=== PATIENT | male | born 1975 | race Caucasian/White ===

== ENCOUNTER 2017-01-01 05:42 | Inpatient (IN) ==
--- NOTE | 2017-01-01 05:53 | Emergency Department Note ---
Disposition Clinical Impression: Suicidal ideation Disposition: Still a Patient Condition: Undetermined Referrals: NO,PCP [Primary Care Provider] - Forms: ED Satisfaction Letter Time of Disposition: 06:26 Psych HPI - General Chief Complaint: ED Psychiatric Symptoms Stated Complaint: Suicidal Ideations Time Seen by Provider: 01/01/17 05:47 Source: patient, EMS Mode of arrival: EMS Limitations: no limitations Nursing Notes Reviewed: Yes Vital Signs Reviewed: Yes - History of Present Illness HPI Narrative: 41-year-old male with history of depression and previous suicide attempt, arrives to [facility] emergency department complaining of depression and suicide ideation. The patient states he has recently been kicked out of his house, recently out of all of his medications include including his insulin for his insulin-dependent diabetes. The patient states that he actually used cocaine today because he was so depressed. The patient will not admit directly if this was not a suicide attempt but when asked he did not deny it. The patient states he is just trying to seek help at this time. Pt complaint: suicidal ideation, feels depressed Duration: constant, getting worse History of similar episodes: Yes Improves with: none Worsens with: none Context: recent drug abuse Alleged intoxication: No Associated Psychiatric Symptoms: depression, suicidal ideation Associated symptoms: Reports: denies other symptoms Traumatic symptoms: denies traumatic injury Treatments prior to arrival: none Self harm or harm to others: admits thoughts of self harm, denies thoughts of harming self/others - Related Data Home Medications Medication Instructions Recorded Confirmed Insulin DETEMIR [Levemir] 80 unit SQ HS 05/09/15 08/21/15 Insulin LISPRO [HumaLOG] 5 units SQ TIDWM 05/09/15 08/21/15 Lisinopril [Zestril] 20 mg PO BID 05/09/15 08/21/15 Buspirone HCl [Buspar] 15 mg PO TID 08/21/15 08/21/15 Gabapentin [Neurontin] 300 mg PO TID 08/21/15 08/21/15 OxyCODONE/APAP 5/325 [Percocet 1 tab PO Q8H PRN 08/21/15 08/21/15 5/325] Pramipexole [Mirapex] 1 mg PO HS 08/21/15 08/21/15 Previous Rx's Medication Instructions Recorded Escitalopram [Lexapro] 10 mg PO DAILY #60 tablet 05/13/15 Quetiapine Fumarate [Seroquel] 25 mg PO BID #60 tablet 05/13/15 Oxycodone HCl/Acetaminophen 1 each PO Q6H PRN #15 tablet 01/05/16 [Percocet 5-325 mg Tablet] Enoxaparin [Lovenox] 40 mg SQ 0600 syringe 01/23/16 Morphine [Morphine Sulfate] 2 mg IV Q4HR PRN #0 syringe 01/23/16 Clindamycin [Cleocin] 150 mg PO BID 14 Days 01/31/16 Levofloxacin [Levaquin] 750 mg PO BID #20 tablet 01/31/16 Doxycycline 100 mg PO BID #20 capsule 03/21/16 Oxycodone HCl/Acetaminophen 1 each PO Q6HR #10 tablet 04/19/16 [Percocet 5-325 mg Tablet] Sulfamethoxazole/Trimeth DS 1 each PO BID 7 Days 04/19/16 [Bactrim DS] OxyCODONE/APAP 5/325 [Percocet 1 each PO Q6HR PRN #10 tablet 06/04/16 5/325] Allergies Allergy/AdvReac Type Severity Reaction Status Date / Time aspirin Allergy Anaphylaxis Verified 06/12/16 21:31 hydrocodone Allergy Anaphylaxis Verified 06/12/16 21:31 ibuprofen Allergy Anaphylaxis Verified 06/12/16 21:31 Penicillins Allergy Anaphylaxis Verified 06/12/16 21:31 rofecoxib [From Vioxx] Allergy Swelling Verified 06/12/16 21:31 of Lip/Tongue/Throat All systems ED: reviewed and negative except as stated. Constitutional: Denies: fever, chills, weakness, weight change Eyes: Denies: eye pain, eye discharge, vision change ENT ED: Denies: ear pain, throat pain, dental pain, hearing loss, epistaxis, congestion, dysphagia Cardiovascular: Denies: chest pain, palpitations, dyspnea on exertion, edema, syncope Respiratory: Denies: cough, dyspnea, wheezes, hemoptysis, stridor Gastrointestinal: Denies: abdominal pain, nausea, vomiting, diarrhea, constipation, hematemesis, melena, hematochezia Genitourinary: Denies: urgency, dysuria, frequency, hematuria Musculoskeletal: Denies: back pain, neck pain, arthralgia, myalgia Integumentary: Denies: rash, abrasion, lesions Neurological: Denies: headache, weakness, numbness, paresthesias, confusion, abnormal gait, vertigo Psychiatric: Reports: anxiety, depression, suicidal thoughts. Denies: homicidal thoughts, auditory hallucinations, visual hallucinations Past Medical History - Past Medical History Attestation: Yes The following information was validated with the patient. Source: patient Medical history: Reports: cancer, CHF, COPD, coronary artery disease, diabetes, hyperlipidemia, hypertension, myocardial infarction, peripheral artery disease, syncope, other Surgical history: Reports: other Psychiatric history: Reports: anxiety, bipolar, depression, previous psychiatric hospitalization - Social History Smoking Status: Current every day smoker Smokeless Tobacco Status: No Alcohol use: Reports: none Drug use: Reports: cocaine Physical Exam Physical Exam: General: Patient alert, no acute distress, not lethargic HEENT: Head normal inspection, atraumatic, PERRLA, oropharynx grossly intact and normal, trachea midline, no JVD Chest: Nontraumatic, nontender, normal chest rise CV: RRR with no murmurs, rubs, gallops Respiratory: Lungs clear to auscultation bilaterally, no rales, rhonchi, wheezes. Abdomen: Normal inspection, Normal bowel sounds 4 quadrants, nontender to palpation : Patient deferred Extremities: Patient has BKA of right lower extremity, mid metatarsal amputation and left foot, appropriate pulses, capillary refill under 2 seconds Neurological: Patient alert and oriented 3, cranial nerves II through XII grossly intact, GCS 15 Skin: Warm, intact, no rashes noted - General Limitations: no limitations General appearance: alert Course Vital Signs Temperature 98.7 F 01/01/17 05:44 Pulse Rate 91 01/01/17 05:44 Respiratory Rate 18 01/01/17 05:44 Blood Pressure 170/109 01/01/17 05:44 O2 Sat by Pulse Oximetry 94 01/01/17 05:44 Temperature 98.7 F 01/01/17 05:44 Pulse Rate 91 01/01/17 05:44 Respiratory Rate 18 01/01/17 05:44 Blood Pressure 170/109 01/01/17 05:44 O2 Sat by Pulse Oximetry 94 01/01/17 05:44 Oxygen Delivery Oxygen Delivery Room Air Psych - MDM Narrative Medical decision making narrative: Workup here in the emergency department being performed. The patient will be signed out to the day team. EKG demonstrates no acute findings. Chest x-ray demonstrates no acute findings. Lab work pending at this time. - EKG Data EKG attestation: Yes I reviewed and interpreted this EKG. EKG results narrative: Rate 88 bpm. IL interval 140 ms. QTC 396 ms. Normal axis. Normal sinus rhythm. No ST elevation or ST depression noted. No acute changes noted from EKG from 06/12/2016. Psychiatric Medical Clearance - Medical Clearance Checklist Medical History: No Social History Section defined Current Vitals: Last Vital Signs Temp 98.7 F 01/01/17 05:44 Pulse 91 01/01/17 05:44 Resp 18 01/01/17 05:44 BP 170/109 01/01/17 05:44 Pulse Ox 94 01/01/17 05:44 Statement of Medical Clearance: I have evaluated the patient, reviewed diagnostic information, and certify that the patient's medical condition is sufficiently stable that transfer to the psychiatric unit does not pose a significant risk of deterioration. Attestation Statement - Attestation Attestation: I examined this patient and my medical decision-making was reviewed with the SECURITIES VAULT SUPERVISOR/PA/Advanced Practice Nurse/Resident Physician. I agree with the documented findings, disposition and treatment plan as described except to the extent set forth below. Patient to ED with depression and suicidal thoughts secondary to situational issues. Exam nonfocal. He is status post foot amputation. Plan. Medical clearance and 1A evaluation.
[2017-01-01 06:48] LABS: Basophils # 0.1 K/mcL (0.0-0.2); Basophils % 0.9 %; Eosinophils # 0.2 K/mcL (0.0-0.6); Eosinophils % 2.1 %; Hematocrit 46.5 % (37.5-50.1); Hemoglobin 15.5 g/dL (12.9-16.9); Immature Granulocytes % 0.3 % (0-4); Lymphocytes # 3.5 K/mcL (0.6-4.6); Mean Corpuscular HGB Conc 33.3 g/dL (31.6-35.5); Mean Corpuscular Hemoglobin 28.2 pg (28.0-33.3); Mean Corpuscular Volume 84.7 fL (83.0-100.0); Mean Platelet Volume 10.5 fL (9.4-12.4); Monocytes # 0.5 K/mcL (0.0-1.3); Monocytes % 4.7 %; Neutrophils # 7.2 K/mcL (1.6-8.9); Platelet Count 331 K/mcL (140-400); Red Blood Count 5.49 M/mcL (4.19-5.50); Red Cell Distribution Width 13.8 % (11.5-14.5)
[2017-01-01 06:49] LABS: Beta-Hydroxybutyric Acid 0.07 mmol/L (0.02-0.27); VBG HCO3 26.5 mEq/L (21-27); VBG PH 7.43 pH Units (7.32-7.42)
[2017-01-01 07:01] LABS: Alanine Aminotransferase 22 Units/L (0-55); Albumin 3.9 g/dL (3.5-5.0); Alkaline Phosphatase 86 Units/L (38-126); Aspartate Amino Transferase 21 Units/L (5-34); BUN/Creatinine Ratio 22 (6-26); Bilirubin,Total 0.4 mg/dL (0.2-1.2); Blood Urea Nitrogen 20 mg/dL (8-26); Calcium 9.9 mg/dL (8.6-10.8); Carbon Dioxide 18 mEq/L (19-29); Chloride 106 mEq/L (98-109); Globulin 4.1 g/dL (2.4-3.5); Glucose 145 mg/dL (70-99); Osmolality,Calculated 291 (280-300); Potassium 4.3 mEq/L (3.5-4.5); Sodium 138 mEq/L (136-145); eGFR For African Americans > 60 (> 60); eGFR For Non-African Americans > 60 (> 60)
[2017-01-01 07:11] LABS: Acetaminophen < 1.0 mcg/mL (10-30); Ethanol < 10 mg/dL (0-10); Salicylate < 5.0 mg/dL (15-30)
[2017-01-01 07:55] LABS: Amphetamine Screen,Urine Negative ng/mL (Cutoff=1000); Barbiturate Screen,Urine Negative ng/mL (Cutoff=200); Benzodiazepines Screen,Urine Negative ng/mL (Cutoff=200); Cannabinoid Screen,Urine Negative ng/mL (Cutoff = 50); Cocaine Screen,Urine Positive ng/mL (Cutoff= 300); Opiate Screen,Urine Negative ng/mL (Cutoff=300); Phencyclidine Screen,Urine Negative ng/mL (Cutoff=25)
--- NOTE | 2017-01-01 10:31 | Emergency Department Note ---
Disposition Clinical Impression: Suicidal ideation Depression Qualifiers: Depression Type: unspecified Qualified Code(s): F32.9 - Major depressive disorder, single episode, unspecified Disposition: Admitted As Inpatient Condition: Undetermined Referrals: NO,PCP [Primary Care Provider] - Forms: ED Satisfaction Letter Time of Disposition: 10:31 Psych HPI - General Chief Complaint: ED Psychiatric Symptoms Stated Complaint: Suicidal Ideations Time Seen by Provider: 01/01/17 05:47 Source: patient, EMS Mode of arrival: EMS - History of Present Illness Duration: constant, getting worse Improves with: none Worsens with: none Associated symptoms: Reports: denies other symptoms Treatments prior to arrival: none - Related Data Home Medications Medication Instructions Recorded Confirmed Insulin DETEMIR [Levemir] 80 unit SQ HS 05/09/15 08/21/15 Insulin LISPRO [HumaLOG] 5 units SQ TIDWM 05/09/15 08/21/15 Lisinopril [Zestril] 20 mg PO BID 05/09/15 08/21/15 Buspirone HCl [Buspar] 15 mg PO TID 08/21/15 08/21/15 Gabapentin [Neurontin] 300 mg PO TID 08/21/15 08/21/15 OxyCODONE/APAP 5/325 [Percocet 1 tab PO Q8H PRN 08/21/15 08/21/15 5/325] Pramipexole [Mirapex] 1 mg PO HS 08/21/15 08/21/15 Previous Rx's Medication Instructions Recorded Escitalopram [Lexapro] 10 mg PO DAILY #60 tablet 05/13/15 Quetiapine Fumarate [Seroquel] 25 mg PO BID #60 tablet 05/13/15 Oxycodone HCl/Acetaminophen 1 each PO Q6H PRN #15 tablet 01/05/16 [Percocet 5-325 mg Tablet] Enoxaparin [Lovenox] 40 mg SQ 0600 syringe 01/23/16 Morphine [Morphine Sulfate] 2 mg IV Q4HR PRN #0 syringe 01/23/16 Clindamycin [Cleocin] 150 mg PO BID 14 Days 01/31/16 Levofloxacin [Levaquin] 750 mg PO BID #20 tablet 01/31/16 Doxycycline 100 mg PO BID #20 capsule 03/21/16 Oxycodone HCl/Acetaminophen 1 each PO Q6HR #10 tablet 04/19/16 [Percocet 5-325 mg Tablet] Sulfamethoxazole/Trimeth DS 1 each PO BID 7 Days 04/19/16 [Bactrim DS] OxyCODONE/APAP 5/325 [Percocet 1 each PO Q6HR PRN #10 tablet 06/04/16 5/325] Allergies Allergy/AdvReac Type Severity Reaction Status Date / Time aspirin Allergy Anaphylaxis Verified 06/12/16 21:31 hydrocodone Allergy Anaphylaxis Verified 06/12/16 21:31 ibuprofen Allergy Anaphylaxis Verified 06/12/16 21:31 Penicillins Allergy Anaphylaxis Verified 06/12/16 21:31 rofecoxib [From Vioxx] Allergy Swelling Verified 06/12/16 21:31 of Lip/Tongue/Throat Constitutional: Denies: fever, chills, weakness, weight change Eyes: Denies: eye pain, eye discharge, vision change ENT ED: Denies: ear pain, throat pain, dental pain, hearing loss, epistaxis, congestion, dysphagia Cardiovascular: Denies: chest pain, palpitations, dyspnea on exertion, edema, syncope Respiratory: Denies: cough, dyspnea, wheezes, hemoptysis, stridor Gastrointestinal: Denies: abdominal pain, nausea, vomiting, diarrhea, constipation, hematemesis, melena, hematochezia Genitourinary: Denies: urgency, dysuria, frequency, hematuria Musculoskeletal: Denies: back pain, neck pain, arthralgia, myalgia Integumentary: Denies: rash, abrasion, lesions Neurological: Denies: headache, weakness, numbness, paresthesias, confusion, abnormal gait, vertigo Psychiatric: Reports: anxiety, depression, suicidal thoughts. Denies: homicidal thoughts, auditory hallucinations, visual hallucinations Past Medical History - Past Medical History Medical history: Reports: cancer, CHF, COPD, coronary artery disease, diabetes, hyperlipidemia, hypertension, myocardial infarction, peripheral artery disease, syncope, other Surgical history: Reports: other Psychiatric history: Reports: anxiety, bipolar, depression, previous psychiatric hospitalization - Social History Smoking Status: Current every day smoker Smokeless Tobacco Status: No Alcohol use: Reports: none Drug use: Reports: cocaine Physical Exam - General Limitations: no limitations General appearance: alert Course - Consultations Consultation #1: Discussed with the1 A, admit. Time: 10:31 Vital Signs Temperature 98.7 F 01/01/17 05:44 Pulse Rate 91 01/01/17 05:44 Respiratory Rate 18 01/01/17 05:44 Blood Pressure 170/109 01/01/17 05:44 O2 Sat by Pulse Oximetry 94 01/01/17 05:44 Temperature 98.7 F 01/01/17 05:44 Pulse Rate 82 01/01/17 07:34 Respiratory Rate 18 01/01/17 07:34 Blood Pressure 127/65 01/01/17 07:34 O2 Sat by Pulse Oximetry 97 01/01/17 07:34 Oxygen Delivery Oxygen Delivery Room Air Psych - Lab Data Result diagrams: 01/01/17 06:34 01/01/17 06:34 Lab Results 01/01/17 01/01/17 01/01/17 Range/Units 06:30 06:34 06:34 WBC 11.5 H (4.3-11.1) K/mcL RBC 5.49 (4.19-5.50) M/mcL Hgb 15.5 (12.9-16.9) g/dL Hct 46.5 (37.5-50.1) % MCV 84.7 (83.0-100.0) fL MCH 28.2 (28.0-33.3) pg MCHC 33.3 (31.6-35.5) g/dL RDW 13.8 (11.5-14.5) % Plt Count 331 (140-400) K/mcL MPV 10.5 (9.4-12.4) fL Immature Gran % 0.3 (0-4) % Seg Neutrophils % 62.0 % Lymphocytes % 30.0 % Monocytes % 4.7 % Eosinophils % 2.1 % Basophils % 0.9 % Neutrophils # 7.2 (1.6-8.9) K/mcL Lymphocytes # 3.5 (0.6-4.6) K/mcL Monocytes # 0.5 (0.0-1.3) K/mcL Eosinophils # 0.2 (0.0-0.6) K/mcL Basophils # 0.1 (0.0-0.2) K/mcL VBG pH (7.32-7.42) pH Units VBG pCO2 (41-51) mmHg VBG pO2 (25-40) mmHg VBG HCO3 (21-27) mEq/L Sodium 138 (136-145) mEq/L Potassium 4.3 (3.5-4.5) mEq/L Chloride 106 (98-109) mEq/L Carbon Dioxide 18 L (19-29) mEq/L BUN 20 (8-26) mg/dL Creatinine 0.93 (0.72-1.25) mg/dL Est GFR ( Amer) > 60 (> 60) Est GFR (Non-Af Amer) > 60 (> 60) BUN/Creatinine Ratio 22 (6-26) Glucose 145 H (70-99) mg/dL POC Glucose 144 H (58-89) Calculated Osmolality 291 (280-300) Calcium 9.9 (8.6-10.8) mg/dL Total Bilirubin 0.4 (0.2-1.2) mg/dL AST 21 (5-34) Units/L ALT 22 (0-55) Units/L Alkaline Phosphatase 86 (38-126) Units/L Troponin I (0-0.03) ng/mL Serum Total Protein 8.0 (6.0-8.3) g/dL Albumin 3.9 (3.5-5.0) g/dL Globulin 4.1 H (2.4-3.5) g/dL Albumin/Globulin Ratio 1.0 L (1.1-2.2) Beta-Hydroxybutyric Acd 0.07 (0.02-0.27) mmol/L Salicylates < 5.0 L (15-30) mg/dL Urine Opiates Screen (Iiqnxl=544) ng/mL Acetaminophen < 1.0 L (10-30) mcg/mL Ur Barbiturates Screen (Bkaknh=125) ng/mL Ur Phencyclidine Scrn (Cutoff=25) ng/mL Ur Amphetamines Screen (Sqystz=0867) ng/mL U Benzodiazepines Scrn (Tzukzf=551) ng/mL Urine Cocaine Screen (Cutoff= 300) ng/mL U Marijuana (THC) Screen (Cutoff = 50) ng/mL Ethyl Alcohol < 10 (0-10) mg/dL 01/01/17 01/01/17 01/01/17 Range/Units 06:34 06:34 07:10 WBC (4.3-11.1) K/mcL RBC (4.19-5.50) M/mcL Hgb (12.9-16.9) g/dL Hct (37.5-50.1) % MCV (83.0-100.0) fL MCH (28.0-33.3) pg MCHC (31.6-35.5) g/dL RDW (11.5-14.5) % Plt Count (140-400) K/mcL MPV (9.4-12.4) fL Immature Gran % (0-4) % Seg Neutrophils % % Lymphocytes % % Monocytes % % Eosinophils % % Basophils % % Neutrophils # (1.6-8.9) K/mcL Lymphocytes # (0.6-4.6) K/mcL Monocytes # (0.0-1.3) K/mcL Eosinophils # (0.0-0.6) K/mcL Basophils # (0.0-0.2) K/mcL VBG pH 7.43 H (7.32-7.42) pH Units VBG pCO2 40 L (41-51) mmHg VBG pO2 46 H (25-40) mmHg VBG HCO3 26.5 (21-27) mEq/L Sodium (136-145) mEq/L Potassium (3.5-4.5) mEq/L Chloride (98-109) mEq/L Carbon Dioxide (19-29) mEq/L BUN (8-26) mg/dL Creatinine (0.72-1.25) mg/dL Est GFR ( Amer) (> 60) Est GFR (Non-Af Amer) (> 60) BUN/Creatinine Ratio (6-26) Glucose (70-99) mg/dL POC Glucose (58-89) Calculated Osmolality (280-300) Calcium (8.6-10.8) mg/dL Total Bilirubin (0.2-1.2) mg/dL AST (5-34) Units/L ALT (0-55) Units/L Alkaline Phosphatase (38-126) Units/L Troponin I 0.02 (0-0.03) ng/mL Serum Total Protein (6.0-8.3) g/dL Albumin (3.5-5.0) g/dL Globulin (2.4-3.5) g/dL Albumin/Globulin Ratio (1.1-2.2) Beta-Hydroxybutyric Acd (0.02-0.27) mmol/L Salicylates (15-30) mg/dL Urine Opiates Screen Negative (Rpdnhv=617) ng/mL Acetaminophen (10-30) mcg/mL Ur Barbiturates Screen Negative (Utriaf=582) ng/mL Ur Phencyclidine Scrn Negative (Cutoff=25) ng/mL Ur Amphetamines Screen Negative (Jbxuje=2058) ng/mL U Benzodiazepines Scrn Negative (Apxghd=081) ng/mL Urine Cocaine Screen Positive H (Cutoff= 300) ng/mL U Marijuana (THC) Screen Negative (Cutoff = 50) ng/mL Ethyl Alcohol (0-10) mg/dL Psychiatric Medical Clearance - Medical Clearance Checklist Medical History: No Social History Section defined Current Vitals: Last Vital Signs Temp 98.7 F 01/01/17 05:44 Pulse 82 01/01/17 07:34 Resp 18 01/01/17 07:34 BP 127/65 01/01/17 07:34 Pulse Ox 97 01/01/17 07:34 Psychiatric Lab Panel: Drug Levels and Toxicity 01/01/17 01/01/17 06:34 07:10 Urine Opiates Screen Negative Acetaminophen < 1.0 L Ur Barbiturates Screen Negative Ur Phencyclidine Scrn Negative Ur Amphetamines Screen Negative U Benzodiazepines Scrn Negative Urine Cocaine Screen Positive H U Marijuana (THC) Screen Negative Ethyl Alcohol < 10 Abnormal Labs: Abnormal lab results WBC 11.5 K/mcL (4.3-11.1) H 01/01/17 06:34 VBG pH 7.43 pH Units (7.32-7.42) H 01/01/17 06:34 VBG pCO2 40 mmHg (41-51) L 01/01/17 06:34 VBG pO2 46 mmHg (25-40) H 01/01/17 06:34 Carbon Dioxide 18 mEq/L (19-29) L 01/01/17 06:34 Glucose 145 mg/dL (70-99) H 01/01/17 06:34 POC Glucose 144 (58-89) H 01/01/17 06:30 Globulin 4.1 g/dL (2.4-3.5) H 01/01/17 06:34 Albumin/Globulin Ratio 1.0 (1.1-2.2) L 01/01/17 06:34 Salicylates < 5.0 mg/dL (15-30) L 01/01/17 06:34 Acetaminophen < 1.0 mcg/mL (10-30) L 01/01/17 06:34 Urine Cocaine Screen Positive ng/mL (Cutoff= 300) H 01/01/17 07:10 Statement of Medical Clearance: I have evaluated the patient, reviewed diagnostic information, and certify that the patient's medical condition is sufficiently stable that transfer to the psychiatric unit does not pose a significant risk of deterioration.
[2017-01-01] MEDS ORDERED: Acetaminophen 325 MG TABLET PO PRN (15:49)
[2017-01-01] MEDS ORDERED: *HR* LORazepam 2 MG/ML VIAL IM PRN (15:49)
[2017-01-01] MEDS ORDERED: traZODone 50 MG TABLET PO PRN (15:49)
[2017-01-01] MEDS ORDERED: *HR* LORazepam 1 MG TABLET PO PRN (15:49)
[2017-01-01] MEDS ORDERED: Haloperidol Lactate 5 MG/ML VIAL IM PRN (15:49)
[2017-01-01] MEDS ORDERED: Mag Hydrox/Al Hydrox/Simeth 30 ML UDC PO PRN (15:49)
[2017-01-01] MEDS ORDERED: MOM Conc 10 ML UD.LIQ PO PRN (15:49)
[2017-01-01] MEDS ORDERED: hydrOXYzine pamoate 25 MG CAPSULE PO PRN (15:49)
[2017-01-01] MEDS ORDERED: Nicotine 21 MG PATCH.TD24 TD SCH (16:00)
[2017-01-01] MEDS: Nicotine 2 MG GUM BC PRN (18:05)
[2017-01-01] MEDS: *HR* OxyCODONE Immed Rel 15 MG TABLET PO PRN (18:53)
[2017-01-01] MEDS: Insulin DETEMIR 100 UNIT/ML X5UNITS SQ SCH (20:34)
[2017-01-01] MEDS: Gabapentin 300 MG CAPSULE PO SCH (20:34)
[2017-01-01] MEDS ORDERED: Lisinopril 20 MG TABLET PO SCH (21:00)
[2017-01-02] MEDS: *HR* OxyCODONE Immed Rel 15 MG TABLET PO PRN ×3 (01:30→13:39)
[2017-01-02] MEDS: Gabapentin 300 MG CAPSULE PO SCH ×3 (08:23→20:06)
[2017-01-02] MEDS ORDERED: Dextrose Gel 15 GM PO PRN ×2 (11:59)
[2017-01-02] MEDS ORDERED: *HR* Dextrose 50 % in Water (Syg) 50 ML SYRINGE IVP PRN (11:59)
[2017-01-02] MEDS ORDERED: D5% in Water 1,000 ML IVC PRN (11:59)
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
[2017-01-02] MEDS: Insulin LISPRO 300 UNITS/3 ML VIAL SQ SCH ×3 (12:13→21:02)
[2017-01-02] MEDS: Insulin DETEMIR 100 UNIT/ML X5UNITS SQ SCH (20:42)
[2017-01-02] MEDS: Nicotine 2 MG GUM BC PRN (20:42)
[2017-01-03] MEDS: Gabapentin 300 MG CAPSULE PO SCH ×3 (08:18→21:01)
[2017-01-03] MEDS: Insulin LISPRO 300 UNITS/3 ML VIAL SQ SCH ×4 (08:22→21:05)
[2017-01-03] MEDS: *HR* OxyCODONE Immed Rel 15 MG TABLET PO PRN ×3 (08:26→22:52)
--- NOTE | 2017-01-03 13:26 | Psychiatry Progress Note ---
Date of Encounter: 01/03/17 Time of Encounter: 13:21 Subjective Interval history: Reports mood is a little better but still feels wiped out by the Seroquel. Only given 50mg last night (down from 150mg) but client reports it still makes him sleep all day. Dizzy when standing (client positive dizziness secondary to Seroquel). Seen at bedside due to dizziness. Discussed stopping the medication as it seems Seroquel is interfering with basic functioning. Client agreeable. Very apologetic for not wanting to get out of bed. Has been somewhat irritable with staff but staff believe this is secondary to multiple housekeeping interruptions in room. Overall he is not as lethargic appearing as yesterday. However, he is mostly staying in his room. Has told staff he is not a group person and he has refused all offered groups. According to manager social he will be a placement issue. May only qualify for halfway. Review of Systems Constitutional: Reports: weakness. Denies: fever, chills, weight change Eyes: Denies: eye pain, vision change Ears, Nose, Throat: Denies: ear pain, throat pain, dental pain, hearing loss, congestion Cardiovascular: Denies: chest pain, palpitations, dyspnea on exertion Respiratory: Denies: cough, dyspnea, wheezes Gastrointestinal: Denies: abdominal pain, nausea, vomiting, diarrhea, constipation Musculoskeletal: Reports: myalgia Neurological: Reports: weakness, other. Denies: headache, numbness, memory loss Objective: Exam Patient orientation: Yes Person, Yes Time, Yes Place Level of alertness: Alert Patient appearance: Appropriate Behavior: calm, cooperative Psychomotor activity: Normal Eye contact: Maintains Eye Contact Mood description: Depressed, Irritable Affect description: congruent with mood, full range Speech pattern: Normal rate, Normal rhythm, Normal tone Speech volume: Normal Thought process: Linear Thought content: No Suicidal ideation, No Homicidal ideation, No Overt delusions Perceptual disturbances: No Auditory hallucinations, No Visual hallucinations Judgment: Limited Insight: Minimal Results - Vital Signs Vital Signs: Temp Pulse Resp BP Pulse Ox 97.7 F 79 18 147/82 96 01/03/17 08:49 01/03/17 08:49 01/03/17 08:49 01/03/17 08:49 01/01/17 11:15 - Labs Labs: Laboratory Results - last 24 hr 01/02/17 01/02/17 01/03/17 16:21 20:04 06:45 POC Glucose 184 H 152 H 163 H 01/03/17 01/03/17 08:03 11:37 POC Glucose 150 H 127 H Assessment and Plan (1) Suicidal ideation Current visit: Yes Status: Acute Plan: Continue hospitalization, Close observation, Suicide Precautions per unit protocol, Encourage participation in unit milieu, Group Therapy, Monitor sleep, Monitor appetite Risks, benefits, side effects, alternatives discussed w/pt: Yes Patient agreeable to treatment: Yes Consult Discharge Plan - Plan Referrals: NO,PCP [Primary Care Provider] -
--- NOTE | 2017-01-03 16:35 | Electrocardiograph Report ---
[address] [address] Test Date: 2017-01-01 Pat Name: Norman Redd Department: 105 Room: 1A24 Gender: M [employer] St[employer] Operator: MORGAN : 1975 Requested By: Federico Friedman Order Number: [id number] Reading MD: Abundio Warren MD Measurements Intervals [place] Rate: 88 P: 44 DE: 140 QRS: 32 QRSD: 90 T: 74 QT: 351 QTc: 396 Interpretive Statements SINUS RHYTHM Electronically Signed On 01-03-2017 16:33:16 EDT by Abundio Warren MD
[2017-01-03] MEDS: Nicotine 2 MG GUM BC PRN (21:00)
[2017-01-03] MEDS: Insulin DETEMIR 100 UNIT/ML X5UNITS SQ SCH (21:10)
[2017-01-04] MEDS: *HR* OxyCODONE Immed Rel 15 MG TABLET PO PRN ×4 (05:53→20:54)
[2017-01-04] MEDS: Insulin LISPRO 300 UNITS/3 ML VIAL SQ SCH ×4 (08:08→20:59)
[2017-01-04] MEDS: Gabapentin 300 MG CAPSULE PO SCH ×3 (09:02→20:55)
--- NOTE | 2017-01-04 14:55 | Psychiatry Progress Note ---
Date of Encounter: 01/04/17 Time of Encounter: 14:50 Subjective Interval history: Staff are seeing more of the antisocial side of client. Yesterday he was demanding, irritable, lying, and staff splitting. Today he is more agreeable but he is still saying different things to different people. Told this bid writer he never said he was suicidal. Admitted to feelings of hopelessness due to multiple life stressors but denied ever being suicidal. Wants to leave. Being evaluated for group home care since he just lost his home. However, today he is saying he can live with his sister. Staff will verify this. Discussed med options. Believes the only thing that has ever helped him is 0.5mg of Klonopin. Will D/C Ativan and make Klonopin available as a prn. Already taking Lexapro and Buspar. Seroquel stopped due to oversedation. Review of Systems Constitutional: Denies: fever, chills, weakness, weight change Eyes: Denies: eye pain, vision change Ears, Nose, Throat: Denies: ear pain, throat pain, dental pain, hearing loss, congestion Cardiovascular: Denies: chest pain, palpitations, dyspnea on exertion Respiratory: Denies: cough, dyspnea, wheezes Gastrointestinal: Denies: abdominal pain, nausea, vomiting, diarrhea, constipation Musculoskeletal: Reports: myalgia Neurological: Reports: weakness, other Objective: Exam Patient orientation: Yes Person, Yes Time, Yes Place Level of alertness: Alert Patient appearance: Appropriate Behavior: calm, cooperative Psychomotor activity: Normal Eye contact: Maintains Eye Contact Mood description: Depressed, Irritable Affect description: congruent with mood Speech pattern: Normal rate, Normal rhythm, Normal tone Speech volume: Normal Thought process: Linear, Goal Oriented Thought content: No Suicidal ideation, No Homicidal ideation, No Overt delusions Perceptual disturbances: No Auditory hallucinations, No Visual hallucinations Judgment: Limited Insight: Minimal Results - Vital Signs Vital Signs: Temp Pulse Resp BP Pulse Ox 97.4 F L 67 16 152/93 96 01/04/17 08:49 01/04/17 08:49 01/04/17 08:49 01/04/17 08:49 01/01/17 11:15 - Labs Labs: Laboratory Results - last 24 hr 01/03/17 01/03/17 01/04/17 16:40 21:05 05:54 POC Glucose 135 H 239 H 141 H 06/20/17 11:29 POC Glucose 159 H Assessment and Plan (1) Suicidal ideation Current visit: Yes Status: Acute Risks, benefits, side effects, alternatives discussed w/pt: Yes Patient agreeable to treatment: Yes (2) Bipolar disorder Current visit: No Status: Chronic Plan: Continue hospitalization, Close observation, Suicide Precautions per unit protocol, Encourage participation in unit milieu, Group Therapy, Monitor sleep, Monitor appetite Risks, benefits, side effects, alternatives discussed w/pt: Yes Patient agreeable to treatment: Yes Qualifiers: Active/Remission status: in partial remission Most recent bipolar episode type: most recent episode unspecified type Qualified Code(s): F31.70 - Bipolar disorder, currently in remission, most recent episode unspecified Consult Discharge Plan - Plan Referrals: NO,PCP [Primary Care Provider] -
[2017-01-04] MEDS: clonazePAM 0.5 MG TABLET PO PRN ×2 (15:26→20:55)
[2017-01-04] MEDS: Insulin DETEMIR 100 UNIT/ML X5UNITS SQ SCH (20:55)
[2017-01-04] MEDS: Nicotine 2 MG GUM BC PRN (20:55)
[2017-01-05] MEDS: clonazePAM 0.5 MG TABLET PO PRN ×2 (03:02→08:42)
[2017-01-05] MEDS: *HR* OxyCODONE Immed Rel 15 MG TABLET PO PRN ×2 (03:03→08:42)
[2017-01-05] MEDS: Nicotine 2 MG GUM BC PRN (03:23)
[2017-01-05] MEDS: Insulin LISPRO 300 UNITS/3 ML VIAL SQ SCH (08:20)
[2017-01-05] MEDS: Gabapentin 300 MG CAPSULE PO SCH (08:42)
[2017-01-05 08:57] VITALS: BP 148/95
--- NOTE | 2017-01-05 10:59 | Discharge Summary ---
Date of Encounter: 01/05/17 Time of Encounter: 10:40 Diagnosis - Discharge Diagnosis (1) Suicidal ideation Status: Acute (2) Bipolar disorder Status: Chronic Qualifiers: Active/Remission status: in partial remission Most recent bipolar episode type: most recent episode unspecified type Qualified Code(s): F31.70 - Bipolar disorder, currently in remission, most recent episode unspecified Medications - Discharge Medications Prescriptions: Buspirone HCl [Buspar] 15 mg PO TID #90 tablet clonazePAM [Klonopin] 0.5 mg PO TID PRN #90 tablet PRN Reason: Anxiety Escitalopram [Lexapro] 10 mg PO DAILY #30 tablet Gabapentin [Neurontin] 300 mg PO TID #90 capsule Insulin DETEMIR [Levemir] 50 unit SQ HS 30 Days Insulin LISPRO [HumaLOG] 2 units SQ HS 30 Days Insulin LISPRO [HumaLOG] 2 units SQ TIDWM 30 Days Lisinopril [Zestril] 10 mg PO DAILY #30 tablet OxyCODONE Immed Rel [Roxicodone 15 MG] 15 mg PO QID PRN 30 Days PRN Reason: Pain 4-10 Pramipexole [Mirapex] 1 mg PO HS #30 tablet Simvastatin 40 PO DAILY 01/01/17 [History] Buspirone HCl [Buspar] 15 mg PO TID #90 tablet 01/05/17 [Rx] Escitalopram [Lexapro] 10 mg PO DAILY #30 tablet 01/05/17 [Rx] Gabapentin [Neurontin] 300 mg PO TID #90 capsule 01/05/17 [Rx] Insulin DETEMIR [Levemir] 50 unit SQ HS 30 Days 01/05/17 [Rx] Insulin LISPRO [HumaLOG] 0 units SQ HS #0 vial 01/05/17 [Rx] Insulin LISPRO [HumaLOG] 0 units SQ TIDAC #0 vial 01/05/17 [Rx] Insulin LISPRO [HumaLOG] 2 units SQ HS 30 Days 01/05/17 [Rx] Insulin LISPRO [HumaLOG] 2 units SQ TIDWM 30 Days 01/05/17 [Rx] Lisinopril [Zestril] 10 mg PO DAILY #30 tablet 01/05/17 [Rx] OxyCODONE Immed Rel [Roxicodone 15 MG] 15 mg PO QID PRN 30 Days 06/21/17 [Rx] Pramipexole [Mirapex] 1 mg PO HS #30 tablet 01/05/17 [Rx] clonazePAM [Klonopin] 0.5 mg PO TID PRN #90 tablet 01/05/17 [Rx] Allergies aspirin Allergy (Verified 06/12/16 21:31) Anaphylaxis hydrocodone Allergy (Verified 06/12/16 21:31) Anaphylaxis ibuprofen Allergy (Verified 06/12/16 21:31) Anaphylaxis Penicillins Allergy (Verified 06/12/16 21:31) Anaphylaxis rofecoxib [From Vioxx] Allergy (Verified 06/12/16 21:31) Swelling of Lip/Tongue/Throat Provider Date of admission: 01/01/17 11:11 Primary care physician: PCP NO Discharging clinician: Arely Owens Assessment and Plan - Patient/Caregiver Discharge Instructions Activity: resume usual activities as tolerated Diet: diabetic diet - Follow up Plan Follow up with: [facility] [Outside] - 01/13/17 10:30 am (The above appointment is with Mary Jane Oliveira, counselor at [facility]'s [facility]. Your first appointment will be very thorough and the total appointment time will take between two and three hours. You will be completing paperwork, meeting with a counselor and a nurse, and developing a treatment plan. You will receive follow- up appointments for on-going services , which could include counseling and community support. Please bring the following with you to your first visit to the clinic: 1) proof of household income (two consecutive pay stubs, social security award letter, bank statement , statement letter from [facility], child support statement, IRS 1040 or W2 form, or a statement from the person who financially supports you stating they help provide for your basic needs), 2) proof of residency (drivers license, a piece of mail showing your address, a statement from person you live with verifying you live at their address), 3) your social security card, 4) photo ID, and 5) your insurance card (if you have commercial insurance you must call to obtain a prior authorization number before you arrive to your first appointment). If you do not bring these items, you will not be seen.) Rick Ledbetter, PAC [Physician Superintendent [employer]] - 01/24/17 1:00 pm (The above appointment is with Mirtha Bryant CNP and associate of Rick Ledbetter at [facility]. This appointment is to establish you with a primary care provider. Your needs for medication and/or Vivitrol will be assessed and treated as indicated as well. Please arrive 15 minutes early to complete paperwork. Please bring your insurance card, photo ID and list of current medications to your first appointment. This is the first available appointment. You may contact the office regularly to check for cancellations that may allow you to be seen sooner. ) Functional capacity at discharge: wheelchair bound Overall status at discharge: Stable Disposition: Home, Self-Care Hospital Course Hospital course: Mr. Redd is a 41 year old male who was admitted for SI. Multiple life stressors. At time of admission he was prescribed Seroquel which was oversedating him. He spent the first few days in bed. Seroquel was discontinued and he became more alert and active. He denied SI at the time of discharge and denied ever saying he was suicidal. He did admit to feeling hopeless at the time of admission but reported being in the hospital helped him put things in perspective. Given the magnitude of his health problems he was assessed for a residential level of care. However, at the time of discharge he was feeling much better and ultimately decided to live with his mother. He was given a months supply of his medications and outpatient mental health appointments in order to continue with treatment. On the day of discharge he was bright and talkative. He was future oriented and making plans. - Time Spent with Patient Total time spent providing and/or coordinating discharge services: Quality - Multiple Antipsychotics Patient discharged on 2 or more antipsychotic medications: No Procedures - Procedures Procedures: Medication Management, Crisis Stabilization, Supportive Therapy, Group Therapy Mental Status Exam - Mental Status Exam Patient orientation: Yes Person, Yes Time, Yes Place Level of alertness: Alert Patient appearance: Appropriate Behavior: calm, cooperative Psychomotor activity: Normal Eye contact: Maintains Eye Contact Mood description: Euthymic/stable Affect description: congruent with mood Speech pattern: Normal rate, Normal rhythm, Normal tone Speech Volume: Normal Thought process: Linear, Goal Oriented Thought Content: No Suicidal ideation, No Homicidal ideation, No Overt delusions Perceptual Disturbances: No Auditory hallucinations, No Visual hallucinations Judgment: Fair Insight: Partial
== END 2017-01-05 11:35 | disposition home or self-care (01) | DRG 753 ==
LOC: EMEROO 05:42 → 1ANU 11:11
PROVIDERS: ADMIT Psychiatry & Neurology Psychiatry; ATTEND Psychiatry & Neurology Psychiatry

== ENCOUNTER 2017-01-25 00:33 | Inpatient (IN) ==
[2017-01-25 02:19] LABS: Basophils # 0.1 K/mcL (0.0-0.2); Basophils % 0.6 %; Eosinophils # 0.2 K/mcL (0.0-0.6); Eosinophils % 1.7 %; Hemoglobin 14.7 g/dL (12.9-16.9); Immature Granulocytes % 0.3 % (0-4); Lymphocytes # 3.5 K/mcL (0.6-4.6); Lymphocytes % 27.3 %; Mean Corpuscular HGB Conc 33.4 g/dL (31.6-35.5); Mean Corpuscular Volume 83.8 fL (83.0-100.0); Mean Platelet Volume 10.5 fL (9.4-12.4); Monocytes # 0.7 K/mcL (0.0-1.3); Monocytes % 5.8 %; Neutrophils # 8.2 K/mcL (1.6-8.9); Platelet Count 320 K/mcL (140-400); Red Blood Count 5.25 M/mcL (4.19-5.50); Red Cell Distribution Width 13.8 % (11.5-14.5); Segmented Neutrophils % 64.3 %
[2017-01-25 02:31] LABS: BUN/Creatinine Ratio 14 (6-26); Blood Urea Nitrogen 15 mg/dL (8-26); Calcium 9.7 mg/dL (8.6-10.8); Carbon Dioxide 24 mEq/L (19-29); Chloride 107 mEq/L (98-109); Glucose 152 mg/dL (70-99); Osmolality,Calculated 292 (280-300); Sodium 139 mEq/L (136-145); eGFR For African Americans > 60 (> 60); eGFR For Non-African Americans > 60 (> 60)
[2017-01-25 02:32] LABS: Acetaminophen < 1.0 mcg/mL (10-30); Ethanol < 10 mg/dL (0-10); Salicylate < 5.0 mg/dL (15-30)
--- NOTE | 2017-01-25 02:42 | Emergency Department Note ---
Disposition Clinical Impression: Suicidal ideations Closed traumatic nondisplaced fracture of thoracic vertebra Qualifiers: Encounter type: initial encounter Qualified Code(s): S22.009A - Unspecified fracture of unspecified thoracic vertebra, initial encounter for closed fracture Disposition: Admitted As Inpatient Condition: Good Time of Disposition: 07:48 Fall HPI - General Chief Complaint: ED Fall Stated Complaint: fall, neck pain, SI Time Seen by Provider: 01/25/17 01:39 Source: patient, EMS Mode of arrival: EMS Limitations: no limitations Nursing Notes Reviewed: Yes Vital Signs Reviewed: Yes - History of Present Illness HPI Narrative: 41-year-old male history of insulin-dependent diabetes mellitus presents with fall and suicidal ideation. States earlier today he wanted to hurt himself. He is tired of the pain. He decided to throw himself from the top of flight of stairs. He essentially said his wheelchair back to to the top of the stairs and fell backwards. Reports roughly 20 steps. He denies any loss of consciousness and asked if he hit his head he says most likely I did but denies any head pain. The most of his pain is located pinpoint to his mid-back. States he has had multiple surgeries to the area. Denies any neck pain here. He presents with a cervical collar however. He has said multiple times "I have told people I don't have any neck pain." Patient reports some auditory hallucinations. Denies any visual hallucinations. Denies any prior history of suicidal ideation. Not take any anticoagulants. Denies any alcohol use or drug use. Patients history appears inconsistent with his presentation. Will get a CT of his cervical, thoracic and lumbar spine. Due to his suicidal ideation will get medical clearance for psychiatric clearance. - Related Data Home Medications Medication Instructions Recorded Confirmed Simvastatin [Zocor] 40 mg PO HS #0 01/01/17 01/25/17 Previous Rx's Medication Instructions Recorded Buspirone HCl [Buspar] 15 mg PO TID #90 tablet 01/05/17 Escitalopram [Lexapro] 10 mg PO DAILY #30 tablet 01/05/17 Gabapentin [Neurontin] 300 mg PO TID #90 capsule 01/05/17 Insulin DETEMIR [Levemir] 50 unit SQ HS 30 Days 01/05/17 Insulin LISPRO [HumaLOG] 2 units SQ TIDWM 30 Days 01/05/17 Lisinopril [Zestril] 10 mg PO DAILY #30 tablet 01/05/17 OxyCODONE Immed Rel [Roxicodone 15 15 mg PO QID PRN 30 Days 01/05/17 MG] Pramipexole [Mirapex] 1 mg PO HS #30 tablet 01/05/17 clonazePAM [Klonopin] 0.5 mg PO TID PRN #90 tablet 01/05/17 Allergies Allergy/AdvReac Type Severity Reaction Status Date / Time aspirin Allergy Anaphylaxis Verified 06/12/16 21:31 hydrocodone Allergy Anaphylaxis Verified 06/12/16 21:31 ibuprofen Allergy Anaphylaxis Verified 06/12/16 21:31 Penicillins Allergy Anaphylaxis Verified 06/12/16 21:31 rofecoxib [From Vioxx] Allergy Swelling Verified 06/12/16 21:31 of Lip/Tongue/Throat All systems ED: reviewed and negative except as stated. Constitutional: Denies: fever, chills Cardiovascular: Denies: chest pain Respiratory: Denies: cough, dyspnea Gastrointestinal: Denies: abdominal pain Musculoskeletal: Reports: back pain. Denies: neck pain Integumentary: Denies: rash, abrasion Neurological: Denies: headache Fall PMH - Past Medical History Medical history: Reports: cancer, CHF, COPD, coronary artery disease, diabetes, hyperlipidemia, hypertension, myocardial infarction, peripheral artery disease, syncope, other Surgical history: Reports: cancer surgery, other Psychiatric history: Reports: depression, previous psychiatric hospitalization - Social History Smoking Status: Current every day smoker Alcohol use: Reports: none Drug use: Reports: cocaine Physical Exam - General Limitations: no limitations General appearance: alert, in no apparent distress, obese - Head Head exam: atraumatic, normocephalic, normal inspection - Expanded Head Exam Head exam physicial: Present: other (No facial instability). Absent: abrasion, contusion - Eye Eye exam: Present: normal appearance, PERRL, EOMI. Absent: scleral icterus - ENT ENT exam: normal exam, normal oropharynx, mucous membranes moist, TM's normal bilaterally - Neck Neck exam: Present: normal inspection, full ROM, trachea midline. Absent: tenderness - Expanded Neck Exam Neck exam focused ED: Absent: midline tenderness - Chest Chest inspection: Present: normal inspection, symmetric chest wall rise - Respiratory Respiratory exam: Present: normal lung sounds bilaterally. Absent: respiratory distress - Cardiovascular Cardiovascular exam: Present: regular rate, normal rhythm, normal heart sounds - Abdominal Exam Abdominal exam: Present: soft, Non-Tender, normal bowel sounds. 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 Absent: tenderness, pedal edema - Back Exam Back exam: Present: normal inspection, full ROM, vertebral tenderness (Pinpoint tenderness along mid thoracic roughly T9-T11), other (no ecchymosis, erythema or stepoff). Absent: tenderness, CVA tenderness (R), CVA tenderness (L), paraspinal tenderness, straight leg raise (R), straight leg raise (L) - Neurological Exam Neurological exam: Present: alert, oriented X3, CN II-XII intact - Expanded Neurological Exam Patient oriented to: Present: person, place, time Speech: Present: fluid speech Cranial nerves: EOM function (II, III, IV, ): Normal, facial sensation (V): Normal, facial palsy (VII): Normal, gag reflex (IX): Normal, spinal accessory function (XI): Normal, tongue deviation (XII): Normal Motor strength - LUE: 5/5 Motor strength - RUE: 5/5 Motor strength - LLE: 5/5 Motor strength - RLE: 5/5 - Psychiatric Psychiatric exam: Present: normal affect, depressed, suicidal ideation - Skin Skin exam: Present: warm, dry, intact, normal color Course Course Narrative: 41-year-old male presents with back pain after a fall. He has been feel more depressed and voices positive hurting himself. He admits to throwing himself from the top of flight of stairs. Denies any loss of consciousness. Denies any midline cervical tenderness. He has pinpoint tenderness along the mid thoracic. No weakness in his legs. His exam is otherwise unremarkable. Images of his spine shows a new nondisplaced T10 to T11 fracture. No retropulsion. Is also lymphadenopathy seen and his cervical spine CT. His labs or otherwise unremarkable. His white blood cell count is 12.6. Unlikely to be lymphoma. Patient has a positive cocaine in his urine drug screen. Patient is stable for psychiatric evaluation. Thoracic Spine CT 01/25/17 02:04 IMPRESSION: 1. Compared to the prior CT from 11/25/2015, there is a new nondisplaced fracture through the T10-T11 anterior osteophyte extending into the anterior aspects of the T10 and T11 vertebral bodies. No retropulsion of fragments into the spinal canal. This is age-indeterminate, but possibly acute subacute. 2. No acute fracture or subluxation of lumbar spine. 3. Partial visualization of multiple right lower lobe pulmonary nodule, including a 115 mm partially calcified right posterior lower lobe nodule and a noncalcific 9.5 mm nodule superior segment of the right lower lobe. Follow-up as before. RECOMMENDATIONS: Fleischner Society guidelines for follow-up and management of incidentally detected pulmonary nodules: Single Solid Nodule: Nodule size less than 6 mm In a low-risk patient, no routine follow-up. In a high-risk patient, optional CT at 12 months. Nodule size equals 6-8 mm In a low-risk patient, CT at 6-12 months, then consider CT at 18-24 months. In a high-risk patient, CT at 6-12 months, then CT at 18-24 months. Nodule size greater than 8 mm In a low-risk patient, consider CT, PET/CT, or tissue sampling at 3 months. In a high-risk patient, consider CT, PET/CT, or tissue sampling at 3 months. Multiple Solid Nodules: Nodule size less than 6 mm In a low-risk patient, no routine follow-up. In a high-risk patient, optional CT at 12 months. Nodule size equals 6-8 mm In a low-risk patient, CT at 3-6 months, then consider CT at 18-24 months. In a high-risk patient, CT at 3-6 months, then CT at 18-24 months. Nodule size greater than 8 mm In a low-risk patient, CT at 3-6 months, then consider CT at 18-24 months. In a high-risk patient, CT at 3-6 months, then CT at 18-24 months. - Low risk patients include individuals with minimal or absent history of smoking and other known risk factors. - High risk patients include individuals with a history or smoking or known risk factors. Radiology 2017 http://pubs.rsna.org/doi/full/10.1148/radiol.[email or web address] D/ / Chandan Monique MD / Chandan Monique MD Interpreting Provider: Chandan Monique MD Cervical Spine CT 01/25/17 02:07 IMPRESSION: 1. No definite fracture. 2. Persistent bilateral cervical adenopathy. This may be reactive though lymphoma should be considered given the persistence of this finding. D/ / Zain Meredith MD / Zain Meredith MD Interpreting Provider: Zain Meredith MD Lumbar Spine CT 01/25/17 02:07 IMPRESSION: 1. Compared to the prior CT from 11/25/2015, there is a new nondisplaced fracture through the T10-T11 anterior osteophyte extending into the anterior aspects of the T10 and T11 vertebral bodies. No retropulsion of fragments into the spinal canal. This is age-indeterminate, but possibly acute subacute. 2. No acute fracture or subluxation of lumbar spine. 3. Partial visualization of multiple right lower lobe pulmonary nodule, including a 115 mm partially calcified right posterior lower lobe nodule and a noncalcific 9.5 mm nodule superior segment of the right lower lobe. Follow-up as before. RECOMMENDATIONS: Fleischner Society guidelines for follow-up and management of incidentally detected pulmonary nodules: Single Solid Nodule: Nodule size less than 6 mm In a low-risk patient, no routine follow-up. In a high-risk patient, optional CT at 12 months. Nodule size equals 6-8 mm In a low-risk patient, CT at 6-12 months, then consider CT at 18-24 months. In a high-risk patient, CT at 6-12 months, then CT at 18-24 months. Nodule size greater than 8 mm In a low-risk patient, consider CT, PET/CT, or tissue sampling at 3 months. In a high-risk patient, consider CT, PET/CT, or tissue sampling at 3 months. Multiple Solid Nodules: Nodule size less than 6 mm In a low-risk patient, no routine follow-up. In a high-risk patient, optional CT at 12 months. Nodule size equals 6-8 mm In a low-risk patient, CT at 3-6 months, then consider CT at 18-24 months. In a high-risk patient, CT at 3-6 months, then CT at 18-24 months. Nodule size greater than 8 mm In a low-risk patient, CT at 3-6 months, then consider CT at 18-24 months. In a high-risk patient, CT at 3-6 months, then CT at 18-24 months. - Low risk patients include individuals with minimal or absent history of smoking and other known risk factors. - High risk patients include individuals with a history or smoking or known risk factors. Radiology 2017 http://pubs.rsna.org/doi/full/10.1148/radiol.9250076876 D/ / Chandan Monique MD / Chandan Monique MD Interpreting Provider: Chandan Monique MD - Reevaluation(s) Reevaluation #1: [facility] psychiatry consulted. Pending his disposition will speak to Dr. Hogue or information systems specialist regarding treatment of his nondisplaced fracture. We will see if we can set about with outpatient follow-up or if he needs any further intervention at this time. Again he remains neurologically intact. No focal neural deficits. Full range of motion to his lower extremities. Reevaluation #2: Patient signed up to daytime physician Dr. Morales for further management and possible placement. [facility] has been notified of the paperwork requirement of [facility]. They state after 8 o'clock they will have the appropriate staff to do this. Patients aware of this. - Consultations Consultation #1: [facility] for placement Time: 04:59 Consultation #2: [facility] recommends admission to [facility], require a doctor to doctor call . Spoke to the physician, he requires speaking to the emergency department and social service worker for possible transfer care. Consultation #3: Spoke to Dr. Hogue, if the patient is admitted here at [facility] recommend hospitalist to consult. Consideration for possible kyphoplasty versus brace versus analgesic control. If the patient is to be discharged and needs outpatient follow-up he may call the spine clinic sometime tomorrow 9 AM and he will be fitted for a brace. Vital Signs Temperature 98.7 F 01/25/17 00:34 Pulse Rate 97 07/11/17 00:34 Respiratory Rate 18 01/25/17 00:34 Blood Pressure 161/92 01/25/17 00:34 O2 Sat by Pulse Oximetry 97 01/25/17 00:34 Temperature 97.9 F 01/25/17 11:02 Pulse Rate 65 01/25/17 11:02 Respiratory Rate 16 01/25/17 17:04 Blood Pressure 111/69 01/25/17 17:04 O2 Sat by Pulse Oximetry 98 01/25/17 11:02 Oxygen Delivery Oxygen Delivery Room Air Fall - Medical Records Medical records reviewed: Yes I reviewed the patient's medical records. - Lab Data Lab results reviewed: Yes I reviewed the patient's lab results. Result diagrams: 01/25/17 02:06 01/25/17 02:06 Lab Results 01/25/17 01/25/17 01/25/17 Range/Units 02:06 02:06 03:29 WBC 12.7 H (4.3-11.1) K/mcL RBC 5.25 (4.19-5.50) M/mcL Hgb 14.7 (12.9-16.9) g/dL Hct 44.0 (37.5-50.1) % MCV 83.8 (83.0-100.0) fL MCH 28.0 (28.0-33.3) pg MCHC 33.4 (31.6-35.5) g/dL RDW 13.8 (11.5-14.5) % Plt Count 320 (140-400) K/mcL MPV 10.5 (9.4-12.4) fL Immature Gran % 0.3 (0-4) % Seg Neutrophils % 64.3 % Lymphocytes % 27.3 % Monocytes % 5.8 % Eosinophils % 1.7 % Basophils % 0.6 % Neutrophils # 8.2 (1.6-8.9) K/mcL Lymphocytes # 3.5 (0.6-4.6) K/mcL Monocytes # 0.7 (0.0-1.3) K/mcL Eosinophils # 0.2 (0.0-0.6) K/mcL Basophils # 0.1 (0.0-0.2) K/mcL Sodium 139 (136-145) mEq/L Potassium 4.0 (3.5-4.5) mEq/L Chloride 107 (98-109) mEq/L Carbon Dioxide 24 (19-29) mEq/L BUN 15 (8-26) mg/dL Creatinine 1.05 (0.72-1.25) mg/dL Est GFR ( Amer) > 60 (> 60) Est GFR (Non-Af Amer) > 60 (> 60) BUN/Creatinine Ratio 14 (6-26) Glucose 152 H (70-99) mg/dL Calculated Osmolality 292 (280-300) Calcium 9.7 (8.6-10.8) mg/dL Urine Color Yellow (Yellow) Urine Clarity Clear (Clear) Urine pH 5.5 (5.0-8.0) pH Units Ur Specific [place] 1.030 H (1.010-1.025) Urine Protein >=300 H (Neg-Trace) mg/dL Urine Glucose (UA) Normal (Normal) mg/dL Urine Ketones Negative (Negative) mg/dL Urine Blood Negative (Negative) Urine Nitrite Negative (Negative) Urine Bilirubin Small H (Negative) Urine Urobilinogen Normal (Normal) mg/dL Ur Leukocyte Esterase Negative (Negative) Urine Microscopic RBC 5-15 H (0-3) per hpf Urine Microscopic WBC 15-30 H (0-3) per hpf Ur Squamous Epith Cells Many H (None-Few) per lpf Urine Bacteria None Seen (None-Few) per hpf Hyaline Casts None Seen (None-Few) per lpf Salicylates < 5.0 L (15-30) mg/dL Urine Opiates Screen (Sskjdz=315) ng/mL Acetaminophen < 1.0 L (10-30) mcg/mL Ur Barbiturates Screen (Xstdqd=676) ng/mL Ur Phencyclidine Scrn (Cutoff=25) ng/mL Ur Amphetamines Screen (Kilemy=2380) ng/mL U Benzodiazepines Scrn (Noidoy=607) ng/mL Urine Cocaine Screen (Cutoff= 300) ng/mL U Marijuana (THC) Screen (Cutoff = 50) ng/mL Ethyl Alcohol < 10 (0-10) mg/dL 01/25/17 Range/Units 03:29 WBC (4.3-11.1) K/mcL RBC (4.19-5.50) M/mcL Hgb (12.9-16.9) g/dL Hct (37.5-50.1) % MCV (83.0-100.0) fL MCH (28.0-33.3) pg MCHC (31.6-35.5) g/dL RDW (11.5-14.5) % Plt Count (140-400) K/mcL MPV (9.4-12.4) fL Immature Gran % (0-4) % Seg Neutrophils % % Lymphocytes % % Monocytes % % Eosinophils % % Basophils % % Neutrophils # (1.6-8.9) K/mcL Lymphocytes # (0.6-4.6) K/mcL Monocytes # (0.0-1.3) K/mcL Eosinophils # (0.0-0.6) K/mcL Basophils # (0.0-0.2) K/mcL Sodium (136-145) mEq/L Potassium (3.5-4.5) mEq/L Chloride (98-109) mEq/L Carbon Dioxide (19-29) mEq/L BUN (8-26) mg/dL Creatinine (0.72-1.25) mg/dL Est GFR ( Amer) (> 60) Est GFR (Non-Af Amer) (> 60) BUN/Creatinine Ratio (6-26) Glucose (70-99) mg/dL Calculated Osmolality (280-300) Calcium (8.6-10.8) mg/dL Urine Color (Yellow) Urine Clarity (Clear) Urine pH (5.0-8.0) pH Units Ur Specific [place] (1.010-1.025) Urine Protein (Neg-Trace) mg/dL Urine Glucose (UA) (Normal) mg/dL Urine Ketones (Negative) mg/dL Urine Blood (Negative) Urine Nitrite (Negative) Urine Bilirubin (Negative) Urine Urobilinogen (Normal) mg/dL Ur Leukocyte Esterase (Negative) Urine Microscopic RBC (0-3) per hpf Urine Microscopic WBC (0-3) per hpf Ur Squamous Epith Cells (None-Few) per lpf Urine Bacteria (None-Few) per hpf Hyaline Casts (None-Few) per lpf Salicylates (15-30) mg/dL Urine Opiates Screen Negative (Xbnxux=612) ng/mL Acetaminophen (10-30) mcg/mL Ur Barbiturates Screen Negative (Zzphfb=144) ng/mL Ur Phencyclidine Scrn Negative (Cutoff=25) ng/mL Ur Amphetamines Screen Negative (Gmrdfe=5274) ng/mL U Benzodiazepines Scrn Negative (Dhovke=761) ng/mL Urine Cocaine Screen Positive H (Cutoff= 300) ng/mL U Marijuana (THC) Screen Negative (Cutoff = 50) ng/mL Ethyl Alcohol (0-10) mg/dL - Radiology Data Radiology results reviewed: Yes I reviewed the patient's radiology results. Thoracic Spine CT 01/25/17 02:04 IMPRESSION: 1. Compared to the prior CT from 11/25/2015, there is a new nondisplaced fracture through the T10-T11 anterior osteophyte extending into the anterior aspects of the T10 and T11 vertebral bodies. No retropulsion of fragments into the spinal canal. This is age-indeterminate, but possibly acute subacute. 2. No acute fracture or subluxation of lumbar spine. 3. Partial visualization of multiple right lower lobe pulmonary nodule, including a 115 mm partially calcified right posterior lower lobe nodule and a noncalcific 9.5 mm nodule superior segment of the right lower lobe. Follow-up as before. RECOMMENDATIONS: Fleischner Society guidelines for follow-up and management of incidentally detected pulmonary nodules: Single Solid Nodule: Nodule size less than 6 mm In a low-risk patient, no routine follow-up. In a high-risk patient, optional CT at 12 months. Nodule size equals 6-8 mm In a low-risk patient, CT at 6-12 months, then consider CT at 18-24 months. In a high-risk patient, CT at 6-12 months, then CT at 18-24 months. Nodule size greater than 8 mm In a low-risk patient, consider CT, PET/CT, or tissue sampling at 3 months. In a high-risk patient, consider CT, PET/CT, or tissue sampling at 3 months. Multiple Solid Nodules: Nodule size less than 6 mm In a low-risk patient, no routine follow-up. In a high-risk patient, optional CT at 12 months. Nodule size equals 6-8 mm In a low-risk patient, CT at 3-6 months, then consider CT at 18-24 months. In a high-risk patient, CT at 3-6 months, then CT at 18-24 months. Nodule size greater than 8 mm In a low-risk patient, CT at 3-6 months, then consider CT at 18-24 months. In a high-risk patient, CT at 3-6 months, then CT at 18-24 months. - Low risk patients include individuals with minimal or absent history of smoking and other known risk factors. - High risk patients include individuals with a history or smoking or known risk factors. Radiology 2017 http://pubs.rsna.org/doi/full/10.1148/radiol.[email or web address] D/ / Chandan Monique MD / Chandan Monique MD Interpreting Provider: Chandan Monique MD Cervical Spine CT 01/25/17 02:07 IMPRESSION: 1. No definite fracture. 2. Persistent bilateral cervical adenopathy. This may be reactive though lymphoma should be considered given the persistence of this finding. D/ / Zain Meredith MD / Zain Meredith MD Interpreting Provider: Zain Meredith MD Lumbar Spine CT 01/25/17 02:07 IMPRESSION: 1. Compared to the prior CT from 11/25/2015, there is a new nondisplaced fracture through the T10-T11 anterior osteophyte extending into the anterior aspects of the T10 and T11 vertebral bodies. No retropulsion of fragments into the spinal canal. This is age-indeterminate, but possibly acute subacute. 2. No acute fracture or subluxation of lumbar spine. 3. Partial visualization of multiple right lower lobe pulmonary nodule, including a 115 mm partially calcified right posterior lower lobe nodule and a noncalcific 9.5 mm nodule superior segment of the right lower lobe. Follow-up as before. RECOMMENDATIONS: Fleischner Society guidelines for follow-up and management of incidentally detected pulmonary nodules: Single Solid Nodule: Nodule size less than 6 mm In a low-risk patient, no routine follow-up. In a high-risk patient, optional CT at 12 months. Nodule size equals 6-8 mm In a low-risk patient, CT at 6-12 months, then consider CT at 18-24 months. In a high-risk patient, CT at 6-12 months, then CT at 18-24 months. Nodule size greater than 8 mm In a low-risk patient, consider CT, PET/CT, or tissue sampling at 3 months. In a high-risk patient, consider CT, PET/CT, or tissue sampling at 3 months. Multiple Solid Nodules: Nodule size less than 6 mm In a low-risk patient, no routine follow-up. In a high-risk patient, optional CT at 12 months. Nodule size equals 6-8 mm In a low-risk patient, CT at 3-6 months, then consider CT at 18-24 months. In a high-risk patient, CT at 3-6 months, then CT at 18-24 months. Nodule size greater than 8 mm In a low-risk patient, CT at 3-6 months, then consider CT at 18-24 months. In a high-risk patient, CT at 3-6 months, then CT at 18-24 months. - Low risk patients include individuals with minimal or absent history of smoking and other known risk factors. - High risk patients include individuals with a history or smoking or known risk factors. Radiology 2017 http://pubs.rsna.org/doi/full/10.1148/radiol.[email or web address] D/ / Chandan Monique MD / Chandan Monique MD Interpreting Provider: Chandan Monique MD Attestation Statement - Attestation Attestation: For this encounter, I have reviewed the MANAGER INSIDE or PA documentation, treatment plan, and medical decision making; and I have had face to face time with this patient. A 1-year-old with chronic pain who was describing some auditory hallucinations and suicidal ideation. Physical examination his lungs are clear abdomen soft. Patient will be admitted to [facility] for evaluation. I personally interviewed and examined this patient and my medical decision- making was reviewed with the ED Resident Physician, Dr. Alvarez. I agree with the documented findings, disposition and treatment plan as described except to the extent set forth below. Pt is a 41 yo m with hx dpression who presents to the ED with c/o neck and back pain s/p intentional fall down stairs from his WC secondary to command hallucinations and SI. Pt c/o neck pain in traige, placed in cervical collar. Pt with psych hx and prior hosp. Pt states he has been having auditory hallucinations and intentionally fell backwards down stairs from his WC and now c/o thoracic back pain. Pt with no loss of bowel/bladder, no LE weakness/ numbness. Agree with PE as documented. Pt had CT imaging to evaluate for injuries related to fall. CT shows T10 nondisplaced fx, with no retropulsion. No other injuires. Pt with normal BS. Pt medically cleared for further psych eval. Pt evaluated by [facility], and decision to place at [facility] for further psych eval and mgmt. Awaiting paperwork to be faxed and transport to be accepted follwing [phone] by 1A. Signed out to Dr. Morales at 0700 for final transfer acceptance and dispo.
[2017-01-25 03:36] LABS: Bilirubin,Urine Small (Negative); Blood,Urine Negative (Negative); Clarity,Urine Clear (Clear); Color,Urine Yellow (Yellow); Glucose,Urine (UA) Normal (Normal); Ketones,Urine Negative (Negative); Leukocyte Esterase,Urine Negative (Negative); Nitrite,Urine Negative (Negative); PH,Urine 5.5 pH Units (5.0-8.0); Protein,Urine >=300 mg/dL (Neg-Trace); Urobilinogen,Urine Normal (Normal)
[2017-01-25 03:37] LABS: Bacteria,Urine None Seen per hpf (None-Few); Hyaline Casts,Urine None Seen per lpf (None-Few); Squamous Epithelial Cell,Urine Many per lpf (None-Few); WBC,Urine 15-30 per hpf (0-3)
[2017-01-25 03:43] LABS: Amphetamine Screen,Urine Negative ng/mL (Cutoff=1000); Barbiturate Screen,Urine Negative ng/mL (Cutoff=200); Benzodiazepines Screen,Urine Negative ng/mL (Cutoff=200); Cannabinoid Screen,Urine Negative ng/mL (Cutoff = 50); Cocaine Screen,Urine Positive ng/mL (Cutoff= 300); Opiate Screen,Urine Negative ng/mL (Cutoff=300); Phencyclidine Screen,Urine Negative ng/mL (Cutoff=25)
[2017-01-25] MEDS ORDERED: *HR* OxyCODONE/APAP 5/325 TABLET PO ONE ×4 (06:00→14:57)
[2017-01-25] MEDS ORDERED: Mag Hydrox/Al Hydrox/Simeth 30 ML UDC PO PRN (16:50)
[2017-01-25] MEDS ORDERED: MOM Conc 10 ML UD.LIQ PO PRN (16:50)
[2017-01-25] MEDS ORDERED: *HR* LORazepam 2 MG/ML VIAL IM PRN (16:50)
[2017-01-25] MEDS ORDERED: Haloperidol Lactate 5 MG/ML VIAL IM PRN (16:50)
[2017-01-25] MEDS ORDERED: hydrOXYzine pamoate 25 MG CAPSULE PO PRN (16:50)
[2017-01-25] MEDS ORDERED: *HR* LORazepam 1 MG TABLET PO PRN (16:50)
[2017-01-25] MEDS ORDERED: Acetaminophen 325 MG TABLET PO PRN (16:50)
[2017-01-25] MEDS: *HR* OxyCODONE Immed Rel 15 MG TABLET PO PRN ×2 (17:57→20:56)
[2017-01-25] MEDS: Insulin LISPRO 300 UNITS/3 ML VIAL SQ SCH (17:59)
[2017-01-25] MEDS: clonazePAM 0.5 MG TABLET PO PRN ×2 (18:03→21:06)
[2017-01-25] MEDS: traZODone 50 MG TABLET PO PRN (20:56)
[2017-01-25] MEDS: Insulin DETEMIR 100 UNIT/ML X5UNITS SQ SCH (20:57)
[2017-01-25] MEDS: Gabapentin 300 MG CAPSULE PO SCH (20:57)
[2017-01-26] MEDS: *HR* OxyCODONE Immed Rel 15 MG TABLET PO PRN ×3 (05:19→20:13)
[2017-01-26] MEDS: Insulin LISPRO 300 UNITS/3 ML VIAL SQ SCH ×3 (09:18→16:45)
[2017-01-26] MEDS: Gabapentin 300 MG CAPSULE PO SCH ×3 (09:22→20:12)
--- NOTE | 2017-01-26 13:19 | Psychiatry History & Physical ---
Date of Encounter: 01/26/17 Time of Encounter: 13:11 History of Present Illness Patient Stated Chief Complaint: suicidal Medicare Admission Attestation: For traditional Medicare patients the provided hospital inpatient services are reasonable and necessary and in the case of services not specified as inpatient -only under 42 CFR 419.22 (n), that they are appropriately provided as inpatient services in accordance 42 CFR 412.3. For Critical Access Hospital the patient may reasonably be expected to be discharged or transferred to a hospital within 96 hours after admission to the Critical Access Hospital. Admitted From: Home Plans for Post Hospital Care: Home History of Present Illness: Mr. Redd is a 41 year old male who was admitted secondary to SI and a self report that he threw himself down stairs as a suicide attempt. He is familiar to this principal technical writer as he was just discharged from this facility less then a month ago. He has extensive medical problems and the plan last time was to discharge him to a residential (poorly managed diabetes, loss of one leg, loss of toes from other foot, declining vision, etc.). However, after being assessed for a residential level of care Norman decided to go to his mother's instead. Has legitimate pain issues. Discharged with a months supply of pain meds last time but his tox screen was negative for opiates this time so he may have overused them and run out. Tox screen also positive for cocaine. Today he is refusing to be seen. Claims he is too sedated from the Seroquel (he is not prescribed Seroquel. This was discontinued the last time). When this principal technical writer tried to see him he said he was "too fucked up" to talk. Very irritable. Only wants to sleep. Past Med Surg Social Fam HX - Past Medical History Medical history: cancer, CHF, COPD, coronary artery disease, diabetes, hyperlipidemia, hypertension, myocardial infarction, peripheral artery disease, syncope, other - Past Psychiatric History Psychiatric history: Reports: bipolar, prior suicide attempt, previous psychiatric hospitalization Family psychiatric history: Unknown Family History of Suicide: Unknown - Past Surgical History Surgical History: cancer surgery, other - Social History Smoking Status: Current every day smoker Smokeless Tobacco Status: No Alcohol use: none Drug use: cocaine - Family History Mother History Unknown: Yes Living Status: Still Living Father Grandmother Living Status: Hx Family Endocrine Disorder: Yes Medications & Allergies Simvastatin [Zocor] 40 mg PO HS #0 01/01/17 [History] Buspirone HCl [Buspar] 15 mg PO TID #90 tablet 01/05/17 [Rx] Escitalopram [Lexapro] 10 mg PO DAILY #30 tablet 01/05/17 [Rx] Gabapentin [Neurontin] 300 mg PO TID #90 capsule 01/05/17 [Rx] Insulin DETEMIR [Levemir] 50 unit SQ HS 30 Days 01/05/17 [Rx] Insulin LISPRO [HumaLOG] 2 units SQ TIDWM 30 Days 01/05/17 [Rx] Lisinopril [Zestril] 10 mg PO DAILY #30 tablet 01/05/17 [Rx] OxyCODONE Immed Rel [Roxicodone 15 MG] 15 mg PO QID PRN 30 Days 01/05/17 [Rx] Pramipexole [Mirapex] 1 mg PO HS #30 tablet 01/05/17 [Rx] clonazePAM [Klonopin] 0.5 mg PO TID PRN #90 tablet 01/05/17 [Rx] Allergies aspirin Allergy (Verified 06/12/16 21:31) Anaphylaxis hydrocodone Allergy (Verified 06/12/16 21:31) Anaphylaxis ibuprofen Allergy (Verified 06/12/16 21:31) Anaphylaxis Penicillins Allergy (Verified 06/12/16 21:31) Anaphylaxis rofecoxib [From Vioxx] Allergy (Verified 06/12/16 21:31) Swelling of Lip/Tongue/Throat Review of Systems Constitutional: Denies: fever, chills, weakness, weight change Eyes: Denies: eye pain, vision change Ears, Nose, Throat: Denies: ear pain, throat pain, dental pain, hearing loss, congestion Cardiovascular: Denies: chest pain, palpitations, dyspnea on exertion Respiratory: Denies: cough, dyspnea, wheezes Gastrointestinal: Denies: abdominal pain, nausea, vomiting, diarrhea, constipation Genitourinary male: Denies: urgency, dysuria, frequency, genital lesions Genitourinary female: Denies: urgency, dysuria, frequency, abnormal menses, dyspareunia Musculoskeletal: Reports: back pain, myalgia Integumentary: Denies: rash, lesions, pruritus Neurological: Reports: other Endocrine: Reports: fatigue Hematologic/Lymphatic: Denies: easy bruising, lymphadenopathy Allergic/Immunologic: Denies: urticaria, itchy eyes Mental Status Exam Patient orientation: Yes Person, Yes Time, Yes Place Level of alertness: Other Patient appearance: Unkempt Behavior: uncooperative Psychomotor activity: Normal Eye contact: Avoids Eye Contact Mood description: Depressed Affect description: congruent with mood Speech pattern: Normal rate, Normal rhythm, Normal tone Speech volume: Normal Thought process: Linear Thought content: Yes Suicidal ideation, No Homicidal ideation, No Overt delusions Perceptual disturbances: No Auditory hallucinations, No Visual hallucinations Attention span: Capable of Focused Attention Memory description: Grossly Intact Patient reliability: Questionable Historian Intelligence estimate: Average Judgment: Limited Insight: Minimal Exam - HEENT Head exam IM: Present: normal inspection Eye exam IM: Present: EOMI - Neurological Neurological exam IM: Present: alert, oriented X3 - Respiratory Respiratory exam IM: Present: CTAB - GI/Abdominal GI/Abdominal exam IM: Present: normal bowel sounds - Extremities Extremities exam IM: Present: mottling - Skin Skin exam IM: Present: intact Results - Vital Signs Vital signs: Temp Pulse Resp BP Pulse Ox 98.1 F 67 20 136/81 98 01/26/17 09:00 01/26/17 09:00 01/26/17 09:00 01/26/17 09:00 01/25/17 11:02 - Labs Labs: Laboratory Last Values WBC 12.7 K/mcL (4.3-11.1) H 01/25/17 02:06 RBC 5.25 M/mcL (4.19-5.50) 01/25/17 02:06 Hgb 14.7 g/dL (12.9-16.9) 01/25/17 02:06 Hct 44.0 % (37.5-50.1) 01/25/17 02:06 MCV 83.8 fL (83.0-100.0) 01/25/17 02:06 MCH 28.0 pg (28.0-33.3) 01/25/17 02:06 MCHC 33.4 g/dL (31.6-35.5) 01/25/17 02:06 RDW 13.8 % (11.5-14.5) 01/25/17 02:06 Plt Count 320 K/mcL (140-400) 01/25/17 02:06 MPV 10.5 fL (9.4-12.4) 01/25/17 02:06 Immature Gran % 0.3 % (0-4) 01/25/17 02:06 Seg Neutrophils % 64.3 % 01/25/17 02:06 Lymphocytes % 27.3 % 01/25/17 02:06 Monocytes % 5.8 % 01/25/17 02:06 Eosinophils % 1.7 % 01/25/17 02:06 Basophils % 0.6 % 01/25/17 02:06 Neutrophils # 8.2 K/mcL (1.6-8.9) 01/25/17 02:06 Lymphocytes # 3.5 K/mcL (0.6-4.6) 01/25/17 02:06 Monocytes # 0.7 K/mcL (0.0-1.3) 01/25/17 02:06 Eosinophils # 0.2 K/mcL (0.0-0.6) 01/25/17 02:06 Basophils # 0.1 K/mcL (0.0-0.2) 01/25/17 02:06 Sodium 139 mEq/L (136-145) 01/25/17 02:06 Potassium 4.0 mEq/L (3.5-4.5) 01/25/17 02:06 Chloride 107 mEq/L (98-109) 01/25/17 02:06 Carbon Dioxide 24 mEq/L (19-29) 01/25/17 02:06 BUN 15 mg/dL (8-26) 01/25/17 02:06 Creatinine 1.05 mg/dL (0.72-1.25) 01/25/17 02:06 Est GFR ( Amer) > 60 (> 60) 01/25/17 02:06 Est GFR (Non-Af Amer) > 60 (> 60) 01/25/17 02:06 BUN/Creatinine Ratio 14 (6-26) 01/25/17 02:06 Glucose 152 mg/dL (70-99) H 01/25/17 02:06 POC Glucose 125 (58-89) H 01/26/17 08:55 Calculated Osmolality 292 (280-300) 01/25/17 02:06 Calcium 9.7 mg/dL (8.6-10.8) 01/25/17 02:06 Urine Color Yellow (Yellow) 01/25/17 03:29 Urine Clarity Clear (Clear) 01/25/17 03:29 Urine pH 5.5 pH Units (5.0-8.0) 01/25/17 03:29 Ur Specific [place] 1.030 (1.010-1.025) H 01/25/17 03:29 Urine Protein >=300 mg/dL (Neg-Trace) H 01/25/17 03:29 Urine Glucose (UA) Normal mg/dL (Normal) 01/25/17 03:29 Urine Ketones Negative mg/dL (Negative) 01/25/17 03:29 Urine Blood Negative (Negative) 01/25/17 03:29 Urine Nitrite Negative (Negative) 01/25/17 03:29 Urine Bilirubin Small (Negative) H 01/25/17 03:29 Urine Urobilinogen Normal mg/dL (Normal) 01/25/17 03:29 Ur Leukocyte Esterase Negative (Negative) 01/25/17 03:29 Urine Microscopic RBC 5-15 per hpf (0-3) H 01/25/17 03:29 Urine Microscopic WBC 15-30 per hpf (0-3) H 01/25/17 03:29 Ur Squamous Epith Cells Many per lpf (None-Few) H 01/25/17 03:29 Urine Bacteria None Seen per hpf (None-Few) 01/25/17 03:29 Hyaline Casts None Seen per lpf (None-Few) 01/25/17 03:29 Salicylates < 5.0 mg/dL (15-30) L 01/25/17 02:06 Urine Opiates Screen Negative ng/mL (Uoothy=613) 01/25/17 03:29 Acetaminophen < 1.0 mcg/mL (10-30) L 01/25/17 02:06 Ur Barbiturates Screen Negative ng/mL (Cmwdnw=623) 01/25/17 03:29 Ur Phencyclidine Scrn Negative ng/mL (Cutoff=25) 01/25/17 03:29 Ur Amphetamines Screen Negative ng/mL (Jtjntk=3255) 01/25/17 03:29 U Benzodiazepines Scrn Negative ng/mL (Ymodzf=911) 01/25/17 03:29 Urine Cocaine Screen Positive ng/mL (Cutoff= 300) H 01/25/17 03:29 U Marijuana (THC) Screen Negative ng/mL (Cutoff = 50) 01/25/17 03:29 Ethyl Alcohol < 10 mg/dL (0-10) 01/25/17 02:06 Assessment and Plan (1) Bipolar disorder Current visit: Yes Status: Acute Plan: Admit inpatient for safety and stabilization, Close observation, Suicide Precautions per unit protocol, Encourage participation in unit milieu, Group Therapy, Monitor sleep, Monitor appetite Risks, benefits, side effects, alternatives discussed w/pt: Yes Patient agreeable to treatment: Yes Plans for Post Hospital Care: Home Estimated Length of Stay (Days): 4 Qualifiers: Active/Remission status: in partial remission Most recent bipolar episode type: depressed Qualified Code(s): F31.75 - Bipolar disorder, in partial remission, most recent episode depressed
[2017-01-26] MEDS: clonazePAM 0.5 MG TABLET PO PRN ×2 (17:26→20:12)
[2017-01-26] MEDS: Nicotine 2 MG GUM BC PRN (20:12)
[2017-01-26] MEDS: Insulin DETEMIR 100 UNIT/ML X5UNITS SQ SCH (21:23)
[2017-01-27] MEDS: clonazePAM 0.5 MG TABLET PO PRN ×2 (02:05→20:29)
[2017-01-27] MEDS: *HR* OxyCODONE Immed Rel 15 MG TABLET PO PRN ×4 (02:05→16:25)
[2017-01-27] MEDS: traZODone 50 MG TABLET PO PRN ×2 (02:05→20:29)
[2017-01-27] MEDS: Insulin LISPRO 300 UNITS/3 ML VIAL SQ SCH ×3 (08:30→16:25)
[2017-01-27] MEDS: Gabapentin 300 MG CAPSULE PO SCH ×3 (08:31→20:29)
--- NOTE | 2017-01-27 16:20 | Psychiatry Progress Note ---
Date of Encounter: 01/27/17 Time of Encounter: 16:11 Subjective Interval history: Continues to refuse to speak with this policy writer sales. Stays in bed. [place] for meds. Gets up on second shift when he wants to use the phone. Now saying he wants to go to a residential. Claims last time no one talked to him about nursing homes being an option. Not only did he have several conversations with staff about residential placements when he was last here, he was evaluated for that level of care. Ultimately, he aborted the placement process by deciding to go and live with his mother. Now he is demanding residential placement again but he is being turned down by all of them. He is being rejected based on his lack of cooperation with past providers on top of testing positive for cocaine this time. Hopefully, he can return to his mother's house again as placement will be difficult. He is still endorsing SI and AH with no outward signs of psychosis. Discussed options with staff. Current plan is to decrease pain meds so that he is able to get out of bed more. If he is too tired to even sit up and speak with providers he is likely overmedicated. He did not have opiates on his tox screen this time so he either overtook them and ran out early or he was not taking them and he is receiving too much now. Review of Systems Constitutional: Denies: fever, chills, weakness, weight change Eyes: Denies: eye pain, vision change Ears, Nose, Throat: Denies: ear pain, throat pain, dental pain, hearing loss, congestion Cardiovascular: Denies: chest pain, palpitations, dyspnea on exertion Respiratory: Denies: cough, dyspnea, wheezes Gastrointestinal: Denies: abdominal pain, nausea, vomiting, diarrhea, constipation Musculoskeletal: Reports: back pain, myalgia Neurological: Reports: other Objective: Exam Patient orientation: Yes Person, Yes Time, Yes Place Level of alertness: Other Patient appearance: Unkempt Behavior: uncooperative Psychomotor activity: Normal Eye contact: No Eye Contact Mood description: Depressed Affect description: congruent with mood Speech pattern: Non-verbal Speech volume: No speech Thought process: Evasive Thought content: Yes Suicidal ideation Perceptual disturbances: Yes Auditory hallucinations Judgment: Poor Insight: Minimal Results - Vital Signs Vital Signs: Temp Pulse Resp BP Pulse Ox 97.6 F 73 16 137/72 98 01/27/17 09:00 01/27/17 09:00 01/27/17 09:00 01/27/17 09:00 01/25/17 11:02 - Labs Labs: Laboratory Results - last 24 hr 01/26/17 01/27/17 01/27/17 20:07 07:56 11:43 POC Glucose 168 H 133 H 119 H Assessment and Plan (1) Bipolar disorder Current visit: Yes Status: Acute Plan: Continue hospitalization, Close observation, Suicide Precautions per unit protocol, Encourage participation in unit milieu, Group Therapy, Monitor sleep, Monitor appetite Risks, benefits, side effects, alternatives discussed w/pt: Yes Patient agreeable to treatment: Yes Qualifiers: Active/Remission status: in partial remission Most recent bipolar episode type: depressed Qualified Code(s): F31.75 - Bipolar disorder, in partial remission, most recent episode depressed Consult Discharge Plan - Plan Referrals: NO,PCP [Primary Care Provider] -
[2017-01-27] MEDS: Nicotine 2 MG GUM BC PRN (18:57)
[2017-01-27] MEDS: Insulin DETEMIR 100 UNIT/ML X5UNITS SQ SCH (20:30)
[2017-01-28] MEDS: *HR* OxyCODONE Immed Rel 15 MG TABLET PO PRN ×3 (03:35→17:55)
[2017-01-28] MEDS: clonazePAM 0.5 MG TABLET PO PRN ×2 (03:37→21:02)
[2017-01-28] MEDS: Gabapentin 300 MG CAPSULE PO SCH ×3 (09:05→21:02)
[2017-01-28] MEDS: Insulin LISPRO 300 UNITS/3 ML VIAL SQ SCH ×3 (09:08→17:38)
--- NOTE | 2017-01-28 12:51 | Psychiatry Progress Note ---
Date of Encounter: 01/28/17 Time of Encounter: 12:47 Subjective Interval history: Refused to get out of bed again to speak to this insurance underwriter sales but this insurance underwriter sales and social services technician went to see him at bedside. Client is citing pain as reason he cannot get up. However, he has no problems being up and about the unit after day shift has gone home. Angry about decrease in pain meds. Claims he is not sedated but he is in pain and that is why he can't get up and interact appropriately. Given that he does have a new fracture will consult Orthopedics and defer pain management to them. All nursing homes/rehab facilities in the area have declined him based on his past behaviors. Client reported today he would be open to trying facilities farther out. Will continue to make referrals. Now saying fall downstairs was accidental and not a suicide attempt. Changes story repeatedly. Denying SI at present but indicated he should just "blow my brains out" as recently as last night. Review of Systems Constitutional: Denies: fever, chills, weakness, weight change Eyes: Denies: eye pain, vision change Ears, Nose, Throat: Denies: ear pain, throat pain, dental pain, hearing loss, congestion Cardiovascular: Denies: chest pain, palpitations, dyspnea on exertion Respiratory: Denies: cough, dyspnea, wheezes Gastrointestinal: Denies: abdominal pain, nausea, vomiting, diarrhea, constipation Musculoskeletal: Reports: back pain, myalgia Neurological: Reports: other Objective: Exam Patient orientation: Yes Person, Yes Time, Yes Place Level of alertness: Alert Patient appearance: Disheveled Behavior: calm Psychomotor activity: Slowed Eye contact: Maintains Eye Contact Mood description: Angry, Depressed Affect description: congruent with mood Speech pattern: Normal rate, Normal rhythm, Normal tone Speech volume: Normal Thought process: Linear Thought content: Yes Suicidal ideation, No Homicidal ideation, No Overt delusions Perceptual disturbances: No Auditory hallucinations, No Visual hallucinations Judgment: Poor Insight: Minimal Results - Vital Signs Vital Signs: Temp Pulse Resp BP Pulse Ox 98.4 F 70 16 132/86 98 01/28/17 09:00 01/28/17 09:00 01/28/17 09:00 01/28/17 09:00 01/25/17 11:02 - Labs Labs: Laboratory Results - last 24 hr 01/27/17 01/27/17 01/28/17 16:16 20:26 07:58 POC Glucose 172 H 157 H 126 H 01/28/17 11:38 POC Glucose 143 H Assessment and Plan (1) Bipolar disorder Current visit: Yes Status: Acute Plan: Continue hospitalization, Close observation, Suicide Precautions per unit protocol, Encourage participation in unit milieu, Group Therapy, Monitor sleep, Monitor appetite Risks, benefits, side effects, alternatives discussed w/pt: Yes Patient agreeable to treatment: Yes Qualifiers: Active/Remission status: in partial remission Most recent bipolar episode type: depressed Qualified Code(s): F31.75 - Bipolar disorder, in partial remission, most recent episode depressed Consult Discharge Plan - Plan Referrals: NO,PCP [Primary Care Provider] -
[2017-01-28] MEDS: Insulin DETEMIR 100 UNIT/ML X5UNITS SQ SCH (21:01)
[2017-01-28] MEDS: Nicotine 2 MG GUM BC PRN (21:01)
[2017-01-29] MEDS: *HR* OxyCODONE Immed Rel 15 MG TABLET PO PRN ×4 (04:14→20:46)
[2017-01-29] MEDS: Gabapentin 300 MG CAPSULE PO SCH ×3 (08:38→20:46)
[2017-01-29] MEDS: Insulin LISPRO 300 UNITS/3 ML VIAL SQ SCH ×4 (08:38→20:57)
[2017-01-29] MEDS: Nicotine 2 MG GUM BC PRN ×3 (09:20→20:45)
--- NOTE | 2017-01-29 09:47 | Psychiatry Progress Note ---
Date of Encounter: 01/29/17 Time of Encounter: 09:43 Subjective Interval history: Client got out of bed to speak with this race and sports book writer today. Indicated he was in tremendous pain and wanted to return to bed as soon as possible. Ortho has been consulted about his spine fracture. Explained to patient it would be best to let Ortho manage his pain and they should be by to see him today. Despite client's many complaints he was out of bed a lot on second shift. Showered by himself. Joking and laughing with a female antisocial on the unit. Reports his mood is better today but complaining about not receiving Seroquel. Reminded him that he was upset about being prescribed this medication last time because he claimed it made him too tired to get up. His response was "that was 150mg. Put me back on 50mg." Being evaluated by an ECF in [place] on Tuesday. Review of Systems Constitutional: Denies: fever, chills, weakness, weight change Eyes: Denies: eye pain, vision change Ears, Nose, Throat: Denies: ear pain, throat pain, dental pain, hearing loss, congestion Cardiovascular: Denies: chest pain, palpitations, dyspnea on exertion Respiratory: Denies: cough, dyspnea, wheezes Gastrointestinal: Denies: abdominal pain, nausea, vomiting, diarrhea, constipation Musculoskeletal: Reports: back pain, myalgia Neurological: Reports: other Objective: Exam Patient orientation: Yes Person, Yes Time, Yes Place Level of alertness: Alert Patient appearance: Appropriate Behavior: calm, cooperative Psychomotor activity: Normal Eye contact: Maintains Eye Contact Mood description: Depressed Affect description: congruent with mood Speech pattern: Normal rate, Normal rhythm, Normal tone Speech volume: Normal Thought process: Linear Thought content: Yes Suicidal ideation, No Homicidal ideation, No Overt delusions Perceptual disturbances: No Auditory hallucinations, No Visual hallucinations Judgment: Limited Insight: Minimal Results - Vital Signs Vital Signs: Temp Pulse Resp BP Pulse Ox 96.8 F L 96 18 152/86 98 01/28/17 21:00 01/28/17 21:00 01/28/17 21:00 01/28/17 21:00 01/25/17 11:02 - Labs Labs: Laboratory Results - last 24 hr 01/28/17 01/28/17 01/28/17 11:38 17:10 20:39 POC Glucose 143 H 169 H 230 H 07/15/17 08:27 POC Glucose 124 H Assessment and Plan (1) Bipolar disorder Current visit: Yes Status: Acute Plan: Continue hospitalization, Close observation, Suicide Precautions per unit protocol, Encourage participation in unit milieu, Group Therapy, Monitor sleep, Monitor appetite Risks, benefits, side effects, alternatives discussed w/pt: Yes Patient agreeable to treatment: Yes Qualifiers: Active/Remission status: in partial remission Most recent bipolar episode type: depressed Qualified Code(s): F31.75 - Bipolar disorder, in partial remission, most recent episode depressed Consult Discharge Plan - Plan Referrals: NO,PCP [Primary Care Provider] -
[2017-01-29] MEDS: clonazePAM 0.5 MG TABLET PO PRN ×2 (10:38→18:56)
[2017-01-29] MEDS ORDERED: D5% in Water 1,000 ML IVC PRN (15:46)
[2017-01-29] MEDS ORDERED: *HR* Dextrose 50 % in Water (Syg) 50 ML SYRINGE IVP PRN (15:46)
[2017-01-29] MEDS ORDERED: Dextrose Gel 15 GM PO PRN ×2 (15:46)
--- NOTE | 2017-01-29 16:01 | Internal Medicine Consult Note ---
Date of Encounter: 01/29/17 Time of Encounter: 15:00 - Assessment and Plan (1) Closed traumatic nondisplaced fracture of thoracic vertebra Current Visit: Yes Status: Acute Assessment and plan: 1 1 patient status post fall down approximately 20 stairs area he sustained a nondisplaced fracture through T10-T11 no retropulsion of fragments into the spinal canal. He is presently a patient on the psychiatric floor due to suicidal attempt. We will consult orthopedics-Dr. Hogue 2 presently patient is on oxycodone 15 mg 3 times a day we will continue consult spine for pain management 3 we will add lidocaine patch 4 PT consult- once seen by Dr Bautista 5 did review case with DR Hogue - advised that presently fx is non operative , continue present pain medication add NSAIDS if no allergy and flexeril. He will evaluate patient concerning possible brace. Qualifiers: Encounter type: initial encounter Qualified Code(s): S22.009A - Unspecified fracture of unspecified thoracic vertebra, initial encounter for closed fracture (2) Suicidal ideation Current Visit: No Status: Acute Assessment and plan: 1 He is presently on psychiatric jones-placed on suicide observation (3) Diabetes mellitus Current Visit: No Status: Chronic Assessment and plan: 1 Accu-Cheks before meals at bedtime continue with basal insulin will add sliding scale insulin-. The patient is noncompliant with his diet continue with diabetic diet Qualifiers: Diabetes mellitus type: type 2 Diabetes mellitus complication status: with other specified complication Diabetes mellitus long-term insulin use: with long-term use Qualified Code(s): E11.69 - Type 2 diabetes mellitus with other specified complication; Z79.4 - snf (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 (4) Bipolar disorder Current Visit: No Status: Chronic Assessment and plan: 1 patient has chronic history of bipolar disorder recent suicide attempt- presently on psychiatric jones management per psychiatry Qualifiers: Active/Remission status: in partial remission Most recent bipolar episode type: depressed Qualified Code(s): F31.75 - Bipolar disorder, in partial remission, most recent episode depressed (5) HTN (hypertension) Current Visit: No Status: Chronic Assessment and plan: 1 presently controlled we will continue with present medication Qualifiers: Hypertension type: essential hypertension Qualified Code(s): I10 - Essential (primary) hypertension (6) COPD (chronic obstructive pulmonary disease) Current Visit: No Status: Chronic Assessment and plan: 1 presently controlled bronchodilators as needed oxygen as needed maintain SPO2 greater than 92% Qualifiers: COPD type: emphysema Emphysema type: unspecified Qualified Code(s): J43.9 - Emphysema, unspecified (7) HTN (hypertension) Current Visit: No Status: Chronic Qualifiers: Hypertension type: essential hypertension Qualified Code(s): I10 - Essential (primary) hypertension Internal Medicine - CN: HPI - Data of Consult Patient: new to practice Consult date: 01/29/17 Requesting Physician: Arely Owens MD - Consult Narrative Reason for consult: medical managment History of present illness: Mr. Redd is a 41 year old male past medical history of diabetes CHF COPD coronary disease hyperlipidemia hypertension IA peripheral artery disease bipolar disorder tobacco abuse right BKA as well as left foot amputation. Patient was admitted to on a psychiatric jones after suicide attempt on 01/25 2017. Apparently the patient is wheelchair bound and he parked his wheelchair the top of stairs and threw himself backwards causing him to fall down proximally [address] did reveal a nondisplaced fracture through the T10-T11 anterior osteophyte extending into the anterior aspects of the T10-T11 vertebral brothers with no retropulsion of fragments into the spinal canal. While in the ER, patient was possibly to be transferred to an outlying facility. ER physician speaks with spine surgeon and at the time of the conversation, still anticipating possible transfer. Spine surgeon advised if patient is admitted to this facility to consult them. Patient was admitted to , Hospital services have been consulted for medical management. Presently patient is lying in bed on right side he rouses to verbal stimuli and follows simple commands. He appears to be in pain during position change. He states he is unable to lift legs off the bed and/or raise arms over his head without excruciating pain . He denies any numbness or tingling inspection of his back there is pinpoint tenderness along the midthoracic roughly T9-T11. His lung sounds are clear heart sounds are regular S1 and S2 with no rubs clicks gallops murmurs noted. Abdomen soft with some tenderness to left quadrant. He denies any shortness of breath chest pain abdominal pain fevers chills or diarrhea. He does admit to some nausea. Presently he is hemodynamically stable. We will discuss this case with Dr. Hogue-and consult orthopedics concerning thoracic fractures Past Med Surg Social Fam HX - Past Medical History Medical history: cancer, CHF, COPD, coronary artery disease, diabetes, hyperlipidemia, hypertension, myocardial infarction, peripheral artery disease, syncope, other Psychiatric history: bipolar, prior suicide attempt, previous psychiatric hospitalization - Past Surgical History Surgical History: cancer surgery, other - Social History Smoking Status: Current every day smoker Smokeless Tobacco Status: No Alcohol use: none Drug use: cocaine - Family History Mother History Unknown: Yes Living Status: Still Living Father Grandmother Living Status: Hx Family Endocrine Disorder: Yes - Gastrointestinal Gastrointestinal: nausea - Musculoskeletal Musculoskeletal ROS IM: back pain Internal Medicine - CN: Meds Simvastatin [Zocor] 40 mg PO HS #0 01/01/17 [History] Buspirone HCl [Buspar] 15 mg PO TID #90 tablet 01/05/17 [Rx] Escitalopram [Lexapro] 10 mg PO DAILY #30 tablet 01/05/17 [Rx] Gabapentin [Neurontin] 300 mg PO TID #90 capsule 01/05/17 [Rx] Insulin DETEMIR [Levemir] 50 unit SQ HS 30 Days 01/05/17 [Rx] Insulin LISPRO [HumaLOG] 2 units SQ TIDWM 30 Days 01/05/17 [Rx] Lisinopril [Zestril] 10 mg PO DAILY #30 tablet 01/05/17 [Rx] OxyCODONE Immed Rel [Roxicodone 15 MG] 15 mg PO QID PRN 30 Days 01/05/17 [Rx] Pramipexole [Mirapex] 1 mg PO HS #30 tablet 01/05/17 [Rx] clonazePAM [Klonopin] 0.5 mg PO TID PRN #90 tablet 01/05/17 [Rx] Allergies aspirin Allergy (Verified 06/12/16 21:31) Anaphylaxis hydrocodone Allergy (Verified 06/12/16 21:31) Anaphylaxis ibuprofen Allergy (Verified 06/12/16 21:31) Anaphylaxis Penicillins Allergy (Verified 06/12/16 21:31) Anaphylaxis rofecoxib [From Vioxx] Allergy (Verified 06/12/16 21:31) Swelling of Lip/Tongue/Throat Internal Medicine - CN: Exam - Constitutional Vitals: Temp Pulse Resp BP Pulse Ox 97.4 F L 84 16 138/85 98 01/29/17 09:00 01/29/17 09:00 01/29/17 09:00 01/29/17 09:00 01/25/17 11:02 General appearance IM: Present: A&O X 3, answers questions appropriately - Head Head exam: Present: atraumatic, normocephalic - Respiratory Respiratory exam: Present: CTAB - Cardiovascular Cardiovascular exam IM: Present: RRR, +S1, +S2 - GI/Abdominal GI/Abdominal exam IM: Present: soft, tenderness - Extremities Exam Additional comments: Right BKA left foot amputation - Back Exam Back exam: Present: tenderness, vertebral tenderness - Expanded Back Exam Back exam: positive straight leg raise: Left, Right - Neurological Exam Neurological exam: Present: alert, CN II-XII intact, oriented X3 - Psychiatric Psychiatric exam: Present: anxious Internal Medicine - CN: Reslt - Labs CBC & Chem 7: 01/25/17 02:06 01/25/17 02:06 Consult Discharge Plan - Plan Referrals: NO,PCP [Primary Care Provider] -
[2017-01-29] MEDS ORDERED: Albuterol 2.5 MG/3 ML NEBULIZER IH PRN (16:17)
[2017-01-29] MEDS: traZODone 50 MG TABLET PO PRN (20:45)
[2017-01-29] MEDS: Insulin DETEMIR 100 UNIT/ML X5UNITS SQ SCH (20:45)
[2017-01-30] MEDS: *HR* OxyCODONE Immed Rel 15 MG TABLET PO PRN ×3 (07:12→20:43)
[2017-01-30 09:04] LABS: Basophils # 0.1 K/mcL (0.0-0.2); Basophils % 0.7 %; Eosinophils # 0.3 K/mcL (0.0-0.6); Eosinophils % 3.7 %; Hematocrit 43.5 % (37.5-50.1); Immature Granulocytes % 0.4 % (0-4); Lymphocytes # 2.2 K/mcL (0.6-4.6); Lymphocytes % 29.5 %; Mean Corpuscular HGB Conc 32.2 g/dL (31.6-35.5); Mean Corpuscular Hemoglobin 27.3 pg (28.0-33.3); Mean Platelet Volume 10.7 fL (9.4-12.4); Monocytes # 0.6 K/mcL (0.0-1.3); Monocytes % 7.2 %; Neutrophils # 4.5 K/mcL (1.6-8.9); Platelet Count 265 K/mcL (140-400); Red Blood Count 5.12 M/mcL (4.19-5.50); Red Cell Distribution Width 13.7 % (11.5-14.5); Segmented Neutrophils % 58.5 %
[2017-01-30] MEDS: Gabapentin 300 MG CAPSULE PO SCH ×3 (09:08→20:42)
[2017-01-30] MEDS: Insulin LISPRO 300 UNITS/3 ML VIAL SQ SCH ×4 (09:08→20:52)
[2017-01-30 09:19] LABS: BUN/Creatinine Ratio 23 (6-26); Blood Urea Nitrogen 21 mg/dL (8-26); Calcium 9.6 mg/dL (8.6-10.8); Carbon Dioxide 27 mEq/L (19-29); Chloride 103 mEq/L (98-109); Glucose 131 mg/dL (70-99); Osmolality,Calculated 287 (280-300); Potassium 4.5 mEq/L (3.5-4.5); Sodium 136 mEq/L (136-145); eGFR For African Americans > 60 (> 60); eGFR For Non-African Americans > 60 (> 60)
--- NOTE | 2017-01-30 09:56 | Psychiatry Progress Note ---
Date of Encounter: 01/30/17 Time of Encounter: 09:47 Subjective Interval history: Client seen at bedside. Denies he is sedated but slurring words. Now taking Flexeril in addition to pain meds. Using Lidocaine patch but denying relief. Reports he is not sleeping but staff report he doesn't do much but sleep. Able to get up and move about on second shift. Making phone calls. Told one staff person his mother is back in town and he can go and live with her. Scheduled to be evaluated by an ECF in [place] tomorrow. If he doesn't follow through this time he may officially burn all of his bridges. Appreciate consult and recommendations from Hospitalist. Will still need to follow up with the spine surgeon. Client is denying SI but still struggling with mood due to physical discomfort. Review of Systems Constitutional: Denies: fever, chills, weakness, weight change Eyes: Denies: eye pain, vision change Ears, Nose, Throat: Denies: ear pain, throat pain, dental pain, hearing loss, congestion Cardiovascular: Denies: chest pain, palpitations, dyspnea on exertion Respiratory: Denies: cough, dyspnea, wheezes Gastrointestinal: Denies: abdominal pain, nausea, vomiting, diarrhea, constipation Musculoskeletal: Reports: back pain, myalgia Neurological: Reports: other Objective: Exam Patient orientation: Yes Person, Yes Time, Yes Place Level of alertness: Alert Patient appearance: Unkempt Behavior: calm, cooperative Psychomotor activity: Slowed Eye contact: Minimal Contact Mood description: Depressed Affect description: congruent with mood Speech pattern: Slurred Speech volume: Soft/Quiet Thought process: Linear Thought content: No Suicidal ideation, No Homicidal ideation, No Overt delusions Perceptual disturbances: No Auditory hallucinations, No Visual hallucinations Judgment: Limited Insight: Minimal Results - Vital Signs Vital Signs: Temp Pulse Resp BP Pulse Ox 97 F L 84 18 143/73 98 01/29/17 20:54 01/29/17 20:54 01/29/17 20:54 01/29/17 20:54 01/25/17 11:02 - Labs Labs: Laboratory Results - last 24 hr 01/29/17 01/29/17 01/29/17 11:31 16:25 19:58 WBC RBC Hgb Hct MCV MCH MCHC RDW Plt Count MPV Immature Gran % Seg Neutrophils % Lymphocytes % Monocytes % Eosinophils % Basophils % Neutrophils # Lymphocytes # Monocytes # Eosinophils # Basophils # Sodium Potassium Chloride Carbon Dioxide BUN Creatinine Est GFR ( Amer) Est GFR (Non-Af Amer) BUN/Creatinine Ratio Glucose POC Glucose 174 H 187 H 228 H Calculated Osmolality Calcium 01/30/17 01/30/17 01/30/17 08:13 08:13 08:36 WBC 7.6 RBC 5.12 Hgb 14.0 Hct 43.5 MCV 85.0 MCH 27.3 L MCHC 32.2 RDW 13.7 Plt Count 265 MPV 10.7 Immature Gran % 0.4 Seg Neutrophils % 58.5 Lymphocytes % 29.5 Monocytes % 7.2 Eosinophils % 3.7 Basophils % 0.7 Neutrophils # 4.5 Lymphocytes # 2.2 Monocytes # 0.6 Eosinophils # 0.3 Basophils # 0.1 Sodium 136 Potassium 4.5 Chloride 103 Carbon Dioxide 27 BUN 21 Creatinine 0.93 Est GFR ( Amer) > 60 Est GFR (Non-Af Amer) > 60 BUN/Creatinine Ratio 23 Glucose 131 H POC Glucose 148 H Calculated Osmolality 287 Calcium 9.6 Assessment and Plan (1) Bipolar disorder Current visit: No Status: Chronic Plan: Continue hospitalization, Close observation, Suicide Precautions per unit protocol, Encourage participation in unit milieu, Group Therapy, Monitor sleep, Monitor appetite Risks, benefits, side effects, alternatives discussed w/pt: Yes Patient agreeable to treatment: Yes Qualifiers: Active/Remission status: in partial remission Most recent bipolar episode type: depressed Qualified Code(s): F31.75 - Bipolar disorder, in partial remission, most recent episode depressed Consult Discharge Plan - Plan Referrals: NO,PCP [Primary Care Provider] -
--- NOTE | 2017-01-30 10:38 | Internal Med Progress Note ---
<Gerardo Lang - Last Filed: 01/30/17 15:03> Date of Encounter: 01/30/17 Time of Encounter: 10:15 - Assessment and plan (1) Closed traumatic nondisplaced fracture of thoracic vertebra Current Visit: Yes Status: Acute Assessment and plan: Patient reportedly fell down a flight of stairs on his wheelchair in an attempt to end his life and continues to have significant low back pain since the incident. CT thoracic and lumbar spine done in the emergency room shows nondisplaced acute fracture at T10/T11, no retropulsion of fragments into the spinal canal. Patient reports significant low back pain, constant, aggravated with movement and is noted to be in mild distress due to pain, Back-midline point vertebral tenderness in lower thoracic area. Acute traumatic nondisplaced fracture of thoracic vertebra-case discussed by nurse practitioner with spine surgery Dr. Hogue, who recommends conservative medical management as the fracture is currently inoperable. Pain management oxycodone as needed, Flexeril, lidocaine patch. Thoracic brace, physical and occupational therapy evaluation after full orthopedics consult. Supportive care. Qualifiers: Encounter type: initial encounter Qualified Code(s): S22.009A - Unspecified fracture of unspecified thoracic vertebra, initial encounter for closed fracture (2) Suicidal ideation Current Visit: No Status: Acute Assessment and plan: He is presently on psychiatric jones-placed on suicide observation (3) Bipolar disorder Current Visit: No Status: Chronic Assessment and plan: Psychiatry managing. Close observation, Suicide Precautions per unit protocol, Encourage participation in unit milieu, Group Therapy, Monitor sleep, Monitor appetite Qualifiers: Active/Remission status: in partial remission Most recent bipolar episode type: depressed Qualified Code(s): F31.75 - Bipolar disorder, in partial remission, most recent episode depressed (4) HTN (hypertension) Current Visit: No Status: Chronic Assessment and plan: presently controlled we will continue with present medication. Continue current management Qualifiers: Hypertension type: essential hypertension Qualified Code(s): I10 - Essential (primary) hypertension (5) COPD (chronic obstructive pulmonary disease) Current Visit: No Status: Chronic Assessment and plan: controlled with bronchodilators as needed, oxygen as needed maintain SPO2 greater than 92% Qualifiers: COPD type: emphysema Emphysema type: unspecified Qualified Code(s): J43.9 - Emphysema, unspecified (6) Diabetes mellitus Current Visit: No Status: Chronic Assessment and plan: Diabetes mellitus type 2-patient is noted to have slightly elevated blood sugars in the low 200s intermittently. Reportedly noncompliant to diet. Continue sliding scale insulin regimen. Qualifiers: Diabetes mellitus type: type 2 Diabetes mellitus complication status: with other specified complication Diabetes mellitus watermaster insulin use: with mcc use Qualified Code(s): E11.69 - Type 2 diabetes mellitus with other specified complication; Z79.4 - retirement (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 (7) Morbid obesity Current Visit: No Status: Acute Assessment and plan: BMI 35.3, with comorbid HTN, hyperlipidemia, DM, and below knee amputation. discussed diet modification and exercise (8) Hyperlipidemia Current Visit: Yes Status: Chronic Assessment and plan: Continue Zocor Qualifiers: Hyperlipidemia type: other hyperlipidemia Qualified Code(s): E78.4 - Other hyperlipidemia (9) Peripheral vascular disease Current Visit: Yes Status: Acute Assessment and plan: prior below-knee amputation (10) Tobacco dependence Current Visit: Yes Status: Acute Assessment and plan: tobacco cessation discussed (11) DVT prophylaxis Current Visit: Yes Status: Acute Assessment and plan: Lovenox. Consider holding if surgery scheduled Patient seen and examined, plan discussed with and agreed upon with Dr. Lucio - Subjective Interval history: Patient resting comfortably in bed layong on right side. Pt reports taking Flexeril, pain meds, and using Lidocaine patch without relief. Nursing reports he sleeps all the time and was able to get up and move yesterday. Scheduled to be evaluated by an ECF in [place] tomorrow. Awaiting spine surgeon recommendations. - Constitutional Vitals: Temp Pulse Resp BP Pulse Ox 97 F L 84 18 143/73 98 01/29/17 20:54 01/29/17 20:54 01/29/17 20:54 01/29/17 20:54 01/25/17 11:02 General appearance: Present: disheveled, mild distress, A&O X 3, morbidly obese , answers questions appropriately. Absent: cooperative Exam: Awake, somewhat cooperative - Head Head exam: Present: atraumatic, normocephalic - Eye Eye exam: Present: EOMI, sclera anicteric - Neck Neck exam general surgery: Present: supple, trachea midline. Absent: lymphadenopathy - Respiratory Respiratory exam: Present: CTAB. Absent: accessory muscle use, rales, rhonchi, wheezes - Cardiovascular Cardiovascular exam: Present: RRR, +S1, +S2. Absent: diastolic murmur, gallop, rubs, systolic murmur - GI/Abdominal GI/Abdominal exam: Present: normal bowel sounds, soft, no peritoneal signs. Absent: distended, tenderness - Extremities Exam Extremities exam: Present: warm, radial pulses palpable and symetrical. Absent : calf tenderness, cyanotic, pedal edema - Back Exam Back exam: Present: normal inspection, paraspinal tenderness, tenderness. Absent: full ROM, rash noted Additional comments: Tenderness to palpation T spine and L-spine. Pain with range of motion. Lidocaine patch in place L-spine - Neurological Exam Neurological exam: Present: CN II-XII intact, oriented X3, no focal deficits. Absent: pronater drift, facial droop, speech deficit - Psychiatric Psychiatric exam: Present: depressed, flat affect Additional comments: somewhat cooperative with exam - Skin Skin exam: Present: dry, intact, normal color, warm. Absent: erythema Internal Medicine: Result - Labs CBC & Chem 7: 01/30/17 08:13 01/30/17 08:13 Labs: Short CBC 01/30/17 Range/Units 08:13 WBC 7.6 (4.3-11.1) K/mcL Hgb 14.0 (12.9-16.9) g/dL Hct 43.5 (37.5-50.1) % Plt Count 265 (140-400) K/mcL Neutrophils # 4.5 (1.6-8.9) K/mcL BMP 01/30/17 08:13 Sodium 136 Potassium 4.5 Chloride 103 Carbon Dioxide 27 BUN 21 Creatinine 0.93 Glucose 131 H Calcium 9.6 - VTE Reasons for not Prescribing Prophylaxis: Treatment not Indicated - Low risk for VTE Consult Discharge Plan - Plan Referrals: NO,PCP [Primary Care Provider] - <Gabino Lucio - Last Filed: 01/30/17 18:21> Date of Encounter: 01/30/17 - Assessment and plan (1) Closed traumatic nondisplaced fracture of thoracic vertebra Current Visit: Yes Status: Acute Qualifiers: Encounter type: subsequent encounter Qualified Code(s): S22.009D - Unspecified fracture of unspecified thoracic vertebra, subsequent encounter for fracture with routine healing (2) HTN (hypertension) Current Visit: No Status: Chronic Qualifiers: Hypertension type: essential hypertension Qualified Code(s): I10 - Essential (primary) hypertension (3) Diabetes mellitus Current Visit: No Status: Chronic Qualifiers: Diabetes mellitus type: type 2 Diabetes mellitus complication status: with other specified complication Diabetes mellitus watermaster insulin use: with watermaster use Qualified Code(s): E11.69 - Type 2 diabetes mellitus with other specified complication; Z79.4 - retirement (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 (4) Tobacco dependence Current Visit: Yes Status: Acute - Constitutional Vitals: Temp Pulse Resp BP Pulse Ox 98.8 F 80 16 142/82 98 01/30/17 12:00 01/30/17 12:00 01/30/17 12:00 01/30/17 12:00 01/25/17 11:02 Internal Medicine: Result - Labs CBC & Chem 7: 01/30/17 08:13 01/30/17 08:13 Labs: Short CBC 01/30/17 Range/Units 08:13 WBC 7.6 (4.3-11.1) K/mcL Hgb 14.0 (12.9-16.9) g/dL Hct 43.5 (37.5-50.1) % Plt Count 265 (140-400) K/mcL Neutrophils # 4.5 (1.6-8.9) K/mcL BMP 01/30/17 08:13 Sodium 136 Potassium 4.5 Chloride 103 Carbon Dioxide 27 BUN 21 Creatinine 0.93 Glucose 131 H Calcium 9.6 - Attending Attestation /I examined this patient and my medical decision-making was reviewed with the Resident Physician on 01/30/17 . I agree with the documented findings, disposition and /treatment plan as described except to the extent set forth below. Mr. Redd is currently admitted to inpatient psych for suicidal ideation. We are consulted for management of medical issues. He is high risk due to potential for neurologic issues from fracture. Mr Redd is complaining of pain in his back. He is up and about at this time. Blood sugars are OK at this time. Exam Alert. Heart reg Lungs clear Abd soft Tender mid thoracic area I/P 1. T10-11 fracture - pain control Brace ordered 2. Hyperglycemia Further diagnoses and plan as above.
[2017-01-30] MEDS ORDERED: Naloxone 0.4 MG/ML INJ IVP PRN (10:39)
[2017-01-30] MEDS: *HR* Enoxaparin 40 MG/0.4 ML SYRINGE SQ SCH (17:05)
[2017-01-30] MEDS: Nicotine 2 MG GUM BC PRN ×2 (17:30→20:50)
[2017-01-30] MEDS: clonazePAM 0.5 MG TABLET PO PRN (18:39)
[2017-01-30] MEDS: *HR* OxyCODONE Immed Rel 5 MG TABLET PO PRN (19:21)
[2017-01-30] MEDS: traZODone 50 MG TABLET PO PRN (20:43)
[2017-01-30] MEDS: Insulin DETEMIR 100 UNIT/ML X5UNITS SQ SCH (20:44)
[2017-01-31] MEDS: *HR* OxyCODONE Immed Rel 15 MG TABLET PO PRN ×3 (05:31→20:14)
[2017-01-31] MEDS: *HR* OxyCODONE Immed Rel 5 MG TABLET PO PRN ×3 (08:23→18:00)
[2017-01-31] MEDS: Gabapentin 300 MG CAPSULE PO SCH ×3 (08:24→20:14)
[2017-01-31] MEDS: Insulin LISPRO 300 UNITS/3 ML VIAL SQ SCH ×4 (08:28→20:18)
[2017-01-31 08:37] LABS: BUN/Creatinine Ratio 22 (6-26); Blood Urea Nitrogen 20 mg/dL (8-26); Calcium 9.3 mg/dL (8.6-10.8); Carbon Dioxide 31 mEq/L (19-29); Chloride 103 mEq/L (98-109); Glucose 157 mg/dL (70-99); Osmolality,Calculated 290 (280-300); Potassium 4.4 mEq/L (3.5-4.5); Sodium 137 mEq/L (136-145); eGFR For African Americans > 60 (> 60); eGFR For Non-African Americans > 60 (> 60)
[2017-01-31 08:42] LABS: Hemoglobin 13.3 g/dL (12.9-16.9); Mean Corpuscular HGB Conc 33.3 g/dL (31.6-35.5); Mean Corpuscular Hemoglobin 28.4 pg (28.0-33.3); Mean Corpuscular Volume 85.3 fL (83.0-100.0); Mean Platelet Volume 10.9 fL (9.4-12.4); Platelet Count 231 K/mcL (140-400); Red Blood Count 4.69 M/mcL (4.19-5.50); Red Cell Distribution Width 13.7 % (11.5-14.5)
--- NOTE | 2017-01-31 08:46 | Internal Med Progress Note ---
<Gerardo Lang - Last Filed: 01/31/17 14:48> Date of Encounter: 01/31/17 Time of Encounter: 08:44 - Assessment and plan (1) Closed traumatic nondisplaced fracture of thoracic vertebra Current Visit: Yes Status: Acute Assessment and plan: Patient reportedly fell down a flight of stairs on his wheelchair in an attempt to end his life and continues to have significant low back pain since the incident. CT thoracic and lumbar spine done in the emergency room shows nondisplaced acute fracture at T10/T11, no retropulsion of fragments into the spinal canal. Patient reports significant low back pain, constant, aggravated with movement and is noted to be in mild distress due to pain, Back-midline point vertebral tenderness in lower thoracic area. Acute traumatic nondisplaced fracture of thoracic vertebra-case discussed by nurse practitioner with spine surgery Dr. Hogue, who recommends conservative medical management as the fracture is currently inoperable. Pain management oxycodone as needed, Flexeril, lidocaine patch. TLSO brace, physical and occupational therapy evaluation. Awaiting orthopedics consult. Supportive care. Qualifiers: Encounter type: initial encounter Qualified Code(s): S22.009A - Unspecified fracture of unspecified thoracic vertebra, initial encounter for closed fracture (2) Suicidal ideation Current Visit: No Status: Acute Assessment and plan: He is presently on psychiatric jones-placed on suicide observation (3) Bipolar disorder Current Visit: No Status: Chronic Assessment and plan: Psychiatry managing. Close observation, Suicide Precautions per unit protocol, Encourage participation in unit milieu, Group Therapy, Monitor sleep, Monitor appetite Qualifiers: Active/Remission status: in partial remission Most recent bipolar episode type: depressed Qualified Code(s): F31.75 - Bipolar disorder, in partial remission, most recent episode depressed (4) HTN (hypertension) Current Visit: No Status: Chronic Assessment and plan: presently controlled we will continue with present medication. Continue current management Qualifiers: Hypertension type: essential hypertension Qualified Code(s): I10 - Essential (primary) hypertension (5) COPD (chronic obstructive pulmonary disease) Current Visit: No Status: Chronic Assessment and plan: controlled with bronchodilators as needed, oxygen as needed maintain SPO2 greater than 92% Qualifiers: COPD type: emphysema Emphysema type: unspecified Qualified Code(s): J43.9 - Emphysema, unspecified (6) Diabetes mellitus Current Visit: No Status: Chronic Assessment and plan: Hyperglycemia. Diabetes mellitus type 2. Reportedly noncompliant to diet. Continue sliding scale insulin regimen. Qualifiers: Diabetes mellitus type: type 2 Diabetes mellitus complication status: with other specified complication Diabetes mellitus exterminator helper insulin use: with exterminator helper use Qualified Code(s): E11.69 - Type 2 diabetes mellitus with other specified complication; Z79.4 - [facility] (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 (7) Morbid obesity Current Visit: No Status: Acute Assessment and plan: BMI 35.3, with comorbid HTN, hyperlipidemia, DM, and below knee amputation. 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 Consider holding if surgery scheduled Patient seen and examined, plan discussed with and agreed upon with Dr. Lucio - Subjective Interval history: Patient resting comfortably in be. Pt reports taking Flexeril, pain meds, and using Lidocaine patch without relief. Scheduled to be evaluated by an ECF in [place] today. TLSO brace ordered. Patient reports a wheelchair is falling apart, will place social insurance administrator consult. Awaiting spine surgeon recommendations. - Constitutional Vitals: Temp Pulse Resp BP Pulse Ox 97.2 F L 93 16 138/83 98 01/30/17 18:56 01/30/17 18:56 01/30/17 18:56 01/30/17 18:56 01/25/17 11:02 General appearance: Present: disheveled, mild distress, A&O X 3, morbidly obese , answers questions appropriately. Absent: cooperative - Head Head exam: Present: atraumatic, normocephalic - Eye Eye exam: Present: PERRL, conjuntiva pink, sclera anicteric Pupils: Present: PERRL - Neck Neck exam general surgery: Present: supple, trachea midline. Absent: lymphadenopathy - Respiratory Respiratory exam: Present: CTAB. Absent: accessory muscle use, rales, rhonchi, wheezes - Cardiovascular Cardiovascular exam: Present: RRR, +S1, +S2. Absent: diastolic murmur, gallop, rubs, systolic murmur - GI/Abdominal GI/Abdominal exam: Present: normal bowel sounds, soft, no peritoneal signs. Absent: distended, tenderness - Extremities Exam Extremities exam: Present: warm, radial pulses palpable and symetrical. Absent : calf tenderness, cyanotic, pedal edema Additional comments: Right BKA, left toe amputations - Neurological Exam Neurological exam: Present: CN II-XII intact, oriented X3, no focal deficits. Absent: pronater drift, facial droop, speech deficit Additional comments: No loss of sensation in bilateral lower extremities - Psychiatric Psychiatric exam: Present: agitated, flat affect - Skin Skin exam: Present: dry, intact, warm - Other Additional findings: Patient has moderate tenderness to palpation in low T-spine and L spine to light and deep palpation, positive pain with range of motion Internal Medicine: Result - Labs CBC & Chem 7: 01/31/17 08:10 01/31/17 08:10 Labs: Short CBC 01/30/17 Range/Units 08:13 WBC 7.6 (4.3-11.1) K/mcL Hgb 14.0 (12.9-16.9) g/dL Hct 43.5 (37.5-50.1) % Plt Count 265 (140-400) K/mcL Neutrophils # 4.5 (1.6-8.9) K/mcL BMP 01/30/17 01/31/17 08:13 08:10 Sodium 136 137 Potassium 4.5 4.4 Chloride 103 103 Carbon Dioxide 27 31 H BUN 21 20 Creatinine 0.93 0.92 Glucose 131 H 157 H Calcium 9.6 9.3 - VTE Reasons for not Prescribing Prophylaxis: Treatment not Indicated - Low risk for VTE Consult Discharge Plan - Plan Referrals: NO,PCP [Primary Care Provider] - <Gabino Lucio - Last Filed: 01/31/17 17:20> Date of Encounter: 01/31/17 - Assessment and plan (1) Closed traumatic nondisplaced fracture of thoracic vertebra Current Visit: Yes Status: Acute Qualifiers: Encounter type: initial encounter Qualified Code(s): S22.009A - Unspecified fracture of unspecified thoracic vertebra, initial encounter for closed fracture (2) HTN (hypertension) Current Visit: No Status: Chronic Qualifiers: Hypertension type: essential hypertension Qualified Code(s): I10 - Essential (primary) hypertension (3) Diabetes mellitus Current Visit: No Status: Chronic Qualifiers: Diabetes mellitus type: type 2 Diabetes mellitus complication status: with other specified complication Diabetes mellitus exterminator helper insulin use: with [facility] use Qualified Code(s): E11.69 - Type 2 diabetes mellitus with other specified complication; Z79.4 - [facility] (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 (4) Tobacco dependence Current Visit: Yes Status: Acute - Constitutional Vitals: Temp Pulse Resp BP Pulse Ox 97.5 F L 71 20 124/69 98 01/31/17 09:00 01/31/17 09:00 01/31/17 09:00 01/31/17 09:00 01/25/17 11:02 Internal Medicine: Result - Labs CBC & Chem 7: 01/31/17 08:10 01/31/17 08:10 Labs: Short CBC 01/31/17 Range/Units 08:10 WBC 7.5 (4.3-11.1) K/mcL Hgb 13.3 (12.9-16.9) g/dL Hct 40.0 (37.5-50.1) % Plt Count 231 (140-400) K/mcL BMP 01/31/17 08:10 Sodium 137 Potassium 4.4 Chloride 103 Carbon Dioxide 31 H BUN 20 Creatinine 0.92 Glucose 157 H Calcium 9.3 - Attending Attestation Mr Redd appears to be medically stable. His blood sugars are fairly controlled as is his blood pressure. Pain management has been consulted today and is advising regarding his thoracic fractures. Will sign off. Please call again if needed. Thank you.
--- NOTE | 2017-01-31 09:10 | Pain Management Consultation ---
Date of Encounter: 01/31/17 Time of Encounter: 09:09 Assessment and Plan (1) Thoracic spine fracture Current Visit: Yes Status: Acute The patient has an acute fracture of the T10 vertebral body. It is not a compression fracture. Recommend conservative care. Recommend TLSO brace. Recommend oral analgesia. Recommend physical therapy. The assessment and plan as outlined above was discussed with the patient and/or family members who expressed understanding and agreement. All questions were answered. Qualifiers: Encounter type: subsequent encounter Thoracic vertebra fracture level: T10 Fracture type: closed Fracture morphology: other fracture Fracture healing: with routine healing Qualified Code(s): S22.078D - Other fracture of T9-T10 vertebra, subsequent encounter for fracture with routine healing History of Present Illness Chief complaint: back pain after fall HPI: Mr. Redd is a 41 year old male psychiatric patient with bipolar disorder, schizophrenia, and suicidal ideation who allegedly threw himself down a set of stairs on his wheelchair in an attempt to end his life. Since that episode, he has had back pain. This episode occurred 4 days ago. The patient complains of 10/10 deep and sharp pain in his lower back. The pain does not radiate into his legs. Pain goes away when he is lying in bed. Pain is out of control when he stands and walks. He is able to eat and use the bedside urinal without problems. Past Med Surg Social Fam HX - Past Medical History Medical history: cancer, CHF, COPD, coronary artery disease, diabetes, hyperlipidemia, hypertension, myocardial infarction, peripheral artery disease, syncope, other Psychiatric history: bipolar, prior suicide attempt, previous psychiatric hospitalization - Past Surgical History Surgical History: cancer surgery, other - Social History Smoking Status: Current every day smoker Smokeless Tobacco Status: No Alcohol use: none Drug use: cocaine - Family History Mother History Unknown: Yes Living Status: Still Living Father Grandmother Living Status: Hx Family Endocrine Disorder: Yes Medications and Allergies Simvastatin [Zocor] 40 mg PO HS #0 01/01/17 [History] Buspirone HCl [Buspar] 15 mg PO TID #90 tablet 01/05/17 [Rx] Escitalopram [Lexapro] 10 mg PO DAILY #30 tablet 01/05/17 [Rx] Gabapentin [Neurontin] 300 mg PO TID #90 capsule 01/05/17 [Rx] Insulin DETEMIR [Levemir] 50 unit SQ HS 30 Days 01/05/17 [Rx] Insulin LISPRO [HumaLOG] 2 units SQ TIDWM 30 Days 01/05/17 [Rx] Lisinopril [Zestril] 10 mg PO DAILY #30 tablet 01/05/17 [Rx] OxyCODONE Immed Rel [Roxicodone 15 MG] 15 mg PO QID PRN 30 Days 01/05/17 [Rx] Pramipexole [Mirapex] 1 mg PO HS #30 tablet 01/05/17 [Rx] clonazePAM [Klonopin] 0.5 mg PO TID PRN #90 tablet 01/05/17 [Rx] Allergies aspirin Allergy (Verified 06/12/16 21:31) Anaphylaxis hydrocodone Allergy (Verified 06/12/16 21:31) Anaphylaxis ibuprofen Allergy (Verified 06/12/16 21:31) Anaphylaxis Penicillins Allergy (Verified 06/12/16 21:31) Anaphylaxis rofecoxib [From Vioxx] Allergy (Verified 06/12/16 21:31) Swelling of Lip/Tongue/Throat Review of Systems - Constitutional Constitutional ROS IM: no photophobia, no phonophobia, no daytime sleepiness, no fever(s), no stops breathing during sleep - EENT Nose, mouth and throat: no headache(s), no neck pain, no neck trauma - Cardiovascular Cardiovascular ROS: no chest pain, no leg edema, no lightheadedness - Respiratory Respiratory: no pain on inspiration, no pain with cough - Gastrointestinal Gastrointestinal: no abdominal pain, no constipation, no diarrhea, no heartburn - Genitourinary Genitourinary ROS: no difficulty urinating, no flank pain, no urinary hesitancy - Musculoskeletal Musculoskeletal ROS: no muscle weakness, no numbness, no radiating pain into limb, no tingling - Integumentary Integumentary: no erythema, no lesions, no swelling - Neurological Neurological ROS: no abnormal gait, no behavioral changes, no focal weakness, no radicular pain - Psychiatric Psychiatric general: no anxiety, no confusion, no depression - Hematologic/Lymphatic Hematologic/Lymphatic pediatric: no easy bleeding, no easy bruising Physical Exam Initial Vital Signs Temp Pulse Resp BP Pulse Ox 98.7 F 97 18 161/92 97 01/25/17 00:34 01/25/17 00:34 01/25/17 00:34 01/25/17 00:34 01/25/17 00:34 - Additional Findings EYES:: pupils equal and round, no myosis. SKIN:: no areas of echymoses or petechiae CARDIOVASCULAR:: regular rate and rhythm, no murmurs PULMONARY:: lung mike clear to auscultation bilaterally. Quiet, normal respiratory pattern. GASTROINTESTINAL:: active bowel sounds. MUSCULOSKELETAL GAIT:: antalgic. INSPECTION:: no surgical scarring PALPATION:: tender in midline over L5/S1, no tenderness to palpation or percussion of thoracolumbar junction. STRENGTH:: RIGHT hip flexors: 5/5 :: LEFT hip flexors: 5/5 RIGHT hip adduction 5/5 :: LEFT hip adduction 5/5 RIGHT hip abduction 5/5 :: LEFT hip abduction 5/5 RIGHT knee extension 5/5 :: LEFT knee extension 5/5 RIGHT knee flexion 5/5 :: LEFT knee flexion 5/5 RIGHT ankle dorsiflexion 5/5 :: LEFT ankle dorsiflexion 5/5 RIGHT ankle plantarflexion 5/5 :: LEFT ankle plantarflexion 5/5 RIGHT great toe dorsiflexion 5/5 :: LEFT great toe dorsiflexion 5/5 RIGHT great toe plantarflexion 5/5 :: LEFT great toe plantarflexion 5/5 STRAIGHT LEG RAISE:: LLE is negative at 120 degrees. RLE is negative at 120 degrees. NEUROLOGIC SENSATION:: hypesthesia is not noted in lower extremity dermatomes. SIGNS OF NEUROVASCULAR COMPRESSION Clonus: none found bilateral with passive ROM at ankle joint Spasticity:: none Atrophy:: not present in UE or LE musculature Fasciculation:: not present in UE or LE musculature PSYCHIATRIC:: ORIENTATION:: awake and alert. AFFECT:: pleasant. Radiology Images Viewed By Me:: CT scan on 01/25/2017 shows a new fracture from a prior CT dated 11/25/2015. The fracture is a fracture line through the anterior osteophytes spanning the T10-T11 interspace. The fracture line extends somewhat into the anterior aspect of T10 and T11 vertebral bodies. No compression of the vertebral bodies is seen. No retropulsion of fragments into the spinal canal is seen. I have reviewed and agree with information documented in the scribed documentation, ROS, patient medications, allergies, medical history, surgical history, social history, and family history. Results - Labs 01/31/17 08:10 01/31/17 08:10 Abnormal lab results Carbon Dioxide 31 mEq/L (19-29) H 01/31/17 08:10 Glucose 157 mg/dL (70-99) H 01/31/17 08:10 POC Glucose 156 (58-89) H 01/31/17 08:09 Ur Specific [place] 1.030 (1.010-1.025) H 01/25/17 03:29 Urine Protein >=300 mg/dL (Neg-Trace) H 01/25/17 03:29 Urine Bilirubin Small (Negative) H 01/25/17 03:29 Urine Microscopic RBC 5-15 per hpf (0-3) H 01/25/17 03:29 Urine Microscopic WBC 15-30 per hpf (0-3) H 01/25/17 03:29 Ur Squamous Epith Cells Many per lpf (None-Few) H 01/25/17 03:29 Salicylates < 5.0 mg/dL (15-30) L 01/25/17 02:06 Acetaminophen < 1.0 mcg/mL (10-30) L 01/25/17 02:06 Urine Cocaine Screen Positive ng/mL (Cutoff= 300) H 01/25/17 03:29 Diabetes panel 01/30/17 01/31/17 Range/Units 08:13 08:10 Sodium 136 137 (136-145) mEq/L Potassium 4.5 4.4 (3.5-4.5) mEq/L Chloride 103 103 (98-109) mEq/L Carbon Dioxide 27 31 H (19-29) mEq/L BUN 21 20 (8-26) mg/dL Creatinine 0.93 0.92 (0.72-1.25) mg/dL Glucose 131 H 157 H (70-99) mg/dL Calcium 9.6 9.3 (8.6-10.8) mg/dL Calcium panel 01/30/17 01/31/17 Range/Units 08:13 08:10 Calcium 9.6 9.3 (8.6-10.8) mg/dL Pituitary panel 01/30/17 01/31/17 Range/Units 08:13 08:10 Sodium 136 137 (136-145) mEq/L Potassium 4.5 4.4 (3.5-4.5) mEq/L Chloride 103 103 (98-109) mEq/L Carbon Dioxide 27 31 H (19-29) mEq/L BUN 21 20 (8-26) mg/dL Creatinine 0.93 0.92 (0.72-1.25) mg/dL Glucose 131 H 157 H (70-99) mg/dL Calcium 9.6 9.3 (8.6-10.8) mg/dL Adrenal panel 01/30/17 01/31/17 Range/Units 08:13 08:10 Sodium 136 137 (136-145) mEq/L Potassium 4.5 4.4 (3.5-4.5) mEq/L Chloride 103 103 (98-109) mEq/L Carbon Dioxide 27 31 H (19-29) mEq/L BUN 21 20 (8-26) mg/dL Creatinine 0.93 0.92 (0.72-1.25) mg/dL Glucose 131 H 157 H (70-99) mg/dL Calcium 9.6 9.3 (8.6-10.8) mg/dL All other labs normal. - VTE Reasons for not Prescribing Prophylaxis: Treatment not Indicated - Low risk for VTE Consult Discharge Plan - Plan Referrals: NO,PCP [Primary Care Provider] -
--- NOTE | 2017-01-31 15:03 | Psychiatry Progress Note ---
Date of Encounter: 01/31/17 Time of Encounter: 11:30 Subjective Interval history: Patient seen this morning at bedside. HE was calm and coopertaive. Reports doing doing well doing to physcal pain from falling. Reports his current pain medications are not [facility] [place] [facility]. He continues to endorse being depressed due to his ongoing pain. He is compliany with his medications and denied any noted side effects. Reported he had paasive suicidal thoughts this morning which subsided after a couple of minutes. Patient refused refused physical therapy today explaining he is unable to move due to severe back pain. He denied problems with his sleep or aapetite. Patient continue not to adhere to diabetic diet with his last Hb A1C of 02/21. Patient continue to be followed by pain management and internal medicine consults. On review of symptoms, he denied other mood and psychotic symptoms including AH/VH/SI/HI Review of Systems Constitutional: Denies: fever, chills, weakness, weight change Ears, Nose, Throat: Denies: ear pain, throat pain, dental pain, hearing loss, congestion Respiratory: Denies: cough, dyspnea, wheezes Gastrointestinal: Denies: abdominal pain, nausea, vomiting, diarrhea, constipation Musculoskeletal: Denies: joint swelling, joint pain Neurological: Denies: headache, weakness, numbness, memory loss Objective: Exam Patient orientation: Yes Person, Yes Time, Yes Place Level of alertness: Alert Patient appearance: Appropriate, Well Groomed Behavior: calm, cooperative Psychomotor activity: Normal Eye contact: Maintains Eye Contact Mood description: Euthymic/stable Affect description: congruent with mood, full range Speech pattern: Normal rate, Normal rhythm, Normal tone Speech volume: Normal Thought process: Linear, Goal Oriented Thought content: No Suicidal ideation, No Homicidal ideation, No Overt delusions Perceptual disturbances: No Auditory hallucinations, No Visual hallucinations Judgment: Fair Insight: Partial Results - Vital Signs Vital Signs: Temp Pulse Resp BP Pulse Ox 97.5 F L 71 20 124/69 98 01/31/17 09:00 01/31/17 09:00 01/31/17 09:00 01/31/17 09:00 01/25/17 11:02 - Labs Labs: Laboratory Results - last 24 hr 01/30/17 01/30/17 01/31/17 16:38 19:45 08:09 WBC RBC Hgb Hct MCV MCH MCHC RDW Plt Count MPV Sodium Potassium Chloride Carbon Dioxide BUN Creatinine Est GFR ( Amer) Est GFR (Non-Af Amer) BUN/Creatinine Ratio Glucose POC Glucose 141 H 238 H 156 H Calculated Osmolality Calcium 01/31/17 01/31/17 01/31/17 08:10 08:10 11:44 WBC 7.5 RBC 4.69 Hgb 13.3 Hct 40.0 MCV 85.3 MCH 28.4 MCHC 33.3 RDW 13.7 Plt Count 231 MPV 10.9 Sodium 137 Potassium 4.4 Chloride 103 Carbon Dioxide 31 H BUN 20 Creatinine 0.92 Est GFR ( Amer) > 60 Est GFR (Non-Af Amer) > 60 BUN/Creatinine Ratio 22 Glucose 157 H POC Glucose 148 H Calculated Osmolality 290 Calcium 9.3 Consult Discharge Plan - Plan Referrals: NO,PCP [Primary Care Provider] -
[2017-01-31] MEDS: Nicotine 2 MG GUM BC PRN ×2 (17:40→20:13)
[2017-01-31] MEDS: *HR* Enoxaparin 40 MG/0.4 ML SYRINGE SQ SCH (18:20)
[2017-01-31] MEDS: Insulin DETEMIR 100 UNIT/ML X5UNITS SQ SCH (20:13)
[2017-01-31] MEDS: clonazePAM 0.5 MG TABLET PO PRN (20:14)
[2017-02-01] MEDS: traZODone 50 MG TABLET PO PRN ×2 (03:36→20:18)
[2017-02-01] MEDS: clonazePAM 0.5 MG TABLET PO PRN ×3 (03:36→20:19)
[2017-02-01] MEDS: *HR* OxyCODONE Immed Rel 15 MG TABLET PO PRN ×3 (03:38→17:47)
[2017-02-01] MEDS: *HR* OxyCODONE Immed Rel 5 MG TABLET PO PRN ×3 (08:32→20:19)
[2017-02-01] MEDS: Gabapentin 300 MG CAPSULE PO SCH ×3 (08:33→20:19)
[2017-02-01] MEDS: Insulin LISPRO 300 UNITS/3 ML VIAL SQ SCH ×4 (08:39→20:23)
[2017-02-01] MEDS: Nicotine 2 MG GUM BC PRN ×3 (12:52→20:18)
--- NOTE | 2017-02-01 16:06 | Psychiatry Progress Note ---
Date of Encounter: 02/01/17 Time of Encounter: 15:30 Subjective Interval history: Patient seen in the office today. He was more receptive, calm and cooperative. He reported he has been doing a lot of thinking and concluded it is time to stop feeling sorry for himself and start living for his 7y/o daughter currently with [employer]. He reported feeling much better with better though he continues to have severe pain in his back. He refused physical therapy once again this morning citing severe back pain wiith movement. Patient has been compliant with his medications and denied any noted side effects. He is sleeping and eating well. He continues to be non compliant with his diabetic diet. On review of symptms, he denied any mood or psychitic symptoms including AH/Vh/SI/H Objective: Exam Patient orientation: Yes Person, Yes Time, Yes Place Level of alertness: Alert Patient appearance: Appropriate, Well Groomed Behavior: calm, cooperative Psychomotor activity: Normal Eye contact: Maintains Eye Contact Mood description: Euthymic/stable Affect description: congruent with mood, full range Speech pattern: Normal rate, Normal rhythm, Normal tone Speech volume: Normal Thought process: Linear, Goal Oriented Thought content: No Suicidal ideation, No Homicidal ideation, No Overt delusions Perceptual disturbances: No Auditory hallucinations, No Visual hallucinations Judgment: Fair Insight: Partial Results - Vital Signs Vital Signs: Temp Pulse Resp BP Pulse Ox 97 F L 72 16 115/65 98 02/01/17 09:00 02/01/17 09:00 02/01/17 09:00 02/01/17 09:00 01/25/17 11:02 - Labs Labs: Laboratory Results - last 24 hr 01/31/17 01/31/17 02/01/17 16:11 19:44 08:30 POC Glucose 136 H 212 H 108 H 02/01/17 11:43 POC Glucose 161 H Consult Discharge Plan - Plan Referrals: NO,PCP [Primary Care Provider] -
--- NOTE | 2017-02-01 16:19 | Discharge Summary ---
Date of Encounter: 02/01/17 Time of Encounter: 06:17 Diagnosis - Discharge Diagnosis (1) Depression Status: Resolved Qualifiers: Depression Type: unspecified Qualified Code(s): F32.9 - Major depressive disorder, single episode, unspecified Medications - Discharge Medications Prescriptions: Buspirone HCl [Buspar] 15 mg PO TID #90 tablet Escitalopram [Lexapro] 10 mg PO DAILY #30 tablet Gabapentin [Neurontin] 300 mg PO TID #90 capsule Lisinopril [Zestril] 10 mg PO DAILY #30 tablet Pramipexole [Mirapex] 1 mg PO HS #30 tablet Quetiapine Fumarate [Seroquel] 50 mg PO HS #30 tab Simvastatin [Zocor] 40 mg PO HS #60 Insulin LISPRO [HumaLOG] 2 units SQ TIDWM 30 Days 01/05/17 [Rx] OxyCODONE Immed Rel [Roxicodone 15 MG] 15 mg PO QID PRN 30 Days 01/05/17 [Rx] Buspirone HCl [Buspar] 15 mg PO TID #90 tablet 02/01/17 [Rx] Escitalopram [Lexapro] 10 mg PO DAILY #30 tablet 02/01/17 [Rx] Gabapentin [Neurontin] 300 mg PO TID #90 capsule 02/01/17 [Rx] Lisinopril [Zestril] 10 mg PO DAILY #30 tablet 02/01/17 [Rx] Pramipexole [Mirapex] 1 mg PO HS #30 tablet 02/01/17 [Rx] Quetiapine Fumarate [Seroquel] 50 mg PO HS #30 tab 02/01/17 [Rx] Simvastatin [Zocor] 40 mg PO HS #60 02/01/17 [Rx] Allergies aspirin Allergy (Verified 06/12/16 21:31) Anaphylaxis hydrocodone Allergy (Verified 06/12/16 21:31) Anaphylaxis ibuprofen Allergy (Verified 06/12/16 21:31) Anaphylaxis Penicillins Allergy (Verified 06/12/16 21:31) Anaphylaxis rofecoxib [From Vioxx] Allergy (Verified 06/12/16 21:31) Swelling of Lip/Tongue/Throat Results Procedures and tests throughout hospitalization: Completed Lab Orders Category Date Time Status BMP [Basic Metabolic Panel] AM 0400 Lab 01/31/17 08:10 Completed CBC [Complete Blood Count] [HEME] AM 0400 Lab 01/30/17 08:13 Completed Chem 7 [Basic Metabolic Panel] AM 0400 Lab 01/30/17 08:13 Completed Complete Blood Count w/o Diff [HEME] AM 0400 Lab 01/31/17 08:10 Completed Provider Date of admission: 01/25/17 14:57 Primary care physician: PCP NO Consults: 01/29/17 15:32 Consult to Orthopedic Surgery [CONS] Routine Consulting Provider: Jamaal Hogue Jr Reason for Consult: t10- t11 fx Time Notified: 15:37 Call Completed: Yes 01/31/17 10:01 Consult to Medical Facilities Section Director [CONS] Routine Reason for SW Consult: Wheelchair needs repairs/ upgrade Discharging clinician: Guy Gauthier Assessment and Plan - Patient/Caregiver Discharge Instructions Activity: resume usual activities as tolerated Diet: diabetic diet - Follow up Plan Follow up with: NO,PCP [Primary Care Provider] - Disposition: Home, Self-Care Hospital Course Hospital course: Mr. Redd is a 41 year old male, known to service, last discharged from the unit less than a month prior to readmssion with h/o of MDD, anxiety disorder, multiple inpatient hospitalizations, multiple medical comorbidities, presented to the ER on account of throwing himself down a flight of stairs in a attempt to kill himself. Patient was transferred to the unit for stabilization. Patient was seen and followed by internal medicine for his medical issues and pain consult for pain secondary to fracture of thoraxic vertebrae from the fall. Patient seen in the office today. He was more receptive, calm and cooperative. He reported he has been doing a lot of thinking and concluded it is time to stop feeling sorry for himself and start living for his 7y/o daughter currently with CPS. He reported feeling much better with better though he continues to have severe pain in his back. He refused physical therapy once again this morning citing severe back pain withcally atbb movement. Patient has been compliant with his medications and denied any noted side effects. He is sleeping and eating well. He continues to be non compliant with his diabetic diet. On review of symptms, he denied any mood or psychitic symptoms including AH/Vh/SI/HI. Patient is logical and goal directed with a fair insight, impulse control and judgment. He is psychiatrically stable at present time and is not deem a threat to self and others. Patient requested to be discharge to the aunt Chelsea Loyola ([phone]) Government Relations Director spoke with the aunt who is aware and agreed to his discharge to her home. - Time Spent with Patient Total time spent providing and/or coordinating discharge services: Quality - Multiple Antipsychotics Patient discharged on 2 or more antipsychotic medications: No Mental Status Exam - Mental Status Exam Patient orientation: Yes Person, Yes Time, Yes Place Level of alertness: Alert Patient appearance: Appropriate, Well Groomed Behavior: calm, cooperative Psychomotor activity: Normal Eye contact: Maintains Eye Contact Mood description: Euthymic/stable Affect description: congruent with mood, full range Speech pattern: Normal rate, Normal rhythm, Normal tone Speech Volume: Normal Thought process: Linear, Goal Oriented Thought Content: No Suicidal ideation, No Homicidal ideation, No Overt delusions Perceptual Disturbances: No Auditory hallucinations, No Visual hallucinations Judgment: Limited Insight: Partial
[2017-02-01] MEDS: *HR* Enoxaparin 40 MG/0.4 ML SYRINGE SQ SCH (18:18)
[2017-02-01] MEDS: Insulin DETEMIR 100 UNIT/ML X5UNITS SQ SCH (20:18)
[2017-02-02] MEDS: *HR* OxyCODONE Immed Rel 15 MG TABLET PO PRN ×3 (01:30→14:54)
[2017-02-02] MEDS: Insulin LISPRO 300 UNITS/3 ML VIAL SQ SCH ×2 (08:13→11:52)
[2017-02-02] MEDS: Gabapentin 300 MG CAPSULE PO SCH ×2 (08:23→14:54)
[2017-02-02 09:31] VITALS: BP 140/77
[2017-02-02] MEDS: *HR* OxyCODONE Immed Rel 5 MG TABLET PO PRN ×2 (10:18→13:56)
[2017-02-02] MEDS: Nicotine 2 MG GUM BC PRN (13:57)
--- NOTE | 2017-02-02 14:38 | Discharge Summary ---
Date of Encounter: 02/02/17 Diagnosis - Discharge Diagnosis (1) Depression Status: Resolved Qualifiers: Depression Type: unspecified Qualified Code(s): F32.9 - Major depressive disorder, single episode, unspecified Medications - Discharge Medications Prescriptions: Ibuprofen [Motrin] 600 mg PO Q6HR PRN #90 tab PRN Reason: Pain Buspirone HCl [Buspar] 15 mg PO TID #90 tablet Escitalopram [Lexapro] 10 mg PO DAILY #30 tablet Gabapentin [Neurontin] 300 mg PO TID #90 capsule Lisinopril [Zestril] 10 mg PO DAILY #30 tablet OxyCODONE Immed Rel [Roxicodone 15 MG] 15 mg PO QID PRN 30 Days PRN Reason: Pain 4-10 OxyCODONE Immed Rel [Roxicodone 15 MG] 15 mg PO BID PRN #10 tab PRN Reason: Pain 4-10 OxyCODONE Immed Rel [Roxicodone 5 MG] 15 mg PO BID PRN #10 tab PRN Reason: Pain Pramipexole [Mirapex] 1 mg PO HS #30 tablet Quetiapine Fumarate [Seroquel] 50 mg PO HS #30 tab Simvastatin [Zocor] 40 mg PO HS #60 Insulin LISPRO [HumaLOG] 2 units SQ TIDWM 30 Days 01/05/17 [Rx] Buspirone HCl [Buspar] 15 mg PO TID #90 tablet 02/01/17 [Rx] Escitalopram [Lexapro] 10 mg PO DAILY #30 tablet 02/01/17 [Rx] Gabapentin [Neurontin] 300 mg PO TID #90 capsule 02/01/17 [Rx] Lisinopril [Zestril] 10 mg PO DAILY #30 tablet 02/01/17 [Rx] Pramipexole [Mirapex] 1 mg PO HS #30 tablet 02/01/17 [Rx] Quetiapine Fumarate [Seroquel] 50 mg PO HS #30 tab 02/01/17 [Rx] Simvastatin [Zocor] 40 mg PO HS #60 02/01/17 [Rx] Ibuprofen [Motrin] 600 mg PO Q6HR PRN #90 tab 02/02/17 [Rx] OxyCODONE Immed Rel [Roxicodone 15 MG] 15 mg PO BID PRN #10 tab 02/02/17 [Rx] OxyCODONE Immed Rel [Roxicodone 15 MG] 15 mg PO QID PRN 30 Days 02/02/17 [Rx] OxyCODONE Immed Rel [Roxicodone 5 MG] 15 mg PO BID PRN #10 tab 02/02/17 [Rx] Allergies aspirin Allergy (Verified 06/12/16 21:31) Anaphylaxis hydrocodone Allergy (Verified 06/12/16 21:31) Anaphylaxis ibuprofen Allergy (Verified 06/12/16 21:31) Anaphylaxis Penicillins Allergy (Verified 06/12/16 21:31) Anaphylaxis rofecoxib [From Vioxx] Allergy (Verified 06/12/16 21:31) Swelling of Lip/Tongue/Throat Results Procedures and tests throughout hospitalization: Completed Lab Orders Category Date Time Status BMP [Basic Metabolic Panel] AM 0400 Lab 01/31/17 08:10 Completed CBC [Complete Blood Count] [HEME] AM 0400 Lab 01/30/17 08:13 Completed Chem 7 [Basic Metabolic Panel] AM 0400 Lab 01/30/17 08:13 Completed Complete Blood Count w/o Diff [HEME] AM 0400 Lab 01/31/17 08:10 Completed Provider Date of admission: 01/25/17 14:57 Primary care physician: PCP NO Consults: 01/29/17 15:32 Consult to Orthopedic Surgery [CONS] Routine Consulting Provider: Jamaal Hogue Jr Reason for Consult: t10- t11 fx Time Notified: 15:37 Call Completed: Yes 01/31/17 10:01 Consult to Student Life Vice President [CONS] Routine Reason for SW Consult: Wheelchair needs repairs/ upgrade Assessment and Plan - Follow up Plan Follow up with: [facility] [Outside] - 02/17/17 10:30 am (The above appointment is with Mary Jane Oliveira, counselor at [facility]. Your first appointment will be very thorough and the total appointment time will take between two and three hours. You will be completing paperwork, meeting with a counselor and a nurse, and developing a treatment plan. You will receive follow- up appointments for on-going services , which could include community support, mental health and substance abuse counseling, groups/partial hospitalization programming, medication assisted treatment, and psychiatric medication management. Please bring the following with you to your first visit to the clinic: 1) proof of household income (two consecutive pay stubs, social security award letter, bank statement, statement letter from [facility], child support statement, IRS 1040 or W2 form, or a statement from the person who financially supports you stating they help provide for your basic needs), 2) proof of residency (drivers license, a piece of mail showing your address, a statement from person you live with verifying you live at their address), 3) your social security card, 4) photo ID, and 5) your insurance card (if you have commercial insurance you must call to obtain a prior authorization number before you arrive to your first appointment). If you do not bring these items, you will not be seen.) Mirtha Bryant [Advanced Practice Nurse] - 02/03/17 1:00 pm (The above appointment is with Mirtha Bryant at [facility]. This appointment is to establish you with a primary care provider. Your needs for medication and/or Vivitrol will be assessed and treated as indicated as well. Please arrive 15 minutes early to complete paperwork. Please bring your insurance card, photo ID and list of current medications to your first appointment. This is the first available appointment. You may contact the office regularly to check for cancellations that may allow you to be seen sooner. ) Disposition: Home, Self-Care Hospital Course Hospital course: Mr. Redd is a 41 year old male - Time Spent with Patient Total time spent providing and/or coordinating discharge services:
[2017-02-02] MEDS ORDERED: Ibuprofen 600 MG TABLET PO PRN (14:46)
[2017-02-02] MEDS: clonazePAM 0.5 MG TABLET PO PRN (14:54)
== END 2017-02-02 15:00 | disposition home or self-care (01) | DRG 753 ==
LOC: EMEROO 00:33 → 1ANU 14:57 → SUATTDRO 14:57 → 1ANU 17:02
PROVIDERS: ADMIT Psychiatry & Neurology Psychiatry; ATTEND Psychiatry & Neurology Psychiatry

== ENCOUNTER 2019-01-01 12:34 | Inpatient (IN) ==
[2019-01-01] MEDS ORDERED: Isovue-370 500 ML BOTTLE IVP ONE (12:40)
[2019-01-01] MEDS ORDERED: *HR* FentaNYL (PF) 100 MCG/2 ML VIAL IVP ONE ×2 (12:41→14:36)
[2019-01-01] MEDS ORDERED: Ondansetron 4 MG/2 ML VIAL IVP ONE (12:41)
--- NOTE | 2019-01-01 12:46 | Emergency Department Note ---
Disposition Clinical Impression: Hyperbilirubinemia, Cholecystitis, Hyperglycemia due to type 1 diabetes mellitus Abdominal pain Qualifiers: Abdominal location: unspecified location Qualified Code(s): R10.9 - Unspecified abdominal pain Disposition: Admitted As Inpatient Condition: Fair Referrals: NONE,PCP [Primary Care Provider] - Forms: ED Satisfaction Letter, Work/School Release Time of Disposition: 15:50 Abdominal Pain HPI - General Chief Complaint: ED Abdominal Pain Stated Complaint: Abdominal pain Time Seen by Provider: 01/01/19 12:36 Source: patient, EMS Mode of arrival: EMS Limitations: no limitations Nursing Notes Reviewed: Yes Vital Signs Reviewed: Yes - History of Present Illness HPI Narrative: Patient presents with generalized abdominal pain. Symptoms present for the past several days. He also notes hematemesis and white colored diarrhea. Gross hematuria. Flank pain. He feels as if his eyes are "turning yellow." Patient admits that he injected IV methamphetamine last week Pt Subjective Complaint: abdominal pain Onset (ago): day(s) Consistency: constant Location: diffuse Pain Severity: severe Pain Scale: 10 Quality: aching Radiation: LUQ Migration to: L flank, R flank Improves with: nothing Worsens with: nothing Associated symptoms: Reports: nausea, vomiting, diarrhea, hematemesis, hematuria Treatments prior to arrival: none - Related Data Previous Rx's Medication Instructions Recorded Clindamycin [Cleocin] 450 mg PO Q8H #63 capsule 03/01/18 Allergies Allergy/AdvReac Type Severity Reaction Status Date / Time aspirin Allergy Anaphylaxis Verified 08/08/17 13:03 hydrocodone Allergy Anaphylaxis Verified 08/08/17 13:03 ibuprofen Allergy Anaphylaxis Verified 08/08/17 13:03 Penicillins Allergy Anaphylaxis Verified 08/08/17 13:03 rofecoxib [From Vioxx] Allergy Swelling Verified 08/08/17 13:03 of Lip/Tongue/Throat All systems ED: reviewed and negative except as stated. Constitutional: Reports: as per HPI Eyes: Reports: other ENT ED: Reports: as per HPI Cardiovascular: Reports: as per HPI Respiratory: Reports: as per HPI Gastrointestinal: Reports: abdominal pain, nausea, vomiting, diarrhea, hematemesis Genitourinary: Reports: hematuria Musculoskeletal: Reports: back pain Integumentary: Reports: as per HPI Neurological: Reports: as per HPI Psychiatric: Reports: as per HPI Endocrine: Reports: as per HPI Hematological/Lymphatic: Reports: as per HPI Allergic/Immunologic: Reports: as per HPI Abdominal Pain PMH - Past Medical History Medical history: Reports: cancer, CHF, COPD, coronary artery disease, diabetes, hyperlipidemia, hypertension, myocardial infarction, peripheral artery disease, syncope, other Male Surgical History: Reports: other Psychiatric history: Reports: bipolar, prior suicide attempt, previous psychiatric hospitalization - Social History Smoking status: Current every day smoker Alcohol use: Reports: none Drug use: Reports: none, other Physical Exam - General Limitations: no limitations General appearance: alert, in distress (Uncomfortable appearing) - Head Head exam: atraumatic - Eye Eye exam: Present: scleral icterus (Mild scleral icterus) - ENT ENT exam: normal exam - Neck Neck exam: Present: normal inspection, full ROM - Chest Chest inspection: Present: normal inspection, symmetric chest wall rise - Respiratory Respiratory exam: Present: normal lung sounds bilaterally - Cardiovascular Cardiovascular exam: Present: regular rate, normal rhythm - Abdominal Exam Abdominal exam: Present: soft, Non-Tender. 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 Left lower extremity transtarsal amputation) - Back Exam Back exam: Present: normal inspection - Neurological Exam Neurological exam: Present: alert, oriented X3, CN II-XII intact - Psychiatric Psychiatric exam: Present: anxious - Skin Skin exam: Present: warm, dry, intact Course Course Narrative: Patient presents with abdominal pain. He also feels as if his sclera are turning yellow. He complains of hematemesis and hematuria. The patient declined a fecal occult blood test. Workup including IV contrast enhanced CT of his abdomen and pelvis initiated. Patient to be offered analgesics. He will be reassessed - Consultations Consultation #1: Case d/w dr. Duke, surgery. She will be made aware of RUQ US findings. Time: 15:49 Vital Signs Temperature 98.9 F 01/01/19 12:37 Pulse Rate 88 01/01/19 12:37 Respiratory Rate 01/01/19 12:37 Blood Pressure 143/67 01/01/19 12:37 O2 Sat by Pulse Oximetry 99 01/01/19 12:37 Temperature 98.9 F 01/01/19 12:37 Pulse Rate 80 01/01/19 14:54 Respiratory Rate 15 01/01/19 14:54 Blood Pressure 137/84 01/01/19 14:57 O2 Sat by Pulse Oximetry 100 01/01/19 14:54 Oxygen Delivery Oxygen Delivery Room Air Abdominal Pain - Medical Records Medical records reviewed: Yes I reviewed the patient's medical records. - Lab Data Lab results reviewed: Yes I reviewed the patient's lab results. Result diagrams: 01/01/19 12:51 01/01/19 12:51 Lab Results 01/01/19 01/01/19 01/01/19 Range/Units 12:51 12:51 12:51 WBC 6.1 (4.3-11.1) K/mcL RBC 4.98 (4.19-5.50) M/mcL Hgb 13.9 (12.9-16.9) g/dL Hct 43.4 (37.5-50.1) % MCV 87.1 (83.0-100.0) fL MCH 27.9 L (28.0-33.3) pg MCHC 32.0 (31.6-35.5) g/dL RDW 16.3 H (11.5-14.5) % Plt Count 165 (140-400) K/mcL MPV 12.3 (9.4-12.4) fL Immature Gran % 0.2 (0-4) % Seg Neutrophils % 60.5 % Lymphocytes % 27.6 % Monocytes % 7.1 % Eosinophils % 3.9 % Basophils % 0.7 % Neutrophils # 3.7 (1.6-8.9) K/mcL Lymphocytes # 1.7 (0.6-4.6) K/mcL Monocytes # 0.4 (0.0-1.3) K/mcL Eosinophils # 0.2 (0.0-0.6) K/mcL Basophils # 0.0 (0.0-0.2) K/mcL PT (9.4-12.1) Seconds INR Sodium 128 L (136-145) mEq/L Potassium 4.4 (3.5-5.1) mEq/L Chloride 98 (98-107) mEq/L Carbon Dioxide 22 L (23-29) mEq/L BUN 12 (6-20) mg/dL Creatinine 0.67 L (0.70-1.30) mg/dL Est GFR ( Amer) > 60 (> 60) Est GFR (Non-Af Amer) > 60 (> 60) BUN/Creatinine Ratio 18 (6-26) Glucose 439 H (70-105) mg/dL Calculated Osmolality 285 (280-300) Lactic Acid 1.9 (0.5-2.2) mmol/L Calcium 9.2 (8.6-10.3) mg/dL Total Bilirubin 4.8 H (0.3-1.0) mg/dL Direct Bilirubin 2.8 H (0.0-0.2) mg/dL AST 183 H (13-39) Units/L ALT 313 H (7-52) Units/L Alkaline Phosphatase 224 H (34-104) Units/L Serum Total Protein 6.7 (6.4-8.9) g/dL Albumin 3.1 L (3.5-5.7) g/dL Globulin 3.6 H (2.4-3.5) g/dL Albumin/Globulin Ratio 0.9 L (1.1-2.2) Lipase 40 (11-82) Units/L Urine Color (Yellow) Urine Clarity (Clear) Urine pH (5.0-8.0) pH Units Ur Specific [place] (1.010-1.025) Urine Protein (Neg-Trace) mg/dL Urine Glucose (UA) (Normal) mg/dL Urine Ketones (Negative) mg/dL Urine Blood (Negative) Urine Nitrite (Negative) Urine Bilirubin (Negative) Urine Urobilinogen (Normal) mg/dL Ur Leukocyte Esterase (Negative) Urine Microscopic RBC (0-3) per hpf Urine Microscopic WBC (0-3) per hpf Ur Squamous Epith Cells (None-Few) per lpf Urine Bacteria (None-Few) per hpf Hyaline Casts (None-Few) per lpf Hepatitis A IgM Ab (Nonreactive) Hep Bs Antigen (Nonreactive) Hep B Core IgM Ab (Nonreactive) Blood Type Antibody Screen 01/01/19 01/01/19 01/01/19 Range/Units 12:51 12:51 12:51 WBC (4.3-11.1) K/mcL RBC (4.19-5.50) M/mcL Hgb (12.9-16.9) g/dL Hct (37.5-50.1) % MCV (83.0-100.0) fL MCH (28.0-33.3) pg MCHC (31.6-35.5) g/dL RDW (11.5-14.5) % Plt Count (140-400) K/mcL MPV (9.4-12.4) fL Immature Gran % (0-4) % Seg Neutrophils % % Lymphocytes % % Monocytes % % Eosinophils % % Basophils % % Neutrophils # (1.6-8.9) K/mcL Lymphocytes # (0.6-4.6) K/mcL Monocytes # (0.0-1.3) K/mcL Eosinophils # (0.0-0.6) K/mcL Basophils # (0.0-0.2) K/mcL PT 11.5 (9.4-12.1) Seconds INR 1.0 Sodium (136-145) mEq/L Potassium (3.5-5.1) mEq/L Chloride (98-107) mEq/L Carbon Dioxide (23-29) mEq/L BUN (6-20) mg/dL Creatinine (0.70-1.30) mg/dL Est GFR ( Amer) (> 60) Est GFR (Non-Af Amer) (> 60) BUN/Creatinine Ratio (6-26) Glucose (70-105) mg/dL Calculated Osmolality (280-300) Lactic Acid (0.5-2.2) mmol/L Calcium (8.6-10.3) mg/dL Total Bilirubin (0.3-1.0) mg/dL Direct Bilirubin (0.0-0.2) mg/dL AST (13-39) Units/L ALT (7-52) Units/L Alkaline Phosphatase (34-104) Units/L Serum Total Protein (6.4-8.9) g/dL Albumin (3.5-5.7) g/dL Globulin (2.4-3.5) g/dL Albumin/Globulin Ratio (1.1-2.2) Lipase (11-82) Units/L Urine Color (Yellow) Urine Clarity (Clear) Urine pH (5.0-8.0) pH Units Ur Specific [place] (1.010-1.025) Urine Protein (Neg-Trace) mg/dL Urine Glucose (UA) (Normal) mg/dL Urine Ketones (Negative) mg/dL Urine Blood (Negative) Urine Nitrite (Negative) Urine Bilirubin (Negative) Urine Urobilinogen (Normal) mg/dL Ur Leukocyte Esterase (Negative) Urine Microscopic RBC (0-3) per hpf Urine Microscopic WBC (0-3) per hpf Ur Squamous Epith Cells (None-Few) per lpf Urine Bacteria (None-Few) per hpf Hyaline Casts (None-Few) per lpf Hepatitis A IgM Ab Nonreactive (Nonreactive) Hep Bs Antigen Nonreactive (Nonreactive) Hep B Core IgM Ab Nonreactive (Nonreactive) Blood Type O POSITIVE Antibody Screen NEGATIVE 01/01/19 Range/Units 13:18 WBC (4.3-11.1) K/mcL RBC (4.19-5.50) M/mcL Hgb (12.9-16.9) g/dL Hct (37.5-50.1) % MCV (83.0-100.0) fL MCH (28.0-33.3) pg MCHC (31.6-35.5) g/dL RDW (11.5-14.5) % Plt Count (140-400) K/mcL MPV (9.4-12.4) fL Immature Gran % (0-4) % Seg Neutrophils % % Lymphocytes % % Monocytes % % Eosinophils % % Basophils % % Neutrophils # (1.6-8.9) K/mcL Lymphocytes # (0.6-4.6) K/mcL Monocytes # (0.0-1.3) K/mcL Eosinophils # (0.0-0.6) K/mcL Basophils # (0.0-0.2) K/mcL PT (9.4-12.1) Seconds INR Sodium (136-145) mEq/L Potassium (3.5-5.1) mEq/L Chloride (98-107) mEq/L Carbon Dioxide (23-29) mEq/L BUN (6-20) mg/dL Creatinine (0.70-1.30) mg/dL Est GFR ( Amer) (> 60) Est GFR (Non-Af Amer) (> 60) BUN/Creatinine Ratio (6-26) Glucose (70-105) mg/dL Calculated Osmolality (280-300) Lactic Acid (0.5-2.2) mmol/L Calcium (8.6-10.3) mg/dL Total Bilirubin (0.3-1.0) mg/dL Direct Bilirubin (0.0-0.2) mg/dL AST (13-39) Units/L ALT (7-52) Units/L Alkaline Phosphatase (34-104) Units/L Serum Total Protein (6.4-8.9) g/dL Albumin (3.5-5.7) g/dL Globulin (2.4-3.5) g/dL Albumin/Globulin Ratio (1.1-2.2) Lipase (11-82) Units/L Urine Color Yellow (Yellow) Urine Clarity Clear (Clear) Urine pH 6.0 (5.0-8.0) pH Units Ur Specific [place] 1.022 (1.010-1.025) Urine Protein 100 H (Neg-Trace) mg/dL Urine Glucose (UA) >=1000 H (Normal) mg/dL Urine Ketones Negative (Negative) mg/dL Urine Blood Negative (Negative) Urine Nitrite Negative (Negative) Urine Bilirubin Small H (Negative) Urine Urobilinogen Normal (Normal) mg/dL Ur Leukocyte Esterase Negative (Negative) Urine Microscopic RBC 0-3 (0-3) per hpf Urine Microscopic WBC 0-3 (0-3) per hpf Ur Squamous Epith Cells Moderate H (None-Few) per lpf Urine Bacteria None Seen (None-Few) per hpf Hyaline Casts None Seen (None-Few) per lpf Hepatitis A IgM Ab (Nonreactive) Hep Bs Antigen (Nonreactive) Hep B Core IgM Ab (Nonreactive) Blood Type Antibody Screen - Radiology Data Radiology results reviewed: Yes I reviewed the patient's radiology results. - EKG Data EKG attestation: Yes I reviewed and interpreted this EKG. EKG results narrative: Normal sinus rhythm rate 89 MD 158 QRS 88 QT/QTC 344/419. No acute ST segment elevation.
[2019-01-01 13:23] LABS: Basophils % 0.7 %; Eosinophils # 0.2 K/mcL (0.0-0.6); Eosinophils % 3.9 %; Hematocrit 43.4 % (37.5-50.1); Hemoglobin 13.9 g/dL (12.9-16.9); Immature Granulocytes % 0.2 % (0-4); Lymphocytes # 1.7 K/mcL (0.6-4.6); Lymphocytes % 27.6 %; Mean Corpuscular Hemoglobin 27.9 pg (28.0-33.3); Mean Corpuscular Volume 87.1 fL (83.0-100.0); Mean Platelet Volume 12.3 fL (9.4-12.4); Monocytes # 0.4 K/mcL (0.0-1.3); Monocytes % 7.1 %; Neutrophils # 3.7 K/mcL (1.6-8.9); Platelet Count 165 K/mcL (140-400); Red Blood Count 4.98 M/mcL (4.19-5.50); Red Cell Distribution Width 16.3 % (11.5-14.5); Segmented Neutrophils % 60.5 %; White Blood Count 6.1 K/mcL (4.3-11.1)
[2019-01-01 13:25] LABS: Bilirubin,Urine Small (Negative); Blood,Urine Negative (Negative); Clarity,Urine Clear (Clear); Color,Urine Yellow (Yellow); Glucose,Urine (UA) >=1000 mg/dL (Normal); Ketones,Urine Negative (Negative); Leukocyte Esterase,Urine Negative (Negative); Nitrite,Urine Negative (Negative); Protein,Urine 100 mg/dL (Neg-Trace); Specific Gravity,Urine 1.022 (1.010-1.025); Urobilinogen,Urine Normal (Normal)
[2019-01-01 13:27] LABS: Bacteria,Urine None Seen per hpf (None-Few); Hyaline Casts,Urine None Seen per lpf (None-Few); RBC,Urine 0-3 per hpf (0-3); Squamous Epithelial Cell,Urine Moderate per lpf (None-Few); WBC,Urine 0-3 per hpf (0-3)
[2019-01-01 13:29] LABS: Prothrombin Time 11.5 Seconds (9.4-12.1)
[2019-01-01 13:31] LABS: Alanine Aminotransferase 313 Units/L (7-52); Albumin 3.1 g/dL (3.5-5.7); Albumin/Globulin Ratio 0.9 (1.1-2.2); Alkaline Phosphatase 224 Units/L (34-104); Aspartate Amino Transferase 183 Units/L (13-39); BUN/Creatinine Ratio 18 (6-26); Bilirubin,Total 4.8 mg/dL (0.3-1.0); Blood Urea Nitrogen 12 mg/dL (6-20); Calcium 9.2 mg/dL (8.6-10.3); Carbon Dioxide 22 mEq/L (23-29); Chloride 98 mEq/L (98-107); Globulin 3.6 g/dL (2.4-3.5); Glucose 439 mg/dL (70-105); Lipase 40 Units/L (11-82); Osmolality,Calculated 285 (280-300); Potassium 4.4 mEq/L (3.5-5.1); Sodium 128 mEq/L (136-145); Total Protein 6.7 g/dL (6.4-8.9); eGFR For African Americans > 60 (> 60); eGFR For Non-African Americans > 60 (> 60)
[2019-01-01 13:49] LABS: Bilirubin,Direct 2.8 mg/dL (0.0-0.2)
[2019-01-01 14:16] LABS: Hepatitis B Surface Antigen Nonreactive (Nonreactive)
[2019-01-01 14:45] LABS: Hepatitis B Core IgM Nonreactive (Nonreactive)
[2019-01-01 14:47] LABS: Hepatitis A Antibody IgM Nonreactive (Nonreactive)
[2019-01-01] MEDS ORDERED: cefTRIAXone 1,000 MG in 0.9 % Sodium Chloride Mini Bag 100 ML IVPB ONE (15:50)
[2019-01-01] MEDS ORDERED: cefTRIAXone 1,000 MG in Water for inj. (sterile) 20 ML 10 ML IVP ONE (16:15)
[2019-01-01] MEDS ORDERED: Naloxone 0.4 MG/ML INJ IVP PRN (16:19)
[2019-01-01] MEDS ORDERED: Insulin LISPRO 300 UNITS/3 ML VIAL SQ ONE (16:23)
[2019-01-01] MEDS ORDERED: Dextrose Gel 15 GM/37.5 ML TUBE PO PRN ×2 (16:23)
[2019-01-01] MEDS ORDERED: D5% in Water 1,000 ML IVC PRN (16:23)
[2019-01-01] MEDS ORDERED: *HR* Dextrose 50 % in Water (Syg) 50 ML SYRINGE IVP PRN (16:23)
--- NOTE | 2019-01-01 16:53 | Internal Med History&Physical ---
Date of Encounter: 01/01/19 Time of Encounter: 16:47 Internal Medicine - H&P: HPI Chief complaint: abdominal pain Admitted From: Home Plans for Post Hospital Care: Home History of present illness: Mr. Redd is a 43 year old male PMH of DM, HLD, BKA, and left foot amputation. patient presented to the ED because of abdominal pain. Patient reported he has been feeling sick for about 1 week now. he reports he has been having abdominal pain which he describes a 10/10, radiating to his back more significant on the left lower quadrant and right upper quadrant, the pain is associated with nausea, and non-bilious, non bloody vomiting every time he tries to eat something. Reports subjective fever/chills. Reports for the past 2 days his eyes have been turning yellow, and his stool is white and loose. Denies shortness of breath, chest pain. Patient found to have acute cholecystitis and hyperglycemia. Hospitalist called for management and coordination of care. Past Med Surg Social Fam HX - Past Medical History Medical history: cancer, CHF, COPD, coronary artery disease, diabetes, hyperlipidemia, hypertension, myocardial infarction, peripheral artery disease, syncope, other Additional medical history: Osteomyletlitis Psychiatric history: bipolar, prior suicide attempt, previous psychiatric ho spitalization - Past Surgical History Surgical History: cancer surgery, other Additional surgical history: amputation of left foot from diabetes and right leg for bone cancer. - Social History Smoking Status: Current every day smoker Smokeless Tobacco Status: No Alcohol use: none Drug use: none, other - Family History Mother Living Status: Still Living Father Grandmother Living Status: Hx Family Endocrine Disorder: Yes Internal Medicine - H&P: Meds Buspirone HCl [Buspar] 15 mg PO TID 01/01/19 [History] Escitalopram [Lexapro] 10 mg PO DAILY 01/01/19 [History] Insulin DETEMIR [Levemir] 50 units SQ HS 01/01/19 [History] Insulin LISPRO [HumaLOG] 01/01/19 [History] Lisinopril [Zestril] 10 mg PO DAILY 01/01/19 [History] Pramipexole [Mirapex] 1 mg PO HS 01/01/19 [History] Quetiapine Fumarate [SEROquel] 50 mg PO HS 01/01/19 [History] Simvastatin [Zocor] 40 mg PO HS 01/01/19 [History] Allergy/AdvReac Type Severity Reaction Status Date / Time aspirin Allergy Anaphylaxis Verified 08/08/17 13:03 hydrocodone Allergy Anaphylaxis Verified 08/08/17 13:03 ibuprofen Allergy Anaphylaxis Verified 08/08/17 13:03 Penicillins Allergy Anaphylaxis Verified 01/01/19 15:58 rofecoxib [From Vioxx] Allergy Swelling Verified 08/08/17 13:03 of Lip/Tongue/Throat All Systems PM: A 10-system review of systems was performed and is negative for pertinent findings except as documented above in the HPI. - Constitutional Constitutional: chills, fever(s) (subjective ), malaise, weakness - EENT Eyes: no diplopia, no irritation Nose, mouth and throat: no dry mouth - Cardiovascular Cardiovascular ROS IM: no chest pain, no edema, no lightheadedness, no orthopnea, no palpitations - Respiratory Respiratory: no cough, no dyspnea - Gastrointestinal Gastrointestinal: nausea, vomiting (non-bilious, non-bloody), no abdominal pain - Genitourinary Genitourinary ROS male: no difficulty urinating, no dysuria, no urinary frequency - Musculoskeletal Musculoskeletal ROS IM: no back pain, no numbness - Integumentary Integumentary IM: no erythema, no non-healing lesions - Neurological Neurological ROS: no focal weakness, no headache(s), no weakness - Psychiatric Psychiatric: no anxiety, no hopelessness, no irritability - Endocrine Endocrine IM: no cold intolerance, no excessive sweating - Hematologic/Lymphatic Hematologic/Lymphatic: no lymphadenopathy - Allergic/Immunologic Allergic/Immunologic: no GI upset with certain foods - Constitutional Vitals: Temp Pulse Resp BP Pulse Ox 98.9 F 77 15 148/90 98 01/01/19 12:37 01/01/19 16:31 01/01/19 16:31 01/01/19 16:31 01/01/19 16:31 Exam: Vitals: Reviewed General: Alert and oriented x4. In mild distress due to abdominal pain Skin: Normal color, no rash, no lesions. HEENT: sclera icterus Cardiovascular: RRR, normal S1 & S2, no rubs, murmurs or gallops. Lungs: CTA b/l, no wheezes or crackles. Abdomen: Obese, soft, generalized tender to superficial palpation, no rigidity. Extremities: RBKA, left foot amputee Neurological: Normal cognition Rest of the physical exam is non contributory Internal Med - H&P Results - Labs CBC & Chem 7: 01/01/19 12:51 01/01/19 12:51 Labs: Short CBC 01/01/19 Range/Units 12:51 WBC 6.1 (4.3-11.1) K/mcL Hgb 13.9 (12.9-16.9) g/dL Hct 43.4 (37.5-50.1) % Plt Count 165 (140-400) K/mcL Neutrophils # 3.7 (1.6-8.9) K/mcL BMP 01/01/19 12:51 Sodium 128 L Potassium 4.4 Chloride 98 Carbon Dioxide 22 L BUN 12 Creatinine 0.67 L Glucose 439 H Calcium 9.2 Liver Function 01/01/19 Range/Units 12:51 Total Bilirubin 4.8 H (0.3-1.0) mg/dL Direct Bilirubin 2.8 H (0.0-0.2) mg/dL AST 183 H (13-39) Units/L ALT 313 H (7-52) Units/L Alkaline Phosphatase 224 H (34-104) Units/L Albumin 3.1 L (3.5-5.7) g/dL Urine 01/01/19 Range/Units 13:18 Urine Color Yellow (Yellow) Urine Clarity Clear (Clear) Urine pH 6.0 (5.0-8.0) pH Units Ur Specific [place] 1.022 (1.010-1.025) Urine Protein 100 H (Neg-Trace) mg/dL Urine Glucose (UA) >=1000 H (Normal) mg/dL - Impressions ITS Impressions Abdomen/Pelvis CT 01/01/19 12:40 IMPRESSION: 1. Cholelithiasis. Mild induration surrounding the gallbladder could indicate acute cholecystitis. 2. There is suggestion of mild periportal edema, versus mild intrahepatic bile duct dilatation. These findings are not optimally evaluated on noncontrast CT. 3. Mild splenomegaly, nonspecific. 4. Scattered colonic diverticula. 5. Punctate nonobstructing 1 mm right renal calculi. D/ / 01/01/2019 14:28:56 Gerardo Cabrera MD / [email or web address] Interpreting Provider: Gerardo Cabrera MD Gallbladder Ultrasound 01/01/19 14:35 IMPRESSION: 1. Cholelithiasis with gallbladder wall thickening. No sonographic Neri sign was present. 2. Otherwise, no sonographic abnormality within the visualized right upper quadrant. D/ / Marcio Gaytan MD / Marcio Gaytan MD Interpreting Provider: Marcio Gaytan MD - Assessment and Plan (1) Cholecystitis Current Visit: Yes Status: Acute Assessment and plan: CT/CT abd pelvis wo no iv no oral IMPRESSION: 1. Cholelithiasis. Mild induration surrounding the gallbladder could indicate acute cholecystitis. 2. There is suggestion of mild periportal edema, versus mild intrahepatic bile duct dilatation. These findings are not optimally evaluated on noncontrast CT. 3. Mild splenomegaly, nonspecific. 4. Scattered colonic diverticula. 5. Punctate nonobstructing 1 mm right renal calculi. US/US gall bladder IMPRESSION: 1. Cholelithiasis with gallbladder wall thickening. No sonographic Neri sign was present. 2. Otherwise, no sonographic abnormality within the visualized right upper quadrant. Plan Bowel rest started on IV hydration with LR@100 ml/hr empiric antibiotic coverage with metronidazole 500mg/IV Q8HRs and levoflaxin 750mg/IV daily surgery consulted. fentanyl 12 mcg/IV Q6HR for pain control. (2) Hyperbilirubinemia Current Visit: Yes Status: Acute Assessment and plan: likely secondary to cholelithiasis. plan of care as above (3) DVT prophylaxis Current Visit: No Status: Acute Assessment and plan: heparin subq. (4) Morbid obesity Current Visit: No Status: Acute (5) Tobacco dependence Current Visit: No Status: Chronic (6) Bipolar disorder Current Visit: No Status: Chronic Assessment and plan: will resume his home medication. when verified by the pharmacy Qualifiers: Active/Remission status: in partial remission Most recent bipolar episode type: depressed Qualified Code(s): F31.75 - Bipolar disorder, in partial remission, most recent episode depressed (7) HTN (hypertension) Current Visit: No Status: Chronic Assessment and plan: lisinopril 10mg/PO daily. hydralazine 5mg/IV Q6HRs PRN for SBP >190 Qualifiers: Hypertension type: essential hypertension Qualified Code(s): I10 - Essential (primary) hypertension (8) Hyperlipidemia Current Visit: No Status: Chronic Assessment and plan: patient on simvastatin 40mg/PO HS as outpatient. hold medication due to transaminitis Qualifiers: Hyperlipidemia type: unspecified Qualified Code(s): E78.5 - Hyperlipidemia, unspecified (9) Depression Current Visit: No Status: Chronic Assessment and plan: will resume patient home medications when verified by the pharmacy. Qualifiers: Depression Type: unspecified Qualified Code(s): F32.9 - Major depressive disorder, single episode, unspecified (10) Transaminitis Current Visit: Yes Status: Acute Assessment and plan: possible secondary to cholelithiasis. hepatitis panel ordered. will trend LFTs (11) Hyponatremia Current Visit: Yes Status: Acute (12) Diabetes Current Visit: Yes Status: Chronic Assessment and plan: hyperglycemia. reports not taking his insulin for the past 2 days. Lispro 8 units once accu-checks Q6HRs, plus lispro medium dose sliding scale. started on IV hydration A1c ordered. Qualifiers: Diabetes mellitus type: type 2 Diabetes mellitus group home insulin use: with group home use Diabetes mellitus complication status: with hyperglycemia Qualified Code(s): E11.65 - Type 2 diabetes mellitus with hyperglycemia; Z79.4 - nursing home (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 - Time Spent With Patient Total time spent is greater than 50% in coordination of care (as documented) at patient's floor/unit and/or counseling patient: Greater than 35 minutes (45)
--- NOTE | 2019-01-01 17:20 | Electrocardiograph Report ---
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
[2019-01-01 18:04] LABS: Hepatitis C Virus Antibody Reactive (Nonreactive)
[2019-01-01] MEDS: *HR* FentaNYL (PF) 100 MCG/2 ML VIAL IVP PRN ×2 (18:14→22:28)
[2019-01-01] MEDS: MetroNIDAZOLE 500 MG/100 ML 500 MG/100 ML BAG IVPB SCH (18:15)
[2019-01-01] MEDS: Ringers Solution, Lactated 1,000 ML IVC SCH (18:15)
[2019-01-01] MEDS: Insulin LISPRO 300 UNITS/3 ML VIAL SQ SCH (18:16)
[2019-01-01] MEDS: traMADol 50 MG TABLET PO PRN (19:23)
[2019-01-01] MEDS: levoFLOXacin 750 MG/150 ML 750 MG/150 ML BAG IVPB SCH (19:32)
[2019-01-01] MEDS: *HR* Heparin 5,000 UNIT/ML VIAL SQ SCH (22:03)
[2019-01-02] MEDS: Insulin LISPRO 300 UNITS/3 ML VIAL SQ SCH ×5 (00:50→21:07)
[2019-01-02] MEDS: MetroNIDAZOLE 500 MG/100 ML 500 MG/100 ML BAG IVPB SCH ×3 (02:59→17:00)
[2019-01-02] MEDS: *HR* FentaNYL (PF) 100 MCG/2 ML VIAL IVP PRN ×5 (03:07→22:21)
[2019-01-02] MEDS: *HR* Heparin 5,000 UNIT/ML VIAL SQ SCH ×3 (05:46→21:07)
[2019-01-02] MEDS: levoFLOXacin 750 MG/150 ML 750 MG/150 ML BAG IVPB SCH (07:24)
[2019-01-02] MEDS: traMADol 50 MG TABLET PO PRN (07:25)
[2019-01-02] MEDS: Ringers Solution, Lactated 1,000 ML IVC SCH (07:26)
[2019-01-02 08:00] LABS: Basophils % 0.6 %; Eosinophils # 0.2 K/mcL (0.0-0.6); Eosinophils % 3.6 %; Hematocrit 41.5 % (37.5-50.1); Hemoglobin 13.3 g/dL (12.9-16.9); Immature Granulocytes % 0.2 % (0-4); Lymphocytes # 1.7 K/mcL (0.6-4.6); Lymphocytes % 33.5 %; Mean Corpuscular Hemoglobin 27.8 pg (28.0-33.3); Mean Corpuscular Volume 86.8 fL (83.0-100.0); Mean Platelet Volume 12.2 fL (9.4-12.4); Monocytes # 0.4 K/mcL (0.0-1.3); Monocytes % 7.8 %; Neutrophils # 2.7 K/mcL (1.6-8.9); Platelet Count 153 K/mcL (140-400); Red Blood Count 4.78 M/mcL (4.19-5.50); Red Cell Distribution Width 15.9 % (11.5-14.5); Segmented Neutrophils % 54.3 %
[2019-01-02 08:17] LABS: Alanine Aminotransferase 234 Units/L (7-52); Albumin 2.8 g/dL (3.5-5.7); Albumin/Globulin Ratio 0.9 (1.1-2.2); Alkaline Phosphatase 171 Units/L (34-104); Aspartate Amino Transferase 152 Units/L (13-39); BUN/Creatinine Ratio 15 (6-26); Bilirubin,Total 4.1 mg/dL (0.3-1.0); Blood Urea Nitrogen 11 mg/dL (6-20); Calcium 8.8 mg/dL (8.6-10.3); Carbon Dioxide 28 mEq/L (23-29); Chloride 103 mEq/L (98-107); Chol/HDL Ratio 27.2 (0-4.9); Cholesterol 272 mg/dL (< 200); Globulin 3.2 g/dL (2.4-3.5); Glucose 146 mg/dL (70-105); HDL Cholesterol 10 mg/dL (40-59); Magnesium 1.5 mg/dL (1.6-2.6); Osmolality,Calculated 282 (280-300); Phosphorous 3.9 mg/dL (2.7-4.5); Potassium 4.2 mEq/L (3.5-5.1); Sodium 135 mEq/L (136-145); Triglycerides 447 mg/dL (< 150); eGFR For African Americans > 60 (> 60); eGFR For Non-African Americans > 60 (> 60)
[2019-01-02 09:03] LABS: Estimated Average Glucose 275 mg/dl
--- NOTE | 2019-01-02 09:48 | Anesthesia Evaluation PreOp ---
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: Other (bipolar) Other Medical History: Diabetes Type II, Other (bone cancer, obese) Anesthesia History: No Prior Anesthetic Complications, Past Anesthesia (left foot amp, right BKA for cancer) Alcohol Use: none Drug use: none, other (metamphetamines) Medications and Allergies Buspirone HCl [Buspar] 15 mg PO TID 01/01/19 [History] Escitalopram [Lexapro] 10 mg PO DAILY 01/01/19 [History] Insulin DETEMIR [Levemir] 50 units SQ HS 01/01/19 [History] Insulin LISPRO [HumaLOG] 01/01/19 [History] Lisinopril [Zestril] 10 mg PO DAILY 01/01/19 [History] Pramipexole [Mirapex] 1 mg PO HS 01/01/19 [History] Quetiapine Fumarate [SEROquel] 50 mg PO HS 01/01/19 [History] Simvastatin [Zocor] 40 mg PO HS 01/01/19 [History] Allergy/AdvReac Type Severity Reaction Status Date / Time aspirin Allergy Anaphylaxis Verified 08/08/17 13:03 hydrocodone Allergy Anaphylaxis Verified 08/08/17 13:03 ibuprofen Allergy Anaphylaxis Verified 08/08/17 13:03 Penicillins Allergy Anaphylaxis Verified 01/01/19 15:58 rofecoxib [From Vioxx] Allergy Swelling Verified 08/08/17 13:03 of Lip/Tongue/Throat - Meds/Allergy Pre-op Review Medications Reviewed: Yes Allergies Reviewed: Yes Beta Blockers on Current Med List: No Anesthesia Results - Labs 01/02/19 07:47 01/02/19 07:47 - Imaging EKG: report reviewed (Sinus rhythm Nonspecific T abnormalities, lateral lead) Anesthesia Exam Selected Entries 01/02/19 06:58 Temperature 98.6 F Pulse Rate 70 Respiratory Rate 18 Blood Pressure 136/67 O2 Sat by Pulse Oximetry 96 Oxygen Delivery Method Room Air Weight: 150kg BMI 37 - NURSES' REGISTRY DIRECTOR LOC: Oriented NURSES' REGISTRY DIRECTOR Motor: Normal RUE, Normal LUE, Normal RLE, Normal LLE, Normal Face NURSES' REGISTRY DIRECTOR Sensory: Normal: RUE, LUE, RLE, LLE, Face - Cardiac Rhythm: Regular Murmur: None - Pulmonary Breath Sounds: bilateral Clear Respiratory Effort: Symmetrical Anesthesia Assess/Plan ASA Score: 4 Level of consciousness: Cooperative, Oriented Anesthetic Plan: General Monitoring Plan: Standard Monitors Recovery Plan: PACU
--- NOTE | 2019-01-02 10:56 | AcuteCare Surgery Consult Note ---
Date of Encounter: 01/02/19 Time of Encounter: 07:00 Assessment and Plan (1) Hepatitis C Current Visit: Yes Status: Acute Acute. Explains jaundice without biliary ductal dilation on RUQ US. Pt also has cholecystitis with cholelithiasis without obstruction. Pt is hesitant to undergo surgery for lap reta with IOC. Will request GI consultation for evaluation for Hepatitis C. Pt to follow-up with Dr. Aleksandar smith for evaluation for lap reta. Continue IV abx. Surgery will sign off. Please, reconsult acute care surgery if patient's condition changes acutely d/t cholecystitis or if he changes his mind regarding surgery. Qualifiers: Viral hepatitis chronicity: acute Qualified Code(s): B17.10 - Acute hepatitis C without hepatic coma (2) Cholecystitis Current Visit: Yes Status: Acute Acute on chronic. Explains jaundice without biliary ductal dilation on RUQ US. Pt also has cholecystitis with cholelithiasis without obstruction. Pt is hesitant to undergo surgery for lap reta with IOC. Will request GI consultation for evaluation for Hepatitis C. Pt to follow-up with Dr. Aleksandar smith for evaluation for lap reta. Continue IV abx. Surgery will sign off. Please, reconsult acute care surgery if patient's condition changes acutely d/t cholecystitis or if he changes his mind regarding surgery. (3) Cholelithiasis Current Visit: Yes Status: Acute See above. Qualifiers: Biliary obstruction: without biliary obstruction Qualified Code(s): K80.00 - Calculus of gallbladder with acute cholecystitis without obstruction (4) Bipolar disorder Current Visit: No Status: Chronic Continue home meds. Primary service managing. Qualifiers: Active/Remission status: in partial remission Most recent bipolar episode type: depressed Qualified Code(s): F31.75 - Bipolar disorder, in partial remission, most recent episode depressed (5) HTN (hypertension) Current Visit: No Status: Chronic Stable. Continue home meds. Primary service managing. Qualifiers: Hypertension type: essential hypertension Qualified Code(s): I10 - [place] (primary) hypertension (6) COPD (chronic obstructive pulmonary disease) Current Visit: No Status: Chronic Stable. Continue home meds. Primary service managing. Qualifiers: COPD type: emphysema Emphysema type: unspecified Qualified Code(s): J43.9 - Emphysema, unspecified (7) Diabetes Current Visit: Yes Status: Chronic Hyperglycemia. Continue home meds. Primary service managing. 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 (9) PVD (peripheral vascular disease) Current Visit: Yes Status: Acute Stable. Continue home meds. Primary service managing. (10) CAD (coronary artery disease) Current Visit: Yes Status: Acute Stable. Continue home meds. Primary service managing. Qualifiers: Qualified Code(s): I25.10 - Atherosclerotic heart disease of [place] coronary artery without angina pectoris History of Present Illness Consult date: 01/02/19 Reason for consult: abdominal pain Requesting physician: Kwame Zarate History of present illness: This 43 y/o male pt with multiple medical problems presents to [facility] ED complaining of yellow color change of eyes and RUQ abdominal pain. Pt reports pain is severe and unrelenting. Pt reports the pain is progressively worsening. Pt reports pain radiates to back. He also reports pain in LLQ. Pt reports associated nausea and vomiting. He describes coffee ground emesis. Reports pale diarrhea. Pt denies new or exacerbated CP or SOB. Denies fever. Denies hx of liver disease. Past Med Surg Social Fam HX - Past Medical History Medical history: cancer, CHF, COPD, coronary artery disease, diabetes, hyperlipidemia, hypertension, myocardial infarction, peripheral artery disease, syncope, other Additional medical history: Osteomyletlitis Psychiatric history: bipolar, prior suicide attempt, previous psychiatric hospitalization - Past Surgical History Surgical History: cancer surgery, other Additional surgical history: amputation of left foot from diabetes and right leg for bone cancer. - Social History Smoking Status: Current every day smoker Smokeless Tobacco Status: No Alcohol use: none Drug use: none, other (metamphetamines) - Family History Mother Living Status: Still Living Father Grandmother Living Status: Hx Family Endocrine Disorder: Yes Medications and Allergies Buspirone HCl [Buspar] 15 mg PO TID 01/01/19 [History] Escitalopram [Lexapro] 10 mg PO DAILY 01/01/19 [History] Insulin DETEMIR [Levemir] 50 units SQ HS 01/01/19 [History] Insulin LISPRO [HumaLOG] 01/01/19 [History] Lisinopril [Zestril] 10 mg PO DAILY 01/01/19 [History] Pramipexole [Mirapex] 1 mg PO HS 01/01/19 [History] Quetiapine Fumarate [SEROquel] 50 mg PO HS 01/01/19 [History] Simvastatin [Zocor] 40 mg PO HS 01/01/19 [History] Allergy/AdvReac Type Severity Reaction Status Date / Time aspirin Allergy Anaphylaxis Verified 08/08/17 13:03 hydrocodone Allergy Anaphylaxis Verified 08/08/17 13:03 ibuprofen Allergy Anaphylaxis Verified 08/08/17 13:03 Penicillins Allergy Anaphylaxis Verified 01/01/19 15:58 rofecoxib [From Vioxx] Allergy Swelling Verified 08/08/17 13:03 of Lip/Tongue/Throat Review of Systems All systems PM: The remainder of the systems were reviewed and are negative - Constitutional as per HPI, fatigue, weakness, no anorexia, no chills, no fever(s), no headache(s), no night sweats - EENT Nose, mouth and throat: no dry mouth, no dysphagia, no nasal congestion, no nasal discharge, no sinus pain, no sinus pressure, no sore throat - Cardiovascular no chest pain, no chest pain at rest, no diaphoresis, no dyspnea, no edema - Respiratory no cough - Gastrointestinal abdominal pain, belching, bloating, coffee ground emesis, diarrhea, nausea, vomiting, no constipation, no hematochezia, no melena - Genitourinary flank pain, no dysuria, no hematuria, no urinary frequency - Musculoskeletal back pain, limited range of motion, no joint swelling, no neck pain - Neurological abnormal gait, weakness, no confusion, no dizziness, no focal weakness - Psychiatric anxiety, depression, mood swings - Endocrine fatigue - Hematologic/Lymphatic no easy bleeding, no easy bruising General Surgery Exam Initial Vital Signs Temp Pulse Resp BP Pulse Ox 98.9 F 88 19 143/67 99 01/01/19 12:37 01/01/19 12:37 01/01/19 12:37 01/01/19 12:37 01/01/19 12:37 - General physical appearance no distress, moderate pain, jaundice - Eyes PERRL, normal ocular movement, icteric - ENT no congestion, dry mucosa. negative: nasal discharge - Neck no masses, trachea midline, no lymphadectomy, no venous distension - Respiratory normal respiratory effort, clear to auscultation - Cardiovascular Cardiovascular exam: Present: RRR. Absent: murmurs - Abdomen Abdomen general surgery: Present: bowel sounds present, soft, tender. Absent: guarding, rebound Abdominal Tenderness: Present: RUQ - Genitourinary Present: normal penis with no external lesions - Integumentary Integumentary general surgery: Present: warm and dry, other (jaundice) - Neurologic Present: CN 2-12 grossly intact, normal coordination - Musculoskeletal Present: normal posture, other (RLE amputation) - Psychiatric Psychiatric general surgery: Present: A&Ox3, appropriate Exam Initial Vital Signs Temp Pulse Resp BP Pulse Ox 98.9 F 88 19 143/67 99 01/01/19 12:37 01/01/19 12:37 01/01/19 12:37 01/01/19 12:37 01/01/19 12:37 Results - Labs 01/02/19 07:47 01/02/19 07:47 Abnormal lab results MCH 27.8 pg (28.0-33.3) L 01/02/19 07:47 RDW 15.9 % (11.5-14.5) H 01/02/19 07:47 Sodium 135 mEq/L (136-145) L 01/02/19 07:47 Carbon Dioxide 22 mEq/L (23-29) L 01/01/19 12:51 0.67 mg/dL (0.70-1.30) L 01/01/19 12:51 Glucose 146 mg/dL (70-105) H 01/02/19 07:47 POC Glucose 271 mg/dL (70-99) H 01/01/19 23:58 11.2 % (-5.6) H 01/02/19 07:47 Magnesium 1.5 mg/dL (1.6-2.6) L 01/02/19 07:47 4.1 mg/dL (0.3-1.0) H 01/02/19 07:47 2.8 mg/dL (0.0-0.2) H 01/01/19 12:51 AST 152 Units/L (13-39) H 01/02/19 07:47 ALT 234 Units/L (7-52) H 01/02/19 07:47 171 Units/L (34-104) H 01/02/19 07:47 6.0 g/dL (6.4-8.9) L 01/02/19 07:47 2.8 g/dL (3.5-5.7) L 01/02/19 07:47 3.6 g/dL (2.4-3.5) H 01/01/19 12:51 0.9 (1.1-2.2) L 01/02/19 07:47 Triglycerides 447 mg/dL (< 150) H 01/02/19 07:47 Cholesterol 272 mg/dL (< 200) H 01/02/19 07:47 10 mg/dL (40-59) L 01/02/19 07:47 27.2 (0-4.9) H 01/02/19 07:47 100 mg/dL (Neg-Trace) H 01/01/19 13:18 >=1000 mg/dL (Normal) H 01/01/19 13:18 Small (Negative) H 01/01/19 13:18 Ur Squamous Epith Cells Moderate per lpf (None-Few) H 01/01/19 13:18 Hepatitis C Ab Screen Reactive (Nonreactive) H 01/01/19 12:51 Diabetes panel 01/01/19 01/02/19 01/02/19 Range/Units 12:51 07:47 07:47 Sodium 128 L 135 L (136-145) mEq/L Potassium 4.4 4.2 (3.5-5.1) mEq/L Chloride 98 103 (98-107) mEq/L Carbon Dioxide 22 L 28 (23-29) mEq/L BUN 12 11 (6-20) mg/dL Creatinine 0.67 L 0.73 (0.70-1.30) mg/dL Glucose 439 H 146 H (70-105) mg/dL Hemoglobin A1c 11.2 H ( - 5.6) % Calcium 9.2 8.8 (8.6-10.3) mg/dL AST 183 H 152 H (13-39) Units/L ALT 313 H 234 H (7-52) Units/L Alkaline Phosphatase 224 H 171 H (34-104) Units/L Albumin 3.1 L 2.8 L (3.5-5.7) g/dL Triglycerides 447 H (< 150) mg/dL HDL Cholesterol 10 L (40-59) mg/dL Calcium panel 01/01/19 01/02/19 Range/Units 12:51 07:47 Calcium 9.2 8.8 (8.6-10.3) mg/dL Phosphorus 3.9 (2.7-4.5) mg/dL Albumin 3.1 L 2.8 L (3.5-5.7) g/dL Pituitary panel 01/01/19 01/02/19 Range/Units 12:51 07:47 Sodium 128 L 135 L (136-145) mEq/L Potassium 4.4 4.2 (3.5-5.1) mEq/L Chloride 98 103 (98-107) mEq/L Carbon Dioxide 22 L 28 (23-29) mEq/L BUN 12 11 (6-20) mg/dL Creatinine 0.67 L 0.73 (0.70-1.30) mg/dL Glucose 439 H 146 H (70-105) mg/dL Calcium 9.2 8.8 (8.6-10.3) mg/dL Adrenal panel 01/01/19 01/02/19 Range/Units 12:51 07:47 Sodium 128 L 135 L (136-145) mEq/L Potassium 4.4 4.2 (3.5-5.1) mEq/L Chloride 98 103 (98-107) mEq/L Carbon Dioxide 22 L 28 (23-29) mEq/L BUN 12 11 (6-20) mg/dL Creatinine 0.67 L 0.73 (0.70-1.30) mg/dL Glucose 439 H 146 H (70-105) mg/dL Calcium 9.2 8.8 (8.6-10.3) mg/dL Total Bilirubin 4.8 H 4.1 H (0.3-1.0) mg/dL AST 183 H 152 H (13-39) Units/L ALT 313 H 234 H (7-52) Units/L Alkaline Phosphatase 224 H 171 H (34-104) Units/L Albumin 3.1 L 2.8 L (3.5-5.7) g/dL All other labs normal. - Imaging US - abdomen: image reviewed (+cholelithiasis with thickened GB wall. No ductal dilation.) Consult Discharge Plan - Plan Referrals: NONE,PCP [Primary Care Provider] -
--- NOTE | 2019-01-02 11:37 | Internal Med Progress Note ---
Hospitalist Progress Note - Encounter Date of Encounter: 01/02/19 Time of Encounter: 11:36 - Subjective Interval History: I have seen and evaluated the patient at bedside. patient reports still having abdominal pain and discomfort. reports nausea, denies vomiting. denies chest pain or light headedness - Exam Vitals: Temp Pulse Resp BP Pulse Ox 99.0 F 75 18 143/83 97 01/02/19 10:48 01/02/19 10:48 01/02/19 10:48 01/02/19 10:48 01/02/19 10:48 Exam: Vitals: Reviewed General: Alert and oriented x4. In mild distress due to abdominal pain HEENT: sclera icterus Cardiovascular: RRR, normal S1 & S2, no rubs, murmurs or gallops. Lungs: CTA b/l, no wheezes or crackles. Abdomen: Obese, soft, generalized tender to superficial palpation, no rigidity. NABS in all 4 quadrants Extremities: RBKA, left foot amputee Neurological: Normal cognition Rest of the physical exam is non contributory - Assessment and Plan (1) Cholecystitis Current Visit: Yes Status: Acute Assessment and Plan: patient reporting abdominal pain, and mild nausea. Plan continue with bowel rest dc LR. will start D5LR @50 ml/hr for maintenance fluids to avoid hypoglycemia on metronidazole 500mg/IV Q8HRs and levoflaxin 750mg/IV daily empirically surgery recommendations appreciated on fentanyl 12 mcg/IV Q6HR for pain control. (2) Hyperbilirubinemia Current Visit: Yes Status: Acute Assessment and Plan: likely secondary to cholelithiasis. vs possible acute hepatitis plan of care as above (3) Morbid obesity Current Visit: No Status: Acute (4) Tobacco dependence Current Visit: No Status: Chronic (5) Bipolar disorder Current Visit: No Status: Chronic Assessment and Plan: Continue Quetiapine 50mg/PO HS. will resume escitalopram 10mg/PO daily (6) HTN (hypertension) Current Visit: No Status: Chronic Assessment and Plan: Blood pressure controlled on lisinopril. (7) Hyperlipidemia Current Visit: No Status: Chronic Assessment and Plan: Continue atorvastatin due to transaminitis. (8) Depression Current Visit: No Status: Chronic Assessment and Plan: Patient is on escitalopram 10 mg by mouth daily., And buspirone 15 mg by mouth 3 times a day (9) Transaminitis Current Visit: Yes Status: Acute Assessment and Plan: possible due to acute hepatitis C. Hepatitis C AB positive. Hep C Quant ordered GI consulted Hepatitis A IgM ordered. repeat CMP tomorrow morning (10) Diabetes Current Visit: Yes Status: Chronic Assessment and Plan: Blood sugar is better controlled. Patient is nothing by mouth, continue lispro low-dose sliding scale, every 6 hours (11) Hyponatremia Current Visit: Yes Status: Resolved DVT Prophylaxis: On heparin subcutaneous. - Summary of Assessment and Plan Summary of Assessment and Plan: Patient to remain in the hospital due to transaminitis, cholecystitis, and possible hepatitis C. - Time Spent with Patient Total time spent is greater than 50% in coordination of care (as documented) at patient's floor/unit and/or counseling patient: Greater than 35 minutes (40) Plan of Care Discussed with: patient (and the nurse.) Internal Medicine: Result - Labs CBC & Chem 7: 01/02/19 07:47 01/02/19 07:47 Labs: Short CBC 01/01/19 01/02/19 Range/Units 12:51 07:47 WBC 6.1 5.0 (4.3-11.1) K/mcL Hgb 13.9 13.3 (12.9-16.9) g/dL Hct 43.4 41.5 (37.5-50.1) % Plt Count 165 153 (140-400) K/mcL Neutrophils # 3.7 2.7 (1.6-8.9) K/mcL BMP 01/01/19 01/02/19 12:51 07:47 Sodium 128 L 135 L Potassium 4.4 4.2 Chloride 98 103 Carbon Dioxide 22 L 28 BUN 12 11 Creatinine 0.67 L 0.73 Glucose 439 H 146 H Calcium 9.2 8.8 Liver Function 01/01/19 01/02/19 Range/Units 12:51 07:47 Total Bilirubin 4.8 H 4.1 H (0.3-1.0) mg/dL Direct Bilirubin 2.8 H (0.0-0.2) mg/dL AST 183 H 152 H (13-39) Units/L ALT 313 H 234 H (7-52) Units/L Alkaline Phosphatase 224 H 171 H (34-104) Units/L Albumin 3.1 L 2.8 L (3.5-5.7) g/dL Urine 01/01/19 Range/Units 13:18 Urine Color Yellow (Yellow) Urine Clarity Clear (Clear) Urine pH 6.0 (5.0-8.0) pH Units Ur Specific [place] 1.022 (1.010-1.025) Urine Protein 100 H (Neg-Trace) mg/dL Urine Glucose (UA) >=1000 H (Normal) mg/dL - ABG Interpretation ABG results: PT/INR, D-dimer PT 11.5 Seconds (9.4-12.1) 01/01/19 12:51 - Impressions Impressions Abdomen/Pelvis CT 01/01/19 12:40 IMPRESSION: 1. Cholelithiasis. Mild induration surrounding the gallbladder could indicate acute cholecystitis. 2. There is suggestion of mild periportal edema, versus mild intrahepatic bile duct dilatation. These findings are not optimally evaluated on noncontrast CT. 3. Mild splenomegaly, nonspecific. 4. Scattered colonic diverticula. 5. Punctate nonobstructing 1 mm right renal calculi. D/ / 01/01/2019 14:28:56 Gerardo Cabrera MD / [facility] Interpreting Provider: Gerardo Cabrera MD Gallbladder Ultrasound 01/01/19 14:35 IMPRESSION: 1. Cholelithiasis with gallbladder wall thickening. No sonographic Neri sign was present. 2. Otherwise, no sonographic abnormality within the visualized right upper quadrant. D/ / Marcio Gaytan MD / Marcio Gaytan MD Interpreting Provider: Marcio Gaytan MD Consult Discharge Plan - Plan Referrals: NONE,PCP [Primary Care Provider] - (5) Bipolar disorder Qualifiers: Active/Remission status: in partial remission Most recent bipolar episode type: depressed Qualified Code(s): F31.75 - Bipolar disorder, in partial remission, most recent episode depressed (6) HTN (hypertension) Qualifiers: Hypertension type: essential hypertension Qualified Code(s): I10 - Essential (primary) hypertension (7) Hyperlipidemia Qualifiers: Hyperlipidemia type: unspecified Qualified Code(s): E78.5 - Hyperlipidemia, unspecified (8) Depression Qualifiers: Depression Type: unspecified Qualified Code(s): F32.9 - Major depressive disorder, single episode, unspecified (10) Diabetes Qualifiers: Diabetes mellitus type: type 2 Diabetes mellitus boat cleaner insulin use: with boat cleaner use Diabetes mellitus complication status: with hyperglycemia Qualified Code(s): E11.65 - Type 2 diabetes mellitus with hyperglycemia; Z79.4 - sports attorney (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
[2019-01-02] MEDS: D5% in Lactated Ringers 1,000 ML IVC SCH (13:47)
[2019-01-02] MEDS: BUSPIRONE HCL 10 MG TABLET PO SCH ×2 (16:31→22:20)
[2019-01-03] MEDS: MetroNIDAZOLE 500 MG/100 ML 500 MG/100 ML BAG IVPB SCH ×3 (02:32→16:58)
[2019-01-03] MEDS: *HR* FentaNYL (PF) 100 MCG/2 ML VIAL IVP PRN ×2 (05:28→09:21)
[2019-01-03] MEDS: *HR* Heparin 5,000 UNIT/ML VIAL SQ SCH ×3 (05:30→21:56)
[2019-01-03 05:46] LABS: Basophils % 0.7 %; Eosinophils # 0.2 K/mcL (0.0-0.6); Eosinophils % 3.1 %; Hematocrit 42.2 % (37.5-50.1); Hemoglobin 13.4 g/dL (12.9-16.9); Immature Granulocytes % 0.2 % (0-4); Lymphocytes # 1.5 K/mcL (0.6-4.6); Lymphocytes % 24.7 %; Mean Corpuscular HGB Conc 31.8 g/dL (31.6-35.5); Mean Corpuscular Hemoglobin 27.6 pg (28.0-33.3); Mean Platelet Volume 12.2 fL (9.4-12.4); Monocytes # 0.4 K/mcL (0.0-1.3); Monocytes % 7.1 %; Neutrophils # 3.8 K/mcL (1.6-8.9); Platelet Count 161 K/mcL (140-400); Red Blood Count 4.85 M/mcL (4.19-5.50); Red Cell Distribution Width 15.5 % (11.5-14.5); Segmented Neutrophils % 64.2 %; White Blood Count 5.9 K/mcL (4.3-11.1)
[2019-01-03 06:07] LABS: Alanine Aminotransferase 198 Units/L (7-52); Albumin 2.9 g/dL (3.5-5.7); Albumin/Globulin Ratio 0.9 (1.1-2.2); Alkaline Phosphatase 170 Units/L (34-104); Aspartate Amino Transferase 141 Units/L (13-39); BUN/Creatinine Ratio 17 (6-26); Bilirubin,Total 4.3 mg/dL (0.3-1.0); Blood Urea Nitrogen 12 mg/dL (6-20); Calcium 8.5 mg/dL (8.6-10.3); Carbon Dioxide 25 mEq/L (23-29); Chloride 101 mEq/L (98-107); Globulin 3.4 g/dL (2.4-3.5); Glucose 249 mg/dL (70-105); Magnesium 1.6 mg/dL (1.6-2.6); Osmolality,Calculated 286 (280-300); Phosphorous 2.7 mg/dL (2.7-4.5); Potassium 4.3 mEq/L (3.5-5.1); Sodium 134 mEq/L (136-145); Total Protein 6.3 g/dL (6.4-8.9); eGFR For African Americans > 60 (> 60); eGFR For Non-African Americans > 60 (> 60)
[2019-01-03] MEDS: Insulin LISPRO 300 UNITS/3 ML VIAL SQ SCH ×4 (07:32→21:55)
[2019-01-03] MEDS: levoFLOXacin 750 MG/150 ML 750 MG/150 ML BAG IVPB SCH (07:34)
[2019-01-03] MEDS: D5% in Lactated Ringers 1,000 ML IVC SCH (11:43)
--- NOTE | 2019-01-03 12:05 | Internal Med Progress Note ---
Hospitalist Progress Note - Encounter Date of Encounter: 01/03/19 Time of Encounter: 12:03 - Subjective Interval History: No acute events. Patient abdominal pain on admission was 10/10 today states is 7 to 8 out of 10. denies fevers, chills, n/v. - Exam Vitals: Temp Pulse Resp BP Pulse Ox 98.7 F 71 15 155/88 96 01/03/19 10:49 01/03/19 10:49 01/03/19 10:49 01/03/19 10:49 01/03/19 10:49 Exam: General: Alert and oriented, no acute distress Head: NC/AT ENT: sclera icterus, MMM Cardiovascular: RRR, normal S1 & S2, no rubs, murmurs or gallops. Lungs: CTA b/l, no wheezes or crackles. Abdomen: Obese, soft, generalized TTP mostly in left quadrants, no rigidity. normal bowel sounds Extremities: Left foot amputation, right leg BKA Neurological: Normal cognition, no focal deficits - Assessment and Plan (1) Cholecystitis Current Visit: Yes Status: Acute Assessment and Plan: patient reporting abdominal pain, and mild nausea. Plan continue with bowel rest dc IV fluids Advance diet as tolerated. on metronidazole 500mg/IV Q8HRs and levoflaxin 750mg/IV daily empirically Surgery was consulted, patient opted out of Surgery, will continue Levaquin/F lagyl for now. GI consulted, MRCP ordered. (2) Bipolar disorder Current Visit: No Status: Chronic Assessment and Plan: Patient has not filled any medications in 2 years. Seroquel will be DC'd and he will need outpatient arrangement to safely start these medications. (3) HTN (hypertension) Current Visit: No Status: Chronic Assessment and Plan: Blood pressure controlled on lisinopril. (4) Depression Current Visit: No Status: Chronic Assessment and Plan: Patient has not taken any medications for past two years based on the pharmacies that he's listed for us. We will restart Lexapro and monitor as this was a past medication for him. (5) Morbid obesity Current Visit: No Status: Acute (6) Hyperlipidemia Current Visit: No Status: Chronic Assessment and Plan: Hold atorvastatin due to transaminitis. (7) Tobacco dependence Current Visit: No Status: Chronic (8) Hyperbilirubinemia Current Visit: Yes Status: Acute Assessment and Plan: likely secondary to cholelithiasis. vs possible acute hepatitis plan of care as above (9) Transaminitis Current Visit: Yes Status: Acute Assessment and Plan: possible due to acute hepatitis C. Hepatitis C AB positive. Hep C Quant ordered GI consulted Hepatitis A IgM ordered. repeat CMP tomorrow morning (10) Hyponatremia Current Visit: Yes Status: Resolved (11) Diabetes Current Visit: Yes Status: Chronic Assessment and Plan: ISS ACHS - Time Spent with Patient Total time spent is greater than 50% in coordination of care (as documented) at patient's floor/unit and/or counseling patient: Internal Medicine: Result - Labs CBC & Chem 7: 01/03/19 05:25 01/03/19 05:25 Labs: Short CBC 01/03/19 Range/Units 05:25 WBC 5.9 (4.3-11.1) K/mcL Hgb 13.4 (12.9-16.9) g/dL Hct 42.2 (37.5-50.1) % Plt Count 161 (140-400) K/mcL Neutrophils # 3.8 (1.6-8.9) K/mcL BMP 01/03/19 05:25 Sodium 134 L Potassium 4.3 Chloride 101 Carbon Dioxide 25 BUN 12 Creatinine 0.70 Glucose 249 H Calcium 8.5 L Liver Function 01/03/19 Range/Units 05:25 Total Bilirubin 4.3 H (0.3-1.0) mg/dL AST 141 H (13-39) Units/L ALT 198 H (7-52) Units/L Alkaline Phosphatase 170 H (34-104) Units/L Albumin 2.9 L (3.5-5.7) g/dL - ABG Interpretation ABG results: PT/INR, D-dimer PT 11.5 Seconds (9.4-12.1) 01/01/19 12:51 Consult Discharge Plan - Plan Referrals: NONE,PCP [Primary Care Provider] - (2) Bipolar disorder Qualifiers: Active/Remission status: in partial remission Most recent bipolar episode type: depressed Qualified Code(s): F31.75 - Bipolar disorder, in partial remission, most recent episode depressed (3) HTN (hypertension) Qualifiers: Hypertension type: essential hypertension Qualified Code(s): I10 - Essential (primary) hypertension (4) Depression Qualifiers: Depression Type: unspecified Qualified Code(s): F32.9 - Major depressive disorder, single episode, unspecified (6) Hyperlipidemia Qualifiers: Hyperlipidemia type: unspecified Qualified Code(s): E78.5 - Hyperlipidemia, unspecified (11) Diabetes Qualifiers: Diabetes mellitus type: type 2 Diabetes mellitus intermediate card tender insulin use: with skilled nursing use Diabetes mellitus complication status: with hyperglycemia Qualified Code(s): E11.65 - Type 2 diabetes mellitus with hyperglycemia; Z79.4 - care home (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
[2019-01-03] MEDS ORDERED: Insulin DETEMIR 100 UNIT/ML X5UNITS SQ ONE (12:16)
--- NOTE | 2019-01-03 12:42 | Gastroenterology Consult Note ---
<Sriram Meredith Mookie - Last Filed: 01/03/19 12:39> Date of Encounter: 01/03/19 Time of Encounter: 10:40 - Assessment and plan (1) Hepatitis C antibody positive in blood Status: Acute Assessment and plan: Hepatitis C screening positive. Check Hep C quant and genotype to determine presence of active infection. Check AFP, alpha-1 antitrypsin, RAJAN, ANCA, ceruloplasmin, F actin, ferritin, AMA, liver fibrosis. Recommend liver biopsy during gallbladder surgery once patient is agreeable to surgery. Instructed patient to not share any thing that could potentially cause bleeding such as razors, nail clippers, hair clippers. Instructed patient that if they were to cut themselves they need to clean up the blood or if someone else cleans up they need to wear gloves. Instructed patient they need to use protection while having sex. (2) Hyperbilirubinemia Status: Acute Assessment and plan: On admission TB 4.8, AST 183, ALT 313, alkaline phosphatase 224. Today total bili 4.3, AST 141, ALT 198, alkaline phosphatase 170. Complete liver workup. Check MRCP to rule out obstruction. (3) Cholecystitis Status: Acute Assessment and plan: Management per Surgery. - Time Spent With Patient Total time spent is greater than 50% in coordination of care (as documented) at patient's floor/unit and/or counseling patient: GI History of Present Illness - Data of Consult Patient: new to practice Consult date: 01/03/19 Requesting Physician: Rosales Patrick MD - Consult Narrative Reason for consult: Hep C History of present illness: Mr. Redd is a 43 year old male with PMHx of CHF, COPD, DM, HLD, HTN, amputation of left foot from diabetes and right leg for bone cancer who presented to the ED with abdominal pain that had been ongoing for one week. Pain located in LLQ, RUQ associated with nausea and vomiting which is worsened with oral intake. He reports his eyes turned yellow 2 days ago and urine turned dark. CT A/P with cholelithiasis, mild periportal edema, mild intrahepatic bile duct dilation. Right upper quadrant ultrasound showed cholelithiasis with gallbladder wall thickening. On admission TB 4.8, AST 183, ALT 313, alkaline phosphatase 224 . Today total bili 4.3, AST 141, ALT 198, alkaline phosphatase 170. Patient was noted to have a positive hepatitis C screening. He admits to history of IV drug use and several unprofessional tattoos. He denies any sexual partners with hep C or history of blood transfusions. He states he has been clean from drugs for the past "couple of months". Surgery was consulted for possible cholecystectomy and patient was hesitant to undergo surgery at this time. Procedures: None NSAIDs: None Anticoagulation: None Past Med Surg Social Fam HX - Past Medical History Medical history: cancer, CHF, COPD, coronary artery disease, diabetes, hyperlipidemia, hypertension, myocardial infarction, peripheral artery disease, syncope, other Additional medical history: Osteomyletlitis Psychiatric history: bipolar, prior suicide attempt, previous psychiatric hospitalization - Past Surgical History Surgical History: cancer surgery, other Additional surgical history: amputation of left foot from diabetes and right leg for bone cancer. - Social History Smoking Status: Current every day smoker Smokeless Tobacco Status: No Alcohol use: none Drug use: none, other - Family History Mother Living Status: Still Living Father Grandmother Living Status: Hx Family Endocrine Disorder: Yes - Gastrointestinal Gastrointestinal: Present: as per HPI - Constitutional Constitutional: as per HPI - EENT Eyes: as per HPI Ears: Present: as per HPI Nose, mouth and throat: Present: as per HPI - Cardiovascular Cardiovascular ROS: Present: as per HPI - Respiratory Respiratory IM: Present: as per HPI - Genitourinary Genitourinary: Absent: change in color, Urinary frequency - Neurological ROS Neurological GI: Present: as per HPI - Hematologic/Lymphatic Hematologic/Lymphatic pediatric: Present: as per HPI - Musculoskeletal Musculoskeletal ROS GI: Present: as per HPI - Integumentary Integumentary GI: Present: as per HPI - Psychiatric ROS Psychiatric GI: Present: as per HPI - Endocrine Endocrine IM: Present: as per HPI - Constitutional Vitals: Temp Pulse Resp BP Pulse Ox 98.7 F 71 15 155/88 96 01/03/19 10:49 01/03/19 10:49 01/03/19 10:49 01/03/19 10:49 01/03/19 10:49 General appearance: Present: cooperative, A&O X 3, no acute distress, answers questions appropriately - Head Head exam: Present: atraumatic, normocephalic - Eye Eye exam: Present: normal appearance, sclera anicteric - ENT ENT exam: Present: mucous membranes moist - Neck Neck exam general surgery: Present: normal inspection, trachea midline - Respiratory Respiratory exam: Present: CTAB. Absent: rales, rhonchi - Cardiovascular Cardiovascular exam: Present: RRR, +S1, +S2 - GI/Abdominal GI/Abdominal exam: Present: soft, tenderness (mild left sided tenderness), no peritoneal signs. Absent: distended, firm, guarding Additional comments: obese - Rectal Rectal exam: Present: deferred - Extremities Exam Additional comments: Left foot amputation, right leg BKA - Neurological Exam Neurological exam: Present: no focal deficits - Psychiatric Psychiatric exam: Present: normal affect, normal mood - Skin Skin exam: Present: dry, intact, normal color, warm Results - Labs CBC & Chem 7: 01/03/19 05:25 01/03/19 05:25 Labs: Last Result 01/03/19 05:25 Calcium 8.5 L Entire Visit 01/03/19 01/03/19 05:25 05:25 Hgb 13.4 Hct 42.2 Total Bilirubin 4.3 H AST 141 H ALT 198 H - ABG ABG results: PT/INR, D-dimer PT 11.5 Seconds (9.4-12.1) 01/01/19 12:51 Consult Discharge Plan - Plan Instructions: Viral Hepatitis C (DC) Additional Instructions: Follow-up appointments: If there is not an appointment listed below, please call your physician and schedule a follow-up appointment. If you have congestive heart failure and your symptoms return, make an appointment with your physician. Medication List: Carry an up to date list of medications you are taking at all time. We have given you an updated medication list including any new medications that you have been prescribed. Please provide that list to your primary provider Symptoms: If your condition changes or you experience any of the following symp toms, notify your physician immediately: Unusual or worsening pain, fever, persistent nausea and vomiting, bleeding, increase in swelling (especially in your legs), sudden weight gain, extreme dizziness, chest pain, increased drainage or redness from a wound or incision. Go to the emergency department if you experience a problem with breathing. Weights: If you have a history of swelling or shortness of breath, weigh yourself daily and notify your physician if you have a weight gain of two or more pounds in one day or 5 or more pounds in a week. If you experience any of the warning signs for stroke: Sudden numbness or weakness of the face, arm or leg; especially on one side of the body, sudden confusion, trouble speaking or understanding, sudden trouble seeing in one or both eyes, sudden trouble walking, dizziness, loss of balance or coordination, sudden sever headache with no cause; Call 911 or go to the emergency room. Stroke is a medical emergency. Some risk factors for stroke: Age, cigarette smoking, diabetes, excessive alcohol consumption, family history, high blood pressure, overweight, physical inactivity, prior stroke, heart attack, diagnosis of carotid artery stenosis or other artery disease. If you smoke, STOP: Smoking or tobacco use significantly increases your risk of heart and lung disease. Your chance of disease greatly increases if you continue to smoke. For more information, call the [place] tobacco quit line for smoking cessation 9-214-IRQV-NOW ( ) Referrals: Gianni Bailey, [Resident] - (Please bring your photo ID, insurance card and any medications you are on. If you need to cancel, please give a 24 hour notice. Thank you.) Prescriptions: metroNIDAZOLE [Flagyl] 500 mg PO TID #21 tablet levoFLOXacin [Levaquin] 750 mg PO DAILY #7 tablet Nicotine Patch [Nicoderm] 14 mg TD DAILY #30 patch.td24 Sennosides/Docusate Sodium [Senna Plus] 1 each PO DAILY #5 tablet Ondansetron HCl [Zofran] 4 mg PO Q8HR PRN #21 tab PRN Reason: Nausea And Vomiting <Jeffrey Chapa - Last Filed: 01/10/19 06:46> Date of Encounter: 01/03/19 - Time Spent With Patient Total time spent is greater than 50% in coordination of care (as documented) at patient's floor/unit and/or counseling patient: GI History of Present Illness - Data of Consult Requesting Physician: Rosales Patrick MD - Consult Narrative History of present illness: Mr. Redd is a 43 year old male - Constitutional Vitals: Temp Pulse Resp BP Pulse Ox 98.6 F 65 14 147/74 97 01/07/19 10:30 01/07/19 10:30 01/07/19 10:30 01/07/19 10:30 01/07/19 10:30 Results - Labs CBC & Chem 7: 01/07/19 04:00 01/07/19 04:00 - ABG ABG results: PT/INR, D-dimer PT 11.5 Seconds (9.4-12.1) 01/01/19 12:51 - Attending Attestation 43 year old male presents with cholestatic picture and scans as discussed above. Will order a viral count for hepatitis C. Surgery already consulted. Recommend a liver biopsy at time of cholecystectomy and follow up as outpatient after discharge. I have personally performed a face to face evaluation on this patient. I have reviewed and agree with the care plan. History and Exam by me shows:
[2019-01-03] MEDS: *HR* OxyCODONE Immed Rel 5 MG TABLET PO PRN ×2 (13:08→19:51)
[2019-01-03] MEDS: Ondansetron 4 MG/2 ML VIAL IVP PRN (19:51)
[2019-01-04] MEDS: MetroNIDAZOLE 500 MG/100 ML 500 MG/100 ML BAG IVPB SCH ×3 (02:29→18:00)
[2019-01-04] MEDS: *HR* Heparin 5,000 UNIT/ML VIAL SQ SCH ×3 (05:58→23:03)
[2019-01-04 06:53] LABS: Basophils % 0.5 %; Eosinophils # 0.2 K/mcL (0.0-0.6); Eosinophils % 3.1 %; Hematocrit 42.9 % (37.5-50.1); Hemoglobin 13.7 g/dL (12.9-16.9); Immature Granulocytes % 0.2 % (0-4); Lymphocytes # 1.7 K/mcL (0.6-4.6); Mean Corpuscular HGB Conc 31.9 g/dL (31.6-35.5); Mean Corpuscular Hemoglobin 27.6 pg (28.0-33.3); Mean Corpuscular Volume 86.3 fL (83.0-100.0); Mean Platelet Volume 12.1 fL (9.4-12.4); Monocytes # 0.4 K/mcL (0.0-1.3); Monocytes % 5.7 %; Neutrophils # 4.1 K/mcL (1.6-8.9); Platelet Count 192 K/mcL (140-400); Red Blood Count 4.97 M/mcL (4.19-5.50); Red Cell Distribution Width 15.1 % (11.5-14.5); Segmented Neutrophils % 63.5 %; White Blood Count 6.5 K/mcL (4.3-11.1)
[2019-01-04 07:12] LABS: BUN/Creatinine Ratio 18 (6-26); Blood Urea Nitrogen 11 mg/dL (6-20); Calcium 8.6 mg/dL (8.6-10.3); Carbon Dioxide 26 mEq/L (23-29); Chloride 98 mEq/L (98-107); Glucose 179 mg/dL (70-105); Osmolality,Calculated 282 (280-300); Potassium 4.1 mEq/L (3.5-5.1); Sodium 134 mEq/L (136-145); eGFR For African Americans > 60 (> 60); eGFR For Non-African Americans > 60 (> 60)
[2019-01-04] MEDS: *HR* OxyCODONE Immed Rel 5 MG TABLET PO PRN ×3 (08:00→20:44)
[2019-01-04] MEDS: Insulin LISPRO 300 UNITS/3 ML VIAL SQ SCH ×4 (08:05→22:57)
[2019-01-04] MEDS: levoFLOXacin 750 MG/150 ML 750 MG/150 ML BAG IVPB SCH (11:16)
--- NOTE | 2019-01-04 12:08 | Internal Med Progress Note ---
Hospitalist Progress Note - Encounter Date of Encounter: 01/04/19 Time of Encounter: 12:09 - Subjective Interval History: Patient complained of multiple episodes of nausea, unsure if this was bilious or non-bilious. Denies fevers/chills but states abdominal pain is unchanged and bothersome. - Exam Vitals: Temp Pulse Resp BP Pulse Ox 98 F 75 16 132/72 94 01/04/19 11:28 01/04/19 11:28 01/04/19 11:28 01/04/19 11:28 01/04/19 11:28 Exam: General: Alert and oriented, no acute distress Head: NC/AT ENT: sclera icterus, MMM Cardiovascular: RRR, normal S1 & S2, no rubs, murmurs or gallops. Lungs: CTA b/l, no wheezes or crackles. Abdomen: Obese, soft, generalized TTP mostly in left quadrants, no rigidity. normal bowel sounds Extremities: Left foot amputation, right leg BKA Neurological: Normal cognition, no focal deficits - Assessment and Plan (1) Cholecystitis Current Visit: Yes Status: Acute Assessment and Plan: Symptoms unchanged. Advance diet as tolerated. On metronidazole 500mg/IV Q8HRs and levoflaxin 750mg/IV daily GI following MRCP done, results pending Reconsult Surgery as patient now willing to undergo Surgery. (2) Bipolar disorder Current Visit: No Status: Chronic Assessment and Plan: Patient has not filled any medications in 2 years. Seroquel will be DC'd and he will need outpatient arrangement to safely start these medications. (3) HTN (hypertension) Current Visit: No Status: Chronic Assessment and Plan: Continue lisinopril. (4) Depression Current Visit: No Status: Chronic Assessment and Plan: Patient has not taken any medications for past two years based on the pharmacies that he's listed for us. We will restart Lexapro and monitor as this was a past medication for him. (5) Morbid obesity Current Visit: No Status: Acute (6) Hyperlipidemia Current Visit: No Status: Chronic Assessment and Plan: Hold atorvastatin due to transaminitis. (7) Tobacco dependence Current Visit: No Status: Chronic (8) Hyperbilirubinemia Current Visit: Yes Status: Acute Assessment and Plan: likely secondary to cholelithiasis. vs possible acute hepatitis plan of care as above (9) Transaminitis Current Visit: Yes Status: Acute Assessment and Plan: possible due to acute hepatitis C. Hepatitis C AB positive. Hep C Quant ordered GI consulted Hepatitis A IgM ordered. repeat CMP tomorrow morning (10) Hyponatremia Current Visit: Yes Status: Resolved (11) Diabetes Current Visit: Yes Status: Chronic Assessment and Plan: ISS ACHS - Time Spent with Patient Total time spent is greater than 50% in coordination of care (as documented) at patient's floor/unit and/or counseling patient: Internal Medicine: Result - Labs CBC & Chem 7: 01/04/19 06:16 01/04/19 06:16 Labs: Short CBC 01/04/19 Range/Units 06:16 WBC 6.5 (4.3-11.1) K/mcL Hgb 13.7 (12.9-16.9) g/dL Hct 42.9 (37.5-50.1) % Plt Count 192 (140-400) K/mcL Neutrophils # 4.1 (1.6-8.9) K/mcL BMP 01/04/19 06:16 Sodium 134 L Potassium 4.1 Chloride 98 Carbon Dioxide 26 BUN 11 Creatinine 0.60 L Glucose 179 H Calcium 8.6 - ABG Interpretation ABG results: PT/INR, D-dimer PT 11.5 Seconds (9.4-12.1) 01/01/19 12:51 Consult Discharge Plan - Plan Referrals: NONE,PCP [Primary Care Provider] - (2) Bipolar disorder Qualifiers: Active/Remission status: in partial remission Most recent bipolar episode type: depressed Qualified Code(s): F31.75 - Bipolar disorder, in partial remission, most recent episode depressed (3) HTN (hypertension) Qualifiers: Hypertension type: essential hypertension Qualified Code(s): I10 - Essential (primary) hypertension (4) Depression Qualifiers: Depression Type: unspecified Qualified Code(s): F32.9 - Major depressive disorder, single episode, unspecified (6) Hyperlipidemia Qualifiers: Hyperlipidemia type: unspecified Qualified Code(s): E78.5 - Hyperlipidemia, unspecified (11) Diabetes Qualifiers: Diabetes mellitus type: type 2 Diabetes mellitus rn long term care insulin use: with rn long term care use Diabetes mellitus complication status: with hyperglycemia Qualified Code(s): E11.65 - Type 2 diabetes mellitus with hyperglycemia; Z79.4 - terminal supervisor (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
[2019-01-04 16:00] LABS: HCV Quant Log 4.98 log IU/mL
[2019-01-04] MEDS: Ondansetron 4 MG/2 ML VIAL IVP PRN (20:44)
[2019-01-04] MEDS: Insulin DETEMIR 100 UNIT/ML X5UNITS SQ SCH (22:57)
[2019-01-05] MEDS: MetroNIDAZOLE 500 MG/100 ML 500 MG/100 ML BAG IVPB SCH ×3 (02:44→18:07)
[2019-01-05] MEDS: *HR* Heparin 5,000 UNIT/ML VIAL SQ SCH ×3 (05:20→21:10)
[2019-01-05 05:31] LABS: Basophils % 0.6 %; Eosinophils # 0.2 K/mcL (0.0-0.6); Eosinophils % 3.2 %; Hematocrit 40.7 % (37.5-50.1); Hemoglobin 12.8 g/dL (12.9-16.9); Immature Granulocytes % 0.3 % (0-4); Lymphocytes # 1.6 K/mcL (0.6-4.6); Mean Corpuscular HGB Conc 31.4 g/dL (31.6-35.5); Mean Corpuscular Hemoglobin 27.3 pg (28.0-33.3); Mean Corpuscular Volume 86.8 fL (83.0-100.0); Mean Platelet Volume 12.2 fL (9.4-12.4); Monocytes # 0.5 K/mcL (0.0-1.3); Monocytes % 7.3 %; Neutrophils # 4.1 K/mcL (1.6-8.9); Platelet Count 190 K/mcL (140-400); Red Blood Count 4.69 M/mcL (4.19-5.50); Segmented Neutrophils % 63.6 %; White Blood Count 6.5 K/mcL (4.3-11.1)
[2019-01-05 05:48] LABS: BUN/Creatinine Ratio 19 (6-26); Blood Urea Nitrogen 13 mg/dL (6-20); Calcium 8.6 mg/dL (8.6-10.3); Carbon Dioxide 27 mEq/L (23-29); Chloride 99 mEq/L (98-107); Glucose 193 mg/dL (70-105); Osmolality,Calculated 283 (280-300); Potassium 4.1 mEq/L (3.5-5.1); Sodium 134 mEq/L (136-145); eGFR For African Americans > 60 (> 60); eGFR For Non-African Americans > 60 (> 60)
[2019-01-05] MEDS: *HR* OxyCODONE Immed Rel 5 MG TABLET PO PRN ×3 (07:22→19:10)
[2019-01-05] MEDS: levoFLOXacin 750 MG/150 ML 750 MG/150 ML BAG IVPB SCH (08:56)
[2019-01-05 10:15] LABS: HCV Quant Interpretation DETECTED (Not Detected)
[2019-01-05 10:20] LABS: AFP Tumor Marker Non-Pregnant 10 ng/mL (0-9)
[2019-01-05 10:31] LABS: ANA IgG by ELISA NONE DETECTED (None Detected); F-Actin (sm muscle) Ab IgG 10 Units (0-19)
[2019-01-05] MEDS: Insulin LISPRO 300 UNITS/3 ML VIAL SQ SCH ×4 (11:34→21:11)
[2019-01-05 13:21] LABS: Myeloperoxidase Ab 0 AU/mL (0-19); Serine Protease-3 Antibody 0 AU/mL (0-19)
[2019-01-05] MEDS: Ondansetron 4 MG/2 ML VIAL IVP PRN (16:25)
--- NOTE | 2019-01-05 17:06 | Internal Med Progress Note ---
Hospitalist Progress Note - Encounter Date of Encounter: 01/05/19 Time of Encounter: 13:43 - Subjective Interval History: Patient still having nausea and abdominal pain. Says he is willing to have Surgery come back and see patient. - Exam Vitals: Temp Pulse Resp BP Pulse Ox 98.1 F 77 17 130/79 96 01/05/19 14:08 01/05/19 14:08 01/05/19 14:08 01/05/19 14:08 01/05/19 14:08 Exam: General: Alert and oriented, no acute distress Head: NC/AT ENT: sclera icterus, MMM Cardiovascular: RRR, normal S1 & S2, no rubs, murmurs or gallops. Lungs: CTA b/l, no wheezes or crackles. Abdomen: Obese, soft, generalized TTP mostly in left quadrants, no rigidity. normal bowel sounds Extremities: Left foot amputation, right leg BKA Neurological: Normal cognition, no focal deficits - Assessment and Plan (1) Cholecystitis Current Visit: Yes Status: Acute Assessment and Plan: Symptoms unchanged. Advance diet as tolerated. On metronidazole 500mg/IV Q8HRs and levoflaxin 750mg/IV daily GI following Patient will be heading to [facility] later today Reconsult Surgery as patient now willing to undergo Surgery. (2) Bipolar disorder Current Visit: No Status: Chronic Assessment and Plan: Patient has not filled any medications in 2 years. Seroquel will be DC'd and he will need outpatient arrangement to safely start these medications. (3) HTN (hypertension) Current Visit: No Status: Chronic Assessment and Plan: Continue lisinopril. (4) Depression Current Visit: No Status: Chronic Assessment and Plan: Patient has not taken any medications for past two years based on the pharmacies that he's listed for us. We will restart Lexapro and monitor as this was a past medication for him. (5) Morbid obesity Current Visit: No Status: Acute (6) Hyperlipidemia Current Visit: No Status: Chronic Assessment and Plan: Hold atorvastatin due to transaminitis. (7) Tobacco dependence Current Visit: No Status: Chronic (8) Hyperbilirubinemia Current Visit: Yes Status: Acute Assessment and Plan: likely secondary to cholelithiasis. vs possible acute hepatitis plan of care as above (9) Transaminitis Current Visit: Yes Status: Acute Assessment and Plan: possible due to acute hepatitis C. Hepatitis C AB positive. Hep C Quant ordered GI consulted Hepatitis A IgM ordered. repeat CMP tomorrow morning (10) Hyponatremia Current Visit: Yes Status: Resolved (11) Diabetes Current Visit: Yes Status: Chronic Assessment and Plan: ISS ACHS - Time Spent with Patient Total time spent is greater than 50% in coordination of care (as documented) at patient's floor/unit and/or counseling patient: Internal Medicine: Result - Labs CBC & Chem 7: 01/05/19 04:45 01/05/19 04:45 Labs: Short CBC 01/05/19 Range/Units 04:45 WBC 6.5 (4.3-11.1) K/mcL Hgb 12.8 L (12.9-16.9) g/dL Hct 40.7 (37.5-50.1) % Plt Count 190 (140-400) K/mcL Neutrophils # 4.1 (1.6-8.9) K/mcL BMP 01/05/19 04:45 Sodium 134 L Potassium 4.1 Chloride 99 Carbon Dioxide 27 BUN 13 Creatinine 0.68 L Glucose 193 H Calcium 8.6 - ABG Interpretation ABG results: PT/INR, D-dimer PT 11.5 Seconds (9.4-12.1) 01/01/19 12:51 Consult Discharge Plan - Plan Instructions: Viral Hepatitis C (DC) Referrals: Gianni Baliey DO [Resident] - (Please bring your photo ID, insurance card and any medications you are on. If you need to cancel, please give a 24 hour notice. Thank you.) _ (2) Bipolar disorder Qualifiers: Active/Remission status: in partial remission Most recent bipolar episode type: depressed Qualified Code(s): F31.75 - Bipolar disorder, in partial remission, most recent episode depressed (3) HTN (hypertension) Qualifiers: Hypertension type: essential hypertension Qualified Code(s): I10 - Essential (primary) hypertension (4) Depression Qualifiers: Depression Type: unspecified Qualified Code(s): F32.9 - Major depressive disorder, single episode, unspecified (6) Hyperlipidemia Qualifiers: Hyperlipidemia type: unspecified Qualified Code(s): E78.5 - Hyperlipidemia, unspecified (11) Diabetes Qualifiers: Diabetes mellitus type: type 2 Diabetes mellitus technician terminal and repeater insulin use: with technician terminal and repeater use Diabetes mellitus complication status: with hyperglycemia Qualified Code(s): E11.65 - Type 2 diabetes mellitus with hyperglycemia; Z79.4 - group home (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
[2019-01-05] MEDS: Insulin DETEMIR 100 UNIT/ML X5UNITS SQ SCH (21:12)
[2019-01-06] MEDS: MetroNIDAZOLE 500 MG/100 ML 500 MG/100 ML BAG IVPB SCH ×3 (02:34→17:18)
[2019-01-06] MEDS: *HR* OxyCODONE Immed Rel 5 MG TABLET PO PRN ×4 (03:15→20:13)
[2019-01-06] MEDS: *HR* Heparin 5,000 UNIT/ML VIAL SQ SCH ×3 (04:48→20:09)
--- NOTE | 2019-01-06 09:10 | Internal Med Progress Note ---
Hospitalist Progress Note - Encounter Date of Encounter: 01/06/19 Time of Encounter: 09:17 - Subjective Interval History: Was able to tolerate MRCP yesterday which has been delayed bc of nausea. Patient having persisting nausea with vomiting. Still not able to tolerate solid foods. Denies fevers/chills. - Exam Vitals: Temp Pulse Resp BP Pulse Ox 98.2 F 68 14 133/82 96 01/06/19 06:33 01/06/19 06:33 01/06/19 06:33 01/06/19 06:33 01/06/19 06:33 Exam: General: Alert and oriented, no acute distress Head: NC/AT ENT: sclera icterus, MM slightly dry today Cardiovascular: RRR, normal S1 & S2, no rubs, murmurs or gallops. Lungs: CTA b/l, no wheezes or crackles. Abdomen: Obese, soft, RUQ tenderness but improved since yesterday Extremities: Left foot amputation, right leg BKA Neurological: Normal cognition, no focal deficits - Assessment and Plan (1) Cholecystitis Current Visit: Yes Status: Acute Assessment and Plan: Symptoms unchanged. On metronidazole 500mg/IV Q8HRs and levoflaxin 750mg/IV daily GI following Tolerated MRCP yesterday. Cholithiasis but no obstruction Reconsult Surgery as patient now willing to undergo Surgery. RP Lfts, NPO at midnight. (2) Bipolar disorder Current Visit: No Status: Chronic Assessment and Plan: Patient has not filled any medications in 2 years. Seroquel will be DC'd and he will need outpatient arrangement to safely start these medications. (3) HTN (hypertension) Current Visit: No Status: Chronic Assessment and Plan: Continue lisinopril. (4) Depression Current Visit: No Status: Chronic Assessment and Plan: Patient has not taken any medications for past two years based on the pharmacies that he's listed for us. We will restart Lexapro and monitor as this was a past medication for him. (5) Morbid obesity Current Visit: No Status: Acute (6) Hyperlipidemia Current Visit: No Status: Chronic Assessment and Plan: Hold atorvastatin due to transaminitis. (7) Tobacco dependence Current Visit: No Status: Chronic (8) Hyperbilirubinemia Current Visit: Yes Status: Acute Assessment and Plan: likely secondary to cholelithiasis. vs possible acute hepatitis plan of care as above (9) Transaminitis Current Visit: Yes Status: Acute Assessment and Plan: possible due to acute hepatitis C. (10) Hyponatremia Current Visit: Yes Status: Resolved (11) Diabetes Current Visit: Yes Status: Chronic Assessment and Plan: ISS ACHS - Time Spent with Patient Total time spent is greater than 50% in coordination of care (as documented) at patient's floor/unit and/or counseling patient: Internal Medicine: Result - Labs CBC & Chem 7: 01/05/19 04:45 01/05/19 04:45 - ABG Interpretation ABG results: PT/INR, D-dimer PT 11.5 Seconds (9.4-12.1) 01/01/19 12:51 - Impressions Impressions Abdomen MRI 01/04/19 11:33 IMPRESSION: 1. Cholelithiasis. Edematous gallbladder wall thickening persists with no adjacent inflammatory changes, potentially related to chronic or mild acute cholecystitis. Consider further evaluation with a nuclear medicine hepatobiliary scan if there are clinical findings of cholecystitis. 2. No obvious choledocholithiasis, although evaluation is partially limited by motion on some images. Of note, there is no biliary dilation to suggest obstruction. 3. Mild hepatomegaly and mild hepatic steatosis. No associated findings of cirrhosis. 4. Dilation of the main portal vein and mild splenomegaly, findings that can be seen with portal hypertension. D/ / Sriram Kwan MD / Sriram Kwan MD Interpreting Provider: Sriram Kwan MD Consult Discharge Plan - Plan Instructions: Viral Hepatitis C (DC) Referrals: Gianni Bailey, [Resident] - (Please bring your photo ID, insurance card and any medications you are on. If you need to cancel, please give a 24 hour notice. Thank you.) (2) Bipolar disorder Qualifiers: Active/Remission status: in partial remission Most recent bipolar episode type: depressed Qualified Code(s): F31.75 - Bipolar disorder, in partial remission, most recent episode depressed (3) HTN (hypertension) Qualifiers: Hypertension type: essential hypertension Qualified Code(s): I10 - Essential (primary) hypertension (4) Depression Qualifiers: Depression Type: unspecified Qualified Code(s): F32.9 - Major depressive disorder, single episode, unspecified (6) Hyperlipidemia Qualifiers: Hyperlipidemia type: unspecified Qualified Code(s): E78.5 - Hyperlipidemia, unspecified (11) Diabetes Qualifiers: Diabetes mellitus type: type 2 Diabetes mellitus fci insulin use: with fci use Diabetes mellitus complication status: with hyperglycemia Qualified Code(s): E11.65 - Type 2 diabetes mellitus with hyperglycemia; 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
[2019-01-06] MEDS ORDERED: Ringers Solution, Lactated 1,000 ML IVC ONE (09:16)
[2019-01-06] MEDS: Insulin LISPRO 300 UNITS/3 ML VIAL SQ SCH ×4 (09:22→20:08)
[2019-01-06] MEDS ORDERED: Insulin DETEMIR 100 UNIT/ML X5UNITS SQ ONE (09:22)
[2019-01-06] MEDS: levoFLOXacin 750 MG/150 ML 750 MG/150 ML BAG IVPB SCH (09:23)
[2019-01-06] MEDS: Nicotine 14 MG PATCH.TD24 TD SCH (10:06)
--- NOTE | 2019-01-06 15:09 | AcuteCareSurgery Progress Note ---
<Dyan Gutierrez - Last Filed: 01/06/19 15:28> Date of Encounter: 01/06/19 Time of Encounter: 15:06 - Assessment and Plan (1) Acute cholecystitis Current Visit: Yes Status: Acute Patient presented with complaint of abdominal pain Neri sign positive - Abdominal pelvis CT 01/01/19-cholelithiasis, mild induration surrounding the gallbladder could indicate acute cholecystitis, mild periportal edema versus mild intrahepatic bile duct dilation mild splenomegaly, scattered colonic diverticula. - Gallbladder ultrasound 01/01/19 and cholelithiasis with gallbladder wall thickening - MRCP 01/04/19-cholelithiasis, edematous gallbladder wall thickening persists, no obvious choledocholithiasis, no biliary dilation, mild hepatomegaly and mild hepatic steatosis, no evidence of cirrhosis, dilation of the main portal vein and mild spinal megaly findings that can be seen with portal hypertension. Initially, patient was seen and examined by acute care surgery on 01/02/19 however at that time patient was hesitant and was more amenable to possible cholecystectomy on an outpatient basis. However over course of admission, patient is now amenable to surgery management. Patient continues to be nauseous, vomiting, and have right upper quadrant pain. Will recheck LFTs in the morning and discuss surgical management with patient at that time. Suggest laparoscopic cholecystectomy, cholangiogram, liver biopsy should patient decide to proceed with surgery management As there is concern for acute hepatitis C, patient is at increased risk for bleeding, these risks were discussed with the patient Patient to be nothing by mouth after midnight Continue IV antibiotics-Levaquin, metronidazole (2) Hepatitis C antibody positive in blood Current Visit: Yes Status: Acute On presentation, patient was complaining of abdominal pain, with scleral icterus Labs revealed hyperbilirubinemia and transaminitis and elevated alkaline phosphatase Hepatitis C antibody screen was reactive Hepatitis C RNA Quant was detected, hepatitis C viral load 94,[phone] (3) Hyperbilirubinemia Current Visit: Yes Status: Acute See above for management (4) Transaminitis Current Visit: Yes Status: Acute See above for management (5) DVT prophylaxis Current Visit: Yes Status: Acute Subcutaneous heparin Subjective Narrative: Patient seen and examined at bedside today. Acute care surgery was contacted as patient was considering surgical management of his acute cholecystitis. He is very anxious about being positive for hepatitis C and is concerned about long- term management. He continues to have abdominal pain with a positive Neri sign on exam. He continues to be nauseous and states that he vomited last night and this morning. He remains afebrile, no leukocytosis, no tachycardia. We discussed risks and benefits of surgery and the decision will be made to proceed once labs specifically LFTs and bilirubin are assessed in the morning. He denies fever, chills, chest pain, shortness of breath, dysuria, hematuria, diarrhea, constipation, calf pain. Objective Vital Signs - Last 8 Hours Temp Pulse Resp BP Pulse Ox 01/06/19 11:09 98.6 F 67 14 137/74 96 Intake and Output 01/05/19 01/06/19 01/06/19 23:59 07:59 15:59 Intake Total 440 / 1050 100 / 830 730 / 830 Output Total 600 / 2350 750 / 1350 600 / 1350 Balance -160 / -1300 -650 / -520 130 / -520 Intake: IV Fluids 200 / 450 100 / 350 250 / 350 Levaquin Premix 750mg/150 mL 150 / 150 750 mg In 150 ml @ 100 mls/hr IVPB DAILY [facility] Rx#:[id number] Flagyl Premix 500 MG/100 ML 500 200 / 300 100 / 200 100 / 200 mg In 100 ml @ 100 mls/hr IVPB Q8H [facility] Rx#:[id number] Oral 240 / 600 480 / 480 Output: Urine 600 / 2350 750 / 1350 600 / 1350 Other: Meal Dinner Lunch Percent of Meal Consumed 60% 100% Blood Glucose* 261 211 284 - General physical appearance well developed, well nourished, no distress, obese - Eyes PERRL, icteric - ENT normal mucosa, no congestion - Neck Neck exam: no masses, trachea midline, no venous distension - Respiratory normal expansion, normal respiratory effort, clear to auscultation - Cardiovascular Cardiovascular exam: Present: RRR, no murmurs/rubs/gallops. Absent: JVD - Abdomen Abdomen: Present: bowel sounds present, soft, tender. Absent: distended, guarding, rebound Abdominal Tenderness: RUQ (Positive Neri sign) - Integumentary no rash, no growths, no abnormal pigmentation - Neurologic CN 2-12 grossly intact, normal coordination, normal sensation - Musculoskeletal normal posture, other (Left partial foot amputation, right BKA) - Psychiatric oriented to time, oriented to person, oriented to place, speech is normal, memory intact, other (Anxious) - Labs 01/05/19 04:45 01/05/19 04:45 Consult Discharge Plan - Plan Instructions: Viral Hepatitis C (DC) Referrals: Gianni Bailey, [Resident] - (Please bring your photo ID, insurance card and any medications you are on. If you need to cancel, please give a 24 hour notice. Thank you.) <Kranthi Oconnor - Last Filed: 01/06/19 19:02> Date of Encounter: 01/06/19 Objective Vital Signs - Last 8 Hours Temp Pulse Resp BP Pulse Ox 01/06/19 15:10 98.7 F 117 14 135/72 96 01/06/19 11:09 98.6 F 67 14 137/74 96 Intake and Output 01/06/19 01/06/19 01/06/19 07:59 15:59 23:59 Intake Total 100 / 1950 730 / 1950 1120 / 1950 Output Total 750 / 2150 1400 / 2150 Balance -650 / -200 -670 / -200 1120 / -200 Intake: IV Fluids 100 / 1350 250 / 1350 1000 / 1350 Lactated Ringers 1,000 ML @ 999 1000 / 1000 mls/hr IVC .Q1H1M [facility] Rx#: [id number] Levaquin Premix 750mg/150 mL 150 / 150 750 mg In 150 ml @ 100 mls/hr IVPB DAILY [facility] Rx#:[id number] Flagyl Premix 500 MG/100 ML 500 100 / 200 100 / 200 mg In 100 ml @ 100 mls/hr IVPB Q8H [facility] Rx#:[id number] Oral 480 / 600 120 / 600 Output: Urine 750 / 2150 1400 / 2150 Other: Meal Lunch Dinner Percent of Meal Consumed 100% 100% Blood Glucose* 211 284 262 - Labs 01/05/19 04:45 01/06/19 17:15 Diabetes panel 01/06/19 Range/Units 17:15 Sodium 129 L (136-145) mEq/L Potassium 4.7 (3.5-5.1) mEq/L Chloride 105 (98-107) mEq/L Carbon Dioxide 23 (23-29) mEq/L BUN 14 (6-20) mg/dL Creatinine 0.75 (0.70-1.30) mg/dL Glucose 298 H (70-105) mg/dL Calcium 8.0 L (8.6-10.3) mg/dL AST Cancelled ALT Cancelled Alkaline Phosphatase Cancelled Albumin Cancelled Calcium panel 01/06/19 Range/Units 17:15 Calcium 8.0 L (8.6-10.3) mg/dL Albumin Cancelled Pituitary panel 01/06/19 Range/Units 17:15 Sodium 129 L (136-145) mEq/L Potassium 4.7 (3.5-5.1) mEq/L Chloride 105 (98-107) mEq/L Carbon Dioxide 23 (23-29) mEq/L BUN 14 (6-20) mg/dL Creatinine 0.75 (0.70-1.30) mg/dL Glucose 298 H (70-105) mg/dL Calcium 8.0 L (8.6-10.3) mg/dL Adrenal panel 01/06/19 Range/Units 17:15 Sodium 129 L (136-145) mEq/L Potassium 4.7 (3.5-5.1) mEq/L Chloride 105 (98-107) mEq/L Carbon Dioxide 23 (23-29) mEq/L BUN 14 (6-20) mg/dL Creatinine 0.75 (0.70-1.30) mg/dL Glucose 298 H (70-105) mg/dL Calcium 8.0 L (8.6-10.3) mg/dL Total Bilirubin Cancelled AST Cancelled ALT Cancelled Alkaline Phosphatase Cancelled Albumin Cancelled - Attending Attestation I examined this patient and my medical decision-making was reviewed with the Resident Physician. I agree with the documented findings, disposition and treatment plan as described except to the extent set forth below. The patient is seen and evaluated. I long discussion with the patient concerning his current findings. I believe that the patient has acute hepatitis resulting in elevation of his bilirubin and transaminase levels. Oftentimes, acute hepatitis is the cause of the right upper quadrant pain. Acute hepatitis can cause edema of Elsa's capsule and pericholecystic edema. The patient does have cholelithiasis. MRCP seems to clear the common bile duct of any evidence of choledocholithiasis. Continues to have pain, however, his bilirubin is greater than 4. I think it is reasonable to proceed with cholecystectomy and laparoscopic liver biopsy to aid in the treatment of his hepatitis. Cholecystectomy may not relieve his pain if his pain is secondary to hepatitis. I would not recommend proceeding with surgery unless his bilirubin is trending downward. We will plan liver function tests in the morning and I will see the patient around 7 AM and review his laboratory testing and make a final decision on surgical timeout. The case is discussed with the resident and I agree with above documentation. Kranthi Oconnor MD FACS
[2019-01-06] MEDS: Ondansetron 4 MG/2 ML VIAL IVP PRN (16:56)
[2019-01-06 17:43] LABS: BUN/Creatinine Ratio 19 (6-26); Blood Urea Nitrogen 14 mg/dL (6-20); Carbon Dioxide 23 mEq/L (23-29); Chloride 105 mEq/L (98-107); Glucose 298 mg/dL (70-105); Osmolality,Calculated 280 (280-300); Potassium 4.7 mEq/L (3.5-5.1); Sodium 129 mEq/L (136-145); eGFR For African Americans > 60 (> 60); eGFR For Non-African Americans > 60 (> 60)
[2019-01-06] MEDS ORDERED: Ringers Solution, Lactated 1,000 ML IVC SCH (18:00)
[2019-01-06] MEDS ORDERED: MOM Conc 10 ML UD.LIQ PO PRN (19:27)
[2019-01-06] MEDS: Insulin DETEMIR 100 UNIT/ML X5UNITS SQ SCH (20:09)
[2019-01-07] MEDS: *HR* OxyCODONE Immed Rel 5 MG TABLET PO PRN ×3 (02:17→13:06)
[2019-01-07] MEDS: MetroNIDAZOLE 500 MG/100 ML 500 MG/100 ML BAG IVPB SCH ×2 (02:18→11:26)
[2019-01-07] MEDS: *HR* Heparin 5,000 UNIT/ML VIAL SQ SCH (05:21)
[2019-01-07 06:32] LABS: Basophils # 0.1 K/mcL (0.0-0.2); Basophils % 0.7 %; Eosinophils # 0.3 K/mcL (0.0-0.6); Eosinophils % 3.6 %; Hematocrit 41.4 % (37.5-50.1); Immature Granulocytes % 0.3 % (0-4); Lymphocytes % 27.9 %; Mean Corpuscular HGB Conc 31.4 g/dL (31.6-35.5); Mean Corpuscular Hemoglobin 27.8 pg (28.0-33.3); Mean Corpuscular Volume 88.5 fL (83.0-100.0); Mean Platelet Volume 11.9 fL (9.4-12.4); Monocytes # 0.5 K/mcL (0.0-1.3); Monocytes % 7.2 %; Neutrophils # 4.4 K/mcL (1.6-8.9); Platelet Count 214 K/mcL (140-400); Red Blood Count 4.68 M/mcL (4.19-5.50); Red Cell Distribution Width 14.6 % (11.5-14.5); Segmented Neutrophils % 60.3 %; White Blood Count 7.2 K/mcL (4.3-11.1)
[2019-01-07 06:52] LABS: BUN/Creatinine Ratio 22 (6-26); Blood Urea Nitrogen 16 mg/dL (6-20); Calcium 8.7 mg/dL (8.6-10.3); Carbon Dioxide 27 mEq/L (23-29); Chloride 100 mEq/L (98-107); Glucose 216 mg/dL (70-105); Osmolality,Calculated 286 (280-300); Potassium 4.3 mEq/L (3.5-5.1); Sodium 134 mEq/L (136-145); eGFR For African Americans > 60 (> 60); eGFR For Non-African Americans > 60 (> 60)
[2019-01-07 06:54] LABS: Albumin/Globulin Ratio 0.9 (1.1-2.2); Bilirubin,Direct 1.2 mg/dL (0.0-0.2); Bilirubin,Indirect 1.3 mg/dL (0.0-1.2); Bilirubin,Total 2.5 mg/dL (0.3-1.0); Globulin 3.3 g/dL (2.4-3.5); Total Protein 6.3 g/dL (6.4-8.9)
[2019-01-07] MEDS: Nicotine 14 MG PATCH.TD24 TD SCH (07:38)
[2019-01-07] MEDS: levoFLOXacin 750 MG/150 ML 750 MG/150 ML BAG IVPB SCH (07:39)
[2019-01-07] MEDS: Insulin LISPRO 300 UNITS/3 ML VIAL SQ SCH ×2 (07:40→11:26)
[2019-01-07 08:44] LABS: HCV Genotype by Sequencing 1A OR 1B
--- NOTE | 2019-01-07 08:44 | Internal Med Progress Note ---
Hospitalist Progress Note - Encounter Date of Encounter: 01/07/19 - Exam Vitals: Temp Pulse Resp BP Pulse Ox 98.0 F 66 14 156/92 98 01/07/19 06:21 01/07/19 06:21 01/07/19 06:21 01/07/19 06:21 01/07/19 06:21 - Assessment and Plan (1) Cholecystitis Current Visit: Yes Status: Acute (2) Bipolar disorder Current Visit: No Status: Chronic (3) HTN (hypertension) Current Visit: No Status: Chronic (4) Depression Current Visit: No Status: Chronic (5) Morbid obesity Current Visit: No Status: Acute (6) Hyperlipidemia Current Visit: No Status: Chronic (7) Tobacco dependence Current Visit: No Status: Chronic (8) Hyperbilirubinemia Current Visit: Yes Status: Acute (9) Transaminitis Current Visit: Yes Status: Acute (10) Hyponatremia Current Visit: Yes Status: Resolved (11) Diabetes Current Visit: Yes Status: Chronic - Time Spent with Patient Total time spent is greater than 50% in coordination of care (as documented) at patient's floor/unit and/or counseling patient: Internal Medicine: Result - Labs CBC & Chem 7: 01/07/19 04:00 01/07/19 04:00 Labs: Short CBC 01/07/19 Range/Units 04:00 WBC 7.2 (4.3-11.1) K/mcL Hgb 13.0 (12.9-16.9) g/dL Hct 41.4 (37.5-50.1) % Plt Count 214 (140-400) K/mcL Neutrophils # 4.4 (1.6-8.9) K/mcL BMP 01/06/19 01/07/19 17:15 04:00 Sodium 129 L 134 L Potassium 4.7 4.3 Chloride 105 100 Carbon Dioxide 23 27 BUN 14 16 Creatinine 0.75 0.74 Glucose 298 H 216 H Calcium 8.0 L 8.7 Liver Function 01/06/19 01/07/19 Range/Units 17:15 04:00 Total Bilirubin Cancelled 2.5 H Direct Bilirubin Cancelled 1.2 H AST Cancelled 62 H ALT Cancelled 79 H Alkaline Phosphatase Cancelled 132 H Albumin Cancelled 3.0 L - ABG Interpretation ABG results: PT/INR, D-dimer PT 11.5 Seconds (9.4-12.1) 01/01/19 12:51 Consult Discharge Plan - Plan Instructions: Viral Hepatitis C (DC) Referrals: Gianni Bailey DO [Resident] - (Please bring your photo ID, insurance card and any medications you are on. If you need to cancel, please give a 24 hour notice. Thank you.) (2) Bipolar disorder Qualifiers: Active/Remission status: in partial remission Most recent bipolar episode type: depressed Qualified Code(s): F31.75 - Bipolar disorder, in partial remission, most recent episode depressed (3) HTN (hypertension) Qualifiers: Hypertension type: essential hypertension Qualified Code(s): I10 - Essential (primary) hypertension (4) Depression Qualifiers: Depression Type: unspecified Qualified Code(s): F32.9 - Major depressive disorder, single episode, unspecified (6) Hyperlipidemia Qualifiers: Hyperlipidemia type: unspecified Qualified Code(s): E78.5 - Hyperlipidemia, unspecified (11) Diabetes Qualifiers: Diabetes mellitus type: type 2 Diabetes mellitus intermediate school teacher insulin use: with long-term use Diabetes mellitus complication status: with hyperglycemia Qualified Code(s): E11.65 - Type 2 diabetes mellitus with hyperglycemia; 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
--- NOTE | 2019-01-07 10:16 | AcuteCareSurgery Progress Note ---
<Dyan Gutierrez - Last Filed: 01/07/19 10:22> Date of Encounter: 01/07/19 Time of Encounter: 10:14 - Assessment and Plan (1) Acute cholecystitis Current Visit: Yes Status: Acute Patient presented with complaint of abdominal pain - Abdominal pelvis CT 01/01/19-cholelithiasis, mild induration surrounding the gallbladder could indicate acute cholecystitis, mild periportal edema versus mild intrahepatic bile duct dilation mild splenomegaly, scattered colonic diverticula. - Gallbladder ultrasound 01/01/19 and cholelithiasis with gallbladder wall thickening - MRCP 01/04/19-cholelithiasis, edematous gallbladder wall thickening persists, n o obvious choledocholithiasis, no biliary dilation, mild hepatomegaly and mild hepatic steatosis, no evidence of cirrhosis, dilation of the main portal vein and mild spinal megaly findings that can be seen with portal hypertension. Initially, patient was seen and examined by acute care surgery on 01/02/19 however at that time patient was hesitant and was more amenable to possible cholecystectomy on an outpatient basis. Patient seen and examined yesterday and was interested in pursuing surgical management pending repeat labs this morning. When patient examined this morning, he stated he would like more time to consider proceeding with surgery, when patient was reassessed later on he stated that he would like to have surgery on an outpatient basis and is declining surgical management during this admission. Continue IV antibiotics-Levaquin, metronidazole Acute care surgery service to sign off at this time. (2) Hepatitis C antibody positive in blood Current Visit: Yes Status: Acute On presentation, patient was complaining of abdominal pain, with scleral icterus Labs revealed hyperbilirubinemia and transaminitis and elevated alkaline phosphatase Hepatitis C antibody screen was reactive Hepatitis C RNA Quant was detected, hepatitis C viral load 94,927 Management per primary (3) Hyperbilirubinemia Current Visit: Yes Status: Acute Somewhat improved today See above for management (4) Transaminitis Current Visit: Yes Status: Acute Somewhat improved today See above for management (5) DVT prophylaxis Current Visit: Yes Status: Acute Subcutaneous heparin Subjective Narrative: Patient seen and examined at bedside today. When patient seen and examined yesterday he was somewhat interested in surgical management of acute cholecystitis. LFTs, CMP evaluated this morning which did show a decrease in his hyperbilirubinemia as well as decrease in transaminases. These results were discussed with the patient this morning. The patient asked for more time to thi nk about surgical management. When patient was reassessed later on this morning, he stated that he did not want to proceed with surgical management and would like to follow-up outpatient for cholecystectomy at that time. Objective Vital Signs - Last 8 Hours Temp Pulse Resp BP Pulse Ox 01/07/19 06:21 98.0 F 66 14 156/92 98 01/07/19 02:19 97.7 F 70 18 142/79 95 Intake and Output 01/06/19 01/07/19 01/07/19 23:59 07:59 15:59 Intake Total 2160 / 2990 1100 / 1100 Output Total 1050 / 3200 600 / 600 Balance 1110 / -210 500 / 500 Intake: IV Fluids 1100 / 1450 1100 / 1100 Lactated Ringers 1,000 ML @ 125 1000 / 1000 1000 / 1000 mls/hr IVC .Q8H [facility] Rx#: [id number] Flagyl Premix 500 MG/100 ML 500 100 / 300 100 / 100 mg In 100 ml @ 100 mls/hr IVPB Q8H [facility] Rx#:[id number] Oral 1060 / 1540 0 / 0 Output: Urine 1050 / 3200 600 / 600 Other: Meal Dinner Breakfast Percent of Meal Consumed 100% 90% Weight 151.4 kg Blood Glucose* 285 234 Patient Weight 01/07/19 23:59 Weight 151.4 kg - General physical appearance well developed, well nourished, no distress, obese - Eyes PERRL, normal ocular movement, icteric (Mildly) - ENT normal mucosa, no congestion - Neck Neck exam: trachea midline, no venous distension - Respiratory normal expansion, normal respiratory effort, clear to auscultation - Cardiovascular Cardiovascular exam: Present: RRR, no murmurs/rubs/gallops. Absent: JVD - Abdomen Abdomen: Present: bowel sounds present, soft, tender (Neri sign negative today ) Abdominal Tenderness: LLQ - Integumentary no rash, no abnormal pigmentation - Neurologic normal coordination, normal sensation - Musculoskeletal normal posture, other (Left partial foot amputation, right BKA) - Psychiatric oriented to time, oriented to person, oriented to place, speech is normal, memory intact - Labs 01/07/19 04:00 01/07/19 04:00 Diabetes panel 01/06/19 01/07/19 01/07/19 Range/Units 17:15 04:00 04:00 Sodium 129 L 134 L (136-145) mEq/L Potassium 4.7 4.3 (3.5-5.1) mEq/L Chloride 105 100 (98-107) mEq/L Carbon Dioxide 23 27 (23-29) mEq/L BUN 14 16 (6-20) mg/dL Creatinine 0.75 0.74 (0.70-1.30) mg/dL Glucose 298 H 216 H (70-105) mg/dL Calcium 8.0 L 8.7 (8.6-10.3) mg/dL AST Cancelled 62 H ALT Cancelled 79 H Alkaline Phosphatase Cancelled 132 H Albumin Cancelled 3.0 L Calcium panel 01/06/19 01/07/19 01/07/19 Range/Units 17:15 04:00 04:00 Calcium 8.0 L 8.7 (8.6-10.3) mg/dL Albumin Cancelled 3.0 L Pituitary panel 01/06/19 01/07/19 Range/Units 17:15 04:00 Sodium 129 L 134 L (136-145) mEq/L Potassium 4.7 4.3 (3.5-5.1) mEq/L Chloride 105 100 (98-107) mEq/L Carbon Dioxide 23 27 (23-29) mEq/L BUN 14 16 (6-20) mg/dL Creatinine 0.75 0.74 (0.70-1.30) mg/dL Glucose 298 H 216 H (70-105) mg/dL Calcium 8.0 L 8.7 (8.6-10.3) mg/dL Adrenal panel 01/06/19 01/07/19 01/07/19 Range/Units 17:15 04:00 04:00 Sodium 129 L 134 L (136-145) mEq/L Potassium 4.7 4.3 (3.5-5.1) mEq/L Chloride 105 100 (98-107) mEq/L Carbon Dioxide 23 27 (23-29) mEq/L BUN 14 16 (6-20) mg/dL Creatinine 0.75 0.74 (0.70-1.30) mg/dL Glucose 298 H 216 H (70-105) mg/dL Calcium 8.0 L 8.7 (8.6-10.3) mg/dL Total Bilirubin Cancelled 2.5 H AST Cancelled 62 H ALT Cancelled 79 H Alkaline Phosphatase Cancelled 132 H Albumin Cancelled 3.0 L Consult Discharge Plan - Plan Instructions: Viral Hepatitis C (DC) Referrals: Gianni Bailey DO [Resident] - (Please bring your photo ID, insurance card and any medications you are on. If you need to cancel, please give a 24 hour notice. Thank you.) <ElvinDaphnen Manuela - Last Filed: 01/07/19 11:18> Date of Encounter: 01/07/19 Objective Vital Signs - Last 8 Hours Temp Pulse Resp BP Pulse Ox 01/07/19 10:30 98.6 F 65 14 147/74 97 01/07/19 06:21 98.0 F 66 14 156/92 98 Intake and Output 01/06/19 01/07/19 01/07/19 23:59 07:59 15:59 Intake Total 2160 / 2990 1100 / 1100 Output Total 1050 / 3200 600 / 1200 600 / 1200 Balance 1110 / -210 500 / -100 -600 / -100 Intake: IV Fluids 1100 / 1450 1100 / 1100 Lactated Ringers 1,000 ML @ 125 1000 / 1000 1000 / 1000 mls/hr IVC .Q8H [facility] Rx#: [id number] Flagyl Premix 500 MG/100 ML 500 100 / 300 100 / 100 mg In 100 ml @ 100 mls/hr IVPB Q8H [facility] Rx#:[id number] Oral 1060 / 1540 0 / 0 Output: Urine 1050 / 3200 600 / 1200 600 / 1200 Other: Meal Dinner Breakfast Percent of Meal Consumed 100% 90% # Bowel Movements 0 Weight 151.4 kg Blood Glucose* 285 234 Patient Weight 01/07/19 23:59 Weight 151.4 kg - Labs 01/07/19 04:00 01/07/19 04:00 Diabetes panel 01/06/19 01/07/19 01/07/19 Range/Units 17:15 04:00 04:00 Sodium 129 L 134 L (136-145) mEq/L Potassium 4.7 4.3 (3.5-5.1) mEq/L Chloride 105 100 (98-107) mEq/L Carbon Dioxide 23 27 (23-29) mEq/L BUN 14 16 (6-20) mg/dL Creatinine 0.75 0.74 (0.70-1.30) mg/dL Glucose 298 H 216 H (70-105) mg/dL Calcium 8.0 L 8.7 (8.6-10.3) mg/dL AST Cancelled 62 H ALT Cancelled 79 H Alkaline Phosphatase Cancelled 132 H Albumin Cancelled 3.0 L Calcium panel 01/06/19 01/07/19 01/07/19 Range/Units 17:15 04:00 04:00 Calcium 8.0 L 8.7 (8.6-10.3) mg/dL Albumin Cancelled 3.0 L Pituitary panel 01/06/19 01/07/19 Range/Units 17:15 04:00 Sodium 129 L 134 L (136-145) mEq/L Potassium 4.7 4.3 (3.5-5.1) mEq/L Chloride 105 100 (98-107) mEq/L Carbon Dioxide 23 27 (23-29) mEq/L BUN 14 16 (6-20) mg/dL Creatinine 0.75 0.74 (0.70-1.30) mg/dL Glucose 298 H 216 H (70-105) mg/dL Calcium 8.0 L 8.7 (8.6-10.3) mg/dL Adrenal panel 01/06/19 01/07/19 01/07/19 Range/Units 17:15 04:00 04:00 Sodium 129 L 134 L (136-145) mEq/L Potassium 4.7 4.3 (3.5-5.1) mEq/L Chloride 105 100 (98-107) mEq/L Carbon Dioxide 23 27 (23-29) mEq/L BUN 14 16 (6-20) mg/dL Creatinine 0.75 0.74 (0.70-1.30) mg/dL Glucose 298 H 216 H (70-105) mg/dL Calcium 8.0 L 8.7 (8.6-10.3) mg/dL Total Bilirubin Cancelled 2.5 H AST Cancelled 62 H ALT Cancelled 79 H Alkaline Phosphatase Cancelled 132 H Albumin Cancelled 3.0 L - Attending Attestation I examined this patient and my medical decision-making was reviewed with the Resident Physician. I agree with the documented findings, disposition and treatment plan as described except to the extent set forth below. The patient is seen and evaluated on morning rounds with the acute care surgery team. His transaminase levels have improved. His bilirubin has improved. I have recommended proceeding with laparoscopic cholecystectomy, cholangiogram as well as laparoscopic liver biopsy. The patient was counseled last evening for almost an hour in this morning for 45 minutes. He is decided not to proceed with surgery. Surgery will sign off at this time. He should follow-up as an outpatient if he chooses to proceed with surgical therapy. Kranthi Oconnor MD FACS
[2019-01-07 10:32] VITALS: BP 147/74
--- NOTE | 2019-01-07 13:04 | Discharge Summary ---
- NOTES TO OUTPATIENT PROVIDER Notes to Outpatient Provider: - Follow-up with General Surgery as outpatient for cholecystectomy. - Follow-up with Gastroenterology as outpatient for acute Hep C. Orders not resulted at time of discharge: Pending orders 01/08/19 04:00 BMP [Basic Metabolic Panel] AM 0400 BMP [Basic Metabolic Panel] AM 0400 Complete Blood Count [HEME] AM 0400 Complete Blood Count [HEME] AM 0400 LFTs [Hepatic Panel] AM 0400 01/09/19 04:00 BMP [Basic Metabolic Panel] AM 0400 BMP [Basic Metabolic Panel] AM 0400 Complete Blood Count [HEME] AM 0400 Complete Blood Count [HEME] AM 0400 LFTs [Hepatic Panel] AM 0400 01/10/19 04:00 BMP [Basic Metabolic Panel] AM 0400 BMP [Basic Metabolic Panel] AM 0400 Complete Blood Count [HEME] AM 0400 Complete Blood Count [HEME] AM 0400 LFTs [Hepatic Panel] AM 0400 01/11/19 04:00 BMP [Basic Metabolic Panel] AM 0400 BMP [Basic Metabolic Panel] AM 0400 Complete Blood Count [HEME] AM 0400 Complete Blood Count [HEME] AM 0400 LFTs [Hepatic Panel] AM 0400 01/12/19 04:00 BMP [Basic Metabolic Panel] AM 0400 BMP [Basic Metabolic Panel] AM 0400 Complete Blood Count [HEME] AM 0400 Complete Blood Count [HEME] AM 0400 LFTs [Hepatic Panel] AM 0400 01/13/19 04:00 BMP [Basic Metabolic Panel] AM 0400 BMP [Basic Metabolic Panel] AM 0400 Complete Blood Count [HEME] AM 0400 Complete Blood Count [HEME] AM 0400 LFTs [Hepatic Panel] AM 0400 01/14/19 04:00 BMP [Basic Metabolic Panel] AM 0400 Complete Blood Count [HEME] AM 0400 LFTs [Hepatic Panel] AM 0400 01/15/19 04:00 BMP [Basic Metabolic Panel] AM 0400 Complete Blood Count [HEME] AM 0400 LFTs [Hepatic Panel] AM 0400 01/16/19 04:00 BMP [Basic Metabolic Panel] AM 0400 Complete Blood Count [HEME] AM 0400 LFTs [Hepatic Panel] AM 0400 Date of Encounter: 01/07/19 Time of Encounter: 13:01 - Discharge Diagnosis (1) Cholecystitis Priority: Primary Status: Acute (2) Bipolar disorder Priority: Secondary Status: Chronic Qualifiers: Active/Remission status: in partial remission Most recent bipolar episode type: depressed Qualified Code(s): F31.75 - Bipolar disorder, in partial remission, most recent episode depressed (3) HTN (hypertension) Priority: Secondary Status: Chronic Qualifiers: Hypertension type: essential hypertension Qualified Code(s): I10 - Essential (primary) hypertension (4) Depression Priority: Secondary Status: Chronic Qualifiers: Depression Type: unspecified Qualified Code(s): F32.9 - Major depressive disorder, single episode, unspecified (5) Morbid obesity Priority: Secondary Status: Acute (6) Hyperlipidemia Priority: Secondary Status: Chronic Qualifiers: Hyperlipidemia type: unspecified Qualified Code(s): E78.5 - Hyperlipidemia, unspecified (7) Tobacco dependence Priority: Secondary Status: Chronic (8) Hyperbilirubinemia Priority: Secondary Status: Acute (9) Transaminitis Priority: Secondary Status: Acute (10) Hyponatremia Priority: Secondary Status: Resolved (11) Diabetes Priority: Secondary Status: Chronic Qualifiers: Diabetes mellitus type: type 2 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 Redd is a 43 year old male with PMH of hepatitis C, DM, HLD, BKA, and left foot amputation pesented to the ED because of abdominal pain and nausea/vomiting for one week. at something. Reports subjective fever/chills. Reports for the past 2 days his eyes have been turning yellow, and his stool is white and loose. Patient found to have acute and chronic cholecystitis on RUQ ultrasound. He was started on Levaquin and Flagyl. General Surgery was consulted and patient refused cholecystectomy twice. Abdominal abdominal pain and nausea did take some time to improve but gradually did. He was able to advance diet. GI consulted for acute Hep C with elevated transaminases, which resolved with supportive care. Patient discharged in stable condition to finish additional week of Levaquin/Flagyl to complete total course two weeks. He is to follow-up as outpatient with General Surgery for cholecystectomy. And to follow-up with GI for hepatitis. - Time Spent with Patient Total time spent providing and/or coordinating discharge services: - Discharge Medications Prescriptions: New Nicotine Patch [Nicoderm] 14 mg TD DAILY #30 patch.[id number] OxyCODONE Immed Rel [Roxicodone 5 MG] 5 mg PO Q6HR PRN 3 Days #12 tablet PRN Reason: severe pain metroNIDAZOLE [Flagyl] 500 mg PO TID #21 tablet levoFLOXacin [Levaquin] 750 mg PO DAILY #7 tablet Sennosides/Docusate Sodium [Senna Plus] 1 each PO DAILY #5 tablet Ondansetron HCl [Zofran] 4 mg PO Q8HR PRN #21 tab PRN Reason: Nausea And Vomiting Continued Quetiapine Fumarate [Seroquel] 50 mg PO HS Lisinopril [Zestril] 10 mg PO DAILY Buspirone HCl [Buspar] 15 mg PO TID Escitalopram [Lexapro] 10 mg PO DAILY Pramipexole [Mirapex] 1 mg PO HS Insulin LISPRO [HumaLOG] Insulin DETEMIR [Levemir] 50 units SQ HS Discontinued Simvastatin [Zocor] 40 mg PO HS Home Medications: Buspirone HCl [Buspar] 15 mg PO TID 01/01/19 [History] Escitalopram [Lexapro] 10 mg PO DAILY 01/01/19 [History] Insulin DETEMIR [Levemir] 50 units SQ HS 01/01/19 [History] Insulin LISPRO [HumaLOG] 01/01/19 [History] Lisinopril [Zestril] 10 mg PO DAILY 01/01/19 [History] Pramipexole [Mirapex] 1 mg PO HS 01/01/19 [History] Quetiapine Fumarate [Seroquel] 50 mg PO HS 01/01/19 [History] Nicotine Patch [Nicoderm] 14 mg TD DAILY #30 patch.td24 01/07/19 [Rx] Ondansetron HCl [Zofran] 4 mg PO Q8HR PRN #21 tab 01/07/19 [Rx] OxyCODONE Immed Rel [Roxicodone 5 MG] 5 mg PO Q6HR PRN 3 Days #12 tablet 01/07/19 [Rx] Sennosides/Docusate Sodium [Senna Plus] 1 each PO DAILY #5 tablet 01/07/19 [Rx] levoFLOXacin [Levaquin] 750 mg PO DAILY #7 tablet 01/07/19 [Rx] metroNIDAZOLE [Flagyl] 500 mg PO TID #21 tablet 01/07/19 [Rx] Allergies/Adverse Reactions: Allergy/AdvReac Type Severity Reaction Status Date / Time Penicillins Allergy Anaphylaxis Verified 01/02/19 14:00 Date of admission: 01/03/19 19:09 Primary care physician: PCP NONE Consults: 01/01/19 14:34 Consult to Surgery [CONS] Stat Consulting Provider: Surgery [facility] Reason for Consult: possible acute cholecystitis Time Notified: 14:34 Call Completed: Yes 01/01/19 18:13 Consult to Charge Hand [CONS] Routine Reason for SW Consult: patient stating he keeps falling at home, needs a home health nurse and a electric wheelchair. patient it above the knee right amputation and all over toes off of the left foot. 01/02/19 12:34 Consult to Gastroenterology [CONS] Routine Consulting Provider: Gastroenterology [facility] Reason for Consult: hepatitis C also with mild acute cholecystitis with cholelithiasis that will be tx with abx and then referred for outpt lap reta Call Completed: Yes 01/05/19 17:07 Consult to Surgery [CONS] Routine Consulting Provider: Acute Care Surgery Reason for Consult: Surgery re-eval Call Completed: No Discharging clinician: Rosales Patrick - Constitutional Vitals: Temp Pulse Resp BP Pulse Ox 98.6 F 65 14 147/74 97 01/07/19 10:30 01/07/19 10:30 01/07/19 10:30 01/07/19 10:30 01/07/19 10:30 Exam: General: Alert and oriented, no acute distress Head: NC/AT ENT: sclera icterus, MM slightly dry today Cardiovascular: RRR, normal S1 & S2, no rubs, murmurs or gallops. Lungs: CTA b/l, no wheezes or crackles. Abdomen: Obese, soft, minimal abdominal TTP Extremities: Left foot amputation, right leg BKA Neurological: Normal cognition, no focal deficits - Patient Status Disposition: Home, Self-Care Condition: Fair Functional capacity at discharge: uses cane/walker Overall status at discharge: patient is progressing back to baseline - Discharge Instructions Instructions: Viral Hepatitis C (DC) Follow Up With: Gianni Bailey, [Resident] - (Please bring your photo ID, insurance card and any medications you are on. If you need to cancel, please give a 24 hour no jose. Thank you.) - Diet and Activity Activity: increase activity as tolerated Diet: advance to your usual diet, low fat, low cholesterol
== END 2019-01-07 14:28 | disposition home or self-care (01) ==
LOC: EMEROOARM 12:34 → 3ANU 12:34 → SUATTDRO 16:05 → 3ANU 17:13
PROVIDERS: ADMIT Internal Medicine Nephrology; ATTEND Student in an Organized Health Care Education/Training Program

== ENCOUNTER 2019-04-03 11:36 | Observation (INO) ==
[2019-04-03] MEDS ORDERED: Cefepime HCl 2,000 MG in Water for inj. (sterile) 20 ML IVP ONE (12:07)
[2019-04-03] MEDS: 0.9 % Sodium Chloride 1,000 ML IVC SCH ×2 (13:18→14:55)
[2019-04-03 13:28] LABS: Basophils % 0.5 %; Eosinophils # 0.3 K/mcL (0.0-0.6); Eosinophils % 3.3 %; Hemoglobin 10.9 g/dL (12.9-16.9); Immature Granulocytes % 0.6 % (0-4); Lymphocytes # 1.2 K/mcL (0.6-4.6); Lymphocytes % 15.1 %; Mean Corpuscular HGB Conc 34.1 g/dL (31.6-35.5); Mean Corpuscular Hemoglobin 29.1 pg (28.0-33.3); Mean Corpuscular Volume 85.3 fL (83.0-100.0); Monocytes # 0.5 K/mcL (0.0-1.3); Monocytes % 6.2 %; Neutrophils # 6.1 K/mcL (1.6-8.9); Platelet Count 291 K/mcL (140-400); Red Blood Count 3.75 M/mcL (4.19-5.50); Segmented Neutrophils % 74.3 %; White Blood Count 8.2 K/mcL (4.3-11.1)
[2019-04-03] MEDS ORDERED: *HR* FentaNYL (PF) 100 MCG/2 ML VIAL IVP ONE ×2 (13:30→14:34)
[2019-04-03 13:38] LABS: INR 1.3; Prothrombin Time 14.4 Seconds (9.4-12.1)
[2019-04-03 13:40] LABS: Activated Partial Thrombo Time 30.5 Seconds (26.0-36.0)
[2019-04-03] MEDS ORDERED: Isovue-370 500 ML BOTTLE IVP ONE (13:51)
[2019-04-03 13:54] LABS: Alanine Aminotransferase 9 Units/L (7-52); Albumin 2.7 g/dL (3.5-5.7); Albumin/Globulin Ratio 0.8 (1.1-2.2); Alkaline Phosphatase 71 Units/L (34-104); Aspartate Amino Transferase 7 Units/L (13-39); BUN/Creatinine Ratio 22 (6-26); Bilirubin,Direct 0.1 mg/dL (0.0-0.2); Bilirubin,Indirect 0.2 mg/dL (0.0-1.2); Bilirubin,Total 0.3 mg/dL (0.3-1.0); Blood Urea Nitrogen 37 mg/dL (6-20); Carbon Dioxide 24 mEq/L (23-29); Chloride 97 mEq/L (98-107); Globulin 3.4 g/dL (2.4-3.5); Glucose 346 mg/dL (70-105); Magnesium 1.5 mg/dL (1.6-2.6); Osmolality,Calculated 288 (280-300); Phosphorous 3.9 mg/dL (2.7-4.5); Sodium 128 mEq/L (136-145); Total Protein 6.1 g/dL (6.4-8.9); Troponin I < 0.03 ng/mL (< 0.04); eGFR For African Americans 54 (> 60); eGFR For Non-African Americans 45 (> 60)
[2019-04-03] MEDS ORDERED: 0.9 % Sodium Chloride 1,000 ML IVC ONE (14:00)
[2019-04-03] MEDS ORDERED: *HR* LORazepam 2 MG/ML VIAL IVP STA (14:34)
[2019-04-03 14:38] LABS: C-Reactive Protein 63 mg/L (Less than 10)
--- NOTE | 2019-04-03 16:19 | Emergency Department Note ---
Disposition Clinical Impression: Cellulitis Qualifiers: Site of cellulitis: extremity Site of cellulitis of extremity: lower extremity Laterality: left Qualified Code(s): L03.116 - Cellulitis of left lower limb Disposition: Admitted As Inpatient Condition: Fair Time of Disposition: 13:44 General Adult HPI - General Chief complaint: ED Skin/Abscess/Foreign Body Stated complaint: Infection in Foot LT Time Seen by Provider: 04/03/19 11:46 Source: patient, EMS Limitations: no limitations Nursing Notes Reviewed: Yes Vital Signs Reviewed: Yes - History of Present Illness HPI Narrative: 43-year-old male presents emergency Department with concerns of infection to the left foot. Patient states symptoms have been worsening over the past 24 hours. He has a history of a transmetatarsal agitation to left foot. 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 Patient is a type I diabetic. He does not currently have a mail handler assistant that he follows. He has a fever during the initial evaluation. He reports significant pain in the left lower extremity. Patient reports that he has been unable to tolerate by mouth intake well over the past 2-3 days. Patient reports his sugars just started to elevate today and were 350 prior to arrival. No recent trauma. Denies new shoes or medications. Pain Scale: 10 - Related Data Home Medications Medication Instructions Recorded Confirmed No Known Home Drugs 04/03/19 04/03/19 Allergies Allergy/AdvReac Type Severity Reaction Status Date / Time iodine Allergy Severe Anaphylaxis Verified 04/03/19 15:29 Penicillins Allergy Anaphylaxis Verified 01/02/19 14:00 All systems ED: reviewed and negative except as stated. Review of Systems: As Per HPI Past Medical History - Past Medical History Attestation: Yes The following information was validated with the patient. Source: patient Medical history: Reports: cancer, CHF, COPD, coronary artery disease, diabetes, hyperlipidemia, hypertension, myocardial infarction, peripheral artery disease, syncope, other Surgical history: Reports: cancer surgery, other Psychiatric history: Reports: bipolar, prior suicide attempt, previous psychiatric hospitalization - Social History Smoking Status: Current every day smoker Smokeless Tobacco Status: No Alcohol use: Reports: none Drug use: Reports: none, other Physical Exam General: Alert and in no acute distress Skin: Warm, dry, intact Head: Normocephalic and atraumatic Neck: Supple, trachea midline and no tenderness Cardiovascular: Tachycardia, no murmur, normal perfusion Respiratory: CTAB, no wheezing, cough, or respiratory distress Musculoskeletal: Normal strength, R BKA normal to exam. Left lower extremity has ulceration to the dorsal ankle with surrounding erythema and proximal streaking. GI: Soft, nontender, nondistended. Bowel sounds present Neuro: A&O to person, place, time and situation. No focal deficits noted on exam Psychiatric: cooperative and appropriate mood and affect. - General Limitations: no limitations General appearance: alert, anxious Course Vital Signs Temperature 101 F H 04/03/19 11:43 Pulse Rate 99 04/03/19 11:43 Respiratory Rate 16 04/03/19 11:43 Blood Pressure 152/105 04/03/19 11:43 O2 Sat by Pulse Oximetry 99 04/03/19 11:43 Temperature 101 F H 04/03/19 11:43 Pulse Rate 92 04/03/19 14:59 Respiratory Rate 18 04/03/19 14:59 Blood Pressure 147/77 04/03/19 17:20 O2 Sat by Pulse Oximetry 99 04/03/19 14:59 Oxygen Delivery Oxygen Delivery Room Air Medical Decision Making - MDM Narrative Medical decision making narrative: CT does not show evidence of osteomyelitis or soft tissue gas. I initially spoke with the mail handler assistant who reported there was soft tissue issue preventing him from seeing the patient. I spoke with the orthopedic physician, Dr. Rust, who agreed to see the patient in the hospital. Patient will be admitted to the hospitalist for further care and evaluation. - Medical Records Medical records reviewed: Yes I reviewed the patient's medical records. - Lab Data Lab results reviewed: Yes I reviewed the patient's lab results. Result diagrams: 04/03/19 13:09 04/03/19 13:09 Lab Results 04/03/19 04/03/19 04/03/19 Range/Units 11:56 13:09 13:09 WBC 8.2 (4.3-11.1) K/mcL RBC 3.75 L (4.19-5.50) M/mcL Hgb 10.9 L (12.9-16.9) g/dL Hct 32.0 L (37.5-50.1) % MCV 85.3 (83.0-100.0) fL MCH 29.1 (28.0-33.3) pg MCHC 34.1 (31.6-35.5) g/dL RDW 12.0 (11.5-14.5) % Plt Count 291 (140-400) K/mcL MPV 10.0 (9.4-12.4) fL Immature Gran % 0.6 (0-4) % Seg Neutrophils % 74.3 % Lymphocytes % 15.1 % Monocytes % 6.2 % Eosinophils % 3.3 % Basophils % 0.5 % Neutrophils # 6.1 (1.6-8.9) K/mcL Lymphocytes # 1.2 (0.6-4.6) K/mcL Monocytes # 0.5 (0.0-1.3) K/mcL Eosinophils # 0.3 (0.0-0.6) K/mcL Basophils # 0.0 (0.0-0.2) K/mcL ESR (0-10) mm/hr PT 14.4 H (9.4-12.1) Seconds INR 1.3 APTT 30.5 (26.0-36.0) Seconds Sodium (136-145) mEq/L Potassium (3.5-5.1) mEq/L Chloride (98-107) mEq/L Carbon Dioxide (23-29) mEq/L BUN (6-20) mg/dL Creatinine (0.70-1.30) mg/dL Est GFR ( Amer) (> 60) Est GFR (Non-Af Amer) (> 60) BUN/Creatinine Ratio (6-26) Glucose (70-105) mg/dL POC Glucose 368 H (70-99) mg/dL Calculated Osmolality (280-300) Lactic Acid (0.5-2.2) mmol/L Calcium (8.6-10.3) mg/dL Phosphorus (2.7-4.5) mg/dL Magnesium (1.6-2.6) mg/dL Total Bilirubin (0.3-1.0) mg/dL Direct Bilirubin (0.0-0.2) mg/dL Indirect Bilirubin (0.0-1.2) mg/dL AST (13-39) Units/L ALT (7-52) Units/L Alkaline Phosphatase (34-104) Units/L Troponin I (< 0.04) ng/mL C-Reactive Protein (Less than 10) mg/L Serum Total Protein (6.4-8.9) g/dL Albumin (3.5-5.7) g/dL Globulin (2.4-3.5) g/dL Albumin/Globulin Ratio (1.1-2.2) Beta-Hydroxybutyric Acd (0.02-0.27) mmol/L 04/03/19 04/03/19 04/03/19 Range/Units 13:09 13:09 13:09 WBC (4.3-11.1) K/mcL RBC (4.19-5.50) M/mcL Hgb (12.9-16.9) g/dL Hct (37.5-50.1) % MCV (83.0-100.0) fL MCH (28.0-33.3) pg MCHC (31.6-35.5) g/dL RDW (11.5-14.5) % Plt Count (140-400) K/mcL MPV (9.4-12.4) fL Immature Gran % (0-4) % Seg Neutrophils % % Lymphocytes % % Monocytes % % Eosinophils % % Basophils % % Neutrophils # (1.6-8.9) K/mcL Lymphocytes # (0.6-4.6) K/mcL Monocytes # (0.0-1.3) K/mcL Eosinophils # (0.0-0.6) K/mcL Basophils # (0.0-0.2) K/mcL ESR (0-10) mm/hr PT (9.4-12.1) Seconds INR APTT (26.0-36.0) Seconds Sodium 128 L (136-145) mEq/L Potassium 4.0 (3.5-5.1) mEq/L Chloride 97 L (98-107) mEq/L Carbon Dioxide 24 (23-29) mEq/L BUN 37 H (6-20) mg/dL Creatinine 1.69 H (0.70-1.30) mg/dL Est GFR ( Amer) 54 L (> 60) Est GFR (Non-Af Amer) 45 L (> 60) BUN/Creatinine Ratio 22 (6-26) Glucose 346 H (70-105) mg/dL POC Glucose (70-99) mg/dL Calculated Osmolality 288 (280-300) Lactic Acid 0.9 (0.5-2.2) mmol/L Calcium 8.0 L (8.6-10.3) mg/dL Phosphorus 3.9 (2.7-4.5) mg/dL Magnesium 1.5 L (1.6-2.6) mg/dL Total Bilirubin 0.3 (0.3-1.0) mg/dL Direct Bilirubin 0.1 (0.0-0.2) mg/dL Indirect Bilirubin 0.2 (0.0-1.2) mg/dL AST 7 L (13-39) Units/L ALT 9 (7-52) Units/L Alkaline Phosphatase 71 (34-104) Units/L Troponin I < 0.03 (< 0.04) ng/mL C-Reactive Protein 63 H (Less than 10) mg/L Serum Total Protein 6.1 L (6.4-8.9) g/dL Albumin 2.7 L (3.5-5.7) g/dL Globulin 3.4 (2.4-3.5) g/dL Albumin/Globulin Ratio 0.8 L (1.1-2.2) Beta-Hydroxybutyric Acd < 0.10 (0.02-0.27) mmol/L 04/03/19 Range/Units 13:09 WBC (4.3-11.1) K/mcL RBC (4.19-5.50) M/mcL Hgb (12.9-16.9) g/dL Hct (37.5-50.1) % MCV (83.0-100.0) fL MCH (28.0-33.3) pg MCHC (31.6-35.5) g/dL RDW (11.5-14.5) % Plt Count (140-400) K/mcL MPV (9.4-12.4) fL Immature Gran % (0-4) % Seg Neutrophils % % Lymphocytes % % Monocytes % % Eosinophils % % Basophils % % Neutrophils # (1.6-8.9) K/mcL Lymphocytes # (0.6-4.6) K/mcL Monocytes # (0.0-1.3) K/mcL Eosinophils # (0.0-0.6) K/mcL Basophils # (0.0-0.2) K/mcL ESR 53 H (0-10) mm/hr PT (9.4-12.1) Seconds INR APTT (26.0-36.0) Seconds Sodium (136-145) mEq/L Potassium (3.5-5.1) mEq/L Chloride (98-107) mEq/L Carbon Dioxide (23-29) mEq/L BUN (6-20) mg/dL Creatinine (0.70-1.30) mg/dL Est GFR ( Amer) (> 60) Est GFR (Non-Af Amer) (> 60) BUN/Creatinine Ratio (6-26) Glucose (70-105) mg/dL POC Glucose (70-99) mg/dL Calculated Osmolality (280-300) Lactic Acid (0.5-2.2) mmol/L Calcium (8.6-10.3) mg/dL Phosphorus (2.7-4.5) mg/dL Magnesium (1.6-2.6) mg/dL Total Bilirubin (0.3-1.0) mg/dL Direct Bilirubin (0.0-0.2) mg/dL Indirect Bilirubin (0.0-1.2) mg/dL AST (13-39) Units/L ALT (7-52) Units/L Alkaline Phosphatase (34-104) Units/L Troponin I (< 0.04) ng/mL C-Reactive Protein (Less than 10) mg/L Serum Total Protein (6.4-8.9) g/dL Albumin (3.5-5.7) g/dL Globulin (2.4-3.5) g/dL Albumin/Globulin Ratio (1.1-2.2) Beta-Hydroxybutyric Acd (0.02-0.27) mmol/L - Radiology Data Radiology results reviewed: Yes I reviewed the patient's radiology results.
[2019-04-03] MEDS ORDERED: Acetaminophen 325 MG TABLET PO PRN (17:32)
[2019-04-03] MEDS ORDERED: Naloxone 0.4 MG/ML INJ IVP PRN (17:32)
[2019-04-03] MEDS ORDERED: D5% in Water 1,000 ML IVC PRN (17:36)
[2019-04-03] MEDS ORDERED: *HR* Dextrose 50 % in Water (Syg) 50 ML SYRINGE IVP PRN (17:36)
[2019-04-03] MEDS ORDERED: Dextrose Gel 15 GM/37.5 ML TUBE PO PRN ×2 (17:36)
[2019-04-03 17:50] LABS: Chol/HDL Ratio 4.9 (0-4.9); Cholesterol 143 mg/dL (< 200); HDL Cholesterol 29 mg/dL (40-59); LDL Cholesterol,Calculated 93 mg/dL (0-99); Triglycerides 103 mg/dL (< 150)
--- NOTE | 2019-04-03 17:55 | Internal Med History&Physical ---
<Clark Morales M - Last Filed: 04/03/19 18:45> Date of Encounter: 04/03/19 Time of Encounter: 17:53 Internal Medicine - H&P: HPI Chief complaint: left foot ulcer Admitted From: Home Plans for Post Hospital Care: Home History of present illness: Mr. Redd is a 43 year old male w/PMHx of uncontrolled T1DM, CKD, Hepatitis C, CAD, HLD, HTN, bipolar disorder who presents to [facility] with his mother complain ing of left lower extremity ulceration, pain, and swelling of 5 days duration. Patient and his mother are poor historians. He states that he fell 5 days ago and cut his left foot on his wheelchair. Denied head trauma. He treated the cut with local wound care but soon after, it began to ulcerate and develop redness, swelling and pain. He admits to fevers, chills, diaphoresis, fatigue, weakness for the last 2-3 days with progressively worsening pain at the left forefoot. He has a right BKA and left metatarsal amputation. He is a type 1 diabetic with poor medication compliance who states that he ran out of his insulin over 1 month ago. States that his last visit with his PCP was over one month ago and that he has been his patient for 2-3 years. He cannot recall the physicians name but states that he has it written down. He is unable to recall any of his other medications. He endorses IVDA and states that his drug of choice is methamphetamine. Last used 2 weeks ago. States that he only injects into his hands. Overall the patient states that he "is sick of it" and that "no one understands" what he is going through. He denies SI, HI, psychosis. On admission patient was febrile with temp of 101, BP 152/105, HR 99. He was in obvious pain. There was no leukocytosis, however patient had elevations in ESR/CRP. BUN was 37 and Cr 1.69 on admission and he reports CKD. Lactic acid 0.9, magnesium 1.5, calcium 8.0. Pain was controlled with Fentanyl, agitation/anxiety with ativan. He was started on IVF and given 2g IV vancomycin, 2g IV cefepime once in ED with improvement in symptoms. Podiatry was consulted in ED and agreed to take on case. Patient was admitted to the hospitalist service. Past Med Surg Social Fam HX - Past Medical History Medical history: cancer, CHF, COPD, coronary artery disease, diabetes, hype rlipidemia, hypertension, myocardial infarction, peripheral artery disease, syncope, other Additional medical history: Osteomyletlitis Psychiatric history: bipolar, prior suicide attempt, previous psychiatric hospitalization - Past Surgical History Surgical History: cancer surgery, other Additional surgical history: amputation of left foot from diabetes and right leg for bone cancer. - Social History Smoking Status: Current every day smoker Smokeless Tobacco Status: No Alcohol use: none Drug use: methamphetamine, IV Drug Use ( meth) - Family History Mother Living Status: Still Living Father Grandmother Living Status: Hx Family Endocrine Disorder: Yes Internal Medicine - H&P: Meds No Known Home Drugs 04/03/19 [History] Allergy/AdvReac Type Severity Reaction Status Date / Time iodine Allergy Severe Anaphylaxis Verified 04/03/19 15:29 Penicillins Allergy Anaphylaxis Verified 01/02/19 14:00 All Systems PM: A 10-system review of systems was performed and is negative for pertinent findings except as documented above in the HPI. - Constitutional Constitutional: chills, fatigue, fever(s), lethargy, no weight gain, no weight loss - EENT Eyes: no change in vision, no discharge, no loss of vision, no photophobia Ears: no decreased hearing, no tinnitus Nose, mouth and throat: no dysphagia, no facial pain, no mouth pain, no sore throat, no throat swelling - Cardiovascular Cardiovascular ROS IM: diaphoresis, no chest pain, no dyspnea, no irregular heart rhythm, no lightheadedness, no palpitations, no syncope - Respiratory Respiratory: no cough, no dyspnea, no wheezing, no chest congestion - Gastrointestinal Gastrointestinal: abdominal pain (generalized), no change in bowel habits, no dysphagia, no nausea, no vomiting - Genitourinary Genitourinary ROS male: no urinary frequency, no urinary incontinence - Musculoskeletal Musculoskeletal ROS IM: arthralgias, stiffness - Integumentary Integumentary IM: new lesions, skin ulcer, sores - Neurological Neurological ROS: frequent falls, paresthesias, no confusion, no dizziness, no focal weakness - Psychiatric Psychiatric: anxiety, depression, no homicidal ideation, no suicidal ideation - Endocrine Endocrine IM: fatigue - Hematologic/Lymphatic Hematologic/Lymphatic: no easy bleeding, no easy bruising - Allergic/Immunologic Allergic/Immunologic: no tongue swelling, no throat swelling, no wheezing - Constitutional Vitals: Temp Pulse Resp BP Pulse Ox 101 F H 92 18 147/77 99 04/03/19 11:43 04/03/19 14:59 04/03/19 14:59 04/03/19 17:20 04/03/19 14:59 General appearance: Present: A&O X 3, no acute distress, obese Exam: see below - Head Head exam: Present: atraumatic, normocephalic - Eye Eye exam: Present: EOMI, normal appearance, conjuntiva pink, sclera anicteric Pupils: Present: PERRL - ENT ENT exam: Present: mucous membranes moist - Neck Neck exam general surgery: Present: normal inspection, supple, trachea midline - Respiratory Respiratory exam: Present: CTAB. Absent: rales, rhonchi, wheezes - Cardiovascular Cardiovascular exam: Present: RRR, +S1, +S2. Absent: diastolic murmur, JVD, systolic murmur - GI/Abdominal GI/Abdominal exam: Present: normal bowel sounds, soft, tenderness (mild gene ralized). Absent: guarding, mass, rebound - Extremities Exam Additional comments: RLE with BKA, appears normal. LLE with ulceration at the distal ankle and for efoot. There is moderate surrounding erythema, edema, and tenderness with proximal streaking. No tenderness of proximal ankle or calf. - Neurological Exam Neurological exam: Present: CN II-XII intact, reflexes normal. Absent: motor sensory deficit, no focal deficits, facial droop, speech deficit - Psychiatric Psychiatric exam: Present: agitated, anxious - Skin Skin exam: Present: dry, warm Internal Med - H&P Results - Labs CBC & Chem 7: 04/03/19 13:09 04/03/19 13:09 Labs: Short CBC 04/03/19 Range/Units 13:09 WBC 8.2 (4.3-11.1) K/mcL Hgb 10.9 L (12.9-16.9) g/dL Hct 32.0 L (37.5-50.1) % Plt Count 291 (140-400) K/mcL Neutrophils # 6.1 (1.6-8.9) K/mcL BMP 04/03/19 13:09 Sodium 128 L Potassium 4.0 Chloride 97 L Carbon Dioxide 24 BUN 37 H Creatinine 1.69 H Glucose 346 H Calcium 8.0 L Cardiac Enzymes 04/03/19 Range/Units 13:09 Troponin I < 0.03 (< 0.04) ng/mL Liver Function 04/03/19 Range/Units 13:09 Total Bilirubin 0.3 (0.3-1.0) mg/dL Direct Bilirubin 0.1 (0.0-0.2) mg/dL AST 7 L (13-39) Units/L ALT 9 (7-52) Units/L Alkaline Phosphatase 71 (34-104) Units/L Albumin 2.7 L (3.5-5.7) g/dL - Impressions ITS Impressions Foot CT 04/03/19 15:45 IMPRESSION: Soft tissue ulceration along the dorsal medial aspect of the midfoot and lateral aspect of the soft tissue stump with underlying subcutaneous edema consistent with cellulitis. No soft tissue gas. No discrete drainable fluid collection to suggest abscess. Postsurgical changes status post transmetatarsal amputation. No CT evidence of osteomyelitis. Abnormal attenuation of the tibialis anterior tendon new since prior examination likely representing infectious/inflammatory tendinosis. This is in the area of the dorsal medial soft tissue ulceration. D/ / 04/03/2019 16:33:19 Germain Mayen MD / denzel Interpreting Provider: Germain Mayen MD - Assessment and Plan (1) Cellulitis Current Visit: Yes Status: Acute Assessment and plan: Patient with a history of uncontrolled type 1 diabetes with right leg BKA and left foot amputation 2/2 diabetic wound infections presented with left foot/ankle ulceration, erythema, and pain. CT of the left foot was performed and revealed soft tissue ulceration with underlying subq edema consistent with cellulitis. Patient was febrile, without leukocytosis. He had elevations in ESR/CRP and was started on IVF for secondary sepsis. - Podiatry consulted for continued management. - Pt has allergy to PCN and CKD stage 3. Will start on IV Vancomycin and Meropenem IV 500mg Q12H to cover psuedomonas and MRSA. - Continue IV fluids tonight. - Oxycodone, ativan for pain/agitation. - Blood cultures obtained. Qualifiers: Site of cellulitis: extremity Site of cellulitis of extremity: lower extremity Laterality: left Qualified Code(s): L03.116 - Cellulitis of left lower limb (2) Hyperglycemia due to type 1 diabetes mellitus Current Visit: No Status: Acute Assessment and plan: Patient with a history of uncontrolled type 1 diabetes, states that he ran out of insulin over 1 month ago and that his BS has started to run high 2-3 days ago. BS on admission was 346. Patient treated with IVF and started on SubQ humalog sliding scale. - Humalog sliding scale SQ HS TIDAC. - Accuchecks Q6 ACHS. - Continue to monitor. (3) CAD (coronary artery disease) Current Visit: No Status: Acute Assessment and plan: Patient states that he has a history of CAD. He denies CP, SOB at this time. ECG negative for acute ST changes or evidence of ischemia. He is unsure of what medications he takes. Qualifiers: Qualified Code(s): I25.10 - Atherosclerotic heart disease of [place] coronary artery without angina pectoris (4) Hepatitis C Current Visit: No Status: Acute Assessment and plan: Patient with a history of untreated Hepatitis C. No elevations in AST/ALT or bilirubin on admission. Patient does have elevated PT of 14.4. - Continue to monitor. Qualifiers: Viral hepatitis chronicity: unspecified Hepatic coma status: without hepatic coma Qualified Code(s): B19.20 - Unspecified viral hepatitis C without hepatic coma (5) Bipolar disorder Current Visit: No Status: Chronic Assessment and plan: Patient with a history of bipolar disorder. He is unsure what medications that he takes and has not followed up with psych in years. He is agitated and interm ittently anxious but is not manic. No SI/HI/psychosis. - Ativan 1 mg IVPB Q6H PRN for anxiety. Qualifiers: Active/Remission status: in partial remission Most recent bipolar episode type: depressed Qualified Code(s): F31.75 - Bipolar disorder, in partial remission, most recent episode depressed (6) HTN (hypertension) Current Visit: No Status: Chronic Assessment and plan: Patient with history of HTN, unaware of medication history. BP is currently stable with pain control. - Continue to monitor. Qualifiers: Hypertension type: essential hypertension Qualified Code(s): I10 - Essential (primary) hypertension (7) DVT prophylaxis Current Visit: No Status: Acute Assessment and plan: Subq heparin - Time Spent With Patient Total time spent is greater than 50% in coordination of care (as documented) at patient's floor/unit and/or counseling patient: <Gabino Lucio - Last Filed: 04/03/19 18:50> Date of Encounter: 04/03/19 Internal Medicine - H&P: HPI History of present illness: Mr. Redd is a 43 year old male All Systems PM: A 10-system review of systems was performed and is negative for pertinent findings except as documented above in the HPI. - Constitutional Vitals: Temp Pulse Resp BP Pulse Ox 98.1 F 86 18 155/92 98 04/03/19 17:52 04/03/19 17:52 04/03/19 17:52 04/03/19 17:52 04/03/19 17:52 Internal Med - H&P Results - Labs CBC & Chem 7: 04/03/19 13:09 04/03/19 13:09 Labs: Short CBC 04/03/19 Range/Units 13:09 WBC 8.2 (4.3-11.1) K/mcL Hgb 10.9 L (12.9-16.9) g/dL Hct 32.0 L (37.5-50.1) % Plt Count 291 (140-400) K/mcL Neutrophils # 6.1 (1.6-8.9) K/mcL BMP 04/03/19 13:09 Sodium 128 L Potassium 4.0 Chloride 97 L Carbon Dioxide 24 BUN 37 H Creatinine 1.69 H Glucose 346 H Calcium 8.0 L Cardiac Enzymes 04/03/19 Range/Units 13:09 Troponin I < 0.03 (< 0.04) ng/mL Liver Function 04/03/19 Range/Units 13:09 Total Bilirubin 0.3 (0.3-1.0) mg/dL Direct Bilirubin 0.1 (0.0-0.2) mg/dL AST 7 L (13-39) Units/L ALT 9 (7-52) Units/L Alkaline Phosphatase 71 (34-104) Units/L Albumin 2.7 L (3.5-5.7) g/dL - Impressions ITS Impressions Foot CT 04/03/19 15:45 IMPRESSION: Soft tissue ulceration along the dorsal medial aspect of the midfoot and lateral aspect of the soft tissue stump with underlying subcutaneous edema consistent with cellulitis. No soft tissue gas. No discrete drainable fluid collection to suggest abscess. Postsurgical changes status post transmetatarsal amputation. No CT evidence of osteomyelitis. Abnormal attenuation of the tibialis anterior tendon new since prior examination likely representing infectious/inflammatory tendinosis. This is in the area of the dorsal medial soft tissue ulceration. D/ / 04/03/2019 16:33:19 Germain Mayen MD / denzel Interpreting Provider: Germain Mayen MD - Assessment and Plan (1) Cellulitis Current Visit: Yes Status: Acute Qualifiers: Site of cellulitis: extremity Site of cellulitis of extremity: lower extremity Laterality: left Qualified Code(s): L03.116 - Cellulitis of left lower limb (2) CAD (coronary artery disease) Current Visit: No Status: Acute Qualifiers: Coronary Disease-Associated Artery/Lesion type: [place] artery [place] vs. transplanted heart: [place] heart Associated angina: without angina Qualified Code(s): I25.10 - Atherosclerotic heart disease of [place] coronary artery without angina pectoris (3) Sepsis Current Visit: No Status: Acute Qualifiers: Sepsis type: sepsis due to unspecified organism Sepsis acute organ dysfunction status: without acute organ dysfunction Qualified Code(s): A41.9 - Sepsis, unspecified organism (4) Diabetes Current Visit: No Status: Chronic Qualifiers: Diabetes mellitus type: type 2 Diabetes mellitus skilled nursing insulin use: with terminal worker use Diabetes mellitus complication status: with hyperglycemia Qualified Code(s): E11.65 - Type 2 diabetes mellitus with hyperglycemia; Z79.4 - senior care (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 (5) HTN (hypertension) Current Visit: No Status: Chronic Qualifiers: Hypertension type: essential hypertension Qualified Code(s): I10 - Essential (primary) hypertension (6) Tobacco abuse Current Visit: Yes Status: Chronic - Time Spent With Patient Total time spent is greater than 50% in coordination of care (as documented) at patient's floor/unit and/or counseling patient: - Attending Attestation Please see event note of this date.
[2019-04-03 18:14] LABS: Estimated Average Glucose 214 mg/dl
--- NOTE | 2019-04-03 18:30 | Event Note ---
Date of Encounter: 04/03/19 Time of Encounter: 17:50 I examined this patient and my medical decision-making was reviewed with the Resident Physician on 04/03/19. I agree with the documented findings, disposition and treatment plan as described except to the extent set forth below. 43 y/o male with ins req DM and CKD3 presented with wound to L foot. Prior R BKA. No gangrene or gas on CT. Exam Alert. Comfortable NC EOMI Mucus membranes dry Heart reg and not tachy Lungs clear Abd soft Moves all extremities No rash L foot with erythema and open wound. I/P 1. Sepsis due to diabetic foot wound - IV fluids, abx. Podiatry consult 2. CKD 3 3. DM Further diagnoses and plan as per H&P
[2019-04-03] MEDS: Ringers Solution, Lactated 1,000 ML IVC SCH (18:37)
[2019-04-03] MEDS: *HR* Heparin 5,000 UNIT/ML VIAL SQ SCH (20:52)
[2019-04-03] MEDS ORDERED: Insulin LISPRO 300 UNITS/3 ML VIAL SQ SCH (21:00)
[2019-04-03] MEDS: *HR* LORazepam 2 MG/ML VIAL IVP PRN (21:00)
[2019-04-04] MEDS: *HR* Heparin 5,000 UNIT/ML VIAL SQ SCH ×2 (05:01→13:12)
[2019-04-04] MEDS: *HR* LORazepam 2 MG/ML VIAL IVP PRN ×2 (05:02→11:14)
[2019-04-04 05:29] LABS: Basophils % 0.6 %; Eosinophils # 0.3 K/mcL (0.0-0.6); Eosinophils % 4.1 %; Hematocrit 35.4 % (37.5-50.1); Hemoglobin 11.9 g/dL (12.9-16.9); Immature Granulocytes % 0.6 % (0-4); Lymphocytes # 1.3 K/mcL (0.6-4.6); Mean Corpuscular HGB Conc 33.6 g/dL (31.6-35.5); Mean Corpuscular Hemoglobin 29.3 pg (28.0-33.3); Mean Corpuscular Volume 87.2 fL (83.0-100.0); Mean Platelet Volume 9.7 fL (9.4-12.4); Monocytes # 0.4 K/mcL (0.0-1.3); Monocytes % 6.4 %; Neutrophils # 4.7 K/mcL (1.6-8.9); Platelet Count 293 K/mcL (140-400); Red Blood Count 4.06 M/mcL (4.19-5.50); Red Cell Distribution Width 12.1 % (11.5-14.5); Segmented Neutrophils % 69.3 %; White Blood Count 6.8 K/mcL (4.3-11.1)
[2019-04-04 05:47] LABS: Potassium 4.3 mEq/L (3.5-5.1)
[2019-04-04] MEDS ORDERED: Meropenem 500 MG in 0.9 % Sodium Chloride Mini Bag 100 ML IVPB SCH (06:00)
[2019-04-04] MEDS ORDERED: Acetaminophen 325 MG TABLET PO PRN (07:25)
[2019-04-04] MEDS: Insulin LISPRO 300 UNITS/3 ML VIAL SQ SCH ×3 (07:56→16:52)
--- NOTE | 2019-04-04 08:47 | Internal Med Progress Note ---
<Fatemeh Wayne - Last Filed: 04/04/19 12:24> Hospitalist Progress Note - Encounter Date of Encounter: 04/04/19 - Exam Vitals: Temp Pulse Resp BP Pulse Ox 98.5 F 104 18 174/85 98 04/04/19 11:13 04/04/19 11:13 04/04/19 11:13 04/04/19 11:13 04/04/19 11:13 - Assessment and Plan (1) Cellulitis Current Visit: Yes Status: Acute (2) CAD (coronary artery disease) Current Visit: No Status: Acute (3) Sepsis Current Visit: No Status: Acute (4) Diabetes Current Visit: No Status: Chronic (5) HTN (hypertension) Current Visit: No Status: Chronic (6) Tobacco abuse Current Visit: No Status: Chronic - Time Spent with Patient Total time spent is greater than 50% in coordination of care (as documented) at patient's floor/unit and/or counseling patient: Internal Medicine: Result - Labs CBC & Chem 7: 04/04/19 05:18 04/04/19 05:18 Labs: Short CBC 04/03/19 04/04/19 Range/Units 13:09 05:18 WBC 8.2 6.8 (4.3-11.1) K/mcL Hgb 10.9 L 11.9 L (12.9-16.9) g/dL Hct 32.0 L 35.4 L (37.5-50.1) % Plt Count 291 293 (140-400) K/mcL Neutrophils # 6.1 4.7 (1.6-8.9) K/mcL BMP 04/03/19 04/04/19 13:09 05:18 Sodium 128 L 132 L Potassium 4.0 4.3 Chloride 97 L 101 Carbon Dioxide 24 22 L BUN 37 H 48 H Creatinine 1.69 H 1.81 H Glucose 346 H 200 H Calcium 8.0 L 8.0 L Cardiac Enzymes 04/03/19 Range/Units 13:09 Troponin I < 0.03 (< 0.04) ng/mL Liver Function 04/03/19 Range/Units 13:09 Total Bilirubin 0.3 (0.3-1.0) mg/dL Direct Bilirubin 0.1 (0.0-0.2) mg/dL AST 7 L (13-39) Units/L ALT 9 (7-52) Units/L Alkaline Phosphatase 71 (34-104) Units/L Albumin 2.7 L (3.5-5.7) g/dL - ABG Interpretation ABG results: PT/INR, D-dimer PT 14.4 Seconds (9.4-12.1) H 04/03/19 13:09 - Impressions Impressions Foot CT 04/03/19 15:45 IMPRESSION: Soft tissue ulceration along the dorsal medial aspect of the midfoot and lateral aspect of the soft tissue stump with underlying subcutaneous edema consistent with cellulitis. No soft tissue gas. No discrete drainable fluid collection to suggest abscess. Postsurgical changes status post transmetatarsal amputation. No CT evidence of osteomyelitis. Abnormal attenuation of the tibialis anterior tendon new since prior examination likely representing infectious/inflammatory tendinosis. This is in the area of the dorsal medial soft tissue ulceration. D/ / 04/03/2019 16:33:19 Germain Mayen MD / pool [email or web address] Interpreting Provider: Germain Mayen MD Consult Discharge Plan - Plan Referrals: NONE,PCP [Primary Care Provider] - - Attending Attestation I examined this patient and my medical decision-making was reviewed with the Resident Physician Dr Bond. I agree with the documented findings, disposition and treatment plan as described except to the extent set forth below. Mr Redd is being observed for foot infection awake, not pleasant, just wants to sleep. continued pain, fever, no chills, n/v. gen- alert, awake,appears stated age cv- reg rate and rhythm, normal s1,s2, no pitting le edema lungs- ctabl, normal resp effort on room air skin- left foot dressing c/d/i neuro- AAOx3 Foot infection- as d/w pharmacy he has tolerated cephalosporins in past, change to IV cefepime + flagyl + vanc, cxs pending, ortho consulted DM, uncontrolled- SSI and will likely need to start HS basal this evening HTN, uncontrolled, but + pain currently- prn pain control, prn antihypertensive, will require outpt fu CKD 3, appears to have KENYATTA- renal dose meds, control BP, IVF and check UA further dx and plan as noted by resident <Enmanuel Bond S - Last Filed: 04/04/19 15:26> Hospitalist Progress Note - Encounter Date of Encounter: 04/04/19 Time of Encounter: 08:47 - Subjective Interval History: Mr Redd is a 43-year-old male with PMH of gross non-compliance with medical care, IVDU, uncontrolled type 1 diabetes s/p R BKA and L Trans-metatarsal amputations who was admitted to our service for treatment of cellulitis with foot abscess on the left. He reported no new complaints overnight, was resting comfortably in bed when I spoke with him, and asked several times during my visit when he could get more pain medication. He reports only mild neuropathy in the left foot, and reports pain in the left foot and distal lower extremity. At this time he denies chest pains, shortness of breath, headaches, blurry vision, double vision, trouble swallowing or speaking, nausea, vomiting, abdominal pain, black stool, bloody stool, diarrhea, constipation, new numbness/tingling/weakness anywhere. Additional past medical history includes CKD, CAD, HTN, bipolar, hep C positive - Exam Vitals: Temp Pulse Resp BP Pulse Ox 98.6 F 99 18 161/105 96 04/04/19 06:55 04/04/19 06:55 04/04/19 06:55 04/04/19 06:55 04/04/19 06:55 Exam: Gen: Awake and alert, no acute distress, Morbidly obese, unpleasant Head: Normocephalic, atraumatic Eyes: EOMI, no scleral icterus ENT: Mucous membranes moist, no oropharyngeal erythema CV: S1-S2 present, regular at a rate of approx 90, no murmurs rubs or gallops Pulm: CTAB, mildly tachypneic, no respiratory distress, mild increased work of breathing-seemingly secondary to body habitus Abd: Soft, nontender to palpation, obese, nondistended, no rebound or guarding. Skin: Warm, dry, intacct, no rashes or lesions noted Neuro: Cranial nerves II-II grossly intact, no focal nurologic deficits Psych: normal mood and affect, Answers questions with intact judgement, appropriate insight, and linear thought EXT: Grossly intact motor strength in all 4 extremities, s/p R BKA and L midfoot amputation. Left foot wrapped in gauze to the ankle, dressings are clean and dry, there is some erythema at the level of the ankle, with notable warmth and tenderness to palpation to the level of the knee - Assessment and Plan (1) Cellulitis Current Visit: Yes Status: Acute Assessment and Plan: Patient denies fevers, chills, nausea, vomiting Reporting pain in the left foot and lower leg Left lower extremity is warm to the touch, erythematous to the ankle, and tender to palpation to the level of the knee Patient does not have an elevated white count Inflammatory markers elevated: ESR 53; CRP 63 Mild tachycardia, appears to be patient's baseline Blood cultures pending Preliminary wound culture shows gram(-) rods and gram(+) cocci * Continue IV vancomycin * Switch IV meropenem to IV cefepime and Flagyl. Patient has history of cephalosporin use without allergic reaction * Continue current pain regimen Podiatry and ortho both called for consutation. * Podiatry unable to see the pt, as he was previously discharged from their practice. * Ortho states they would be uncomfortable managing this case, stating that pts case requires podiatric specialist. * We will pursue transfer to podiatriy service at a different facility (2) Acute kidney injury superimposed on CKD Current Visit: Yes Status: Acute Assessment and Plan: Patient's BUN elevated to 48 today from 37 yesterday Patient's creatinine elevated to 1.81 today from 1.69 yesterday Patient poor urine output Refused bladder scan Per patient's I&O's, he is at a net positive 4 liters for this stay, with only 300 mL's of urine output * Continue LR at 50 mL an hour * Urinalysis ordered * Renal dosing of medications * Avoid nephrotoxins were possible * Monitor kidney function with BMP QAM (3) Bipolar disorder Current Visit: No Status: Chronic Assessment and Plan: Patient denies taking any home medications Requesting IV pain medicine and IV Ativan PRN's as soon as schedule will allow. Pt is resting comfortably. Denies SI/Hallucinations at this time * Switch IV Ativan to 1 mg PO TID PRN-anxiety * Monitor for s/s joya/psychosis/SI/depression (4) Diabetes Current Visit: Yes Status: Chronic Assessment and Plan: Hyperglycemia present on admission Persistent Hyperglycemia in spite of SSI A1C 9.1 * Initiate basal Levemir dosing daily at bedtime * Continued blood sugar monitoring * Reassess and adjust insulin dosing as needed (5) HTN (hypertension) Current Visit: No Status: Chronic Assessment and Plan: BP significantly elevated No home meds * Lopressor 5mg Q8Hr PRN added for SBP>160 added DVT Prophylaxis: Subcutaneous heparin - Summary of Assessment and Plan Summary of Assessment and Plan: * Change IV antibiotics to cefepime, Flagyl, vancomycin * Continue maintenance LR * IV Ativan switched to PO * PRN lopressor added for HTN * UA & Renal dosing of meds * Basal insluin added, continue SSI * Pending transfer to outside podiatry - Time Spent with Patient Total time spent is greater than 50% in coordination of care (as documented) at patient's floor/unit and/or counseling patient: Internal Medicine: Result - Labs CBC & Chem 7: 04/04/19 05:18 04/04/19 05:18 Labs: Short CBC 04/03/19 04/04/19 Range/Units 13:09 05:18 WBC 8.2 6.8 (4.3-11.1) K/mcL Hgb 10.9 L 11.9 L (12.9-16.9) g/dL Hct 32.0 L 35.4 L (37.5-50.1) % Plt Count 291 293 (140-400) K/mcL Neutrophils # 6.1 4.7 (1.6-8.9) K/mcL BMP 04/03/19 04/04/19 13:09 05:18 Sodium 128 L 132 L Potassium 4.0 4.3 Chloride 97 L 101 Carbon Dioxide 24 22 L BUN 37 H 48 H Creatinine 1.69 H 1.81 H Glucose 346 H 200 H Calcium 8.0 L 8.0 L Cardiac Enzymes 04/03/19 Range/Units 13:09 Troponin I < 0.03 (< 0.04) ng/mL Liver Function 04/03/19 Range/Units 13:09 Total Bilirubin 0.3 (0.3-1.0) mg/dL Direct Bilirubin 0.1 (0.0-0.2) mg/dL AST 7 L (13-39) Units/L ALT 9 (7-52) Units/L Alkaline Phosphatase 71 (34-104) Units/L Albumin 2.7 L (3.5-5.7) g/dL - ABG Interpretation ABG results: PT/INR, D-dimer PT 14.4 Seconds (9.4-12.1) H 04/03/19 13:09 - Impressions Impressions Foot CT 04/03/19 15:45 IMPRESSION: Soft tissue ulceration along the dorsal medial aspect of the midfoot and lateral aspect of the soft tissue stump with underlying subcutaneous edema consistent with cellulitis. No soft tissue gas. No discrete drainable fluid collection to suggest abscess. Postsurgical changes status post transmetatarsal amputation. No CT evidence of osteomyelitis. Abnormal attenuation of the tibialis anterior tendon new since prior examination likely representing infectious/inflammatory tendinosis. This is in the area of the dorsal medial soft tissue ulceration. D/ / 04/03/2019 16:33:19 Germain Mayen MD / denzel Interpreting Provider: Germain Mayen MD <Fatemeh Wayne - Last Filed: 04/04/19 12:24> (1) Cellulitis Qualifiers: Site of cellulitis: extremity Site of cellulitis of extremity: lower extremit y Laterality: left Qualified Code(s): L03.116 - Cellulitis of left lower limb (2) CAD (coronary artery disease) Qualifiers: Coronary Disease-Associated Artery/Lesion type: [place] artery [place] vs. transplanted heart: [place] heart Associated angina: without angina Qualified Code(s): I25.10 - Atherosclerotic heart disease of [place] coronary artery without angina pectoris (3) Sepsis Qualifiers: Sepsis type: sepsis due to unspecified organism Sepsis acute organ dysfunction status: without acute organ dysfunction Qualified Code(s): A41.9 - Sepsis, unspecified organism (4) Diabetes Qualifiers: Diabetes mellitus type: type 2 Diabetes mellitus chcf insulin use: with lime boiler use Diabetes mellitus complication status: with hyperglycemia Qualified Code(s): E11.65 - Type 2 diabetes mellitus with hyperglycemia; 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 <Enmanuel Bond S - Last Filed: 04/04/19 15:26> (1) Cellulitis Qualifiers: Site of cellulitis: extremity Site of cellulitis of extremity: lower extremity Laterality: left Qualified Code(s): L03.116 - Cellulitis of left lower limb (3) Bipolar disorder Qualifiers: Active/Remission status: in partial remission Most recent bipolar episode type: depressed Qualified Code(s): F31.75 - Bipolar disorder, in partial remission, most recent episode depressed (4) Diabetes Qualifiers: Diabetes mellitus type: type 2 Diabetes mellitus lime boiler insulin use: with chcf use Diabetes mellitus complication status: with hyperglycemia Qualified Code(s): E11.65 - Type 2 diabetes mellitus with hyperglycemia; 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
[2019-04-04] MEDS ORDERED: Cefepime HCl 2,000 MG in Water for inj. (sterile) 20 ML IVP ONE (11:59)
[2019-04-04] MEDS ORDERED: *HR* LORazepam 1 MG TABLET PO PRN (13:44)
[2019-04-04] MEDS ORDERED: *HR* Metoprolol 5 MG/5 ML VIAL IVP PRN (13:45)
[2019-04-04] MEDS: Ringers Solution, Lactated 1,000 ML IVC SCH (13:54)
--- NOTE | 2019-04-04 15:33 | Discharge Summary ---
- NOTES TO OUTPATIENT PROVIDER Notes to Outpatient Provider: transferred for left foot infection eval at [facility] Orders not resulted at time of discharge: Pending orders 04/03/19 13:09 Culture,Blood [BC] Stat 04/03/19 19:00 Culture,Anaerobic [RM] Stat Culture,Wound,with Gram Stain [RM] Routine 04/04/19 12:02 Urinalysis Reflex Cult & Micro [URIN] Stat Date of Encounter: 04/04/19 Time of Encounter: 09:00 - Discharge Diagnosis (1) Cellulitis Priority: Primary Status: Acute Qualifiers: Site of cellulitis: extremity Site of cellulitis of extremity: lower extremity Laterality: left Qualified Code(s): L03.116 - Cellulitis of left lower limb (2) Sepsis Priority: Secondary Status: Resolved Qualifiers: Sepsis type: sepsis due to unspecified organism Sepsis acute organ dysfunction status: without acute organ dysfunction Qualified Code(s): A41.9 - Sepsis, unspecified organism (3) CAD (coronary artery disease) Priority: Secondary Status: Chronic Qualifiers: Coronary Disease-Associated Artery/Lesion type: [place] artery [place] vs. 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 Redd is a 43 year old male with pmhx right BKA 2/2 bone cancer, left foot transmetatarsal amputation 2/2 wound/uncontrolled diabetes, Hep C, HLD, Bipolar D/O, CAD, IVDA, Polysubstance abuse HTN and DM both uncontrolled and not currently taking meds, CKD III, tobacco dependence who presented to [facility] with LLE ulcer, pain and swelling for 5 days. He has had ulcer in past and wound cx most recently in May 2016 grew MRSA (sensitive to rifampin, Bactrim, Vanc) and pseudomonas (wang sensitive). CT scan LLE showed soft tissue infection, no gas or drainable collection of fluid, no evidence of osteo and concern additionally for tendinosis. He met sepsis criteria with temp 101 and HR 104 on admission (no WBC elevation) and since admit 04/03 has remained afebrile, no longer meeting sepsis criteria. On review of past cxs he is currently receiving IV Cefepime (has pcn allergy listed but has been treated w cephalosporins in past without reaction), Vanc and Flagyl. Podiatry was contacted and has no provider available to see him. Ortho surgery declined consultation given podiatric issue. He has had surgery on foot at [facility] in past and [facility] contacted for transfer for podiatry eval of foot wound/infection/tendinosis. He is being discharged in stable condition to [facility]. Accepting physician is Dr Krause. Discharge discussed with: patient, franchise consultant - Time Spent with Patient Total time spent providing and/or coordinating discharge services: Time spent: Greater than 30 minutes (50 min) - Discharge Medications Prescriptions: No Action No Known Home Drugs 1 each .ROUTE AD each Home Medications: No Known Home Drugs 04/03/19 [History] Allergies/Adverse Reactions: Allergy/AdvReac Type Severity Reaction Status Date / Time iodine Allergy Severe Anaphylaxis Verified 04/03/19 15:29 Penicillins Allergy Anaphylaxis Verified 01/02/19 14:00 Date of admission: 04/03/19 16:41 Primary care physician: PCP NONE Consults: 04/03/19 12:35 Consult to Invasive Line Access Team [CONS] Stat Reason for Consult: need for vascular access Line Type: Midline 04/03/19 18:51 Consult to Nutrition [CONS] Routine Comment: Consulting Provider: NUTRITION Reason for Dietary Consult: MST Score 04/03/19 18:57 Consult to Wound Care [CONS] Routine Reason for Consult: left diabetic foot ulcer and cellulitis Call Completed: No 04/04/19 14:46 Consult to Podiatry [CONS] Routine Consulting Provider: Podiatry [facility] Reason for Consult: L foot ulcer and cellulitis Time Notified: 14:46 Call Completed: Yes Discharging clinician: Fatemeh Wayne - Constitutional Vitals: Temp Pulse Resp BP Pulse Ox 98.5 F 104 18 174/85 98 04/04/19 11:13 04/04/19 11:13 04/04/19 11:13 04/04/19 11:13 04/04/19 11:13 Exam: gen- alert, awake,appears stated age cv- reg rate and rhythm, normal s1,s2, no pitting le edema lungs- ctabl, normal resp effort on room air skin- left foot dressing c/d/i neuro- AAOx3 - Patient Status Disposition: Transfer Critical Access Hosp Condition: Fair Overall status at discharge: patient is not back to baseline - Discharge Instructions Follow Up With: NONE,PCP [Primary Care Provider] - - Diet and Activity Diet: diabetic diet, low fat, low cholesterol, low salt diet
[2019-04-04] MEDS ORDERED: MetroNIDAZOLE 500 MG/100 ML 500 MG/100 ML BAG IVPB SCH (16:00)
[2019-04-04 18:46] VITALS: BP 162/91
[2019-04-04] MEDS ORDERED: Aminoglycoside Consult 1 EACH MC ONE (19:01)
[2019-04-04] MEDS ORDERED: Insulin DETEMIR 100 UNIT/ML X5UNITS SQ SCH (21:00)
[2019-04-04] MEDS ORDERED: Cefepime HCl 2,000 MG in Water for inj. (sterile) 20 ML IVP SCH (23:00)
[2019-04-04] MEDS ORDERED: Cefepime HCl 2,000 MG in 0.9 % Sodium Chloride Mini Bag 100 ML IVPB SCH (23:00)
== END 2019-04-04 19:02 | disposition critical access hospital (66) ==
LOC: EMEROOARM 11:36 → 2ANU 11:36 → SUATTDRO 16:41 → 2ANU 17:20 → SUATTDRO 17:36
PROVIDERS: ADMIT Internal Medicine; ATTEND Internal Medicine

== ENCOUNTER 2019-04-11 13:05 | Inpatient (IN) ==
--- NOTE | 2019-04-11 13:13 | Emergency Department Note ---
Disposition Clinical Impression: Fluid retention, KENYATTA (acute kidney injury) Pulmonary edema Qualifiers: Chronicity: acute Qualified Code(s): J81.0 - Acute pulmonary edema Disposition: Admitted As Inpatient Condition: Fair Time of Disposition: 23:07 General Adult HPI - General Stated complaint: ZEYNEP Time Seen by Provider: 04/11/19 13:11 - Related Data Home Medications Medication Instructions Recorded Confirmed Amlodipine Besylate 5 mg PO DAILY 04/11/19 04/11/19 Atorvastatin Calcium [Lipitor] 20 mg PO DAILY 04/11/19 04/11/19 Sennosides [Senna] 8.6 mg PO DAILY 04/11/19 04/11/19 Allergies Allergy/AdvReac Type Severity Reaction Status Date / Time iodine Allergy Severe Anaphylaxis Verified 04/03/19 15:29 Penicillins Allergy Anaphylaxis Verified 01/02/19 14:00 Past Medical History - Past Medical History Medical history: Reports: cancer, CHF, COPD, coronary artery disease, diabetes, hyperlipidemia, hypertension, myocardial infarction, peripheral artery disease, syncope, other Surgical history: Reports: cancer surgery, other Psychiatric history: Reports: bipolar, previous psychiatric hospitalization - Social History Smoking Status: Current every day smoker Smokeless Tobacco Status: No Alcohol use: Reports: none Drug use: Reports: methamphetamine, IV Drug Use ( meth) Course Vital Signs Temperature 98.0 F 04/11/19 13:08 Pulse Rate 101 04/11/19 13:08 Respiratory Rate 28 04/11/19 13:08 Blood Pressure 173/100 04/11/19 13:08 O2 Sat by Pulse Oximetry 100 04/11/19 13:08 Temperature 97.7 F 04/11/19 20:18 Pulse Rate 110 04/11/19 20:18 Respiratory Rate 22 04/11/19 20:18 Blood Pressure 174/101 04/11/19 20:18 O2 Sat by Pulse Oximetry 98 04/11/19 20:18 Oxygen Delivery Oxygen Delivery Nasal Cannula Medical Decision Making - Lab Data Result diagrams: 04/11/19 14:39 04/11/19 14:39 Lab Results 04/11/19 04/11/19 04/11/19 Range/Units 13:36 14:39 14:39 WBC 8.1 (4.3-11.1) K/mcL RBC 3.40 L (4.19-5.50) M/mcL Hgb 10.0 L (12.9-16.9) g/dL Hct 30.4 L (37.5-50.1) % MCV 89.4 (83.0-100.0) fL MCH 29.4 (28.0-33.3) pg MCHC 32.9 (31.6-35.5) g/dL RDW 12.6 (11.5-14.5) % Plt Count 421 H (140-400) K/mcL MPV 9.0 L (9.4-12.4) fL Immature Gran % 0.5 (0-4) % Seg Neutrophils % 66.6 % Lymphocytes % 21.1 % Monocytes % 6.3 % Eosinophils % 4.6 % Basophils % 0.9 % Neutrophils # 5.4 (1.6-8.9) K/mcL Lymphocytes # 1.7 (0.6-4.6) K/mcL Monocytes # 0.5 (0.0-1.3) K/mcL Eosinophils # 0.4 (0.0-0.6) K/mcL Basophils # 0.1 (0.0-0.2) K/mcL PT 12.9 H (9.4-12.1) Seconds INR 1.1 Sodium (136-145) mEq/L Potassium (3.5-5.1) mEq/L Chloride (98-107) mEq/L Carbon Dioxide (23-29) mEq/L BUN (6-20) mg/dL Creatinine (0.70-1.30) mg/dL Est GFR ( Amer) (> 60) Est GFR (Non-Af Amer) (> 60) BUN/Creatinine Ratio (6-26) Glucose (70-105) mg/dL POC Glucose 166 H (70-99) mg/dL Calculated Osmolality (280-300) Calcium (8.6-10.3) mg/dL Total Bilirubin (0.3-1.0) mg/dL AST (13-39) Units/L ALT (7-52) Units/L Alkaline Phosphatase (34-104) Units/L Troponin I (< 0.04) ng/mL B-Natriuretic Peptide (Less than 100) pg/mL Serum Total Protein (6.4-8.9) g/dL Albumin (3.5-5.7) g/dL Globulin (2.4-3.5) g/dL Albumin/Globulin Ratio (1.1-2.2) 04/11/19 04/11/19 Range/Units 14:39 14:39 WBC (4.3-11.1) K/mcL RBC (4.19-5.50) M/mcL Hgb (12.9-16.9) g/dL Hct (37.5-50.1) % MCV (83.0-100.0) fL MCH (28.0-33.3) pg MCHC (31.6-35.5) g/dL RDW (11.5-14.5) % Plt Count (140-400) K/mcL MPV (9.4-12.4) fL Immature Gran % (0-4) % Seg Neutrophils % % Lymphocytes % % Monocytes % % Eosinophils % % Basophils % % Neutrophils # (1.6-8.9) K/mcL Lymphocytes # (0.6-4.6) K/mcL Monocytes # (0.0-1.3) K/mcL Eosinophils # (0.0-0.6) K/mcL Basophils # (0.0-0.2) K/mcL PT (9.4-12.1) Seconds INR Sodium 136 (136-145) mEq/L Potassium 5.1 (3.5-5.1) mEq/L Chloride 106 (98-107) mEq/L Carbon Dioxide 22 L (23-29) mEq/L BUN 61 H (6-20) mg/dL Creatinine 2.30 H (0.70-1.30) mg/dL Est GFR ( Amer) 38 L (> 60) Est GFR (Non-Af Amer) 31 L (> 60) BUN/Creatinine Ratio 27 H (6-26) Glucose 164 H (70-105) mg/dL POC Glucose (70-99) mg/dL Calculated Osmolality 303 H (280-300) Calcium 8.3 L (8.6-10.3) mg/dL Total Bilirubin 0.3 (0.3-1.0) mg/dL AST 8 L (13-39) Units/L ALT 5 L (7-52) Units/L Alkaline Phosphatase 62 (34-104) Units/L Troponin I < 0.03 (< 0.04) ng/mL B-Natriuretic Peptide 315 H (Less than 100) pg/mL Serum Total Protein 6.5 (6.4-8.9) g/dL Albumin 2.8 L (3.5-5.7) g/dL Globulin 3.7 H (2.4-3.5) g/dL Albumin/Globulin Ratio 0.8 L (1.1-2.2) Critical Care Time Critical Care Time: Yes Total Critical Care Time: 30 Attestation: The high probability of a clinically significant, sudden or life threatening deterioration of the [] system(s) required my full and direct attention, intervention and personal management. The aggregate critical care time was [] minutes. This time is in addition to time spent performing reported procedures but includes the following: [] Data Review and interpretation [] Patient assessment and monitoring of vital signs [] Documentation [] Medication orders and management Attestation Statement - Attestation Attestation: I reviewed the residents documentation and agree with the residents assessment and plan of care. I have personally had face to face time with the patient. (Brief History, Brief Exam, and MDM) I personally supervised and was present for the marrero/critical portions of the following procedures completed by the resident: (add procedures performed here). [id number] time provided I attest to supervising resident physician's interpretation of the ECG. Patient arrives by EMS from home. He was recently treated at [facility] for renal failure and a left foot infection. He thinks he was fluid overloaded. He complains of unintentional water weight gain. He appears visibly dyspneic on exam
[2019-04-11] MEDS ORDERED: Nitroglycerin 0.4 MG TAB.SUBL SL SCH (13:30)
--- NOTE | 2019-04-11 13:36 | Emergency Department Note ---
Disposition Clinical Impression: Fluid retention, KENYATTA (acute kidney injury) Pulmonary edema Qualifiers: Chronicity: acute Qualified Code(s): J81.0 - Acute pulmonary edema Disposition: Admitted As Inpatient Condition: Fair Referrals: NONE,PCP [Primary Care Provider] - Forms: ED Satisfaction Letter Time of Disposition: 15:23 General Adult HPI - General Chief complaint: ED Shortness of Breath/Dyspnea Stated complaint: ZEYNEP Time Seen by Provider: 04/11/19 13:11 Source: patient, EMS Mode of arrival: EMS Limitations: no limitations Nursing Notes Reviewed: Yes Vital Signs Reviewed: Yes - History of Present Illness HPI Narrative: Patient is a 43-year-old male that presents the emergency department due to increased shortness of breath. Patient states that he has recently been discharged from the hospital due to renal failure and chronic wounds to his left foot. Patient states that he was seen at [facility] discharge partially 2 days ago. Patient states that yesterday evening he started to become more short of breath. Patient states that while he is in the hospital acute received a large amount of fluids. Patient states that he feels like he is retaining fluid and is much more short of breath than usual. Patient states that he has had some mi ld chest discomfort with his shortness of breath. Patient states that he does not want to go back to [facility]. Patient states that he feels like his breathing is due to being fluid overloaded. Patient denies any fevers. Patient states that he feels like his legs are swollen compared to normal. Pain Scale: 9 - Related Data Home Medications Medication Instructions Recorded Confirmed Amlodipine Besylate 5 mg PO DAILY 04/11/19 04/11/19 Atorvastatin Calcium [Lipitor] 20 mg PO DAILY 04/11/19 04/11/19 Sennosides [Senna] 8.6 mg PO DAILY 04/11/19 04/11/19 Allergies Allergy/AdvReac Type Severity Reaction Status Date / Time iodine Allergy Severe Anaphylaxis Verified 04/03/19 15:29 Penicillins Allergy Anaphylaxis Verified 01/02/19 14:00 All systems ED: reviewed and negative except as stated. Constitutional: Denies: fever Cardiovascular: Reports: chest pain Respiratory: Reports: dyspnea Gastrointestinal: Denies: abdominal pain, nausea, vomiting Neurological: Denies: weakness, numbness, paresthesias Past Medical History - Past Medical History Medical history: Reports: cancer, CHF, COPD, coronary artery disease, diabetes, hyperlipidemia, hypertension, myocardial infarction, peripheral artery disease, syncope, other Surgical history: Reports: cancer surgery, other Psychiatric history: Reports: bipolar, previous psychiatric hospitalization - Social History Smoking Status: Former smoker Smokeless Tobacco Status: No Alcohol use: Reports: none Drug use: Reports: methamphetamine, IV Drug Use Physical Exam - General Limitations: no limitations General appearance: alert, in no apparent distress - Head Head exam: atraumatic, normocephalic - Eye Eye exam: Present: normal appearance, EOMI - Neck Neck exam: Present: normal inspection, full ROM, trachea midline - Respiratory Respiratory exam: Present: normal lung sounds bilaterally. 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 Patient has 1-2+ pitting edema and bilateral lower extremities.) - Neurological Exam Neurological exam: Present: alert, oriented X3 - Psychiatric Psychiatric exam: Present: normal affect, normal mood - Skin Skin exam: Present: warm, dry, intact Course Vital Signs Temperature 98.0 F 04/11/19 13:08 Pulse Rate 101 04/11/19 13:08 Respiratory Rate 28 04/11/19 13:08 Blood Pressure 173/100 04/11/19 13:08 O2 Sat by Pulse Oximetry 100 04/11/19 13:08 Temperature 98.1 F 04/11/19 13:27 Pulse Rate 89 04/11/19 13:32 Respiratory Rate 23 04/11/19 14:17 Blood Pressure 169/104 04/11/19 13:32 O2 Sat by Pulse Oximetry 100 04/11/19 14:17 Oxygen Delivery Oxygen Delivery Nasal Cannula Medical Decision Making - [facility] Narrative Medical decision making narrative: Due the patient's into emergency department with reports of shortness breath and concern for possible being fluid overload we will obtain basic laboratory testing, chest x-ray and EKG. Patient's EKG did not show any acute ischemic changes. Chest x-ray did show moderate pulmonary edema. The patient was given some nitroglycerin was started on BiPAP. Patient is been tolerating this well. Patient also complained of a headache after receiving the nitroglycerin and was given a dose of acetaminophen. The patient's laboratory testing also shows worsening of his acute kidney injury. Due to the patient being fluid overloaded at this time I will not give him any additional fluids. Patient will be given a 20 mg dose of Lasix to help diuresis some of the patient's fluid overload. At this time I do not feel that the patient requires emergent dialysis. Called spoke the admitting hospitalist Dr. Greer and he has accepted the patient to the hospital for further evaluation and management of his fluid overload. - Medical Records Medical records reviewed: Yes I reviewed the patient's medical records. - Lab Data Lab results reviewed: Yes I reviewed the patient's lab results. Result diagrams: 04/11/19 14:39 04/11/19 14:39 Lab Results 04/11/19 04/11/19 04/11/19 Range/Units 13:36 14:39 14:39 WBC 8.1 (4.3-11.1) K/mcL RBC 3.40 L (4.19-5.50) M/mcL Hgb 10.0 L (12.9-16.9) g/dL Hct 30.4 L (37.5-50.1) % MCV 89.4 (83.0-100.0) fL MCH 29.4 (28.0-33.3) pg MCHC 32.9 (31.6-35.5) g/dL RDW 12.6 (11.5-14.5) % Plt Count 421 H (140-400) K/mcL MPV 9.0 L (9.4-12.4) fL Immature Gran % 0.5 (0-4) % Seg Neutrophils % 66.6 % Lymphocytes % 21.1 % Monocytes % 6.3 % Eosinophils % 4.6 % Basophils % 0.9 % Neutrophils # 5.4 (1.6-8.9) K/mcL Lymphocytes # 1.7 (0.6-4.6) K/mcL Monocytes # 0.5 (0.0-1.3) K/mcL Eosinophils # 0.4 (0.0-0.6) K/mcL Basophils # 0.1 (0.0-0.2) K/mcL PT 12.9 H (9.4-12.1) Seconds INR 1.1 Sodium (136-145) mEq/L Potassium (3.5-5.1) mEq/L Chloride (98-107) mEq/L Carbon Dioxide (23-29) mEq/L BUN (6-20) mg/dL Creatinine (0.70-1.30) mg/dL Est GFR ( Amer) (> 60) Est GFR (Non-Af Amer) (> 60) BUN/Creatinine Ratio (6-26) Glucose (70-105) mg/dL POC Glucose 166 H (70-99) mg/dL Calculated Osmolality (280-300) Calcium (8.6-10.3) mg/dL Total Bilirubin (0.3-1.0) mg/dL AST (13-39) Units/L ALT (7-52) Units/L Alkaline Phosphatase (34-104) Units/L Troponin I (< 0.04) ng/mL B-Natriuretic Peptide (Less than 100) pg/mL Serum Total Protein (6.4-8.9) g/dL Albumin (3.5-5.7) g/dL Globulin (2.4-3.5) g/dL Albumin/Globulin Ratio (1.1-2.2) 04/11/19 04/11/19 Range/Units 14:39 14:39 WBC (4.3-11.1) K/mcL RBC (4.19-5.50) M/mcL Hgb (12.9-16.9) g/dL Hct (37.5-50.1) % MCV (83.0-100.0) fL MCH (28.0-33.3) pg MCHC (31.6-35.5) g/dL RDW (11.5-14.5) % Plt Count (140-400) K/mcL MPV (9.4-12.4) fL Immature Gran % (0-4) % Seg Neutrophils % % Lymphocytes % % Monocytes % % Eosinophils % % Basophils % % Neutrophils # (1.6-8.9) K/mcL Lymphocytes # (0.6-4.6) K/mcL Monocytes # (0.0-1.3) K/mcL Eosinophils # (0.0-0.6) K/mcL Basophils # (0.0-0.2) K/mcL PT (9.4-12.1) Seconds INR Sodium 136 (136-145) mEq/L Potassium 5.1 (3.5-5.1) mEq/L Chloride 106 (98-107) mEq/L Carbon Dioxide 22 L (23-29) mEq/L BUN 61 H (6-20) mg/dL Creatinine 2.30 H (0.70-1.30) mg/dL Est GFR ( Amer) 38 L (> 60) Est GFR (Non-Af Amer) 31 L (> 60) BUN/Creatinine Ratio 27 H (6-26) Glucose 164 H (70-105) mg/dL POC Glucose (70-99) mg/dL Calculated Osmolality 303 H (280-300) Calcium 8.3 L (8.6-10.3) mg/dL Total Bilirubin 0.3 (0.3-1.0) mg/dL AST 8 L (13-39) Units/L ALT 5 L (7-52) Units/L Alkaline Phosphatase 62 (34-104) Units/L Troponin I < 0.03 (< 0.04) ng/mL B-Natriuretic Peptide 315 H (Less than 100) pg/mL Serum Total Protein 6.5 (6.4-8.9) g/dL Albumin 2.8 L (3.5-5.7) g/dL Globulin 3.7 H (2.4-3.5) g/dL Albumin/Globulin Ratio 0.8 L (1.1-2.2) - Radiology Data Radiology results reviewed: Yes I reviewed the patient's radiology results. Chest X-Ray 04/11/19 13:28 IMPRESSION: Moderate pulmonary edema, uncertain etiology. D/ / Xavi Dasilva MD / Xavi Dasilva MD Interpreting Provider: Xavi Dasilva MD - EKG Data EKG #1 EKG attestation: Yes I reviewed and interpreted this EKG. EKG results narrative: EKG showed a sinus rhythm rate 89 bpm, HI interval of 141, QRS duration 94, QTc of 452. There is no evidence of STEMI on EKG. This is compared to prior EKG on 01/01/19.
[2019-04-11 14:52] LABS: Basophils # 0.1 K/mcL (0.0-0.2); Basophils % 0.9 %; Eosinophils # 0.4 K/mcL (0.0-0.6); Eosinophils % 4.6 %; Hematocrit 30.4 % (37.5-50.1); Immature Granulocytes % 0.5 % (0-4); Lymphocytes # 1.7 K/mcL (0.6-4.6); Lymphocytes % 21.1 %; Mean Corpuscular HGB Conc 32.9 g/dL (31.6-35.5); Mean Corpuscular Hemoglobin 29.4 pg (28.0-33.3); Mean Corpuscular Volume 89.4 fL (83.0-100.0); Monocytes # 0.5 K/mcL (0.0-1.3); Monocytes % 6.3 %; Neutrophils # 5.4 K/mcL (1.6-8.9); Platelet Count 421 K/mcL (140-400); Red Cell Distribution Width 12.6 % (11.5-14.5); Segmented Neutrophils % 66.6 %; White Blood Count 8.1 K/mcL (4.3-11.1)
[2019-04-11 15:07] LABS: INR 1.1; Prothrombin Time 12.9 Seconds (9.4-12.1)
[2019-04-11 15:15] LABS: Alanine Aminotransferase 5 Units/L (7-52); Albumin 2.8 g/dL (3.5-5.7); Albumin/Globulin Ratio 0.8 (1.1-2.2); Alkaline Phosphatase 62 Units/L (34-104); Aspartate Amino Transferase 8 Units/L (13-39); BUN/Creatinine Ratio 27 (6-26); Bilirubin,Total 0.3 mg/dL (0.3-1.0); Blood Urea Nitrogen 61 mg/dL (6-20); Calcium 8.3 mg/dL (8.6-10.3); Carbon Dioxide 22 mEq/L (23-29); Chloride 106 mEq/L (98-107); Globulin 3.7 g/dL (2.4-3.5); Glucose 164 mg/dL (70-105); Osmolality,Calculated 303 (280-300); Potassium 5.1 mEq/L (3.5-5.1); Sodium 136 mEq/L (136-145); Total Protein 6.5 g/dL (6.4-8.9); Troponin I < 0.03 ng/mL (< 0.04); eGFR For African Americans 38 (> 60); eGFR For Non-African Americans 31 (> 60)
[2019-04-11] MEDS ORDERED: Furosemide 20 MG/2 ML VIAL IVP ONE (15:19)
[2019-04-11 17:10] LABS: ABG Base Excess -3 mEq/L (-2 to 3); ABG HCO3 21 mEq/L (21-27); ABG Oxygen Saturation 94 % (95-98); ABG PCO2 32 mmHg (35-45); ABG PH 7.43 pH Units (7.32-7.45); ABG PO2 68 mmHg (85-104); ABG TCO2 22 mEq/L (20-26)
[2019-04-11] MEDS ORDERED: *HR* LORazepam 0.5 MG TABLET PO ONE (17:12)
[2019-04-11] MEDS ORDERED: Ondansetron ODT 4 MG TAB.RAPDIS SL PRN (17:43)
[2019-04-11] MEDS ORDERED: Naloxone 0.4 MG/ML INJ IVP PRN (17:43)
--- NOTE | 2019-04-11 18:24 | Internal Med History&Physical ---
Date of Encounter: 04/11/19 Time of Encounter: 17:59 Internal Medicine - H&P: HPI Chief complaint: Shortness of breath Admitted From: Home Plans for Post Hospital Care: Home History of present illness: Mr. 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 Patient was recently discharged from [facility] after being treated for acute renal failure and E soft tissue infection. Patient states he was "given a bunch of fluids and discharged home on bactrim". He states he was told he was better. Patient states he did not feel better and the day after discharge became acutely short of breath. Patient states at baseline he uses no oxygen. Patient is requiring 3L NC to maintain O2 sat above 92%. In ED, CXR showed moderate pulmonary edema. Cr was 2.30. Patient received a dose of 20 mg IV lasix and had good urine output after which he stated he felt better. He still required O2 via nasal canula. BNP was 315. Patient stats that his most recent ECHO showed an EF of 35% but there is no ECHO in our record for this patient. Patient states his most recent methemphetamine use was 14 days ago. ABG done on the floor showed mild hypoxemia on 3L NC without acidosis. No leukocytosis, no fever, no tachycardia. Wounds to [facility] are wrapped. There is bilateral lower extremity edema but it is equal. BP elevated at 190/102. Patient's home medications have atorvastatin and amlodipine. Patient does not appear to be currently taking bactrim and does not know for how long he was supposed to be on it. Of note, prior to admission to [facility], patient was admitted to [facility] and transferred to [facility]. At the time of transfer, his Cr was 1.81. His baseline appears closer to 0.74. Past Med Surg Social Fam HX - Past Medical History Medical history: cancer, CHF, COPD, coronary artery disease, diabetes, hepatitis, hyperlipidemia, hypertension, IV drug use, myocardial infarction, peripheral artery disease, renal disease, syncope, other Additional medical history: Lung CA. Hep C Psychiatric history: bipolar, previous psychiatric hospitalization - Past Surgical History Surgical History: cancer surgery, other Additional surgical history: amputation of left foot from diabetes and right leg for bone cancer. - Social History Smoking Status: Former smoker Packs per day: 1 Smokeless Tobacco Status: No Alcohol use: none Drug use: methamphetamine, IV Drug Use - Family History Mother Living Status: Still Living Hx Family Cancer: Yes (throat cancer) Father Living Status: Still Living Hx Family Cardiac Disorders: Yes Hx Family Endocrine Disorder: Yes Hx Family Psychosocial Disorders: Yes (IV drug use) Internal Medicine - H&P: Meds Atorvastatin Calcium [Lipitor] 20 mg PO DAILY 04/11/19 [History] RX: Amlodipine Besylate 5 mg PO DAILY 04/11/19 [History] Sennosides [Senna] 8.6 mg PO DAILY 04/11/19 [History] Allergy/AdvReac Type Severity Reaction Status Date / Time iodine Allergy Severe Anaphylaxis Verified 04/03/19 15:29 Penicillins Allergy Anaphylaxis Verified 01/02/19 14:00 All Systems PM: A 10-system review of systems was performed and is negative for pertinent findings except as documented above in the HPI. Review of systems: Constitutional: No weight loss, no fever, no chills ENT/Mouth: No hearing changes, no congestion, no dysphagia Eyes: No redness, no discharge, no vision changes Cardiovascular: No chest pain, b/l lower extremity swelling Respiratory: orthopnea, dyspnea on exertion, conversational dyspnea GI: No nausea, no vomiting, no diarrhea, no constipation, no blood in stool] Genitourinary: No dysuria, no urinary frequency, no hematuria Musculoskeletal: No arthralgias, no joint swelling Skin: No suspicious lesions Neuro: No weakness, no numbness, no loss of consciousness Psych: Patient admits to anxiety - Constitutional Vitals: Temp Pulse Resp BP Pulse Ox 98.2 F 98 24 180/102 99 04/11/19 16:35 04/11/19 16:35 04/11/19 16:35 04/11/19 16:35 04/11/19 16:35 General appearance: Present: A&O X 3, morbidly obese, no acute distress, answers questions appropriately Exam: GENERAL APPEARANCE: Well developed, well nourished, alert and cooperative, and appears to be in no acute distress. HEENT: Normocephalic/atraumatic, PERRLA. NECK: Supple, nontender without lymphadenopathy. CARDIOVASCULAR: Normal S1, S2; regular rate and rhythm; no murmurs. RESPIRATORY: Bilateral crackles at bases; no increased work of breathing ABDOMEN: Soft, nondistended, nontender; bowel sounds present. MUSKULOSKELETAL: No limitations in range of motion. EXTREMITIES: 1+ pitting edema in bilateral lower extremities; BKA RLE; metatarsal amputation of LLE with dressing wrapped, no drainage or redness NEUROLOGICAL: No focal neurological deficits. SKIN: Skin normal color, texture and turgor with no lesions or eruptions. PSYCHIATRIC: anxious appearing Internal Med - H&P Results - Labs CBC & Chem 7: 04/11/19 14:39 04/11/19 14:39 Labs: Short CBC 04/11/19 Range/Units 14:39 WBC 8.1 (4.3-11.1) K/mcL Hgb 10.0 L (12.9-16.9) g/dL Hct 30.4 L (37.5-50.1) % Plt Count 421 H (140-400) K/mcL Neutrophils # 5.4 (1.6-8.9) K/mcL BMP 04/11/19 14:39 Sodium 136 Potassium 5.1 Chloride 106 Carbon Dioxide 22 L BUN 61 H Creatinine 2.30 H Glucose 164 H Calcium 8.3 L Cardiac Enzymes 04/11/19 Range/Units 14:39 Troponin I < 0.03 (< 0.04) ng/mL Liver Function 04/11/19 Range/Units 14:39 Total Bilirubin 0.3 (0.3-1.0) mg/dL AST 8 L (13-39) Units/L ALT 5 L (7-52) Units/L Alkaline Phosphatase 62 (34-104) Units/L Albumin 2.8 L (3.5-5.7) g/dL - ABG Interpretation ABG results: 04/11/19 17:08 ABG pH 7.43 ABG pCO2 32 L ABG pO2 68 L ABG HCO3 21 ABG Total CO2 22 ABG O2 Saturation 94 L ABG Base Excess -3 L - Impressions ITS Impressions Chest X-Ray 04/11/19 13:28 IMPRESSION: Moderate pulmonary edema, uncertain etiology. D/ / Xavi Dasilva MD / Xavi Dasilva MD Interpreting Provider: Xavi Dasilva MD - Assessment and Plan (1) Acute respiratory failure Current Visit: Yes Status: Acute Assessment and plan: Patient with history of CHF now presenting with exacerbation of CHF as well as KENYATTA CXR showing moderate pulmonary edema Cr up to 2.3 with baseline around 0.7 [facility] "[facility] of [facility]" Patient reports no O2 at [facility]; now requiring 3L NC No ECHO in our records but patient says his most recent EF was 35% Patient does feel better after receiving lasix in ED but still requiring O2 Plan: O2 via NC; titrate to maintain O2 sat above 90% Hold further diuretics in setting of KENYATTA; patient is currently hemodynamically stable Monitor I&O Consult cardiology Consult nephrology ECHO pending Repeat CXR in am Obtain records from recent [facility] admission Qualifiers: Respiratory failure complication: hypoxia Qualified Code(s): J96.01 - Acute respiratory failure with hypoxia (2) Acute on chronic congestive heart failure Current Visit: Yes Status: Acute Assessment and plan: Patient reportedly with history of CHF Now appears to be in acute exacerbation No ECHO on record Plan: Cardiology consulted ECHO pending See above Qualifiers: Heart failure type: unspecified Qualified Code(s): I50.9 - Heart failure, unspecified (3) Acute renal failure Current Visit: Yes Status: Acute Assessment and plan: Patient with no history of CKD based on previous labs States he was treated for KENYATTA at [facility] Cr prior to transfer to [facility] was 1.81, now up to 2.3 Plan: Nephrology consulted Qualifiers: Acute renal failure type: unspecified Qualified Code(s): N17.9 - Acute kidney failure, unspecified (4) Wound of lower extremity Current Visit: Yes Status: Acute Assessment and plan: Patient was transferred to [facility] for lower extremity wound He was reportedly discharged on bactrim but this is not on his med rec and is unsure for how long he needs to be on it No leukocytosis at this time, fever or tachycardia Plan: Wound care consulted Obtaining records from [facility] May need to consult podiatry/ID pending records Qualifiers: Encounter type: subsequent encounter Laterality: left Qualified Code(s): S81.802D - Unspecified open wound, left lower leg, subsequent encounter (5) Diabetes Current Visit: Yes Status: Chronic Assessment and plan: Patient not currently on medications for this Plan: sliding scale insulin Qualifiers: Diabetes mellitus type: type 2 Diabetes mellitus retirement insulin use: without retirement use Diabetes mellitus complication status: with circulatory complication Diabetes mellitus complication detail: with other circulatory com plications Qualified Code(s): E11.59 - Type 2 diabetes mellitus with other circulatory complications (6) HTN (hypertension) Current Visit: Yes Status: Chronic Assessment and plan: BP elevated on admission Plan: start home amlodipine adjust meds as needed Qualifiers: Hypertension type: essential hypertension Qualified Code(s): I10 - Essential (primary) hypertension (7) Bipolar disorder Current Visit: Yes Status: Chronic Assessment and plan: Patient not currently on medications for this Plan: monitor Qualifiers: Active/Remission status: in partial remission Most recent bipolar episode type: depressed Qualified Code(s): F31.75 - Bipolar disorder, in partial remission, most recent episode depressed (8) DVT prophylaxis Current Visit: Yes Status: Acute Assessment and plan: subq heparin - Time Spent With Patient Total time spent is greater than 50% in coordination of care (as documented) at patient's floor/unit and/or counseling patient: 45 minutes
[2019-04-12 01:14] LABS: Hematocrit 31.9 % (37.5-50.1); Hemoglobin 10.4 g/dL (12.9-16.9); Mean Corpuscular HGB Conc 32.6 g/dL (31.6-35.5); Mean Corpuscular Hemoglobin 29.1 pg (28.0-33.3); Mean Corpuscular Volume 89.4 fL (83.0-100.0); Mean Platelet Volume 9.1 fL (9.4-12.4); Platelet Count 461 K/mcL (140-400); Red Blood Count 3.57 M/mcL (4.19-5.50); Red Cell Distribution Width 12.7 % (11.5-14.5); White Blood Count 8.5 K/mcL (4.3-11.1)
[2019-04-12 01:41] LABS: Calcium 8.3 mg/dL (8.6-10.3); Chol/HDL Ratio 5.3 (0-4.9)
[2019-04-12] MEDS: *HR* Heparin 5,000 UNIT/ML VIAL SQ SCH ×2 (05:51→17:35)
--- NOTE | 2019-04-12 08:49 | Cardiology Consult Note ---
<CarmenJosefClark M - Last Filed: 04/12/19 12:17> Date of Encounter: 04/12/19 Time of Encounter: 08:47 Assessment and Plan (1) Acute respiratory failure with hypoxia Current Visit: Yes Status: Acute Patient with remote history of CHF presenting with CHF exacerbation 2/2 fluid overload. CXR revealed moderate pulmonary edema. Patient given 20 mg IV lasix with improvement in symptoms. Unable to locate results of any previous echocardiogram. - Patient improved with bipap, O2, lasix. Still has some moderate dyspnea. - Continue bipap. - 40 mg IV lasix once. Monitor renal function. - Maintain O2 sat >90%. - Further recs to follow pending echo. - Cardiology will continue to follow. (2) CHF (congestive heart failure) Current Visit: Yes Status: Acute Patient with remote history of CHF and presented with CHF exacerbation likely 2/2 fluid overload. Patient reports that he was given to much fluid at [facility], was discharged on 04/08/19 with development of symptoms on 04/10/19. 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 He is unsure if he has ever had an echo, unable to locate any records. There is concern for cardiomyopathy 2/2 drug use. - Patient diuresed with 20 mg IV lasix, reports mild improvement in symptoms. Still has some conversational dyspnea and orthopnea. - Start 40 mg IV lasix once for diuresis. - Monitor renal function. - TTE pending, further recs to follow. Qualifiers: Heart failure type: unspecified Heart failure chronicity: unspecified Qualified Code(s): I50.9 - Heart failure, unspecified (3) KENYATTA (acute kidney injury) Current Visit: Yes Status: Acute Patient with CHF exacerbation and KENYATTA. Creatinine at admission 2.3, down to 1.7 this morning. Baseline creatinine approximately 0.75, urine output is good at this time. - Nephro consulted. - Maintain strict I and O's. - Further recs to follow pending echo. (4) HTN (hypertension) Current Visit: No Status: Chronic Patient with history of HTN, uncontrolled DM, IV methamphetamine use presented to ED with CHF exacerbation, BP in the 170/100s, HR in 100s. BP remains in the 170s/100s with tachycardia. Pt denies MORALES, dizziness, vision changes. There is also history of severe anxiety. - Will start IV hydralazine. - 40 mg IV lasix once. - Continue to monitor. Qualifiers: Hypertension type: essential hypertension Qualified Code(s): I10 - Essential (primary) hypertension Discussion w patient/family: The assessment and plan as outlined above was discussed with the patient and/or family members who expressed understanding and agreement. All questions were answered. Thank you for involving us in the care of your patient. Please call with any questions. History of Present Illness Consult date: 04/12/19 Consult reason: Pulmonary edema/CHF Chief complaint: SOB History of present illness: Mr. 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 Was admitted to [facility] on 04/03/19 2/2 LLE wound infection and treated with IV abx. Was transferred to [facility] on 04/04/19 and patient was treated for acute renal failure, wound infection. Pt reports that he was given IV fluids at [facility] and discharged home on bactrim. He states that he was "given too much fluid" at [facility] and he developed acute sob the day after discharge. He presented to [facility] ED last night with tachycardia and BP in the 170s/100s. and required 3 L O2 to maintain sats above 92%. CXR revealed moderate pulmonary edema vs PNA, creatinine of 2.3, BNP 315. Was given 20mg IV lasix with good urine output and improvement in symptoms. Pt states that he last used meth approximately 15 days ago prior to his 04/03/19 admission. No drug use since. Currently, the patient reports improvement in dyspnea since admission and denies cp, diaphoresis, fevers, chills, nausea, vomiting. He was able to sleep last night with the use of bipap. He does not have a isaac catheter in place, however he reports good urine output. He also has a history of severe anxiety which may be contributing to his symptomatology. EKG on admission demonstrated sinus rhythm 89 bpm, No acute ST changes. Patient is tachycardic. Dyspnea improved with diuresis. Creatinine down from 2.3 to 1.7 this morning. Past Med Surg Social Fam HX - Past Medical History Medical history: cancer, CHF, COPD, coronary artery disease, diabetes, hepatitis, hyperlipidemia, hypertension, IV drug use, myocardial infarction, peripheral artery disease, renal disease, syncope, other Additional medical history: Lung CA. Hep C Psychiatric history: bipolar, previous psychiatric hospitalization - Past Surgical History Surgical History: cancer surgery, other Additional surgical history: amputation of left foot from diabetes and right leg for bone cancer. - Social History Smoking Status: Former smoker Packs per day: 1 Smokeless Tobacco Status: No Alcohol use: none Drug use: methamphetamine, IV Drug Use - Family History Mother Living Status: Still Living Hx Family Cancer: Yes (throat cancer) Father Grandmother Living Status: Hx Family Endocrine Disorder: Yes Father Living Status: Still Living Hx Family Cardiac Disorders: Yes Hx Family Endocrine Disorder: Yes Hx Family Psychosocial Disorders: Yes (IV drug use) Medications and Allergies Amlodipine Besylate 5 mg PO DAILY 04/11/19 [History] Atorvastatin Calcium [Lipitor] 20 mg PO DAILY 04/11/19 [History] Sennosides [Senna] 8.6 mg PO DAILY 04/11/19 [History] Allergy/AdvReac Type Severity Reaction Status Date / Time iodine Allergy Severe Anaphylaxis Verified 04/03/19 15:29 Penicillins Allergy Anaphylaxis Verified 01/02/19 14:00 All Systems Review: The remainder of the systems were reviewed and are negative - Constitutional Constitutional: headache(s), weakness, no chills, no fever(s), no night sweats - EENT Eyes: no blurred vision, no loss of vision Nose, mouth and throat: no dysphagia, no odynophagia, no throat swelling - Cardiovascular Cardiovascular: chest pain at rest, chest pain with exertion, dyspnea at rest, dyspnea on exertion, rapid heart rate, no irregular heart rhythm, no lightheadedness, no syncope - Respiratory Respiratory: cough (productive), no dyspnea, no hemoptysis, no wheezing - Gastrointestinal Gastrointestinal: constipation, no abdominal pain, no dysphagia, no nausea - Genitourinary Genitourinary: no dysuria, no hematuria - Musculoskeletal Musculoskeletal: no abnormal gait, no myalgias - Integumentary Integumentary: no erythema, no rash - Neurological Neurological: no dizziness, no focal weakness, no syncope - Psychiatric Psychiatric: anxiety, depression, no hallucinations - Hematological/Lymphatic Hematologic/Lymphatic: no easy bleeding, no easy bruising Physical Examination Vital Signs, Last 4 Hours Temp Pulse Resp BP Pulse Ox 04/12/19 07:55 98.5 F 100 20 175/92 96 General: Conversant (with mild dyspnea), No Apparent Distress HEENT: Atraumatic, Normocephaly Neck: No JVD, Normal carotid pulses Cardiac: Normal S1 and S2, No Murmur, Other (tachycardia ) Lungs: No Wheeze, Rales, Rhonchi, Other (decreased breath sounds, orthopnea, mild dyspnea on 3L O2) Neuro: Alert and responsive, No focal deficits noted Abdomen: Soft, Non-Tender Skin: No rashes noted on visualized skin Musculoskeletal: No Chest Wall Tenderness Extremities: No Clubbing, No Cyanosis, No Edema Results 04/12/19 01:00 04/12/19 Unknown Lab Results 04/11/19 04/11/19 04/11/19 14:39 14:39 14:39 WBC 8.1 Hgb 10.0 L Hct 30.4 L Plt Count 421 H INR 1.1 Sodium 136 Potassium 5.1 Chloride 106 Carbon Dioxide 22 L BUN 61 H Creatinine 2.30 H Glucose 164 H Calcium 8.3 L Magnesium Total Bilirubin 0.3 AST 8 L ALT 5 L Alkaline Phosphatase 62 Troponin I < 0.03 B-Natriuretic Peptide 04/11/19 04/11/19 04/12/19 14:39 18:30 01:00 WBC 8.5 Hgb 10.4 L Hct 31.9 L Plt Count 461 H INR Sodium Potassium Chloride Carbon Dioxide BUN Creatinine Glucose Calcium Magnesium 1.9 Total Bilirubin AST ALT Alkaline Phosphatase Troponin I B-Natriuretic Peptide 315 H 04/12/19 Unknown WBC Hgb Hct Plt Count INR Sodium 135 L Potassium 5.0 Chloride 108 H Carbon Dioxide 20 L BUN 57 H Creatinine 2.17 H Glucose 196 H Calcium 8.3 L Magnesium Total Bilirubin AST ALT Alkaline Phosphatase Troponin I B-Natriuretic Peptide Consult Discharge Plan - Plan Referrals: NONE,PCP [Primary Care Provider] - Cardiac Rehab - Cardiac Rehab Cardiac Rehab: Phase I consult completed. Patient was educated on why Cardiac Rehabilitation is beneficial to his/her health. Participating in a cardiac rehabilitation can improve the following: strengthen your heart, improve ejection fraction, weight reduction, decrease cholesterol levels, lower blood pressure, lower blood sugar, improve stamina, and enhance self-image. If he/she has any questions, they were instructed to call [facility] at [phone]. <Anastacio Lundberg A - Last Filed: 04/12/19 15:23> Date of Encounter: 04/12/19 - Attending Attestation I have personally performed a face to face evaluation on this patient. I have re viewed and agree with the documented findings and care plan as documented by the resident. History and Exam by me shows: 43-year-old gentleman with history of right BKA, recurrent osteomyelitis rece ntly hospitalized at [facility] for foot infection. Presented with acute respiratory failure with hypoxia secondary to pulmonary edema in the setting of uncontrolled blood pressure. with past history of presented with AAOX3 in NAD at the bedside Hemodynamically stable Cardiopulmonary exam revealed S1, S2, no murmur; bibasilar rales Rhythm reviewed - sinus rhythm, no acute ST T changes Echo pending Impression/plan: 1. Acute hypoxic respiratory failure requiring BiPAP. Continue BiPAP. IV Lasix 40 mg stat. Strict inputs and outputs monitoring. Fluid restricted low- salt diet. Obtain echocardiogram 2. Hypertensive urgency. IV hydralazine 10 mg every 6 when necessary. Continue Norvasc 5 mg daily and titrate to 10 mg daily as needed 3. Acute kidney injury. Possibly cardiorenal syndrome versus intrinsic kidney injury. Trial of Lasix. Thanks for the consult, please call with questions. Anastacio Lundberg MD [facility] Assessment and Plan Discussion w patient/family: The assessment and plan as outlined above was discussed with the patient and/or family members who expressed understanding and agreement. All questions were answered. Thank you for involving us in the care of your patient. Please call with any questions. History of Present Illness History of present illness: Mr. Redd is a 43 year old male All Systems Review: The remainder of the systems were reviewed and are negative Results 04/12/19 01:00 04/12/19 Unknown Lab Results 04/11/19 04/12/19 04/12/19 18:30 01:00 Unknown WBC 8.5 Hgb 10.4 L Hct 31.9 L Plt Count 461 H Sodium 135 L Potassium 5.0 Chloride 108 H Carbon Dioxide 20 L BUN 57 H Creatinine 2.17 H Glucose 196 H Calcium 8.3 L Magnesium 1.9 Cardiac Rehab - Cardiac Rehab Cardiac Rehab: Phase I consult completed. Patient was educated on why Cardiac Rehabilitation is beneficial to his/her health. Participating in a cardiac rehabilitation can improve the following: strengthen your heart, improve ejection fraction, weight reduction, decrease cholesterol levels, lower blood pressure, lower blood sugar, improve stamina, and enhance self-image. If he/she has any questions, they were instructed to call [facility] at [phone].
[2019-04-12] MEDS ORDERED: amLODIPine 5 MG TABLET PO SCH (09:00)
[2019-04-12] MEDS ORDERED: *HR* Dextrose 50 % in Water (Syg) 50 ML SYRINGE IVP PRN (09:06)
[2019-04-12] MEDS ORDERED: Dextrose Gel 15 GM/37.5 ML TUBE PO PRN ×2 (09:06)
[2019-04-12] MEDS ORDERED: D5% in Water 1,000 ML IVC PRN (09:06)
[2019-04-12] MEDS: Sennosides 8.6 MG TABLET PO SCH (09:32)
[2019-04-12] MEDS ORDERED: *HR* LORazepam 0.5 MG TABLET PO ONE (11:50)
[2019-04-12] MEDS ORDERED: Furosemide 20 MG/2 ML VIAL IVP ONE (11:51)
[2019-04-12] MEDS ORDERED: Furosemide 40 MG/4 ML VIAL IVP ONE (12:10)
[2019-04-12] MEDS: Insulin LISPRO 300 UNITS/3 ML VIAL SQ SCH ×3 (12:35→21:08)
[2019-04-12] MEDS ORDERED: amLODIPine 5 MG TABLET PO ONE (13:00)
[2019-04-12] MEDS ORDERED: Perflutren Lipid Microsphere 1.3 ML in 0.9 % Sodium Chloride 8.7 ML IVP ONE (13:00)
[2019-04-12] MEDS ORDERED: Nitroglycerin 0.4 MG TAB.SUBL SL PRN (13:02)
--- NOTE | 2019-04-12 14:51 | Nephrology Consult Note ---
<Elisa Salgado - Last Filed: 04/12/19 14:44> Date of Encounter: 04/12/19 Time of Encounter: 14:44 Assessment and Plan (1) KENYATTA (acute kidney injury) Status: Acute Previous GFRs have been greater than 60. Unsure of GFR when discharged from [facility]. GFR is 33 today, 31 yesterday. Uop noted to be 400 for yesterday, unsure if this is accurate. Norvasc increased. KENYATTA most likely related to recent infection/sepsis? and IV vancomycin use. Avoid nephrotoxins and renal dose. Strict I/O Daily weights. Daily BMPs. Renal diet. Serum and urine studies ordered. Retroperitoneal US ordered. (2) Acute on chronic congestive heart failure Status: Acute Per primary. Qualifiers: Heart failure type: unspecified Qualified Code(s): I50.9 - Heart failure, unspecified (3) CHF (congestive heart failure) Status: Acute Per primary. Qualifiers: Heart failure type: unspecified Heart failure chronicity: unspecified Qualified Code(s): I50.9 - Heart failure, unspecified History of Present Illness - Reason for Consult Consult date: 04/12/19 Acute Kidney Injury Requesting physician: Cruzito Mcfarlane - Chief Complaint difficulty in breathing - History of Present Illness Mr. Redd is a 43 year old male who presented to ED with shortness of breath. He was recently at [facility] for bone infection vs cancer? unsure, I am not able to immediately review [facility] notes, but the patient mentioned IV vancomycin and KENYATTA, which is what he was being treated for at [facility]. PMH: IVDU (Meth) last use was 14/15 days ago before hospitalization. Denies chest pain. Admits to feeling short of breath. Dr. Lundberg was at bedside and it was decided that 40 MV IV lasix to be given and for patient to be placed on Bipap. KENYATTA workup ordered, including Complements to help to exclude any GNs. He lives at home. Denies any current drug use. Denies etoh or tobacco use. Unsure of his FH of CKD or HD. Past Med Surg Social Fam HX - Past Medical History Medical history: cancer, CHF, COPD, coronary artery disease, diabetes, hepatitis, hyperlipidemia, hypertension, IV drug use, myocardial infarction, peripheral artery disease, renal disease, syncope, other Additional medical history: Lung CA. Hep C Psychiatric history: bipolar, previous psychiatric hospitalization - Past Surgical History Surgical History: cancer surgery, other Additional surgical history: amputation of left foot from diabetes and right leg for bone cancer. - Social History Smoking Status: Former smoker Packs per day: 1 Smokeless Tobacco Status: No Alcohol use: none Drug use: methamphetamine, IV Drug Use - Family History Mother Living Status: Still Living Hx Family Cancer: Yes (throat cancer) Father Grandmother Living Status: Hx Family Endocrine Disorder: Yes Father Living Status: Still Living Hx Family Cardiac Disorders: Yes Hx Family Endocrine Disorder: Yes Hx Family Psychosocial Disorders: Yes (IV drug use) Medications and Allergies Sennosides [Senna] 8.6 mg PO DAILY 04/11/19 [History] Albuterol Sulfate [Proair Respiclick] 90 mcg IH Q4HR PRN #1 aer.[email or web address] 04/15/19 [Rx] Amlodipine Besylate 10 mg PO DAILY #30 tablet 04/15/19 [Rx] Atorvastatin Calcium [Lipitor] 20 mg PO DAILY #30 tab 04/15/19 [Rx] hydrALAZINE [HydrALAZINE] 25 mg PO TID #90 tablet 04/15/19 [Rx] levoFLOXacin [Levaquin] 750 mg PO DAILY #5 tablet 04/15/19 [Rx] predniSONE [PredniSONE] 40 mg PO DAILY #3 tablet 04/15/19 [Rx] Citalopram Hydrobromide [Celexa] 20 mg PO DAILY #30 tab 04/16/19 [Rx] Furosemide [Lasix] 40 mg PO DAILY #30 tablet 04/16/19 [Rx] Insulin DETEMIR [Levemir Flextouch] 20 unit SQ QPM #1 insuln.pen 04/16/19 [Rx] hydrOXYzine HCl [Hydroxyzine HCl] 25 mg PO Q8H PRN #24 tab 04/16/19 [Rx] Allergy/AdvReac Type Severity Reaction Status Date / Time iodine Allergy Severe Anaphylaxis Verified 04/03/19 15:29 Penicillins Allergy Anaphylaxis Verified 01/02/19 14:00 Review of Systems All Systems review (narrative): The remainder of the systems are negative. Constitutional: fatigue, no chills, no fever(s) Cardiovascular: dyspnea, dyspnea on exertion, edema, no chest pain Respiratory: cough, dyspnea, dyspnea on exertion, no hemoptysis, no wheezing Gastrointestinal: no diarrhea, no nausea, no vomiting Genitourinary Male: no hematuria, no urinary frequency, no urinary hesitancy, no urinary urgency Exam - Vital Signs Vital signs: Initial Vital Signs Temp Pulse Resp BP Pulse Ox 98.0 F 101 28 173/100 100 04/11/19 13:08 04/11/19 13:08 04/11/19 13:08 04/11/19 13:08 04/11/19 13:08 Vital Signs - Last 8 Hours Temp Pulse Resp BP Pulse Ox 04/12/19 11:15 99.0 F 98 20 183/109 96 04/12/19 07:55 98.5 F 100 20 175/92 96 Intake and Output 04/11/19 04/12/19 04/12/19 23:59 07:59 15:59 Intake Total 1080 / 1080 Output Total 400 / 400 Balance -400 / -400 1080 / 1080 Intake: Oral 1080 / 1080 Output: Urine 400 / 400 Other: Meal Breakfast Percent of Meal Consumed 100% Blood Glucose* 228 227 172 - General Appearance General appearance: well-developed, well-nourished EENT: ATNC, hearing intact, vision intact Neck: supple Respiratory: clear Additional Comments: Diminished in the bases. Cardiology: edema (Non pitting edema noted to bilat lower extremities and abdomen. ), normal S1, normal S2 Gastrointestinal: normoactive bowel sounds, no guarding Integumentary: no rash, warm and dry Neurologic: alert and oriented x3 Musculoskeletal: no deformities, no erythema Psychiatric: mood/affect appropriate, cooperative Results - Lab Results 04/12/19 01:00 04/12/19 Unknown Consult Discharge Plan - Plan Instructions: Heart Failure (DC) Referrals: NONE,PCP [Primary Care Provider] - Prescriptions: Amlodipine Besylate 10 mg PO DAILY #30 tablet Prescription Printed hydrALAZINE [HydrALAZINE] 25 mg PO TID #90 tablet Prescription Printed levoFLOXacin [Levaquin] 750 mg PO DAILY #5 tablet Prescription Printed Atorvastatin Calcium [Lipitor] 20 mg PO DAILY #30 tab Prescription Printed predniSONE [PredniSONE] 40 mg PO DAILY #3 tablet Prescription Printed Albuterol Sulfate [Proair Respiclick] 90 mcg IH Q4HR PRN #1 aer.pow.ba PRN Reason: SOB/Wheezing Prescription Printed <Caitlyn Jules - Last Filed: 04/23/19 03:22> Date of Encounter: 04/12/19 Assessment and Plan (1) KENYATTA (acute kidney injury) Status: Acute (2) Acute on chronic congestive heart failure Status: Acute Qualifiers: Heart failure type: unspecified Qualified Code(s): I50.9 - Heart failure, unspecified (3) CHF (congestive heart failure) Status: Acute Qualifiers: Heart failure type: unspecified Heart failure chronicity: unspecified Qualified Code(s): I50.9 - Heart failure, unspecified Exam - Vital Signs Vital signs: Initial Vital Signs Temp Pulse Resp BP Pulse Ox 98.0 F 101 28 173/100 100 04/11/19 13:08 04/11/19 13:08 04/11/19 13:08 04/11/19 13:08 04/11/19 13:08 Results - Lab Results 04/14/19 10:56 04/14/19 04:02 - Attending Attestation I examined this patient and my medical decision-making was reviewed with the Resident Physician/[employer]. I agree with the documented findings, disposition and treatment plan as described except to the extent set forth below. In brief; 43 y o male with PMH of HTN, DM and IVDA admitted with SOB. Renal consulted for elevated SCr. On exam: Gen: NAD, lungs crackles at bases, heart S1S2, Abd soft NTNT, Ext +LE edema RLE BKA, LLE TMA and neuro AAOx3 Kenyatta in the setting of likely sepsis and nephrotoxins like vanco. Workup as above. Avoid nephrotoxins if possible.
--- NOTE | 2019-04-12 15:00 | Internal Med Progress Note ---
Hospitalist Progress Note - Encounter Date of Encounter: 04/12/19 Time of Encounter: 14:58 - Subjective Interval History: Patient see and examined. Patient notes he is still have trouble breathing. He is currently on 4L NC. Patient states that he is very anxious. Per nursing, he has been on 4L NC, room air and BiPAP intermittently due to dyspnea but has stable O2 sat. Patient at one point wanted to leave AMA but when I spoke with him, he stated he would stay. - Exam Vitals: Temp Pulse Resp BP Pulse Ox 99.0 F 98 20 183/109 96 04/12/19 11:15 04/12/19 11:15 04/12/19 11:15 04/12/19 11:15 04/12/19 11:15 Exam: GENERAL APPEARANCE: Well developed, well nourished, alert and cooperative, and appears to be in no acute distress. HEENT: Normocephalic/atraumatic, PERRLA. NECK: Supple, nontender without lymphadenopathy. CARDIOVASCULAR: Normal S1, S2; regular rate and rhythm; no murmurs. RESPIRATORY: Bilateral crackles at bases; poor air entry; dyspneic appearing ABDOMEN: Soft, nondistended, nontender; bowel sounds present. MUSKULOSKELETAL: No limitations in range of motion. EXTREMITIES: 1+ pitting edema in bilateral lower extremities; BKA RLE; metatarsal amputation of LLE with dressing wrapped, no drainage or redness NEUROLOGICAL: No focal neurological deficits. SKIN: Skin normal color, texture and turgor with no lesions or eruptions. PSYCHIATRIC: anxious appearing - Assessment and Plan (1) Acute respiratory failure Current Visit: Yes Status: Acute Assessment and Plan: Patient with history of CHF now presenting with exacerbation of CHF as well as KENYATTA CXR showing moderate pulmonary edema Cr up to 2.3 with baseline around 0.7; improved to 1.7 Patient recently treated at [facility] and given "lots of fluid" Patient reports no O2 at [facility]; now requiring 3L NC No ECHO in our records but patient says his most recent EF was 35% Patient does feel better after receiving lasix in ED but still requiring O2 Difficult to assess to what degree respiratory distress is CHF/KENYATTA vs anxiety Patient intermittently requesting/refusing BiPAP Plan: O2 via NC; titrate to maintain O2 sat above 90% Repeat dose of lasix Monitor I&O Nephrology on board Cardiology on board ECHO pending Obtain records from recent [facility] admission (2) Acute on chronic congestive heart failure Current Visit: Yes Status: Acute Assessment and Plan: Patient reportedly with history of CHF Now appears to be in acute exacerbation No ECHO on record Plan: Cardiology consulted ECHO pending See above (3) Acute renal failure Current Visit: Yes Status: Acute Assessment and Plan: Patient with no history of CKD based on previous labs States he was treated for KENYATTA at [facility] Cr prior to transfer to [facility] was 1.81; up to 2.3 on admission Cr Improved to 1.7 Plan: Nephrology consulted (4) Wound of lower extremity Current Visit: Yes Status: Acute Assessment and Plan: Patient was transferred to [facility] for lower extremity wound Discussion with pharmacy revealed patient completed outpatient course of bactrim No leukocytosis at this time, fever or tachycardia Plan: Wound care consulted Obtaining records from [facility] (5) Diabetes Current Visit: Yes Status: Chronic Assessment and Plan: Patient not currently on medications for this Plan: sliding scale insulin (6) HTN (hypertension) Current Visit: Yes Status: Chronic Assessment and Plan: BP elevated on admission Plan: Increased amlodipine PRN hydralazine (7) Bipolar disorder Current Visit: Yes Status: Chronic Assessment and Plan: Patient not currently on medications for this Plan: monitor (8) DVT prophylaxis Current Visit: Yes Status: Acute Assessment and Plan: subq heparin - Time Spent with Patient Total time spent is greater than 50% in coordination of care (as documented) at patient's floor/unit and/or counseling patient: 40 minutes Plan of Care Discussed with: patient Internal Medicine: Result - Labs CBC & Chem 7: 04/12/19 01:00 04/12/19 Unknown Labs: Short CBC 04/12/19 Range/Units 01:00 WBC 8.5 (4.3-11.1) K/mcL Hgb 10.4 L (12.9-16.9) g/dL Hct 31.9 L (37.5-50.1) % Plt Count 461 H (140-400) K/mcL BMP 04/11/19 04/12/19 14:39 Unknown Sodium 136 135 L Potassium 5.1 5.0 Chloride 106 108 H Carbon Dioxide 22 L 20 L BUN 61 H 57 H Creatinine 2.30 H 2.17 H Glucose 164 H 196 H Calcium 8.3 L 8.3 L Cardiac Enzymes 04/11/19 Range/Units 14:39 Troponin I < 0.03 (< 0.04) ng/mL Liver Function 04/11/19 Range/Units 14:39 Total Bilirubin 0.3 (0.3-1.0) mg/dL AST 8 L (13-39) Units/L ALT 5 L (7-52) Units/L Alkaline Phosphatase 62 (34-104) Units/L Albumin 2.8 L (3.5-5.7) g/dL - ABG Interpretation ABG results: ABG ABG pH 7.43 pH Units (7.32-7.45) 04/11/19 17:08 ABG pCO2 32 mmHg (35-45) L 04/11/19 17:08 ABG pO2 68 mmHg (85-104) L 04/11/19 17:08 ABG O2 Saturation 94 % (95-98) L 04/11/19 17:08 PT/INR, D-dimer PT 12.9 Seconds (9.4-12.1) H 04/11/19 14:39 - Impressions Impressions Chest X-Ray 04/12/19 07:42 IMPRESSION: Slightly worsening bilateral airspace and interstitial opacities, either worsening pulmonary edema versus pneumonia. D/ / Radha Patel MD / Radha Patel MD Interpreting Provider: Radha Patel MD Consult Discharge Plan - Plan Referrals: NONE,PCP [Primary Care Provider] - (1) Acute respiratory failure Qualifiers: Qualified Code(s): J96.01 - Acute respiratory failure with hypoxia (2) Acute on chronic congestive heart failure Qualifiers: Qualified Code(s): I50.9 - Heart failure, unspecified (3) Acute renal failure Qualifiers: Qualified Code(s): N17.9 - Acute kidney failure, unspecified (4) Wound of lower extremity Qualifiers: Qualified Code(s): S81.802D - Unspecified open wound, left lower leg, subsequent encounter (5) Diabetes Qualifiers: Qualified Code(s): E11.59 - Type 2 diabetes mellitus with other circulatory complications (6) HTN (hypertension) Qualifiers: Qualified Code(s): I10 - Essential (primary) hypertension (7) Bipolar disorder Qualifiers: Qualified Code(s): F31.75 - Bipolar disorder, in partial remission, most recent episode depressed
[2019-04-12 15:40] LABS: Bilirubin,Urine Negative (Negative); Blood,Urine Moderate (Negative); Clarity,Urine Clear (Clear); Color,Urine Yellow (Yellow); Glucose,Urine (UA) 100 mg/dL (Normal); Ketones,Urine Negative (Negative); Leukocyte Esterase,Urine Negative (Negative); Nitrite,Urine Negative (Negative); Protein,Urine >=300 mg/dL (Neg-Trace); Urobilinogen,Urine Normal (Normal)
[2019-04-12 16:05] LABS: Protein/Creatinine Ratio,Urine 9.49 mg/mg (0.00-0.20); Sodium, Urine 55.3 mEq/L
[2019-04-12] MEDS ORDERED: *HR* Labetalol 20 MG/4 ML SYRINGE IVP ONE (17:31)
[2019-04-12 17:47] LABS: Squamous Epithelial Cell,Urine Few per lpf (None-Few)
[2019-04-12 17:48] LABS: WBC,Urine 0-3 per hpf (0-3)
[2019-04-12 17:49] LABS: Bacteria,Urine Few per hpf (None-Few)
[2019-04-12 19:04] LABS: Amphetamine Screen,Urine Negative ng/mL (Cutoff=1000); Barbiturate Screen,Urine Negative ng/mL (Cutoff=200); Benzodiazepines Screen,Urine Negative ng/mL (Cutoff=200); Cannabinoid Screen,Urine Negative ng/mL (Cutoff = 50); Cocaine Screen,Urine Negative ng/mL (Cutoff= 300); Opiate Screen,Urine Positive ng/mL (Cutoff=300); Phencyclidine Screen,Urine Negative ng/mL (Cutoff=25)
[2019-04-12] MEDS: Levalbuterol Neb 1.25 MG/3 ML IH PRN (22:00)
[2019-04-13 03:16] LABS: Calcium 8.7 mg/dL (8.6-10.3); Complement C3 125 mg/dL (87-200); Uric Acid 8.6 mg/dL (2.3-7.6)
[2019-04-13] MEDS: *HR* Heparin 5,000 UNIT/ML VIAL SQ SCH ×2 (06:45→16:35)
--- NOTE | 2019-04-13 08:43 | Cardiology Progress Note ---
<CarmenJosefClark M - Last Filed: 04/13/19 12:00> Date of Encounter: 04/13/19 Time of Encounter: 08:39 Assessment and Plan (1) Acute respiratory failure with hypoxia Current Visit: Yes Status: Acute Patient with remote history of CHF presenting with CHF exacerbation 2/2 fluid overload. Repeat CXR revealed worsening of pulmonary edema. Echo demonstrates EF of 50% with moderate LV diastolic dysfunction. - Patient only with mild improvement on bipap, O2, lasix. Dyspnea still unchanged from yesterday. - Creatinine trending down to 1.89. Will do additional dose of 40 mg IV lasix today. Continue to monitor renal function. - Continue bipap. - Maintain O2 sat >90%. Cardiology will sign off at this time. See additional recs below. (2) CHF (congestive heart failure) Current Visit: Yes Status: Acute Patient with remote history of CHF and presented with CHF exacerbation likely 2/2 fluid overload. Patient reports that he was given to much fluid at [facility], was discharged on 04/08/19 with development of symptoms on 04/10/19. 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 Echo revealed LVEF of 50% with moderate LV diastolic dysfunction. No change in shortness of breath since yesterday. Patient having difficulty sleeping last night on bipap. Repeat CXR yesterday with worsening pulmonary edema. - Additional dose of 40 mg IV lasix today. Creatinine trending down from 2.3, 2.17, 1.89. - If creatinine continues to trend down to baseline, switch to PO lasix. - Monitor renal function. - Strict I's and O's. - Continue bipap, O2. Qualifiers: Heart failure type: unspecified Heart failure chronicity: unspecified Qualified Code(s): I50.9 - Heart failure, unspecified (3) KENYATTA (acute kidney injury) Current Visit: Yes Status: Acute Patient with CHF exacerbation and KENYATTA. Creatinine at admission 2.3, 2.17, 1.89. Baseline creatinine approximately 0.75, urine output is good at this time. - Additional lasix today for diuresis. Monitor creatinine. If cr continues to trend down, switch to PO lasix. - Maintain strict I and O's. - Nephro following. (4) HTN (hypertension) Current Visit: No Status: Chronic Patient with history of HTN, uncontrolled DM, IV methamphetamine use presented to ED with CHF exacerbation, BP in the 170/100s, HR in 100s. 20 mg of IV hydralazine given once this morning and bp remains in the 150-160s/80-90s. Pt denies MORALES, dizziness, vision changes. There is also history of severe anxiety. - Will discontinue IV hydralazine. Start 25 mg PO hydralazine TID. - Continue 10 mg amlodipine. - Continue to monitor. Qualifiers: Hypertension type: essential hypertension Qualified Code(s): I10 - Essential (primary) hypertension Discussion w patient/family: The assessment and plan as outlined above was discussed with the patient and/or family members who expressed understanding and agreement. All questions were answered. Thank you for involving us in the care of your patient. Please call with any questions. Subjective Principal diagnosis: CHF exacerbation Interval history: Patient is awake, alert, sitting up in bed. He is slightly more agitated and anxious today. On 3 L of oxygen. States that he did not sleep well last night, even with bipap use. Still having dyspnea that is unchanged from yesterday. Otherwise no acute events overnight. We discussed his recent echocardiogram today which revealed EF of 50% and moderate LV diastolic dysfunction. Patient had no questions. Plan is to continue diuresis, Bipap, O2. Patient agreed with this plan. Objective Vital Signs, Last 4 Hours Temp Pulse Resp BP Pulse Ox 04/13/19 08:32 97.2 F L 102 18 166/96 99 Results 04/12/19 01:00 04/13/19 Unknown Lab Results 04/13/19 Unknown Sodium 134 L Potassium 5.0 Chloride 109 H Carbon Dioxide 24 BUN 51 H Creatinine 1.89 H Glucose 217 H Calcium 8.7 Consult Discharge Plan - Plan Referrals: NONE,PCP [Primary Care Provider] - Cardiac Rehab - Cardiac Rehab Cardiac Rehab: Phase I consult completed. Patient was educated on why Cardiac Rehabilitation is beneficial to his/her health. Participating in a cardiac rehabilitation can improve the following: strengthen your heart, improve ejection fraction, weight reduction, decrease cholesterol levels, lower blood pressure, lower blood sugar, improve stamina, and enhance self-image. If he/she has any questions, they were instructed to call [facility] at [phone]. < A - Last Filed: 04/13/19 12:07> Date of Encounter: 04/13/19 Assessment and Plan Discussion w patient/family: The assessment and plan as outlined above was discussed with the patient and/or family members who expressed understanding and agreement. All questions were answered. Thank you for involving us in the care of your patient. Please call with any questions. Objective Vital Signs, Last 4 Hours Temp Pulse Resp BP Pulse Ox 04/13/19 11:17 97.9 F 105 18 159/98 98 04/13/19 08:32 97.2 F L 102 18 166/96 99 Results 04/12/19 01:00 04/13/19 Unknown Lab Results 04/13/19 Unknown Sodium 134 L Potassium 5.0 Chloride 109 H Carbon Dioxide 24 BUN 51 H Creatinine 1.89 H Glucose 217 H Calcium 8.7 Cardiac Rehab - Cardiac Rehab Cardiac Rehab: Phase I consult completed. Patient was educated on why Cardiac Rehabilitation is beneficial to his/her health. Participating in a cardiac rehabilitation can improve the following: strengthen your heart, improve ejection fraction, weight reduction, decrease cholesterol levels, lower blood pressure, lower blood sugar, improve stamina, and enhance self-image. If he/she has any questions, they were instructed to call [facility] at [phone]. - Attending Attestation I have personally performed a face to face evaluation on this patient. I have reviewed and agree with the documented findings and care plan as documented by the resident. History and Exam by me shows: 43-year-old gentleman with history of right BKA, recurrent osteomyelitis r ecently hospitalized at [facility] for foot infection. Presented with acute respiratory failure with hypoxia secondary to pulmonary edema in the setting of uncontrolled blood pressure. Feels much better today. In negative balance of 600 mL. Blood pressures improved with Norvasc 10 mg daily and IV hydralazine. AAOX3 in NAD at the bedside Hemodynamically stable Cardiopulmonary exam revealed S1, S2, no murmur; mild bibasilar rales Rhythm reviewed - sinus rhythm, no acute ST T changes Echo shows preserved ejection fraction Impression/plan: 1. Acute hypoxic respiratory failure secondary to acute diastolic CHF exacerbation- improved. GIve IV Lasix 40 mg once today. Strict inputs and outputs monitoring. Fluid restricted low-salt diet. 2. Hypertension, probably secondary to IRMA. Switch hydralazine to PO 25 mg 3 times a day. Continue Norvasc 10 mg daily 3. Acute kidney injury sec to cardiorenal syndrome. Diurese as needed, otherwise avoid nephrotoxic agents Thanks for the consult, please call with questions. Anastacio Lundberg MD [facility]
[2019-04-13] MEDS: amLODIPine 5 MG TABLET PO SCH (09:23)
[2019-04-13] MEDS: Insulin LISPRO 300 UNITS/3 ML VIAL SQ SCH ×4 (09:24→20:46)
[2019-04-13] MEDS: Sennosides 8.6 MG TABLET PO SCH (09:24)
--- NOTE | 2019-04-13 09:51 | Electrocardiograph Report ---
[employer] Test Date: 2019-04-11 Pat Name: Norman Redd Department: [id number] Room: Gender: M Discharge Planner: : 1975 Requested By: Harpreet Moncada Order Number: [id number] Reading MD: Sedrick Bennett Measurements Intervals [place] Rate: 89 P: 42 VT: 141 QRS: 43 QRSD: 94 T: 117 QT: 371 QTc: 452 Interpretive Statements Sinus rhythm Probable anteroseptal infarct, old, poor R wave prog. Nonspecific T abnormalities, lateral leads, present 12/2018 Electronically Signed On 04-13-2019 9:49:23 EDT by Sedrick Bennett
[2019-04-13] MEDS ORDERED: Furosemide 40 MG/4 ML VIAL IVP ONE (10:36)
[2019-04-13] MEDS: hydrALAZINE 25 MG TABLET PO SCH ×3 (11:30→20:46)
--- NOTE | 2019-04-13 13:06 | Nephrology Progress Note ---
Date of Encounter: 04/13/19 Time of Encounter: 09:25 - Assessment and Plan (1) KENYATTA (acute kidney injury) Current Visit: Yes Status: Acute Nonoliguric acute kidney injury, and improving. No indications for renal replacement therapy at this time. In the meantime, I recommend a renal protective strategy. This involves avoiding nephrotoxic agents, such as Bactrim, NSAIDs, intravenous contrast, etc, if possible. Prevent hypotension to help improve renal perfusion, and ensure adequate oral hydration, when able. Trend daily serum creatinine levels, I/Os, and daily weights. (2) Acute on chronic congestive heart failure Current Visit: Yes Status: Acute Qualifiers: Heart failure type: unspecified Qualified Code(s): I50.9 - Heart failure, unspecified (3) CHF (congestive heart failure) Current Visit: Yes Status: Acute Qualifiers: Heart failure type: unspecified Heart failure chronicity: unspecified Qualified Code(s): I50.9 - Heart failure, unspecified Subjective Principal diagnosis: CHF exacerbation Interval history: Pt s/e earlier today and he did not affirm N/V/D or F/C. He said he is making urine. He reported having chronic back pains. Objective - Vital Signs Vital signs: Vital Signs Temp Pulse Resp BP Pulse Ox 04/13/19 11:17 97.9 F 105 18 159/98 98 04/13/19 08:32 97.2 F L 102 18 166/96 99 04/13/19 04:00 97.2 F L 103 20 99 04/12/19 23:22 98 F 107 18 152/79 93 04/12/19 22:01 17 98 04/12/19 20:11 98.2 F 104 20 175/112 94 04/12/19 18:45 177/98 Intake and Output 04/12/19 04/13/19 04/13/19 23:59 07:59 15:59 Intake Total 0 / 1080 Output Total 1325 / 1325 620 / 1620 1000 / 1620 Balance -1325 / -245 -620 / -1620 -1000 / -1620 Intake: Oral 0 / 1080 Output: Urine 1325 / 1325 620 / 1620 1000 / 1620 Other: Meal Dinner Percent of Meal Consumed 10% Stool Size Copious Stool Consistency soft formed Stool Characteristics Seedy Stool Color Brown # Bowel Movements 1 Blood Glucose* 188 185 - General Appearance General appearance: Present: well-developed, well-nourished, appears started age EENT: Present: ATNC, PERRL, mucous membranes dry Neck: Present: no JVD, supple Respiratory: Present: no kyphosis, clear Cardiology: Present: regular rate, regular rhythm, normal S1, normal S2 Gastrointestinal: Present: normoactive bowel sounds, no tenderness, no guarding Integumentary: Present: chronic venous stasis Neurologic: Present: no focal deficit, no asterixis, alert and oriented x3 Musculoskeletal: Present: no erythema, no cyanosis, no clubbing Psychiatric: Present: mood/affect appropriate, cooperative - Lab 04/12/19 01:00 04/13/19 Unknown Most recent lab results 04/13/19 Unknown Calcium 8.7 Consult Discharge Plan - Plan Referrals: NONE,PCP [Primary Care Provider] -
--- NOTE | 2019-04-13 17:08 | Internal Med Progress Note ---
Hospitalist Progress Note - Encounter Date of Encounter: 04/13/19 Time of Encounter: 16:59 - Subjective Interval History: Patient seen and examined. Patient states he feels better. He appears comfortable on nasal canula and feels his breathing is better. Patient denies chest pain. - Exam Vitals: Temp Pulse Resp BP Pulse Ox 97.6 F 99 32 141/84 98 04/13/19 16:11 04/13/19 16:11 04/13/19 16:11 04/13/19 16:11 04/13/19 16:11 Exam: GENERAL APPEARANCE: Well developed, well nourished, alert and cooperative, and appears to be in no acute distress. HEENT: Normocephalic/atraumatic, PERRLA. NECK: Supple, nontender without lymphadenopathy. CARDIOVASCULAR: Normal S1, S2; regular rate and rhythm; no murmurs. RESPIRATORY: Bilateral crackles at bases; poor air entry; dyspneic appearing ABDOMEN: Soft, nondistended, nontender; bowel sounds present. MUSKULOSKELETAL: No limitations in range of motion. EXTREMITIES: 1+ pitting edema in bilateral lower extremities; BKA RLE; metatarsal amputation of LLE with dressing wrapped, no drainage or redness NEUROLOGICAL: No focal neurological deficits. SKIN: Skin normal color, texture and turgor with no lesions or eruptions. PSYCHIATRIC: anxious appearing - Assessment and Plan (1) Acute respiratory failure Current Visit: Yes Status: Acute Assessment and Plan: Patient with history of CHF now presenting with exacerbation of CHF as well as KENYATTA CXR showing moderate pulmonary edema Cr up to 2.3 with baseline around 0.7; improved to 1.7 Patient recently treated at [facility] and given "lots of fluid" Patient reports no O2 at [facility]; now requiring 3L NC No ECHO in our records but patient says his most recent EF was 35% Patient does feel better after receiving lasix in ED but still requiring O2 Difficult to assess to what degree respiratory distress is CHF/KENYATTA vs anxiety Patient intermittently requesting/refusing BiPAP ECHO showing 50% EF Plan: O2 via NC; titrate to maintain O2 sat above 90% Continue diuresis Monitor I&O Nephrology on board Cardiology on board (2) Acute on chronic congestive heart failure Current Visit: Yes Status: Acute Assessment and Plan: Patient reportedly with history of CHF Now appears to be in acute exacerbation ECHO showing 50% EF Plan: See above (3) Acute renal failure Current Visit: Yes Status: Acute Assessment and Plan: Patient with no history of CKD based on previous labs States he was treated for KENYATTA at [facility] Cr prior to transfer to [facility] was 1.81; up to 2.3 on admission Cr continues to improve Plan: Nephrology consulted (4) Wound of lower extremity Current Visit: Yes Status: Acute Assessment and Plan: Patient was transferred to [facility] for lower extremity wound Discussion with pharmacy revealed patient completed outpatient course of bactrim No leukocytosis at this time, fever or tachycardia Plan: Wound care consulted (5) Diabetes Current Visit: Yes Status: Chronic Assessment and Plan: Patient not currently on medications for this Plan: sliding scale insulin (6) HTN (hypertension) Current Visit: Yes Status: Chronic Assessment and Plan: BP elevated on admission Plan: Increased amlodipine PRN hydralazine (7) Bipolar disorder Current Visit: Yes Status: Chronic Assessment and Plan: Patient not currently on medications for this Plan: monitor (8) DVT prophylaxis Current Visit: Yes Status: Acute Assessment and Plan: subq heparin - Time Spent with Patient Total time spent is greater than 50% in coordination of care (as documented) at patient's floor/unit and/or counseling patient: 35 minutes Plan of Care Discussed with: patient Internal Medicine: Result - Labs CBC & Chem 7: 04/12/19 01:00 04/13/19 Unknown Labs: BMP 04/13/19 Unknown Sodium 134 L Potassium 5.0 Chloride 109 H Carbon Dioxide 24 BUN 51 H Creatinine 1.89 H Glucose 217 H Calcium 8.7 - ABG Interpretation ABG results: ABG ABG pH 7.43 pH Units (7.32-7.45) 04/11/19 17:08 ABG pCO2 32 mmHg (35-45) L 04/11/19 17:08 ABG pO2 68 mmHg (85-104) L 04/11/19 17:08 ABG O2 Saturation 94 % (95-98) L 04/11/19 17:08 PT/INR, D-dimer PT 12.9 Seconds (9.4-12.1) H 04/11/19 14:39 - Impressions Impressions Retroperitoneum Ultrasound 04/13/19 13:51 IMPRESSION: Unremarkable ultrasound of the kidneys and urinary bladder. D/ / 04/13/2019 13:56:25 Jacobo Clark MD / deven Interpreting Provider: Jacobo Clark MD Consult Discharge Plan - Plan Referrals: NONE,PCP [Primary Care Provider] - (1) Acute respiratory failure Qualifiers: Respiratory failure complication: hypoxia Qualified Code(s): J96.01 - Acute respiratory failure with hypoxia (2) Acute on chronic congestive heart failure Qualifiers: Heart failure type: unspecified Qualified Code(s): I50.9 - Heart failure, unspecified (3) Acute renal failure Qualifiers: Acute renal failure type: unspecified Qualified Code(s): N17.9 - Acute kidney failure, unspecified (4) Wound of lower extremity Qualifiers: Encounter type: subsequent encounter Laterality: left Qualified Code(s): S81.802D - Unspecified open wound, left lower leg, subsequent encounter (5) Diabetes Qualifiers: Diabetes mellitus type: type 2 Diabetes mellitus custodial insulin use: without custodial use Diabetes mellitus complication status: with circulatory complication Diabetes mellitus complication detail: with other circulatory complications Qualified Code(s): E11.59 - Type 2 diabetes mellitus with other circulatory complications (6) HTN (hypertension) Qualifiers: Hypertension type: essential hypertension Qualified Code(s): I10 - Essential (primary) hypertension (7) Bipolar disorder Qualifiers: Active/Remission status: in partial remission Most recent bipolar episode type: depressed Qualified Code(s): F31.75 - Bipolar disorder, in partial remission, most recent episode depressed
[2019-04-14] MEDS: Levalbuterol Neb 1.25 MG/3 ML IH PRN (04:11)
[2019-04-14 04:50] LABS: Calcium 8.5 mg/dL (8.6-10.3); Potassium 5.1 mEq/L (3.5-5.1)
[2019-04-14] MEDS: *HR* Heparin 5,000 UNIT/ML VIAL SQ SCH ×2 (06:29→17:42)
--- NOTE | 2019-04-14 07:29 | Event Note ---
Date of Encounter: 04/14/19 Time of Encounter: 07:28 - Nephrology Event Note Nephrology Chart Update The pt's SCr is nicely improving each day. There is no indication for [employer]. I will politely sign-off at this time, but please feel free to call or page me with any Renal questions. I recommend checking a BMP in about 1 week and following up with Dr. Islas who originally consulted on the pt in about 3-6 weeks or sooner if indicated. Thank you.
[2019-04-14] MEDS: Sennosides 8.6 MG TABLET PO SCH (09:20)
[2019-04-14] MEDS: Insulin LISPRO 300 UNITS/3 ML VIAL SQ SCH ×3 (09:20→17:43)
[2019-04-14] MEDS: hydrALAZINE 25 MG TABLET PO SCH ×3 (09:21→21:22)
[2019-04-14] MEDS: amLODIPine 5 MG TABLET PO SCH (09:21)
[2019-04-14 10:11] LABS: ABG Base Excess -3 mEq/L (-2 to 3); ABG HCO3 21 mEq/L (21-27); ABG Oxygen Saturation 96 % (95-98); ABG PCO2 34 mmHg (35-45); ABG PH 7.41 pH Units (7.32-7.45); ABG PO2 80 mmHg (85-104); ABG TCO2 22 mEq/L (20-26)
[2019-04-14 11:11] LABS: Hematocrit 33.8 % (37.5-50.1); Mean Corpuscular HGB Conc 32.5 g/dL (31.6-35.5); Mean Corpuscular Hemoglobin 29.3 pg (28.0-33.3); Mean Corpuscular Volume 90.1 fL (83.0-100.0); Mean Platelet Volume 9.4 fL (9.4-12.4); Platelet Count 411 K/mcL (140-400); Red Blood Count 3.75 M/mcL (4.19-5.50); Red Cell Distribution Width 12.9 % (11.5-14.5); White Blood Count 10.6 K/mcL (4.3-11.1)
[2019-04-14] MEDS ORDERED: Albuterol 2.5 MG/3 ML NEBULIZER IH PRN (13:15)
--- NOTE | 2019-04-14 14:10 | Internal Med Progress Note ---
Hospitalist Progress Note - Encounter Date of Encounter: 04/14/19 Time of Encounter: 14:06 - Subjective Interval History: Patient seen and examined. Patient states that he is feeling better. He still appears very anxious. Patient looks comfortable on 3L NC. Per nursing, he intermittently uses his BiPAP. Patient's mother present and states that he has had issues with anxiety in the past and was medicated but no longer taking. - Exam Vitals: Temp Pulse Resp BP Pulse Ox 97.5 F L 93 22 158/99 98 04/14/19 10:58 04/14/19 10:58 04/14/19 10:58 04/14/19 10:58 04/14/19 10:58 Exam: GENERAL APPEARANCE: Well developed, well nourished, alert and cooperative, and appears to be in no acute distress. HEENT: Normocephalic/atraumatic, PERRLA. NECK: Supple, nontender without lymphadenopathy. CARDIOVASCULAR: Normal S1, S2; regular rate and rhythm; no murmurs. RESPIRATORY: Bilateral crackles at bases; poor air entry; not dyspneic on 3L NC ABDOMEN: Soft, nondistended, nontender; bowel sounds present. MUSKULOSKELETAL: No limitations in range of motion. EXTREMITIES: 1+ pitting edema in bilateral lower extremities; BKA RLE; metatarsal amputation of LLE with dressing wrapped, no drainage or redness NEUROLOGICAL: No focal neurological deficits. SKIN: Skin normal color, texture and turgor with no lesions or eruptions. PSYCHIATRIC: anxious appearing - Assessment and Plan (1) Acute respiratory failure Current Visit: Yes Status: Acute Assessment and Plan: Patient with history of CHF now presenting with exacerbation of CHF as well as KENYATTA CXR showing moderate pulmonary edema Cr up to 2.3 with baseline around 0.7; improved to 1.7 Patient recently treated at [facility] and given "lots of fluid" Patient reports no O2 at [facility]; now requiring 3L NC No ECHO in our records but patient says his most recent EF was 35% Patient does feel better after receiving lasix in ED but still requiring O2 Difficult to assess to what degree respiratory distress is CHF/KENYATTA vs anxiety Patient intermittently requesting/refusing BiPAP ECHO showing 50% EF 2 repeat CXR show continued worsening of airspace disease despite improved symptoms and good urine output; CXR stating pulmonary edema vs PNA Patient has been afebrile. WBC normal. Lactic acid was normal; Procal was slighlty elevated but this could be due to renal failure Patient does have wheezing on exam; no official diagnosis of COPD but he is a smoker and his mother does have COPD Plan: O2 via NC; titrate to maintain O2 sat above 90% Continue diuresis Monitor I&O Nephrology signed off Cardiology signed off Repeat procal and lactic acid Atypical PNA cultures Will obtain CT chest to clarify xray findings Start steroids and breathing treatments for possible COPD (2) Acute on chronic congestive heart failure Current Visit: Yes Status: Acute Assessment and Plan: Patient reportedly with history of CHF Now appears to be in acute exacerbation ECHO showing 50% EF Plan: See above (3) Acute renal failure Current Visit: Yes Status: Acute Assessment and Plan: Patient with no history of CKD based on previous labs States he was treated for KENYATTA at [facility] Cr prior to transfer to [facility] was 1.81; up to 2.3 on admission Cr continues to improve Plan: avoid nephrotoxic agents monitor (4) Wound of lower extremity Current Visit: Yes Status: Acute Assessment and Plan: Patient was transferred to [facility] for lower extremity wound Discussion with pharmacy revealed patient completed outpatient course of bactrim No leukocytosis at this time, fever or tachycardia Plan: Wound care consulted (5) Diabetes Current Visit: Yes Status: Chronic Assessment and Plan: Patient not currently on medications for this Blood sugars have been high during admission Plan: 10 units Levemir qHS Mediume dose SSI (6) HTN (hypertension) Current Visit: Yes Status: Chronic Assessment and Plan: BP elevated on admission BP has improved but still on high side Plan: Continue amlodipine, hydralazine PRN hydralazine (7) Bipolar disorder Current Visit: Yes Status: Chronic Assessment and Plan: Patient not currently on medications for this Clearly patient is quite anxious during admission Plan: monitor (8) DVT prophylaxis Current Visit: Yes Status: Acute Assessment and Plan: subq heparin - Time Spent with Patient Total time spent is greater than 50% in coordination of care (as documented) at patient's floor/unit and/or counseling patient: 35 minutes Plan of Care Discussed with: patient Internal Medicine: Result - Labs CBC & Chem 7: 04/14/19 10:56 04/14/19 04:02 Labs: Short CBC 04/14/19 Range/Units 10:56 WBC 10.6 (4.3-11.1) K/mcL Hgb 11.0 L (12.9-16.9) g/dL Hct 33.8 L (37.5-50.1) % Plt Count 411 H (140-400) K/mcL BMP 04/14/19 04:02 Sodium 137 Potassium 5.1 Chloride 108 H Carbon Dioxide 22 L BUN 54 H Creatinine 1.64 H Glucose 173 H Calcium 8.5 L - ABG Interpretation ABG results: ABG ABG pH 7.41 pH Units (7.32-7.45) 04/14/19 10:08 ABG pCO2 34 mmHg (35-45) L 04/14/19 10:08 ABG pO2 80 mmHg (85-104) L 04/14/19 10:08 ABG O2 Saturation 96 % (95-98) 04/14/19 10:08 PT/INR, D-dimer PT 12.9 Seconds (9.4-12.1) H 04/11/19 14:39 - Impressions Impressions Retroperitoneum Ultrasound 04/13/19 13:51 IMPRESSION: Unremarkable ultrasound of the kidneys and urinary bladder. D/ / 04/13/2019 13:56:25 Jacobo Clark MD / [facility] Interpreting Provider: Jacobo Clark MD Chest X-Ray 04/14/19 08:16 IMPRESSION: Perihilar and multifocal airspace opacities. Slight worsening from prior exam. Findings may represent pulmonary edema or developing pneumonitis. D/ / Naveed Orellana MD / Naveed Orellana MD Interpreting Provider: Naveed Orellana MD Consult Discharge Plan - Plan Referrals: NONE,PCP [Primary Care Provider] - ____ (1) Acute respiratory failure Qualifiers: Respiratory failure complication: hypoxia Qualified Code(s): J96.01 - Acute respiratory failure with hypoxia (2) Acute on chronic congestive heart failure Qualifiers: Heart failure type: unspecified Qualified Code(s): I50.9 - Heart failure, unspecified (3) Acute renal failure Qualifiers: Acute renal failure type: unspecified Qualified Code(s): N17.9 - Acute kidney failure, unspecified (4) Wound of lower extremity Qualifiers: Encounter type: subsequent encounter Laterality: left Qualified Code(s): S81.802D - Unspecified open wound, left lower leg, subsequent encounter (5) Diabetes Qualifiers: Diabetes mellitus type: type 2 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: without equipment operator intermodal yard use Diabetes mellitus complication status: with circulatory complication Diabetes mellitus complication detail: with other circulatory complications Qualified Code(s): E11.59 - Type 2 diabetes mellitus with other circulatory complications (6) HTN (hypertension) Qualifiers: Hypertension type: essential hypertension Qualified Code(s): I10 - Essential (primary) hypertension (7) Bipolar disorder Qualifiers: Active/Remission status: in partial remission Most recent bipolar episode type: depressed Qualified Code(s): F31.75 - Bipolar disorder, in partial remission, most recent episode depressed
[2019-04-14] MEDS ORDERED: Insulin LISPRO 300 UNITS/3 ML VIAL SQ SCH (14:15)
[2019-04-14] MEDS: Ipratropium/Albuterol Neb 3 ML IH SCH ×3 (15:08→23:02)
[2019-04-14] MEDS: predniSONE 20 MG TABLET PO SCH (16:21)
[2019-04-14] MEDS: levoFLOXacin 750 MG/150 ML 750 MG/150 ML BAG IVPB SCH (17:42)
[2019-04-14] MEDS ORDERED: Insulin DETEMIR 100 UNIT/ML X5UNITS SQ SCH (21:00)
[2019-04-15] MEDS: Ipratropium/Albuterol Neb 3 ML IH SCH ×2 (04:10→07:45)
[2019-04-15] MEDS: *HR* Heparin 5,000 UNIT/ML VIAL SQ SCH (05:39)
[2019-04-15 07:14] VITALS: BP 144/77
[2019-04-15] MEDS: Sennosides 8.6 MG TABLET PO SCH (08:29)
[2019-04-15] MEDS: hydrALAZINE 25 MG TABLET PO SCH (08:29)
[2019-04-15] MEDS: levoFLOXacin 750 MG/150 ML 750 MG/150 ML BAG IVPB SCH ×2 (08:29→09:03)
[2019-04-15] MEDS: amLODIPine 5 MG TABLET PO SCH (08:29)
[2019-04-15] MEDS: predniSONE 20 MG TABLET PO SCH (08:29)
[2019-04-15] MEDS: Insulin LISPRO 300 UNITS/3 ML VIAL SQ SCH (08:30)
[2019-04-15] MEDS ORDERED: levoFLOXacin 750 MG TABLET PO SCH (09:15)
--- NOTE | 2019-04-15 09:20 | Internal Med Progress Note ---
Hospitalist Progress Note - Encounter Date of Encounter: 04/15/19 Time of Encounter: 09:15 - Subjective Interval History: Patient seen and examined. Patient lost IV access last night and is now not allowing nurses to replace. He states he is tired of being stuck and it hurts. This morning, patient was comfortable on 2L NC. He states he is breathing better and would like to go home. I removed his oxygen and patient continued to exhibit no signs of dyspnea. Sat was 96% on room air. Patient has improved clinically since admission. He is stable on room air and wanting to go home. - Exam Vitals: Temp Pulse Resp BP Pulse Ox 96.4 F L 93 18 144/77 98 04/15/19 07:08 04/15/19 07:08 04/15/19 07:45 04/15/19 07:08 04/15/19 07:45 Exam: GENERAL APPEARANCE: Well developed, well nourished, alert and cooperative, and appears to be in no acute distress. HEENT: Normocephalic/atraumatic, PERRLA. NECK: Supple, nontender without lymphadenopathy. CARDIOVASCULAR: Normal S1, S2; regular rate and rhythm; no murmurs. RESPIRATORY: b/l air entry present; coarse upper breath sounds; no crackles or wheezing auscultated; no dyspnea with exertion or conversation ABDOMEN: Soft, nondistended, nontender; bowel sounds present. MUSKULOSKELETAL: No limitations in range of motion. EXTREMITIES: 1+ pitting edema in bilateral lower extremities; BKA RLE; metatarsal amputation of LLE with dressing wrapped, no drainage or redness NEUROLOGICAL: No focal neurological deficits. SKIN: Skin normal color, texture and turgor with no lesions or eruptions. PSYCHIATRIC: anxious appearing - Assessment and Plan (1) Acute respiratory failure Current Visit: Yes Status: Resolved Assessment and Plan: Patient with history of CHF now presenting with exacerbation of CHF as well as KENYATTA CXR showing moderate pulmonary edema Cr initially up but improved during admission Patient recently treated at [facility] and given "lots of fluid" Difficult to assess to what degree respiratory distress is CHF/KENYATTA vs anxiety Patient intermittently requesting BiPAP and taking off ECHO showing 50% EF Imaging continues to show evidence of fluid vs possible PNA; however, no leukocytosis, fever, hypotension, tachycardia; lactic acid normal and procal only mildly elevated and trending down with no antibiotic therapy Procal may not be accurate due to renal failure Patient does have wheezing on exam; no official diagnosis of COPD but he is a smoker and his mother does have COPD Today: Patient is breathing much better; his O2 sats have been stable off of oxygen; MRSA swab was negative, but clinical picture does not suggest that patient has MRSA pneumonia Plan: Switch levaquin to oral as patient has lost IV access; clinically, patient does not appear to need IV antibiotics Continue steroids and breathing treatments for possible COPD If patient continues to be stable on room air, plan for discharge today with close outpatient f/u (2) Acute on chronic congestive heart failure Current Visit: Yes Status: Acute Assessment and Plan: Patient reportedly with history of CHF Now appears to be in acute exacerbation ECHO showing 50% EF Plan: See above (3) Acute renal failure Current Visit: Yes Status: Acute Assessment and Plan: Patient with no history of CKD based on previous labs States he was treated for KENYATTA at [facility] Cr prior to transfer to [facility] was 1.81; up to 2.3 on admission Cr continues to improve Plan: avoid nephrotoxic agents monitor (4) Wound of lower extremity Current Visit: Yes Status: Acute Assessment and Plan: Patient was transferred to [facility] for lower extremity wound Discussion with pharmacy revealed patient completed outpatient course of bactrim No leukocytosis at this time, fever or tachycardia Plan: Wound care consulted (5) Diabetes Current Visit: Yes Status: Chronic Assessment and Plan: Patient not currently on medications for this Blood sugars have been high during admission Plan: 10 units Levemir qHS Mediume dose SSI (6) HTN (hypertension) Current Visit: Yes Status: Chronic Assessment and Plan: BP elevated on admission BP has improved but still on high side Plan: Continue amlodipine, hydralazine PRN hydralazine (7) Bipolar disorder Current Visit: Yes Status: Chronic Assessment and Plan: Patient not currently on medications for this Clearly patient is quite anxious during admission Plan: monitor (8) DVT prophylaxis Current Visit: Yes Status: Acute Assessment and Plan: subq heparin - Time Spent with Patient Total time spent is greater than 50% in coordination of care (as documented) at patient's floor/unit and/or counseling patient: 35 minutes Plan of Care Discussed with: patient Internal Medicine: Result - Labs CBC & Chem 7: 04/14/19 10:56 04/14/19 04:02 Labs: Short CBC 04/14/19 Range/Units 10:56 WBC 10.6 (4.3-11.1) K/mcL Hgb 11.0 L (12.9-16.9) g/dL Hct 33.8 L (37.5-50.1) % Plt Count 411 H (140-400) K/mcL - ABG Interpretation ABG results: ABG ABG pH 7.41 pH Units (7.32-7.45) 04/14/19 10:08 ABG pCO2 34 mmHg (35-45) L 04/14/19 10:08 ABG pO2 80 mmHg (85-104) L 04/14/19 10:08 ABG O2 Saturation 96 % (95-98) 04/14/19 10:08 PT/INR, D-dimer PT 12.9 Seconds (9.4-12.1) H 04/11/19 14:39 - Impressions Impressions Chest CT 04/14/19 14:32 IMPRESSION: 1. Moderate bilateral pleural effusions with dense airspace opacities in both lower lobes and more diffuse ground-glass opacification bilaterally. 2. Peripheral airway opacification and peribronchial thickening in both lower lobes. 3. Slightly increased mediastinal lymph node enlargement. 4. Spectrum of findings may represent aspiration or developing pneumonia. Pulmonary edema can not be definitively excluded. D/ / Naveed Orellana MD / Naveed Orellana MD Interpreting Provider: Naveed Orellana MD Consult Discharge Plan - Plan Referrals: NONE,PCP [Primary Care Provider] - (1) Acute respiratory failure Qualifiers: Respiratory failure complication: hypoxia Qualified Code(s): J96.01 - Acute respiratory failure with hypoxia (2) Acute on chronic congestive heart failure Qualifiers: Heart failure type: unspecified Qualified Code(s): I50.9 - Heart failure, unspecified (3) Acute renal failure Qualifiers: Acute renal failure type: unspecified Qualified Code(s): N17.9 - Acute kidney failure, unspecified (4) Wound of lower extremity Qualifiers: Encounter type: subsequent encounter Laterality: left Qualified Code(s): S81.802D - Unspecified open wound, left lower leg, subsequent encounter (5) Diabetes Qualifiers: Diabetes mellitus type: type 2 Diabetes mellitus fci insulin use: without extermination supervisor use Diabetes mellitus complication status: with circulatory complication Diabetes mellitus complication detail: with other circulatory complications Qualified Code(s): E11.59 - Type 2 diabetes mellitus with other circulatory complications (6) HTN (hypertension) Qualifiers: Hypertension type: essential hypertension Qualified Code(s): I10 - Essential (primary) hypertension (7) Bipolar disorder Qualifiers: Active/Remission status: in partial remission Most recent bipolar episode type: depressed Qualified Code(s): F31.75 - Bipolar disorder, in partial remission, most recent episode depressed
--- NOTE | 2019-04-15 09:50 | Discharge Summary ---
- NOTES TO OUTPATIENT PROVIDER Notes to Outpatient Provider: Patient will need close outpatient f/u. He will need evaluation for COPD, diabetes, HTN, CHF, CKD, and bipolar disorder. Patient's medications will likely need to be adjusted. Patient will also need repeat imaging of chestin about 1 month Orders not resulted at time of discharge: Pending orders 04/14/19 21:47 Mycoplasma pneumoniae IgG IgM Stat Date of Encounter: 04/15/19 Time of Encounter: 10:05 - Discharge Diagnosis (1) Acute respiratory failure Priority: Primary Status: Resolved Qualifiers: Respiratory failure complication: hypoxia Qualified Code(s): J96.01 - Acute respiratory failure with hypoxia (2) Acute on chronic congestive heart failure Priority: Secondary Status: Acute Qualifiers: Heart failure type: unspecified Qualified Code(s): I50.9 - Heart failure, unspecified (3) Acute renal failure Priority: Secondary Status: Acute Qualifiers: Acute renal failure type: unspecified Qualified Code(s): N17.9 - Acute kidney failure, unspecified (4) Wound of lower extremity Priority: Secondary Status: Acute Qualifiers: Encounter type: subsequent encounter Laterality: left Qualified Code(s): S81.802D - Unspecified open wound, left lower leg, subsequent encounter (5) Diabetes Priority: Secondary Status: Chronic Qualifiers: Diabetes mellitus type: type 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 use Diabetes mellitus complication status: with circulatory complication Diabetes mellitus complication detail: with other circulatory complications Qualified Code(s): E11.59 - Type 2 diabetes mellitus with other circulatory complications (6) HTN (hypertension) Priority: Secondary Status: Chronic Qualifiers: Hypertension type: essential hypertension Qualified Code(s): I10 - Essential (primary) hypertension (7) Bipolar disorder Priority: Secondary Status: Chronic Qualifiers: Active/Remission status: in partial remission Most recent bipolar episode type: depressed Qualified Code(s): F31.75 - Bipolar disorder, in partial remission, most recent episode depressed (8) DVT prophylaxis Priority: Secondary Status: Acute Hospital course: Mr. 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 Patient had b/l lower extremity swelling and CXR showed pulmonary edema. Patient was requiring 4L NC on admission. Patient was diuresed initially and cardiology and nephrology were consulted for evaluation. Patient was also in acute renal failure. After diuresis, breathing improved. Patient's creatinine continued to improve and nephrology signed off. Lasix were stopped as he had improved. Patient intermitently requested BiPAP and increased O2 despite stable O2 saturations. This may have been secondary to anxiety. CXR continue to show edema and possible PNA. CT was done which confirmed edema vs possible PNA. However, patient at no point had a fever, leukocytosis. Lactic acid was normal. Procal was minimally elevated but renal failure made this less accurate. Additionally, patient continued to show clinical improvement. Patient was found to have wheeze and despite no documented COPD, he did have a history of smoking, so he was started on steroids and breathing treatments. Patient cont inued to improve. He was started on levaquin for COPD exacerbation and possible PNA on imaging. MRSA swab was positive but given patient's clinical picture, MRSA pneumonia less likely. Patient did have significant anxiety during admission which may have contributed to his dyspnea. His creatinine continued to improve and ECHO showed normal EF. Cardiology signed off. Patient was clinically stable on day of discharge. He will continue Levaquin and prednisone to complete course. Additionally, patient's amlodipine was increased. He was started on Levemir for his diabetes and given a prescription for glucometer as well as supplies. He was also given a prescription for albuterol inhaler. Patient was strongly urged to get a PCP to manage his chronic conditions. He will need to follow-up with his PCP shortly for reevaluation of all of his chronic conditions as well as management of his chronic medications. Patient additionally would benefit from psychiatric or behavioral evaluation for his bipolar disorder. Discharge discussed with: patient - Time Spent with Patient Total time spent providing and/or coordinating discharge services: 45 minutes - Discharge Medications Prescriptions: New Amlodipine Besylate 10 mg PO DAILY #30 tablet Albuterol Sulfate [Proair Respiclick] 90 mcg IH Q4HR PRN #1 [email or web address] PRN Reason: SOB/Wheezing hydrALAZINE [HydrALAZINE] 25 mg PO TID #90 tablet levoFLOXacin [Levaquin] 750 mg PO DAILY #5 tablet predniSONE [PredniSONE] 40 mg PO DAILY #3 tablet Continued Sennosides [Senna] 8.6 mg PO DAILY Atorvastatin Calcium [Lipitor] 20 mg PO DAILY #30 tab Discontinued Amlodipine Besylate 5 mg PO DAILY Home Medications: Sennosides [Senna] 8.6 mg PO DAILY 04/11/19 [History] Albuterol Sulfate [Proair Respiclick] 90 mcg IH Q4HR PRN #1 [email or web address] 04/15/19 [Rx] Amlodipine Besylate 10 mg PO DAILY #30 tablet 04/15/19 [Rx] Atorvastatin Calcium [Lipitor] 20 mg PO DAILY #30 tab 04/15/19 [Rx] Insulin DETEMIR [Levemir Flextouch] 10 unit SQ QPM #1 insuln.pen 04/15/19 [Rx] hydrALAZINE [HydrALAZINE] 25 mg PO TID #90 tablet 04/15/19 [Rx] levoFLOXacin [Levaquin] 750 mg PO DAILY #5 tablet 04/15/19 [Rx] predniSONE [PredniSONE] 40 mg PO DAILY #3 tablet 04/15/19 [Rx] Allergies/Adverse Reactions: Allergy/AdvReac Type Severity Reaction Status Date / Time iodine Allergy Severe Anaphylaxis Verified 04/03/19 15:29 Penicillins Allergy Anaphylaxis Verified 01/02/19 14:00 Date of admission: 04/12/19 17:54 Primary care physician: PCP NONE Consults: 04/11/19 13:50 PICC Consult [Consult to Invasive Line Access Team] [CONS] Stat Reason for Consult: IV placement Line Type: Midline PICC line indications: Limited vascular access 04/11/19 15:10 Consult to Invasive Line Access Team [CONS] Routine Reason for Consult: poor access Line Type: EPIV 04/11/19 16:34 Consult to Printing Plate Clerk [CONS] Routine Reason for SW Consult: d/c planning 04/11/19 17:49 Consult to Cardiology [CONS] Routine Comment: Consulting Provider: Cardiology Shae Reason for Consult: CHF exacerbation with acute renal failure Call Completed: No 04/11/19 17:50 Consult to Nephrology [CONS] Routine Consulting Provider: Kidney Shae/JONG/ANTOINETTE/GRAZYNA Reason for Consult: CHF exacerbation with acute renal failure Call Completed: Yes 04/11/19 18:09 Consult to Wound Care [CONS] Routine Reason for Consult: LLE wound Call Completed: No 04/12/19 09:33 Consult to Nurse Navigator [CONS] Routine Comment: CHF 04/14/19 15:54 Consult to Occupational Therapy [CONS] Routine Comment: Evaluate, develop and implement POC Reason for Consult: Weakness Does patient have active BEDREST order?: No Is patient medically & hemodynamically stable?: Yes Consult to Physical Therapy [CONS] Routine Comment: Evaluate, develop and implement POC Reason for Consult: Weakness Does patient have active BEDREST order?: No Is patient medically & hemodynamically stable?: Yes Discharging clinician: Cruzito Mcfarlane Anticipated date of discharge: 04/15/19 - Constitutional Vitals: Temp Pulse Resp BP Pulse Ox 96.4 F L 93 18 144/77 98 04/15/19 07:08 04/15/19 07:08 04/15/19 07:45 04/15/19 07:08 04/15/19 07:45 General appearance: Present: A&O X 3, morbidly obese, no acute distress, answers questions appropriately Exam: GENERAL APPEARANCE: Well developed, well nourished, alert and cooperative, and appears to be in no acute distress. HEENT: Normocephalic/atraumatic, PERRLA. NECK: Supple, nontender without lymphadenopathy. CARDIOVASCULAR: Normal S1, S2; regular rate and rhythm; no murmurs. RESPIRATORY: b/l air entry present; coarse upper breath sounds; no crackles or wheezing auscultated; no dyspnea with exertion or conversation ABDOMEN: Soft, nondistended, nontender; bowel sounds present. MUSKULOSKELETAL: No limitations in range of motion. EXTREMITIES: 1+ pitting edema in bilateral lower extremities; BKA RLE; metatarsal amputation of LLE with dressing wrapped, no drainage or redness NEUROLOGICAL: No focal neurological deficits. SKIN: Skin normal color, texture and turgor with no lesions or eruptions. PSYCHIATRIC: anxious appearing - Patient Status Disposition: Home, Self-Care Condition: Fair Functional capacity at discharge: wheelchair bound Overall status at discharge: patient is back to baseline - Discharge Instructions Follow Up With: NONE,PCP [Primary Care Provider] - - Diet and Activity Activity: resume usual activities as tolerated Diet: diabetic diet
--- NOTE | 2019-04-15 10:51 | Physician Discharge Referral ---
Home Health/Hosp Referral Info Transfer to: Home Health Provider in Charge Post Discharge: PCP - Diagnosis (1) Acute respiratory failure Priority: Primary Status: Resolved (2) Acute on chronic congestive heart failure Priority: Secondary Status: Acute (3) Acute renal failure Priority: Secondary Status: Acute (4) Wound of lower extremity Priority: Secondary Status: Acute (5) Diabetes Priority: Secondary Status: Chronic (6) HTN (hypertension) Priority: Secondary Status: Chronic (7) Bipolar disorder Priority: Secondary Status: Chronic (8) DVT prophylaxis Priority: Secondary Status: Acute - Respiratory Orders Smoking Cessation: Smoking cessation has been advised. For more information, call the [place] Tobacco Quit Line at 5-875-ZZHA-NOW. - Diet/Nutrition Diet/Nutrition Orders: Cardiac - Activity Activity Orders: Ambulate - Services Needed Following services are medically necessary services: Nursing, Physical Therapy, Occupational Therapy - Transfer Medications Prescriptions: Amlodipine Besylate 10 mg PO DAILY #30 tablet Prescription Printed hydrALAZINE [HydrALAZINE] 25 mg PO TID #90 tablet Prescription Printed levoFLOXacin [Levaquin] 750 mg PO DAILY #5 tablet Prescription Printed Insulin DETEMIR [Levemir Flextouch] 10 unit SQ QPM #1 insuln.pen Prescription Printed Atorvastatin Calcium [Lipitor] 20 mg PO DAILY #30 tab Prescription Printed predniSONE [PredniSONE] 40 mg PO DAILY #3 tablet Prescription Printed Albuterol Sulfate [Proair Respiclick] 90 mcg IH Q4HR PRN #1 aer.pow.ba PRN Reason: SOB/Wheezing Prescription Printed Home Medications: Sennosides [Senna] 8.6 mg PO DAILY 04/11/19 [History] Albuterol Sulfate [Proair Respiclick] 90 mcg IH Q4HR PRN #1 aer.pow.ba 04/15/19 [Rx] Amlodipine Besylate 10 mg PO DAILY #30 tablet 04/15/19 [Rx] Atorvastatin Calcium [Lipitor] 20 mg PO DAILY #30 tab 04/15/19 [Rx] Insulin DETEMIR [Levemir Flextouch] 10 unit SQ QPM #1 insuln.pen 04/15/19 [Rx] hydrALAZINE [HydrALAZINE] 25 mg PO TID #90 tablet 04/15/19 [Rx] levoFLOXacin [Levaquin] 750 mg PO DAILY #5 tablet 04/15/19 [Rx] predniSONE [PredniSONE] 40 mg PO DAILY #3 tablet 04/15/19 [Rx] Allergies/Adverse Reactions: Allergy/AdvReac Type Severity Reaction Status Date / Time iodine Allergy Severe Anaphylaxis Verified 04/03/19 15:29 Penicillins Allergy Anaphylaxis Verified 01/02/19 14:00 Certification: Further, I certify that my clinical findings support that this patient is homebound (i.e. absences from home require considerable and taxing effort and are for medical reasons or muslim services or infrequently or short duration when for other reasons) because: Homebound Reason: Leaving home requires considerable and taxing effort due to condition Attestation: My signature below is to certify that this patient is under my care and that I, or nurse practitioner, or a physician's clerical administrative assistant working with me, has a [id number] encounter with this patient.
[2019-04-17 11:39] LABS: Mycoplasma pneumoniae IgG 0.7 U/L (<=0.09)
== END 2019-04-15 11:15 | disposition home or self-care (01) | DRG 194 ==
LOC: EMEROOARM 13:05 → 2NNU 13:05 → SUATTDRO 15:39 → 2NNU 16:25 → 2ANU 04-12 21:03
PROVIDERS: ADMIT Family Medicine; ATTEND Family Medicine

== ENCOUNTER 2019-04-15 18:22 | Observation (INO) ==
[2019-04-15 18:59] LABS: Basophils % 0.1 %; Hematocrit 32.5 % (37.5-50.1); Hemoglobin 10.4 g/dL (12.9-16.9); Immature Granulocytes % 0.4 % (0-4); Lymphocytes # 0.5 K/mcL (0.6-4.6); Lymphocytes % 4.6 %; Mean Corpuscular Hemoglobin 28.7 pg (28.0-33.3); Mean Corpuscular Volume 89.8 fL (83.0-100.0); Mean Platelet Volume 9.3 fL (9.4-12.4); Monocytes # 0.2 K/mcL (0.0-1.3); Monocytes % 1.6 %; Neutrophils # 9.2 K/mcL (1.6-8.9); Platelet Count 410 K/mcL (140-400); Red Blood Count 3.62 M/mcL (4.19-5.50); Red Cell Distribution Width 12.6 % (11.5-14.5); Segmented Neutrophils % 93.3 %; White Blood Count 9.9 K/mcL (4.3-11.1)
[2019-04-15 19:10] LABS: INR 1.2; Prothrombin Time 13.1 Seconds (9.4-12.1)
[2019-04-15 19:13] LABS: Activated Partial Thrombo Time 32.3 Seconds (26.0-36.0)
[2019-04-15 19:24] LABS: Calcium 8.5 mg/dL (8.6-10.3); Potassium 5.6 mEq/L (3.5-5.1); Troponin I 0.03 ng/mL (< 0.04)
[2019-04-15] MEDS ORDERED: 0.9 % Sodium Chloride 1,000 ML IVC ONE (19:40)
[2019-04-15] MEDS ORDERED: *HR* LORazepam 2 MG/ML VIAL IVP ONE ×2 (20:05→22:20)
[2019-04-15] MEDS ORDERED: Insulin Regular, Human 100 UNIT/ML SQ ONE (21:45)
[2019-04-15] MEDS ORDERED: *HR* Dextrose 50 % in Water (Syg) 50 ML SYRINGE IVP PRN (22:19)
[2019-04-15] MEDS ORDERED: Insulin Human Regular 100 UNIT in 0.9 % Sodium Chloride 100 ML IVC SCH (22:30)
[2019-04-15 23:16] LABS: VBG HCO3 18 mEq/L (21-27); VBG PCO2 31 mmHg (41-51); VBG PH 7.39 pH Units (7.32-7.42); VBG PO2 122 mmHg (25-50)
[2019-04-15 23:33] LABS: Calcium 8.3 mg/dL (8.6-10.3); Magnesium 1.4 mg/dL (1.6-2.6); Phosphorous 3.6 mg/dL (2.7-4.5); Potassium 5.6 mEq/L (3.5-5.1)
[2019-04-15] MEDS ORDERED: Naloxone 0.4 MG/ML INJ IVP PRN (23:50)
[2019-04-16] MEDS ORDERED: Insulin Human Regular 100 UNIT in 0.9 % Sodium Chloride 100 ML IVC SCH (01:30)
[2019-04-16] MEDS: hydrALAZINE 25 MG TABLET PO SCH ×2 (02:31→09:35)
[2019-04-16] MEDS ORDERED: *HR* OxyCODONE/APAP 10/325 TABLET PO PRN (02:57)
[2019-04-16] MEDS ORDERED: *HR* LORazepam 2 MG/ML VIAL IVP PRN (02:59)
[2019-04-16] MEDS ORDERED: Furosemide 40 MG/4 ML VIAL IVP ONE ×3 (03:01→07:23)
[2019-04-16 04:06] LABS: Basophils % 0.1 %; Hematocrit 30.6 % (37.5-50.1); Hemoglobin 9.8 g/dL (12.9-16.9); Immature Granulocytes % 0.6 % (0-4); Lymphocytes # 1.2 K/mcL (0.6-4.6); Lymphocytes % 11.2 %; Mean Corpuscular Hemoglobin 29.3 pg (28.0-33.3); Mean Corpuscular Volume 91.3 fL (83.0-100.0); Monocytes # 0.7 K/mcL (0.0-1.3); Monocytes % 6.8 %; Neutrophils # 8.5 K/mcL (1.6-8.9); Platelet Count 413 K/mcL (140-400); Red Blood Count 3.35 M/mcL (4.19-5.50); Red Cell Distribution Width 12.7 % (11.5-14.5); Segmented Neutrophils % 81.3 %; White Blood Count 10.5 K/mcL (4.3-11.1)
[2019-04-16] MEDS: Ipratropium/Albuterol Neb 3 ML IH SCH ×2 (04:16→07:33)
[2019-04-16 04:26] LABS: Albumin 3.1 g/dL (3.5-5.7); Albumin/Globulin Ratio 0.8 (1.1-2.2); Bilirubin,Total 0.3 mg/dL (0.3-1.0); Calcium 8.6 mg/dL (8.6-10.3); Globulin 3.8 g/dL (2.4-3.5); Potassium 5.2 mEq/L (3.5-5.1); Total Protein 6.9 g/dL (6.4-8.9)
[2019-04-16] MEDS ORDERED: *HR* Dextrose 50 % in Water (Syg) 50 ML SYRINGE IVP PRN (05:22)
[2019-04-16] MEDS ORDERED: Dextrose Gel 15 GM/37.5 ML TUBE PO PRN ×2 (05:22)
[2019-04-16] MEDS ORDERED: D5% in Water 1,000 ML IVC PRN (05:22)
[2019-04-16] MEDS ORDERED: Insulin DETEMIR 100 UNIT/ML X5UNITS SQ SCH (05:30)
[2019-04-16] MEDS ORDERED: *HR* Heparin 5,000 UNIT/ML VIAL SQ SCH (06:00)
[2019-04-16 07:18] VITALS: BP 151/89
[2019-04-16] MEDS ORDERED: Insulin LISPRO 300 UNITS/3 ML VIAL SQ SCH (07:30)
[2019-04-16 08:01] LABS: Estimated Average Glucose 212 mg/dl
[2019-04-16] MEDS ORDERED: Furosemide 20 MG/2 ML VIAL IVP ONE (08:07)
[2019-04-16] MEDS ORDERED: Sennosides 8.6 MG TABLET PO SCH (09:00)
[2019-04-16] MEDS ORDERED: Furosemide 40 MG TABLET PO SCH (09:00)
[2019-04-16] MEDS ORDERED: levoFLOXacin 750 MG TABLET PO SCH (09:00)
[2019-04-16] MEDS ORDERED: amLODIPine 5 MG TABLET PO SCH (09:00)
[2019-04-16] MEDS ORDERED: predniSONE 20 MG TABLET PO SCH (09:00)
== END 2019-04-16 11:04 | disposition home health service (06) ==
LOC: EMEROOARM 18:22 → 2ANU 18:22 → SUATTDRO 22:35 → 2ANU 23:40
PROVIDERS: ADMIT Internal Medicine; ATTEND Family Medicine

== ENCOUNTER 2019-04-24 14:33 | Inpatient (IN) ==
[2019-04-24 15:12] LABS: Basophils % 0.3 %; Eosinophils # 0.3 K/mcL (0.0-0.6); Eosinophils % 3.4 %; Hemoglobin 10.7 g/dL (12.9-16.9); Immature Granulocytes % 0.7 % (0-4); Lymphocytes # 1.6 K/mcL (0.6-4.6); Mean Corpuscular HGB Conc 32.4 g/dL (31.6-35.5); Mean Corpuscular Hemoglobin 28.8 pg (28.0-33.3); Mean Corpuscular Volume 88.9 fL (83.0-100.0); Mean Platelet Volume 9.9 fL (9.4-12.4); Monocytes # 0.7 K/mcL (0.0-1.3); Monocytes % 7.1 %; Neutrophils # 6.5 K/mcL (1.6-8.9); Platelet Count 266 K/mcL (140-400); Red Blood Count 3.71 M/mcL (4.19-5.50); Red Cell Distribution Width 12.9 % (11.5-14.5); Segmented Neutrophils % 71.5 %; White Blood Count 9.1 K/mcL (4.3-11.1)
[2019-04-24 15:31] LABS: BUN/Creatinine Ratio 31 (6-26); Blood Urea Nitrogen 26 mg/dL (6-20); Calcium 8.9 mg/dL (8.6-10.3); Carbon Dioxide 25 mEq/L (23-29); Chloride 105 mEq/L (98-107); Glucose 272 mg/dL (70-105); Osmolality,Calculated 290 (280-300); Potassium 4.3 mEq/L (3.5-5.1); Sodium 133 mEq/L (136-145); eGFR For African Americans > 60 (> 60); eGFR For Non-African Americans > 60 (> 60)
[2019-04-24 15:43] LABS: Troponin I 0.04 ng/mL (< 0.04)
[2019-04-24] MEDS ORDERED: Cefepime HCl 1,000 MG in 0.9 % Sodium Chloride Mini Bag 100 ML IVPB STA (15:53)
[2019-04-24] MEDS ORDERED: Azithromycin 500 MG in D5% in Water 250 ML IVPB STA (15:54)
[2019-04-24] MEDS ORDERED: Ondansetron ODT 4 MG TAB.RAPDIS SL ONE (17:09)
[2019-04-24] MEDS: *HR* LORazepam 2 MG/ML VIAL IVP STA ×2 (17:22→18:39)
[2019-04-24] MEDS ORDERED: Furosemide 40 MG/4 ML VIAL IVP ONE (17:33)
[2019-04-24] MEDS ORDERED: *HR* HYDROcodone/Acet 5/325 mg TABLET PO PRN (17:49)
[2019-04-24] MEDS ORDERED: Ondansetron 4 MG/2 ML VIAL IVP PRN (17:49)
[2019-04-24] MEDS ORDERED: Naloxone 0.4 MG/ML INJ IVP PRN (17:49)
[2019-04-24] MEDS ORDERED: Ipratropium/Albuterol Neb 3 ML IH PRN (17:54)
[2019-04-24] MEDS ORDERED: D5% in Water 1,000 ML IVC PRN (17:58)
[2019-04-24] MEDS ORDERED: *HR* Dextrose 50 % in Water (Syg) 50 ML SYRINGE IVP PRN (17:58)
[2019-04-24] MEDS ORDERED: Dextrose Gel 15 GM/37.5 ML TUBE PO PRN ×2 (17:58)
[2019-04-24 19:00] LABS: Basophils # 0.1 K/mcL (0.0-0.2); Basophils % 0.5 %; Eosinophils # 0.3 K/mcL (0.0-0.6); Eosinophils % 3.4 %; Hematocrit 31.1 % (37.5-50.1); Hemoglobin 10.5 g/dL (12.9-16.9); Immature Granulocytes % 1.9 % (0-4); Lymphocytes # 1.7 K/mcL (0.6-4.6); Lymphocytes % 17.4 %; Mean Corpuscular HGB Conc 33.8 g/dL (31.6-35.5); Mean Corpuscular Volume 85.9 fL (83.0-100.0); Mean Platelet Volume 10.1 fL (9.4-12.4); Monocytes # 0.7 K/mcL (0.0-1.3); Monocytes % 6.7 %; Neutrophils # 6.8 K/mcL (1.6-8.9); Nucleated Red Blood Cells 0.2 /100 WBC (0); Platelet Count 261 K/mcL (140-400); Red Blood Count 3.62 M/mcL (4.19-5.50); Red Cell Distribution Width 12.9 % (11.5-14.5); Segmented Neutrophils % 70.1 %; White Blood Count 9.7 K/mcL (4.3-11.1)
[2019-04-24 20:25] LABS: ABG Base Excess 2 mEq/L (-2 to 3); ABG HCO3 26 mEq/L (21-27); ABG Oxygen Saturation 94 % (95-98); ABG PCO2 37 mmHg (35-45); ABG PH 7.45 pH Units (7.32-7.45); ABG PO2 66 mmHg (85-104); ABG TCO2 27 mEq/L (20-26)
[2019-04-24 21:35] LABS: Amphetamine Screen,Urine Negative ng/mL (Cutoff=1000); Barbiturate Screen,Urine Negative ng/mL (Cutoff=200); Benzodiazepines Screen,Urine Negative ng/mL (Cutoff=200); Cannabinoid Screen,Urine Negative ng/mL (Cutoff = 50); Cocaine Screen,Urine Negative ng/mL (Cutoff= 300); Opiate Screen,Urine Negative ng/mL (Cutoff=300); Phencyclidine Screen,Urine Negative ng/mL (Cutoff=25)
[2019-04-24] MEDS: *HR* Enoxaparin 100 MG/ML SYRINGE SQ SCH ×2 (21:49→21:59)
[2019-04-24] MEDS: Insulin DETEMIR 100 UNIT/ML X5UNITS SQ SCH (21:50)
[2019-04-24] MEDS: Furosemide 40 MG/4 ML VIAL IVP SCH (21:50)
[2019-04-25 03:29] LABS: BUN/Creatinine Ratio 29 (6-26); Blood Urea Nitrogen 28 mg/dL (6-20); Calcium 8.4 mg/dL (8.6-10.3); Carbon Dioxide 22 mEq/L (23-29); Chloride 103 mEq/L (98-107); Glucose 315 mg/dL (70-105); Magnesium 1.3 mg/dL (1.6-2.6); Osmolality,Calculated 298 (280-300); Phosphorous 4.2 mg/dL (2.7-4.5); Potassium 4.3 mEq/L (3.5-5.1); Sodium 135 mEq/L (136-145); eGFR For African Americans > 60 (> 60); eGFR For Non-African Americans > 60 (> 60)
[2019-04-25 05:28] LABS: Adenovirus Not Detected (Not Detect); Bordetella Pertussis Not Detected (Not Detect); Chlamydophila pneumoniae Not Detected (Not Detect); Coronavirus 229E Not Detected (Not Detect); Coronavirus HKU1 Not Detected (Not Detect); Coronavirus NL63 Not Detected (Not Detect); Coronavirus OC43 Not Detected (Not Detect); Human Metapneumovirus Not Detected (Not Detect); Human Rhinovirus/Enterovirus Not Detected (Not Detect); Influenza A Subtype 2009 H1 Not Detected (Not Detect); Influenza A Untypeable Not Detected (Not Detect); Influenza B Not Detected (Not Detect); Mycoplasma pneumoniae Not Detected (Not Detect); Parainfluenza Virus 1 Not Detected (Not Detect); Parainfluenza Virus 2 Not Detected (Not Detect); Parainfluenza Virus 3 Not Detected (Not Detect); Parainfluenza Virus 4 Not Detected (Not Detect); Respiratory Syncytial Virus Not Detected (Not Detect)
[2019-04-25] MEDS: *HR* Enoxaparin 100 MG/ML SYRINGE SQ SCH (06:24)
[2019-04-25] MEDS: *HR* Enoxaparin 150 MG/ML SYRINGE SQ SCH ×2 (06:47→17:25)
[2019-04-25] MEDS: Furosemide 40 MG/4 ML VIAL IVP SCH ×2 (08:40→16:24)
[2019-04-25] MEDS: amLODIPine 5 MG TABLET PO SCH (08:44)
[2019-04-25] MEDS: Insulin DETEMIR 100 UNIT/ML X5UNITS SQ SCH ×2 (08:44→21:53)
[2019-04-25] MEDS: Insulin LISPRO 300 UNITS/3 ML VIAL SQ SCH ×3 (08:45→16:37)
[2019-04-25] MEDS ORDERED: levoFLOXacin 750 MG/150 ML 750 MG/150 ML BAG IVPB SCH (09:00)
[2019-04-25] MEDS: Cefepime HCl 1,000 MG in 0.9 % Sodium Chloride Mini Bag 100 ML IVPB SCH (16:30)
[2019-04-25] MEDS ORDERED: hydrOXYzine pamoate 25 MG CAPSULE PO PRN (17:11)
[2019-04-25] MEDS ORDERED: Sennosides 8.6 MG TABLET PO PRN (17:11)
[2019-04-25] MEDS: Doxycycline 100 MG in 0.9 % Sodium Chloride Mini Bag 100 ML IVPB SCH (17:14)
[2019-04-25] MEDS: Budesonide/Formoterol 160/4.5 1 PUFF INH IH SCH (20:07)
[2019-04-25] MEDS: hydrALAZINE 25 MG TABLET PO SCH (21:53)
[2019-04-26] MEDS: Cefepime HCl 1,000 MG in 0.9 % Sodium Chloride Mini Bag 100 ML IVPB SCH ×4 (01:06→23:21)
[2019-04-26] MEDS: Melatonin 3 MG TABLET PO PRN ×2 (02:14→23:24)
[2019-04-26] MEDS: Doxycycline 100 MG in 0.9 % Sodium Chloride Mini Bag 100 ML IVPB SCH ×2 (06:05→16:58)
[2019-04-26 06:33] LABS: Basophils % 0.3 %; Eosinophils # 0.3 K/mcL (0.0-0.6); Eosinophils % 3.7 %; Hematocrit 29.5 % (37.5-50.1); Hemoglobin 9.6 g/dL (12.9-16.9); Immature Granulocytes % 0.5 % (0-4); Lymphocytes # 1.7 K/mcL (0.6-4.6); Lymphocytes % 21.1 %; Mean Corpuscular HGB Conc 32.5 g/dL (31.6-35.5); Mean Corpuscular Hemoglobin 28.7 pg (28.0-33.3); Mean Corpuscular Volume 88.1 fL (83.0-100.0); Monocytes # 0.7 K/mcL (0.0-1.3); Monocytes % 8.5 %; Neutrophils # 5.2 K/mcL (1.6-8.9); Platelet Count 242 K/mcL (140-400); Red Blood Count 3.35 M/mcL (4.19-5.50); Red Cell Distribution Width 12.9 % (11.5-14.5); Segmented Neutrophils % 65.9 %; White Blood Count 7.9 K/mcL (4.3-11.1)
[2019-04-26] MEDS: *HR* Enoxaparin 150 MG/ML SYRINGE SQ SCH ×2 (06:38→16:58)
[2019-04-26 06:51] LABS: BUN/Creatinine Ratio 30 (6-26); Blood Urea Nitrogen 28 mg/dL (6-20); Calcium 8.5 mg/dL (8.6-10.3); Carbon Dioxide 26 mEq/L (23-29); Chloride 102 mEq/L (98-107); Glucose 186 mg/dL (70-105); Osmolality,Calculated 292 (280-300); Potassium 4.5 mEq/L (3.5-5.1); Sodium 136 mEq/L (136-145); eGFR For African Americans > 60 (> 60); eGFR For Non-African Americans > 60 (> 60)
[2019-04-26] MEDS: Budesonide/Formoterol 160/4.5 1 PUFF INH IH SCH ×2 (07:45→20:28)
[2019-04-26] MEDS: Insulin LISPRO 300 UNITS/3 ML VIAL SQ SCH ×3 (08:15→16:57)
[2019-04-26] MEDS: Furosemide 40 MG/4 ML VIAL IVP SCH ×2 (08:16→16:57)
[2019-04-26] MEDS: Insulin DETEMIR 100 UNIT/ML X5UNITS SQ SCH ×2 (08:16→21:57)
[2019-04-26] MEDS: amLODIPine 5 MG TABLET PO SCH (08:17)
[2019-04-26] MEDS: Aspirin 81 MG TAB.CHEW PO SCH (08:17)
[2019-04-26] MEDS: hydrALAZINE 25 MG TABLET PO SCH ×3 (08:18→21:56)
[2019-04-26] MEDS ORDERED: Insulin LISPRO 300 UNITS/3 ML VIAL SQ SCH (21:33)
[2019-04-27] MEDS: Doxycycline 100 MG in 0.9 % Sodium Chloride Mini Bag 100 ML IVPB SCH (06:04)
[2019-04-27] MEDS: *HR* Enoxaparin 150 MG/ML SYRINGE SQ SCH (06:04)
[2019-04-27 06:29] LABS: Basophils % 0.4 %; Eosinophils # 0.3 K/mcL (0.0-0.6); Hematocrit 30.1 % (37.5-50.1); Hemoglobin 9.9 g/dL (12.9-16.9); Immature Granulocytes % 0.6 % (0-4); Lymphocytes # 1.8 K/mcL (0.6-4.6); Mean Corpuscular HGB Conc 32.9 g/dL (31.6-35.5); Mean Corpuscular Hemoglobin 28.9 pg (28.0-33.3); Mean Platelet Volume 9.9 fL (9.4-12.4); Monocytes # 0.6 K/mcL (0.0-1.3); Monocytes % 7.2 %; Neutrophils # 5.4 K/mcL (1.6-8.9); Platelet Count 267 K/mcL (140-400); Red Blood Count 3.42 M/mcL (4.19-5.50); Segmented Neutrophils % 65.8 %; White Blood Count 8.2 K/mcL (4.3-11.1)
[2019-04-27 06:51] LABS: BUN/Creatinine Ratio 36 (6-26); Blood Urea Nitrogen 34 mg/dL (6-20); Calcium 8.9 mg/dL (8.6-10.3); Carbon Dioxide 26 mEq/L (23-29); Chloride 103 mEq/L (98-107); Glucose 176 mg/dL (70-105); Osmolality,Calculated 296 (280-300); Potassium 4.6 mEq/L (3.5-5.1); Sodium 137 mEq/L (136-145); eGFR For African Americans > 60 (> 60); eGFR For Non-African Americans > 60 (> 60)
[2019-04-27 07:25] VITALS: BP 147/87
[2019-04-27] MEDS: hydrALAZINE 25 MG TABLET PO SCH (07:57)
[2019-04-27] MEDS: amLODIPine 5 MG TABLET PO SCH (07:57)
[2019-04-27] MEDS: Cefepime HCl 1,000 MG in 0.9 % Sodium Chloride Mini Bag 100 ML IVPB SCH (07:57)
[2019-04-27] MEDS: Furosemide 40 MG/4 ML VIAL IVP SCH (07:57)
[2019-04-27] MEDS: Aspirin 81 MG TAB.CHEW PO SCH (07:58)
[2019-04-27] MEDS: Insulin LISPRO 300 UNITS/3 ML VIAL SQ SCH (07:58)
[2019-04-27] MEDS: Insulin DETEMIR 100 UNIT/ML X5UNITS SQ SCH (08:15)
[2019-04-27] MEDS: Budesonide/Formoterol 160/4.5 1 PUFF INH IH SCH (10:42)
== END 2019-04-27 12:01 | disposition home or self-care (01) | DRG 194 ==
LOC: 3BNU 14:33 → EMEROOARM 14:33 → SUATTDRO 18:30 → 3BNU 18:55
PROVIDERS: ADMIT Internal Medicine; ATTEND Family Medicine

== ENCOUNTER 2019-08-15 15:51 | Observation (INO) ==
[2019-08-15 17:01] LABS: Basophils # 0.1 K/mcL (0.0-0.2); Basophils % 0.6 %; Eosinophils # 0.3 K/mcL (0.0-0.6); Eosinophils % 4.1 %; Hematocrit 41.5 % (37.5-50.1); Immature Granulocytes % 0.6 % (0-4); Lymphocytes # 1.7 K/mcL (0.6-4.6); Lymphocytes % 22.2 %; Mean Corpuscular HGB Conc 33.7 g/dL (31.6-35.5); Mean Corpuscular Hemoglobin 27.6 pg (28.0-33.3); Mean Corpuscular Volume 81.9 fL (83.0-100.0); Mean Platelet Volume 10.6 fL (9.4-12.4); Monocytes # 0.5 K/mcL (0.0-1.3); Monocytes % 5.8 %; Neutrophils # 5.2 K/mcL (1.6-8.9); Platelet Count 298 K/mcL (140-400); Red Blood Count 5.07 M/mcL (4.19-5.50); Red Cell Distribution Width 14.1 % (11.5-14.5); Segmented Neutrophils % 66.7 %; White Blood Count 7.8 K/mcL (4.3-11.1)
[2019-08-15] MEDS ORDERED: Isovue-370 500 ML BOTTLE IVP ONE (17:14)
[2019-08-15 17:22] LABS: BUN/Creatinine Ratio 20 (6-26); Blood Urea Nitrogen 18 mg/dL (6-20); Calcium 9.2 mg/dL (8.6-10.3); Carbon Dioxide 22 mEq/L (23-29); Chloride 103 mEq/L (98-107); Glucose 249 mg/dL (70-105); Osmolality,Calculated 288 (280-300); Potassium 4.1 mEq/L (3.5-5.1); Sodium 134 mEq/L (136-145); eGFR For African Americans > 60 (> 60); eGFR For Non-African Americans > 60 (> 60)
[2019-08-15 17:23] LABS: Troponin I < 0.03 ng/mL (< 0.04)
[2019-08-15] MEDS ORDERED: Naloxone 0.4 MG/ML INJ IVP PRN (21:52)
[2019-08-15] MEDS ORDERED: Sennosides 8.6 MG TABLET PO PRN (21:56)
[2019-08-15] MEDS ORDERED: *HR* Dextrose 50 % in Water (Syg) 50 ML SYRINGE IVP PRN (21:59)
[2019-08-15] MEDS ORDERED: D5% in Water 1,000 ML IVC PRN (21:59)
[2019-08-15] MEDS ORDERED: Dextrose Gel 15 GM/37.5 ML TUBE PO PRN ×2 (21:59)
[2019-08-15] MEDS ORDERED: hydrALAZINE 25 MG TABLET PO SCH (22:00)
[2019-08-15] MEDS ORDERED: QUEtiapine Fumarate 25 MG TABLET PO SCH (22:00)
[2019-08-15 22:46] LABS: Estimated Average Glucose 214 mg/dl
[2019-08-15] MEDS: Insulin LISPRO 300 UNITS/3 ML VIAL SQ SCH (23:09)
[2019-08-15] MEDS ORDERED: Nitroglycerin 0.4 MG TAB.SUBL SL PRN (23:22)
[2019-08-16] MEDS ORDERED: *HR* LORazepam 2 MG/ML VIAL IVP ONE (00:11)
[2019-08-16] MEDS: Insulin LISPRO 300 UNITS/3 ML VIAL SQ SCH (05:30)
[2019-08-16 05:33] LABS: INR 0.9; Prothrombin Time 10.6 Seconds (9.4-12.1)
[2019-08-16 05:35] LABS: Activated Partial Thrombo Time 27.8 Seconds (26.0-36.0)
[2019-08-16 05:48] LABS: BUN/Creatinine Ratio 28 (6-26); Blood Urea Nitrogen 25 mg/dL (6-20); Calcium 9.3 mg/dL (8.6-10.3); Carbon Dioxide 22 mEq/L (23-29); Chloride 104 mEq/L (98-107); Chol/HDL Ratio 4.6 (0-4.9); Cholesterol 220 mg/dL (< 200); Glucose 216 mg/dL (70-105); HDL Cholesterol 48 mg/dL (40-59); LDL Cholesterol,Calculated 137 mg/dL (0-99); Osmolality,Calculated 293 (280-300); Potassium 4.4 mEq/L (3.5-5.1); Sodium 136 mEq/L (136-145); Triglycerides 175 mg/dL (< 150); eGFR For African Americans > 60 (> 60); eGFR For Non-African Americans > 60 (> 60)
[2019-08-16 05:55] LABS: Troponin I 0.03 ng/mL (< 0.04)
[2019-08-16 06:17] LABS: Basophils # 0.1 K/mcL (0.0-0.2); Eosinophils # 0.3 K/mcL (0.0-0.6); Hematocrit 38.2 % (37.5-50.1); Hemoglobin 13.3 g/dL (12.9-16.9); Immature Granulocytes % 1.7 % (0-4); Lymphocytes # 2.5 K/mcL (0.6-4.6); Lymphocytes % 34.3 %; Mean Corpuscular HGB Conc 34.8 g/dL (31.6-35.5); Mean Corpuscular Hemoglobin 27.7 pg (28.0-33.3); Mean Corpuscular Volume 79.6 fL (83.0-100.0); Mean Platelet Volume 11.2 fL (9.4-12.4); Monocytes # 0.5 K/mcL (0.0-1.3); Monocytes % 7.2 %; Neutrophils # 3.8 K/mcL (1.6-8.9); Platelet Count 247 K/mcL (140-400); Red Cell Distribution Width 13.8 % (11.5-14.5); Segmented Neutrophils % 51.8 %; White Blood Count 7.2 K/mcL (4.3-11.1)
[2019-08-16 07:18] VITALS: BP 138/86
[2019-08-16] MEDS ORDERED: Furosemide 40 MG TABLET PO SCH (09:00)
[2019-08-16] MEDS ORDERED: amLODIPine 5 MG TABLET PO SCH (09:00)
[2019-08-16] MEDS ORDERED: Gabapentin 100 MG CAPSULE PO SCH (09:00)
[2019-08-16] MEDS ORDERED: Insulin DETEMIR 100 UNIT/ML X5UNITS SQ SCH (21:00)
== END 2019-08-16 09:37 | disposition left against medical advice (07) ==
LOC: EMEROOARM 15:51 → 3BNU 15:51 → SUATTDRO 21:05 → 3BNU 21:53
PROVIDERS: ADMIT Student in an Organized Health Care Education/Training Program; ATTEND Internal Medicine

== ENCOUNTER 2019-09-04 09:21 | Observation (INO) ==
[2019-09-04 10:20] LABS: Basophils # 0.1 K/mcL (0.0-0.2); Basophils % 1.2 %; Eosinophils # 0.1 K/mcL (0.0-0.6); Eosinophils % 2.9 %; Hematocrit 37.4 % (37.5-50.1); Hemoglobin 12.7 g/dL (12.9-16.9); Immature Granulocytes % 1.2 % (0-4); Lymphocytes # 0.4 K/mcL (0.6-4.6); Lymphocytes % 10.6 %; Mean Corpuscular Hemoglobin 27.3 pg (28.0-33.3); Mean Corpuscular Volume 80.4 fL (83.0-100.0); Mean Platelet Volume 10.2 fL (9.4-12.4); Monocytes # 0.7 K/mcL (0.0-1.3); Monocytes % 16.7 %; Neutrophils # 2.7 K/mcL (1.6-8.9); Platelet Count 258 K/mcL (140-400); Red Blood Count 4.65 M/mcL (4.19-5.50); Red Cell Distribution Width 14.4 % (11.5-14.5); Segmented Neutrophils % 67.4 %; White Blood Count 4.1 K/mcL (4.3-11.1)
[2019-09-04 10:29] LABS: INR 1.1; Prothrombin Time 12.5 Seconds (9.4-12.1)
[2019-09-04 10:32] LABS: Activated Partial Thrombo Time 34.1 Seconds (26.0-36.0)
[2019-09-04 10:47] LABS: BUN/Creatinine Ratio 20 (6-26); Blood Urea Nitrogen 21 mg/dL (6-20); Calcium 8.9 mg/dL (8.6-10.3); Carbon Dioxide 25 mEq/L (23-29); Chloride 96 mEq/L (98-107); Glucose 294 mg/dL (70-105); Osmolality,Calculated 288 (280-300); Potassium 4.9 mEq/L (3.5-5.1); Sodium 132 mEq/L (136-145); eGFR For African Americans > 60 (> 60); eGFR For Non-African Americans > 60 (> 60)
[2019-09-04 10:48] LABS: Troponin I 0.03 ng/mL (< 0.04)
[2019-09-04] MEDS ORDERED: *HR* OxyCODONE/APAP 10/325 TABLET PO STA (11:03)
[2019-09-04] MEDS ORDERED: *HR* FentaNYL (PF) 100 MCG/2 ML VIAL IVP ONE (12:40)
[2019-09-04] MEDS ORDERED: Naloxone 0.4 MG/ML INJ IVP PRN (13:46)
[2019-09-04] MEDS ORDERED: *HR* Dextrose 50 % in Water (Syg) 50 ML SYRINGE IVP PRN (13:51)
[2019-09-04] MEDS ORDERED: Dextrose Gel 15 GM/37.5 ML TUBE PO PRN ×2 (13:51)
[2019-09-04] MEDS ORDERED: D5% in Water 1,000 ML IVC PRN (13:51)
[2019-09-04 14:48] LABS: Estimated Average Glucose 226 mg/dl
[2019-09-04] MEDS: *HR* OxyCODONE/APAP 5/325 TABLET PO PRN ×2 (15:17→21:17)
[2019-09-04] MEDS: Insulin LISPRO 300 UNITS/3 ML VIAL SQ SCH ×2 (17:45→21:55)
[2019-09-04] MEDS: *HR* Heparin 5,000 UNIT/ML VIAL SQ SCH (17:48)
[2019-09-04] MEDS ORDERED: QUEtiapine Fumarate 25 MG TABLET PO ONE (21:45)
[2019-09-04] MEDS: Insulin DETEMIR 100 UNIT/ML X5UNITS SQ SCH (21:55)
[2019-09-05 02:49] LABS: Basophils % 1.3 %; Eosinophils # 0.1 K/mcL (0.0-0.6); Eosinophils % 3.6 %; Hematocrit 36.1 % (37.5-50.1); Hemoglobin 11.7 g/dL (12.9-16.9); Immature Granulocytes % 1.6 % (0-4); Lymphocytes # 0.6 K/mcL (0.6-4.6); Lymphocytes % 19.1 %; Mean Corpuscular HGB Conc 32.4 g/dL (31.6-35.5); Mean Corpuscular Hemoglobin 27.2 pg (28.0-33.3); Mean Platelet Volume 10.4 fL (9.4-12.4); Monocytes # 0.7 K/mcL (0.0-1.3); Neutrophils # 1.6 K/mcL (1.6-8.9); Platelet Count 202 K/mcL (140-400); Red Cell Distribution Width 14.7 % (11.5-14.5); Segmented Neutrophils % 52.4 %
[2019-09-05 03:15] LABS: BUN/Creatinine Ratio 20 (6-26); Blood Urea Nitrogen 21 mg/dL (6-20); Calcium 8.6 mg/dL (8.6-10.3); Carbon Dioxide 28 mEq/L (23-29); Chloride 95 mEq/L (98-107); Glucose 207 mg/dL (70-105); Magnesium 1.4 mg/dL (1.6-2.6); Osmolality,Calculated 279 (280-300); Phosphorous 4.3 mg/dL (2.7-4.5); Potassium 4.7 mEq/L (3.5-5.1); Sodium 130 mEq/L (136-145); eGFR For African Americans > 60 (> 60); eGFR For Non-African Americans > 60 (> 60)
[2019-09-05] MEDS: *HR* OxyCODONE/APAP 5/325 TABLET PO PRN ×3 (03:28→17:08)
[2019-09-05 03:47] LABS: Platelet Estimate Normal (Normal)
[2019-09-05] MEDS ORDERED: Morphine Sulfate 2 MG/ML SYRINGE IVP ONE ×2 (05:16→21:12)
[2019-09-05] MEDS: *HR* Heparin 5,000 UNIT/ML VIAL SQ SCH ×2 (05:30→17:08)
[2019-09-05 05:48] LABS: Adenovirus Not Detected (Not Detect); Bordetella Pertussis Not Detected (Not Detect); Chlamydophila pneumoniae Not Detected (Not Detect); Coronavirus 229E Not Detected (Not Detect); Coronavirus HKU1 Not Detected (Not Detect); Coronavirus NL63 Not Detected (Not Detect); Coronavirus OC43 Not Detected (Not Detect); Human Metapneumovirus Not Detected (Not Detect); Human Rhinovirus/Enterovirus Not Detected (Not Detect); Influenza A Subtype 2009 H1 Not Detected (Not Detect); Influenza B Not Detected (Not Detect); Mycoplasma pneumoniae Not Detected (Not Detect); Parainfluenza Virus 1 Not Detected (Not Detect); Parainfluenza Virus 2 Not Detected (Not Detect); Parainfluenza Virus 3 Not Detected (Not Detect); Parainfluenza Virus 4 Not Detected (Not Detect); Respiratory Syncytial Virus Not Detected (Not Detect)
[2019-09-05] MEDS ORDERED: Regadenoson 0.4 MG/5 ML SYRINGE IVP ONE (06:21)
[2019-09-05] MEDS ORDERED: amLODIPine 5 MG TABLET PO SCH (09:00)
[2019-09-05] MEDS: Furosemide 40 MG TABLET PO SCH (09:54)
[2019-09-05] MEDS: Insulin LISPRO 300 UNITS/3 ML VIAL SQ SCH ×4 (10:36→22:16)
[2019-09-05 11:30] LABS: Bilirubin,Urine Negative (Negative); Blood,Urine Moderate (Negative); Clarity,Urine Clear (Clear); Color,Urine Yellow (Yellow); Glucose,Urine (UA) 100 mg/dL (Normal); Ketones,Urine Negative (Negative); Leukocyte Esterase,Urine Negative (Negative); Nitrite,Urine Negative (Negative); PH,Urine 6.5 pH Units (5.0-8.0); Protein,Urine >=300 mg/dL (Neg-Trace); Specific Gravity,Urine 1.021 (1.010-1.025)
[2019-09-05 11:34] LABS: Bacteria,Urine None Seen per hpf (None-Few); Hyaline Casts,Urine None Seen per lpf (None-Few); RBC,Urine 50-100 per hpf (0-3); Squamous Epithelial Cell,Urine Many per lpf (None-Few); WBC,Urine 0-3 per hpf (0-3)
[2019-09-05] MEDS: Acetaminophen 325 MG TABLET PO PRN (13:46)
[2019-09-05] MEDS: carvediloL 6.25 MG TABLET PO SCH (17:08)
[2019-09-05] MEDS: Insulin DETEMIR 100 UNIT/ML X5UNITS SQ SCH (22:15)
[2019-09-06] MEDS: *HR* OxyCODONE/APAP 5/325 TABLET PO PRN ×4 (03:03→22:16)
[2019-09-06] MEDS: *HR* Heparin 5,000 UNIT/ML VIAL SQ SCH ×2 (05:32→17:21)
[2019-09-06 07:08] LABS: Hemoglobin 12.9 g/dL (12.9-16.9); Mean Corpuscular HGB Conc 32.3 g/dL (31.6-35.5); Mean Corpuscular Volume 83.7 fL (83.0-100.0); Mean Platelet Volume 10.5 fL (9.4-12.4); Platelet Count 216 K/mcL (140-400); Red Blood Count 4.78 M/mcL (4.19-5.50); Red Cell Distribution Width 14.6 % (11.5-14.5); White Blood Count 3.4 K/mcL (4.3-11.1)
[2019-09-06] MEDS: Insulin LISPRO 300 UNITS/3 ML VIAL SQ SCH ×4 (07:53→21:19)
[2019-09-06] MEDS ORDERED: Regadenoson 0.4 MG/5 ML SYRINGE IVP ONE (09:10)
[2019-09-06 10:20] LABS: BUN/Creatinine Ratio 25 (6-26); Blood Urea Nitrogen 27 mg/dL (6-20); Calcium 8.8 mg/dL (8.6-10.3); Carbon Dioxide 26 mEq/L (23-29); Chloride 95 mEq/L (98-107); Glucose 242 mg/dL (70-105); Osmolality,Calculated 283 (280-300); Potassium 4.5 mEq/L (3.5-5.1); Sodium 130 mEq/L (136-145); eGFR For African Americans > 60 (> 60); eGFR For Non-African Americans > 60 (> 60)
[2019-09-06] MEDS: Furosemide 40 MG TABLET PO SCH (10:31)
[2019-09-06] MEDS: carvediloL 6.25 MG TABLET PO SCH ×2 (10:31→17:09)
[2019-09-06] MEDS: Aspirin Enteric Coated 81 MG Tablet PO SCH (10:34)
[2019-09-06] MEDS: lisinopriL 5 MG TABLET PO SCH (11:50)
[2019-09-06] MEDS: Acetaminophen 325 MG TABLET PO PRN (21:18)
[2019-09-06] MEDS: Insulin DETEMIR 100 UNIT/ML X5UNITS SQ SCH (21:18)
[2019-09-07 02:27] LABS: Hematocrit 35.7 % (37.5-50.1); Hemoglobin 11.5 g/dL (12.9-16.9); Mean Corpuscular HGB Conc 32.2 g/dL (31.6-35.5); Mean Corpuscular Hemoglobin 27.3 pg (28.0-33.3); Mean Corpuscular Volume 84.6 fL (83.0-100.0); Mean Platelet Volume 10.7 fL (9.4-12.4); Platelet Count 201 K/mcL (140-400); Red Blood Count 4.22 M/mcL (4.19-5.50); Red Cell Distribution Width 14.4 % (11.5-14.5); White Blood Count 3.7 K/mcL (4.3-11.1)
[2019-09-07 02:49] LABS: BUN/Creatinine Ratio 30 (6-26); Blood Urea Nitrogen 33 mg/dL (6-20); Calcium 8.7 mg/dL (8.6-10.3); Carbon Dioxide 26 mEq/L (23-29); Chloride 97 mEq/L (98-107); Glucose 302 mg/dL (70-105); Osmolality,Calculated 291 (280-300); Potassium 4.7 mEq/L (3.5-5.1); Sodium 131 mEq/L (136-145); eGFR For African Americans > 60 (> 60); eGFR For Non-African Americans > 60 (> 60)
[2019-09-07] MEDS: *HR* OxyCODONE/APAP 5/325 TABLET PO PRN (04:00)
[2019-09-07] MEDS: *HR* Heparin 5,000 UNIT/ML VIAL SQ SCH ×2 (05:48→17:39)
[2019-09-07] MEDS: Insulin LISPRO 300 UNITS/3 ML VIAL SQ SCH ×4 (08:33→22:25)
[2019-09-07] MEDS: Furosemide 40 MG TABLET PO SCH (08:34)
[2019-09-07] MEDS: Aspirin Enteric Coated 81 MG Tablet PO SCH (08:34)
[2019-09-07] MEDS: lisinopriL 5 MG TABLET PO SCH (08:34)
[2019-09-07] MEDS: carvediloL 6.25 MG TABLET PO SCH ×2 (08:34→17:35)
[2019-09-07] MEDS: Insulin DETEMIR 100 UNIT/ML X5UNITS SQ SCH (22:25)
[2019-09-08] MEDS: *HR* Heparin 5,000 UNIT/ML VIAL SQ SCH ×2 (05:30→16:41)
[2019-09-08] MEDS: carvediloL 6.25 MG TABLET PO SCH ×2 (07:56→16:40)
[2019-09-08] MEDS: Aspirin Enteric Coated 81 MG Tablet PO SCH (07:56)
[2019-09-08] MEDS: lisinopriL 5 MG TABLET PO SCH (07:56)
[2019-09-08] MEDS: Furosemide 40 MG TABLET PO SCH (07:57)
[2019-09-08] MEDS: Insulin LISPRO 300 UNITS/3 ML VIAL SQ SCH ×4 (07:57→20:40)
[2019-09-08] MEDS: Insulin DETEMIR 100 UNIT/ML X5UNITS SQ SCH (20:40)
[2019-09-09 05:39] LABS: Hematocrit 36.5 % (37.5-50.1); Hemoglobin 11.9 g/dL (12.9-16.9); Mean Corpuscular HGB Conc 32.6 g/dL (31.6-35.5); Mean Corpuscular Hemoglobin 27.2 pg (28.0-33.3); Mean Corpuscular Volume 83.3 fL (83.0-100.0); Mean Platelet Volume 10.9 fL (9.4-12.4); Platelet Count 223 K/mcL (140-400); Red Blood Count 4.38 M/mcL (4.19-5.50); Red Cell Distribution Width 14.2 % (11.5-14.5); White Blood Count 4.7 K/mcL (4.3-11.1)
[2019-09-09 05:46] LABS: BUN/Creatinine Ratio 38 (6-26); Blood Urea Nitrogen 34 mg/dL (6-20); Calcium 8.6 mg/dL (8.6-10.3); Carbon Dioxide 22 mEq/L (23-29); Chloride 104 mEq/L (98-107); Glucose 295 mg/dL (70-105); Osmolality,Calculated 295 (280-300); Potassium 4.8 mEq/L (3.5-5.1); Sodium 133 mEq/L (136-145); eGFR For African Americans > 60 (> 60); eGFR For Non-African Americans > 60 (> 60)
[2019-09-09] MEDS: *HR* Heparin 5,000 UNIT/ML VIAL SQ SCH ×2 (05:49→17:44)
[2019-09-09] MEDS: Aspirin Enteric Coated 81 MG Tablet PO SCH (09:22)
[2019-09-09] MEDS: lisinopriL 5 MG TABLET PO SCH (09:22)
[2019-09-09] MEDS: Furosemide 40 MG TABLET PO SCH (09:22)
[2019-09-09] MEDS: carvediloL 6.25 MG TABLET PO SCH ×2 (09:23→17:43)
[2019-09-09] MEDS: Insulin LISPRO 300 UNITS/3 ML VIAL SQ SCH ×4 (09:24→20:09)
[2019-09-09] MEDS: Insulin DETEMIR 100 UNIT/ML X5UNITS SQ SCH (20:09)
[2019-09-10] MEDS: *HR* Heparin 5,000 UNIT/ML VIAL SQ SCH ×2 (05:03→16:17)
[2019-09-10] MEDS: Aspirin Enteric Coated 81 MG Tablet PO SCH (08:51)
[2019-09-10] MEDS: carvediloL 6.25 MG TABLET PO SCH ×2 (08:51→16:16)
[2019-09-10] MEDS: Furosemide 40 MG TABLET PO SCH (08:52)
[2019-09-10] MEDS: lisinopriL 5 MG TABLET PO SCH (08:52)
[2019-09-10] MEDS: Insulin LISPRO 300 UNITS/3 ML VIAL SQ SCH ×4 (08:53→20:34)
[2019-09-10] MEDS: Insulin DETEMIR 100 UNIT/ML X5UNITS SQ SCH (20:34)
[2019-09-11] MEDS: *HR* Heparin 5,000 UNIT/ML VIAL SQ SCH (05:00)
[2019-09-11 07:16] VITALS: BP 116/74
[2019-09-11] MEDS: lisinopriL 5 MG TABLET PO SCH (08:01)
[2019-09-11] MEDS: Aspirin Enteric Coated 81 MG Tablet PO SCH (08:01)
[2019-09-11] MEDS: Furosemide 40 MG TABLET PO SCH (08:01)
[2019-09-11] MEDS: carvediloL 6.25 MG TABLET PO SCH (08:02)
[2019-09-11] MEDS: Insulin LISPRO 300 UNITS/3 ML VIAL SQ SCH (08:23)
== END 2019-09-11 08:51 | disposition left against medical advice (07) ==
LOC: EMEROOARM 09:21 → 3BNU 09:21
PROVIDERS: ADMIT Pharmacist; ATTEND Pharmacist

== ENCOUNTER 2019-12-05 11:45 | Inpatient (IN) ==
[2019-12-05] MEDS ORDERED: Isovue-370 500 ML BOTTLE IVP ONE (12:43)
[2019-12-05] MEDS ORDERED: *HR* FentaNYL (PF) 100 MCG/2 ML VIAL IVP STA (12:49)
[2019-12-05] MEDS ORDERED: 0.9 % Sodium Chloride 1,000 ML IVC ONE (12:55)
[2019-12-05 13:00] LABS: Basophils % 0.3 %; Eosinophils # 0.2 K/mcL (0.0-0.6); Eosinophils % 1.8 %; Hemoglobin 9.1 g/dL (12.9-16.9); Immature Granulocytes % 0.7 % (0-4); Lymphocytes # 0.8 K/mcL (0.6-4.6); Lymphocytes % 7.6 %; Mean Corpuscular HGB Conc 30.3 g/dL (31.6-35.5); Mean Corpuscular Hemoglobin 26.2 pg (28.0-33.3); Mean Corpuscular Volume 86.5 fL (83.0-100.0); Mean Platelet Volume 11.2 fL (9.4-12.4); Monocytes # 0.6 K/mcL (0.0-1.3); Monocytes % 5.1 %; Neutrophils # 9.1 K/mcL (1.6-8.9); Platelet Count 350 K/mcL (140-400); Red Blood Count 3.47 M/mcL (4.19-5.50); Red Cell Distribution Width 15.7 % (11.5-14.5); Segmented Neutrophils % 84.5 %; White Blood Count 10.7 K/mcL (4.3-11.1)
[2019-12-05 13:27] LABS: BUN/Creatinine Ratio 26 (6-26); Blood Urea Nitrogen 40 mg/dL (6-20); Calcium 8.2 mg/dL (8.6-10.3); Carbon Dioxide 22 mEq/L (23-29); Chloride 94 mEq/L (98-107); Glucose 417 mg/dL (70-105); Osmolality,Calculated 287 (280-300); Potassium 4.6 mEq/L (3.5-5.1); Sodium 125 mEq/L (136-145); eGFR For African Americans > 60 (> 60); eGFR For Non-African Americans 50 (> 60)
[2019-12-05] MEDS ORDERED: Clindamycin 600 MG/50 ML 600 MG/50 ML IV.SOLN IVPB STA (13:59)
[2019-12-05] MEDS ORDERED: *HR* FentaNYL (PF) 100 MCG/2 ML VIAL IVP ONE (14:01)
[2019-12-05] MEDS ORDERED: Insulin Human Regular 6 UNIT in 0.9 % Sodium Chloride 10 ML IV ONE (14:14)
[2019-12-05] MEDS ORDERED: Loratadine 10 MG TABLET PO PRN (14:51)
[2019-12-05] MEDS ORDERED: Naloxone 0.4 MG/ML INJ IVP PRN (14:53)
[2019-12-05] MEDS ORDERED: Ondansetron 4 MG/2 ML VIAL IVP PRN (14:53)
[2019-12-05] MEDS ORDERED: *HR* FentaNYL (PF) 100 MCG/2 ML VIAL IVP PRN (14:57)
[2019-12-05] MEDS ORDERED: Dextrose Gel 15 GM/37.5 ML TUBE PO PRN ×2 (14:58)
[2019-12-05] MEDS ORDERED: *HR* Dextrose 50 % in Water (Syg) 50 ML SYRINGE IVP PRN (14:58)
[2019-12-05] MEDS ORDERED: D5% in Water 1,000 ML IVC PRN (14:58)
[2019-12-05] MEDS: Doxycycline 100 MG in 0.9 % Sodium Chloride Mini Bag 100 ML IVPB SCH (18:37)
[2019-12-05] MEDS: 0.9 % Sodium Chloride 1,000 ML IVC SCH (18:38)
[2019-12-05] MEDS: Insulin LISPRO 300 UNITS/3 ML VIAL SQ SCH ×2 (18:41→21:36)
[2019-12-05] MEDS ORDERED: Insulin DETEMIR 100 UNIT/ML X5UNITS SQ SCH (21:00)
[2019-12-05] MEDS: traZODone 50 MG TABLET PO SCH (21:35)
[2019-12-05] MEDS: Gabapentin 300 MG CAPSULE PO SCH (21:35)
[2019-12-05] MEDS ORDERED: Insulin LISPRO 300 UNITS/3 ML VIAL SQ ONE (23:45)
[2019-12-06] MEDS ORDERED: Insulin DETEMIR 100 UNIT/ML X5UNITS SQ ONE (01:25)
[2019-12-06] MEDS: Doxycycline 100 MG in 0.9 % Sodium Chloride Mini Bag 100 ML IVPB SCH ×3 (05:40→17:00)
[2019-12-06] MEDS: Gabapentin 300 MG CAPSULE PO SCH ×4 (06:50→20:57)
[2019-12-06] MEDS: Metoprolol XL (24 HR) Succ 25 MG TAB.ER.24H PO SCH (08:34)
[2019-12-06] MEDS: levoFLOXacin 750 MG/150 ML 750 MG/150 ML BAG IVPB SCH (08:34)
[2019-12-06] MEDS: Aspirin Enteric Coated 81 MG Tablet PO SCH (08:34)
[2019-12-06] MEDS: Insulin LISPRO 300 UNITS/3 ML VIAL SQ SCH ×7 (08:35→21:00)
[2019-12-06] MEDS: 0.9 % Sodium Chloride 1,000 ML IVC SCH ×2 (08:39→21:01)
[2019-12-06 10:42] LABS: Basophils % 0.4 %; Eosinophils # 0.3 K/mcL (0.0-0.6); Eosinophils % 2.5 %; Hemoglobin 8.8 g/dL (12.9-16.9); Immature Granulocytes % 1.1 % (0-4); Lymphocytes # 1.1 K/mcL (0.6-4.6); Lymphocytes % 10.6 %; Mean Corpuscular HGB Conc 30.3 g/dL (31.6-35.5); Mean Corpuscular Hemoglobin 26.2 pg (28.0-33.3); Mean Corpuscular Volume 86.3 fL (83.0-100.0); Mean Platelet Volume 10.6 fL (9.4-12.4); Monocytes # 0.8 K/mcL (0.0-1.3); Monocytes % 7.7 %; Neutrophils # 8.3 K/mcL (1.6-8.9); Platelet Count 351 K/mcL (140-400); Red Blood Count 3.36 M/mcL (4.19-5.50); Red Cell Distribution Width 15.5 % (11.5-14.5); Segmented Neutrophils % 77.7 %; White Blood Count 10.7 K/mcL (4.3-11.1)
[2019-12-06 11:01] LABS: Calcium 8.2 mg/dL (8.6-10.3); Potassium 5.6 mEq/L (3.5-5.1)
[2019-12-06 11:14] LABS: Thyroid Stimulating Hormone 3.272 mcIU/mL (0.340-5.600)
[2019-12-06 11:24] LABS: Folate 10.7 ng/mL (3.0-16.0)
[2019-12-06] MEDS ORDERED: Insulin Human Regular 10 UNIT in 0.9 % Sodium Chloride 10 ML IV ONE (11:29)
[2019-12-06 13:58] LABS: Acinetobacter baumannii by PCR Not Detected (Not Detect); Candida albicans by PCR Not Detected (Not Detect); Candida glabrata by PCR Not Detected (Not Detect); Enterobacter cloacae Cmplx PCR Not Detected (Not Detect); Enterobacteriaceae by PCR Not Detected (Not Detect); Enterococcus by PCR Not Detected (Not Detect); Escherichia coli by PCR Not Detected (Not Detect); Klebsiella oxytoca by PCR Not Detected (Not Detect); Klebsiella pneumoniae by PCR Not Detected (Not Detect); Proteus by PCR Not Detected (Not Detect); Pseudomonas aeruginosa by PCR Not Detected (Not Detect); Serratia marcescens by PCR Not Detected (Not Detect); Staphylococcus aureus by PCR Not Detected (Not Detect); Staphylococcus by PCR DETECTED (Not Detect); Streptococcus agalactiae(B)PCR Not Detected (Not Detect); Streptococcus by PCR Not Detected (Not Detect); Streptococcus pneumoniae PCR Not Detected (Not Detect); Streptococcus pyogenes (A) PCR Not Detected (Not Detect); mecA Methicillin-Resist Gene DETECTED (Not Detect)
[2019-12-06 13:59] LABS: Candida krusei by PCR Not Detected (Not Detect); Candida parapsilosis by PCR Not Detected (Not Detect); Candida tropicalis by PCR Not Detected (Not Detect)
[2019-12-06] MEDS: traZODone 50 MG TABLET PO SCH (20:57)
[2019-12-06] MEDS: Insulin DETEMIR 100 UNIT/ML X5UNITS SQ SCH (20:58)
[2019-12-06] MEDS: QUEtiapine Fumarate 25 MG TABLET PO PRN (20:58)
[2019-12-06] MEDS ORDERED: Insulin LISPRO 300 UNITS/3 ML VIAL SQ ONE (22:53)
[2019-12-07] MEDS: Doxycycline 100 MG in 0.9 % Sodium Chloride Mini Bag 100 ML IVPB SCH ×2 (05:48→17:07)
[2019-12-07 06:04] LABS: Basophils # 0.1 K/mcL (0.0-0.2); Basophils % 0.7 %; Eosinophils # 0.3 K/mcL (0.0-0.6); Eosinophils % 2.6 %; Hematocrit 29.4 % (37.5-50.1); Hemoglobin 8.9 g/dL (12.9-16.9); Immature Granulocytes % 2.5 % (0-4); Lymphocytes # 1.7 K/mcL (0.6-4.6); Lymphocytes % 15.4 %; Mean Corpuscular HGB Conc 30.3 g/dL (31.6-35.5); Mean Corpuscular Hemoglobin 26.2 pg (28.0-33.3); Mean Corpuscular Volume 86.5 fL (83.0-100.0); Mean Platelet Volume 10.6 fL (9.4-12.4); Monocytes % 9.5 %; Neutrophils # 7.4 K/mcL (1.6-8.9); Platelet Count 409 K/mcL (140-400); Red Cell Distribution Width 15.5 % (11.5-14.5); Segmented Neutrophils % 69.3 %; White Blood Count 10.7 K/mcL (4.3-11.1)
[2019-12-07 06:23] LABS: BUN/Creatinine Ratio 33 (6-26); Blood Urea Nitrogen 46 mg/dL (6-20); Calcium 8.2 mg/dL (8.6-10.3); Carbon Dioxide 19 mEq/L (23-29); Chloride 100 mEq/L (98-107); Glucose 184 mg/dL (70-105); Osmolality,Calculated 279 (280-300); Potassium 5.3 mEq/L (3.5-5.1); Sodium 126 mEq/L (136-145); eGFR For African Americans > 60 (> 60); eGFR For Non-African Americans 55 (> 60)
[2019-12-07] MEDS: levoFLOXacin 750 MG/150 ML 750 MG/150 ML BAG IVPB SCH (08:26)
[2019-12-07] MEDS: 0.9 % Sodium Chloride 1,000 ML IVC SCH ×2 (08:26→17:09)
[2019-12-07] MEDS: Insulin LISPRO 300 UNITS/3 ML VIAL SQ SCH ×7 (08:27→20:17)
[2019-12-07] MEDS: Metoprolol XL (24 HR) Succ 25 MG TAB.ER.24H PO SCH (08:28)
[2019-12-07] MEDS: Gabapentin 300 MG CAPSULE PO SCH ×3 (08:28→20:17)
[2019-12-07] MEDS: Aspirin Enteric Coated 81 MG Tablet PO SCH (08:29)
[2019-12-07] MEDS ORDERED: Acetaminophen 325 MG TABLET PO PRN (15:47)
[2019-12-07] MEDS: polyethylene glycoL 3350 17 GM POWD.PACK PO SCH (17:06)
[2019-12-07] MEDS: traZODone 50 MG TABLET PO SCH (20:16)
[2019-12-07] MEDS: QUEtiapine Fumarate 25 MG TABLET PO PRN (20:17)
[2019-12-07] MEDS: Insulin DETEMIR 100 UNIT/ML X5UNITS SQ SCH (20:17)
[2019-12-08] MEDS: 0.9 % Sodium Chloride 1,000 ML IVC SCH (00:46)
[2019-12-08 03:13] LABS: Mean Platelet Volume 11.3 fL (9.4-12.4); Nucleated Red Blood Cells 0.2 /100 WBC (0)
[2019-12-08 03:15] LABS: Hematocrit 31.5 % (37.5-50.1); Hemoglobin 9.1 g/dL (12.9-16.9); Mean Corpuscular HGB Conc 28.9 g/dL (31.6-35.5); Mean Corpuscular Hemoglobin 26.7 pg (28.0-33.3); Mean Corpuscular Volume 92.4 fL (83.0-100.0); Platelet Count 317 K/mcL (140-400); Red Blood Count 3.41 M/mcL (4.19-5.50); Red Cell Distribution Width 15.7 % (11.5-14.5); White Blood Count 8.7 K/mcL (4.3-11.1)
[2019-12-08 03:25] LABS: BUN/Creatinine Ratio 39 (6-26); Blood Urea Nitrogen 45 mg/dL (6-20); Calcium 8.4 mg/dL (8.6-10.3); Carbon Dioxide 18 mEq/L (23-29); Chloride 101 mEq/L (98-107); Glucose 187 mg/dL (70-105); Osmolality,Calculated 280 (280-300); Potassium 5.1 mEq/L (3.5-5.1); Sodium 127 mEq/L (136-145); eGFR For African Americans > 60 (> 60); eGFR For Non-African Americans > 60 (> 60)
[2019-12-08 03:54] LABS: Anisocytosis 1+ (Not Present); Eosinophils # 0.5 K/mcL (0.0-0.6); Hypochromasia Present (Not Present); Lymphocytes # 0.9 K/mcL (0.6-4.6); Microcytosis Present (Not Present); Monocytes # 0.5 K/mcL (0.0-1.3); Neutrophils # 6.8 K/mcL (1.6-8.9); Platelet Estimate Normal (Normal)
[2019-12-08] MEDS: Doxycycline 100 MG in 0.9 % Sodium Chloride Mini Bag 100 ML IVPB SCH (05:59)
[2019-12-08 06:41] VITALS: BP 140/81
[2019-12-08] MEDS: levoFLOXacin 750 MG/150 ML 750 MG/150 ML BAG IVPB SCH (09:11)
[2019-12-08] MEDS: Insulin LISPRO 300 UNITS/3 ML VIAL SQ SCH ×4 (09:12→12:14)
[2019-12-08] MEDS: Gabapentin 300 MG CAPSULE PO SCH (09:13)
[2019-12-08] MEDS: polyethylene glycoL 3350 17 GM POWD.PACK PO SCH (09:13)
[2019-12-08] MEDS: Metoprolol XL (24 HR) Succ 25 MG TAB.ER.24H PO SCH (09:13)
[2019-12-08] MEDS: Aspirin Enteric Coated 81 MG Tablet PO SCH (09:13)
== END 2019-12-08 13:27 | disposition home health service (06) | DRG 720 ==
LOC: EMEROOARM 11:45 → 3ANU 11:45 → SUATTDRO 15:45 → 3ANU 17:54
PROVIDERS: ADMIT Internal Medicine; ATTEND Internal Medicine

== ENCOUNTER 2019-12-13 12:22 | Inpatient (IN) ==
[2019-12-13] MEDS ORDERED: Morphine Sulfate 2 MG/ML SYRINGE IVP PRN (12:56)
[2019-12-13] MEDS ORDERED: 0.9 % Sodium Chloride 500 ML IVC ONE (12:56)
[2019-12-13] MEDS ORDERED: cephALEXin 500 MG CAPSULE PO STA (13:15)
[2019-12-13 13:30] LABS: Basophils # 0.1 K/mcL (0.0-0.2); Basophils % 0.6 %; Eosinophils # 0.2 K/mcL (0.0-0.6); Eosinophils % 2.1 %; Hematocrit 30.7 % (37.5-50.1); Hemoglobin 9.2 g/dL (12.9-16.9); Immature Granulocytes % 1.9 % (0-4); Lymphocytes # 1.6 K/mcL (0.6-4.6); Lymphocytes % 15.9 %; Mean Corpuscular Hemoglobin 25.9 pg (28.0-33.3); Mean Corpuscular Volume 86.5 fL (83.0-100.0); Mean Platelet Volume 9.5 fL (9.4-12.4); Monocytes # 0.6 K/mcL (0.0-1.3); Monocytes % 5.5 %; Neutrophils # 7.4 K/mcL (1.6-8.9); Platelet Count 362 K/mcL (140-400); Red Blood Count 3.55 M/mcL (4.19-5.50); Red Cell Distribution Width 15.2 % (11.5-14.5)
[2019-12-13] MEDS ORDERED: Sulfamethoxazole/Trimeth DS 1 EACH TABLET PO ONE (13:46)
[2019-12-13 13:51] LABS: BUN/Creatinine Ratio 29 (6-26); Blood Urea Nitrogen 23 mg/dL (6-20); Calcium 8.8 mg/dL (8.6-10.3); Carbon Dioxide 26 mEq/L (23-29); Chloride 104 mEq/L (98-107); Glucose 201 mg/dL (70-105); Osmolality,Calculated 289 (280-300); Potassium 4.2 mEq/L (3.5-5.1); Sodium 135 mEq/L (136-145); eGFR For African Americans > 60 (> 60); eGFR For Non-African Americans > 60 (> 60)
[2019-12-13] MEDS ORDERED: D5 IVPB ONE (14:00)
[2019-12-13] MEDS ORDERED: SULFAMETHOXAZOLE IVPB ONE (14:00)
[2019-12-13] MEDS ORDERED: TRIMETH IVPB ONE (14:00)
[2019-12-13] MEDS ORDERED: WATER IVPB ONE (14:00)
[2019-12-13] MEDS ORDERED: Ondansetron 4 MG/2 ML VIAL IVP PRN (15:02)
[2019-12-13] MEDS ORDERED: Naloxone 0.4 MG/ML INJ IVP PRN (15:02)
[2019-12-13] MEDS ORDERED: Morphine Sulfate 2 MG/ML SYRINGE IVP STA (15:03)
[2019-12-13] MEDS ORDERED: Dextrose Gel 15 GM/37.5 ML TUBE PO PRN ×2 (15:07)
[2019-12-13] MEDS ORDERED: D5% in Water 1,000 ML IVC PRN (15:07)
[2019-12-13] MEDS ORDERED: *HR* Dextrose 50 % in Water (Syg) 50 ML SYRINGE IVP PRN (15:07)
[2019-12-13] MEDS: Insulin LISPRO 300 UNITS/3 ML VIAL SQ SCH (16:36)
[2019-12-13] MEDS: Clindamycin 600 MG/50 ML 600 MG/50 ML IV.SOLN IVPB SCH ×2 (17:13→23:57)
[2019-12-13] MEDS: MetroNIDAZOLE 500 MG/100 ML 500 MG/100 ML BAG IVPB SCH ×2 (17:17→23:56)
[2019-12-13] MEDS: *HR* OxyCODONE Immed Rel 5 MG TABLET PO PRN (20:56)
[2019-12-13] MEDS: Gabapentin 300 MG CAPSULE PO SCH (20:56)
[2019-12-13] MEDS: Insulin DETEMIR 100 UNIT/ML X5UNITS SQ SCH (20:57)
[2019-12-13] MEDS ORDERED: QUEtiapine Fumarate 25 MG TABLET PO SCH (21:00)
[2019-12-13] MEDS ORDERED: traZODone 50 MG TABLET PO SCH (21:00)
[2019-12-14 03:25] LABS: Basophils # 0.1 K/mcL (0.0-0.2); Basophils % 0.7 %; Eosinophils # 0.2 K/mcL (0.0-0.6); Eosinophils % 2.6 %; Hematocrit 28.9 % (37.5-50.1); Hemoglobin 8.9 g/dL (12.9-16.9); Immature Granulocytes % 1.2 % (0-4); Lymphocytes # 2.1 K/mcL (0.6-4.6); Mean Corpuscular HGB Conc 30.8 g/dL (31.6-35.5); Mean Corpuscular Hemoglobin 26.5 pg (28.0-33.3); Mean Platelet Volume 9.8 fL (9.4-12.4); Monocytes # 0.5 K/mcL (0.0-1.3); Monocytes % 5.5 %; Neutrophils # 6.2 K/mcL (1.6-8.9); Platelet Count 305 K/mcL (140-400); Red Blood Count 3.36 M/mcL (4.19-5.50); Red Cell Distribution Width 15.5 % (11.5-14.5); White Blood Count 9.2 K/mcL (4.3-11.1)
[2019-12-14 03:33] LABS: INR 1.2; Prothrombin Time 13.9 Seconds (9.4-12.1)
[2019-12-14 03:35] LABS: Activated Partial Thrombo Time 33.6 Seconds (26.0-36.0)
[2019-12-14 03:45] LABS: BUN/Creatinine Ratio 27 (6-26); Blood Urea Nitrogen 25 mg/dL (6-20); Calcium 8.7 mg/dL (8.6-10.3); Carbon Dioxide 24 mEq/L (23-29); Chloride 103 mEq/L (98-107); Glucose 194 mg/dL (70-105); Magnesium 1.2 mg/dL (1.6-2.6); Osmolality,Calculated 286 (280-300); Potassium 4.8 mEq/L (3.5-5.1); Sodium 133 mEq/L (136-145); eGFR For African Americans > 60 (> 60); eGFR For Non-African Americans > 60 (> 60)
[2019-12-14] MEDS ORDERED: Magnesium Sulfate 1 GM/102 ML PIGGYBACK IVPB ONE (07:34)
[2019-12-14] MEDS ORDERED: lisinopriL 5 MG TABLET PO SCH (09:00)
[2019-12-14] MEDS ORDERED: Metoprolol XL (24 HR) Succ 25 MG TAB.ER.24H PO SCH (09:00)
[2019-12-14] MEDS ORDERED: Furosemide 40 MG TABLET PO SCH (09:00)
[2019-12-14] MEDS: *HR* OxyCODONE Immed Rel 5 MG TABLET PO PRN (09:08)
[2019-12-14] MEDS: Clindamycin 600 MG/50 ML 600 MG/50 ML IV.SOLN IVPB SCH ×2 (09:09→15:48)
[2019-12-14] MEDS: Gabapentin 300 MG CAPSULE PO SCH ×3 (09:09→21:07)
[2019-12-14] MEDS: Insulin DETEMIR 100 UNIT/ML X5UNITS SQ SCH ×2 (09:09→21:08)
[2019-12-14] MEDS: Insulin LISPRO 300 UNITS/3 ML VIAL SQ SCH ×3 (09:10→21:08)
[2019-12-14] MEDS ORDERED: *HR* Propofol 200 MG/20 ML VIAL IVP ONE (09:55)
[2019-12-14] MEDS ORDERED: *HR* FentaNYL (PF) 100 MCG/2 ML VIAL ONE (09:55)
[2019-12-14] MEDS ORDERED: Lidocaine -MPF 2% 2 ML VIAL ONE (09:55)
[2019-12-14] MEDS ORDERED: *HR* Midazolam HCl 2 MG/2 ML VIAL ONE (09:55)
[2019-12-14] MEDS ORDERED: Ondansetron 4 MG/2 ML VIAL ONE (09:55)
[2019-12-14] MEDS ORDERED: Bupivacaine/EPI 1:200k 0.5%PF 30 ML VIAL ONE (09:56)
[2019-12-14] MEDS ORDERED: *HR* Succinylcholine 200 MG/10 ML VIAL IVP ONE (10:24)
[2019-12-14] MEDS ORDERED: Lidocaine HCL 4 ML Topical Solution (Laryng-O-Jet Kit Sterile Pak) TP ONE (10:24)
[2019-12-14] MEDS: MetroNIDAZOLE 500 MG/100 ML 500 MG/100 ML BAG IVPB SCH ×2 (10:24→15:50)
[2019-12-14] MEDS ORDERED: Dexamethasone 4 MG/ML VIAL ONE (10:49)
[2019-12-14] MEDS ORDERED: *HR* PHENYLEPHRINE 1,000 MCG/10 ML SYRINGE IVP ONE (10:49)
[2019-12-14] MEDS ORDERED: *HR* Promethazine 25 MG/ML VIAL IVP PRN (11:07)
[2019-12-14] MEDS ORDERED: Ondansetron 4 MG/2 ML VIAL IVP ONE (11:07)
[2019-12-14] MEDS ORDERED: *HR* HYDROmorphone PF 0.5 MG/0.5 ML SYRINGE IVP PRN (11:07)
[2019-12-14] MEDS ORDERED: Dextrose Gel 15 GM/37.5 ML TUBE PO PRN ×2 (12:07)
[2019-12-14] MEDS ORDERED: *HR* Dextrose 50 % in Water (Syg) 50 ML SYRINGE IVP PRN (12:07)
[2019-12-14] MEDS ORDERED: Morphine Sulfate Oral CONC 10 MG/0.5 ML ORAL.SYG SL PRN (12:07)
[2019-12-14] MEDS ORDERED: D5% in Water 1,000 ML IVC PRN (12:07)
[2019-12-14] MEDS ORDERED: Naloxone 0.4 MG/ML INJ IVP PRN (12:07)
[2019-12-14] MEDS: *HR* OxyCODONE/APAP 5/325 TABLET PO PRN ×2 (14:41→21:07)
[2019-12-14] MEDS: *HR* Heparin 5,000 UNIT/ML VIAL SQ SCH (16:13)
[2019-12-14] MEDS ORDERED: *HR* Heparin 5,000 UNIT/ML VIAL SQ SCH (18:00)
[2019-12-14] MEDS ORDERED: Insulin DETEMIR 100 UNIT/ML X5UNITS SQ SCH (21:00)
[2019-12-14] MEDS: traZODone 50 MG TABLET PO SCH (21:07)
[2019-12-14] MEDS: QUEtiapine Fumarate 25 MG TABLET PO SCH (21:07)
[2019-12-15] MEDS: Clindamycin 600 MG/50 ML 600 MG/50 ML IV.SOLN IVPB SCH ×3 (00:03→15:57)
[2019-12-15] MEDS: MetroNIDAZOLE 500 MG/100 ML 500 MG/100 ML BAG IVPB SCH ×3 (00:04→16:58)
[2019-12-15] MEDS: *HR* Heparin 5,000 UNIT/ML VIAL SQ SCH ×2 (05:43→17:51)
[2019-12-15] MEDS: Furosemide 40 MG TABLET PO SCH ×2 (08:04→09:40)
[2019-12-15] MEDS: Gabapentin 300 MG CAPSULE PO SCH ×3 (08:04→21:45)
[2019-12-15] MEDS: Insulin LISPRO 300 UNITS/3 ML VIAL SQ SCH ×4 (08:07→21:47)
[2019-12-15] MEDS: lisinopriL 5 MG TABLET PO SCH (08:19)
[2019-12-15] MEDS: Metoprolol XL (24 HR) Succ 25 MG TAB.ER.24H PO SCH (08:19)
[2019-12-15] MEDS: *HR* OxyCODONE/APAP 5/325 TABLET PO PRN ×2 (08:25→16:11)
[2019-12-15] MEDS: Insulin DETEMIR 100 UNIT/ML X5UNITS SQ SCH ×2 (08:25→21:46)
[2019-12-15 09:09] LABS: Basophils % 0.2 %; Eosinophils % 0.1 %; Hematocrit 30.2 % (37.5-50.1); Hemoglobin 9.2 g/dL (12.9-16.9); Lymphocytes # 1.2 K/mcL (0.6-4.6); Mean Corpuscular HGB Conc 30.5 g/dL (31.6-35.5); Mean Corpuscular Hemoglobin 26.4 pg (28.0-33.3); Mean Corpuscular Volume 86.5 fL (83.0-100.0); Mean Platelet Volume 10.1 fL (9.4-12.4); Monocytes # 0.4 K/mcL (0.0-1.3); Monocytes % 3.3 %; Neutrophils # 10.2 K/mcL (1.6-8.9); Platelet Count 309 K/mcL (140-400); Red Blood Count 3.49 M/mcL (4.19-5.50); Red Cell Distribution Width 15.4 % (11.5-14.5); Segmented Neutrophils % 85.4 %; White Blood Count 11.9 K/mcL (4.3-11.1)
[2019-12-15] MEDS ORDERED: Loratadine 10 MG TABLET PO PRN (09:22)
[2019-12-15] MEDS: *HR* HYDROmorphone (PF) 1 MG/ML SYRINGE IVP PRN ×4 (10:38→22:36)
[2019-12-15] MEDS ORDERED: polyethylene glycoL 3350 17 GM POWD.PACK PO ONE (11:56)
[2019-12-15 15:01] LABS: BUN/Creatinine Ratio 38 (6-26); Blood Urea Nitrogen 46 mg/dL (6-20); Calcium 8.4 mg/dL (8.6-10.3); Carbon Dioxide 25 mEq/L (23-29); Chloride 98 mEq/L (98-107); Glucose 397 mg/dL (70-105); Magnesium 1.5 mg/dL (1.6-2.6); Osmolality,Calculated 298 (280-300); Potassium 4.8 mEq/L (3.5-5.1); Sodium 130 mEq/L (136-145); eGFR For African Americans > 60 (> 60); eGFR For Non-African Americans > 60 (> 60)
[2019-12-15] MEDS: Ondansetron 4 MG/2 ML VIAL IVP PRN (17:02)
[2019-12-15] MEDS ORDERED: Insulin LISPRO 300 UNITS/3 ML VIAL SQ STA (17:38)
[2019-12-15] MEDS ORDERED: Insulin DETEMIR 100 UNIT/ML X5UNITS SQ SCH (21:00)
[2019-12-15] MEDS: traZODone 50 MG TABLET PO SCH (21:45)
[2019-12-15] MEDS: QUEtiapine Fumarate 25 MG TABLET PO SCH (21:45)
[2019-12-16] MEDS: Clindamycin 600 MG/50 ML 600 MG/50 ML IV.SOLN IVPB SCH ×4 (00:09→23:34)
[2019-12-16] MEDS: MetroNIDAZOLE 500 MG/100 ML 500 MG/100 ML BAG IVPB SCH ×4 (00:10→23:34)
[2019-12-16] MEDS: *HR* HYDROmorphone (PF) 1 MG/ML SYRINGE IVP PRN ×5 (02:39→20:48)
[2019-12-16] MEDS: Ondansetron 4 MG/2 ML VIAL IVP PRN (02:39)
[2019-12-16 02:53] LABS: Hematocrit 31.7 % (37.5-50.1); Hemoglobin 9.8 g/dL (12.9-16.9); Mean Corpuscular HGB Conc 30.9 g/dL (31.6-35.5); Mean Corpuscular Hemoglobin 27.1 pg (28.0-33.3); Mean Corpuscular Volume 87.6 fL (83.0-100.0); Mean Platelet Volume 9.8 fL (9.4-12.4); Platelet Count 347 K/mcL (140-400); Red Blood Count 3.62 M/mcL (4.19-5.50); Red Cell Distribution Width 15.7 % (11.5-14.5); White Blood Count 12.8 K/mcL (4.3-11.1)
[2019-12-16 03:12] LABS: BUN/Creatinine Ratio 42 (6-26); Blood Urea Nitrogen 52 mg/dL (6-20); Calcium 8.2 mg/dL (8.6-10.3); Carbon Dioxide 22 mEq/L (23-29); Chloride 100 mEq/L (98-107); Glucose 259 mg/dL (70-105); Osmolality,Calculated 293 (280-300); Sodium 130 mEq/L (136-145); eGFR For African Americans > 60 (> 60); eGFR For Non-African Americans > 60 (> 60)
[2019-12-16] MEDS: *HR* Heparin 5,000 UNIT/ML VIAL SQ SCH ×2 (05:41→18:22)
[2019-12-16] MEDS: Gabapentin 300 MG CAPSULE PO SCH ×3 (08:00→22:02)
[2019-12-16] MEDS: polyethylene glycoL 3350 17 GM POWD.PACK PO SCH (08:00)
[2019-12-16] MEDS: Aspirin Enteric Coated 81 MG Tablet PO SCH (08:00)
[2019-12-16] MEDS: Metoprolol XL (24 HR) Succ 25 MG TAB.ER.24H PO SCH (08:01)
[2019-12-16] MEDS: lisinopriL 5 MG TABLET PO SCH (08:01)
[2019-12-16] MEDS: Furosemide 40 MG TABLET PO SCH (08:02)
[2019-12-16] MEDS: Insulin LISPRO 300 UNITS/3 ML VIAL SQ SCH ×6 (08:02→20:49)
[2019-12-16] MEDS: traZODone 50 MG TABLET PO SCH (20:48)
[2019-12-16] MEDS: QUEtiapine Fumarate 25 MG TABLET PO SCH (20:48)
[2019-12-16] MEDS: Insulin DETEMIR 100 UNIT/ML X5UNITS SQ SCH (20:49)
[2019-12-17] MEDS: *HR* HYDROmorphone (PF) 1 MG/ML SYRINGE IVP PRN ×3 (02:29→10:39)
[2019-12-17 05:02] LABS: Basophils # 0.1 K/mcL (0.0-0.2); Eosinophils # 0.2 K/mcL (0.0-0.6); Eosinophils % 2.4 %; Hematocrit 32.9 % (37.5-50.1); Hemoglobin 9.6 g/dL (12.9-16.9); Lymphocytes # 2.3 K/mcL (0.6-4.6); Lymphocytes % 24.6 %; Mean Corpuscular HGB Conc 29.2 g/dL (31.6-35.5); Mean Corpuscular Hemoglobin 25.7 pg (28.0-33.3); Mean Corpuscular Volume 88.2 fL (83.0-100.0); Mean Platelet Volume 10.3 fL (9.4-12.4); Monocytes # 0.7 K/mcL (0.0-1.3); Monocytes % 7.4 %; Neutrophils # 5.9 K/mcL (1.6-8.9); Platelet Count 338 K/mcL (140-400); Red Blood Count 3.73 M/mcL (4.19-5.50); Segmented Neutrophils % 63.6 %; White Blood Count 9.3 K/mcL (4.3-11.1)
[2019-12-17 05:19] LABS: BUN/Creatinine Ratio 46 (6-26); Blood Urea Nitrogen 56 mg/dL (6-20); Calcium 8.5 mg/dL (8.6-10.3); Carbon Dioxide 24 mEq/L (23-29); Chloride 102 mEq/L (98-107); Glucose 147 mg/dL (70-105); Magnesium 1.9 mg/dL (1.6-2.6); Osmolality,Calculated 290 (280-300); Potassium 5.1 mEq/L (3.5-5.1); Sodium 131 mEq/L (136-145); eGFR For African Americans > 60 (> 60); eGFR For Non-African Americans > 60 (> 60)
[2019-12-17 05:27] LABS: Platelet Estimate Normal (Normal); Reactive Lymphocytes Present (Not Present)
[2019-12-17] MEDS: *HR* Heparin 5,000 UNIT/ML VIAL SQ SCH (05:49)
[2019-12-17] MEDS: Metoprolol XL (24 HR) Succ 25 MG TAB.ER.24H PO SCH (08:54)
[2019-12-17] MEDS: Clindamycin 600 MG/50 ML 600 MG/50 ML IV.SOLN IVPB SCH (08:55)
[2019-12-17] MEDS: polyethylene glycoL 3350 17 GM POWD.PACK PO SCH (08:55)
[2019-12-17] MEDS: lisinopriL 5 MG TABLET PO SCH (08:55)
[2019-12-17] MEDS: Gabapentin 300 MG CAPSULE PO SCH (08:55)
[2019-12-17] MEDS: Aspirin Enteric Coated 81 MG Tablet PO SCH (08:55)
[2019-12-17] MEDS: Insulin LISPRO 300 UNITS/3 ML VIAL SQ SCH ×4 (09:00→14:36)
[2019-12-17] MEDS ORDERED: Gadolinium Contrast Agent (WT Based) IV PRN ×2 (09:11→11:42)
[2019-12-17] MEDS: MetroNIDAZOLE 500 MG/100 ML 500 MG/100 ML BAG IVPB SCH (10:03)
[2019-12-17 11:17] VITALS: BP 105/70
[2019-12-17] MEDS ORDERED: DAPTOmycin 750 MG in 0.9 % Sodium Chloride 100 ML IVPB SCH (14:00)
[2019-12-18 11:24] LABS: Acinetobacter baumannii by PCR Not Detected (Not Detect); Candida albicans by PCR Not Detected (Not Detect); Candida glabrata by PCR Not Detected (Not Detect); Candida krusei by PCR Not Detected (Not Detect); Candida parapsilosis by PCR Not Detected (Not Detect); Candida tropicalis by PCR Not Detected (Not Detect); Enterobacter cloacae Cmplx PCR Not Detected (Not Detect); Enterobacteriaceae by PCR Not Detected (Not Detect); Enterococcus by PCR Not Detected (Not Detect); Escherichia coli by PCR Not Detected (Not Detect); Klebsiella oxytoca by PCR Not Detected (Not Detect); Klebsiella pneumoniae by PCR Not Detected (Not Detect); Proteus by PCR Not Detected (Not Detect); Pseudomonas aeruginosa by PCR Not Detected (Not Detect); Serratia marcescens by PCR Not Detected (Not Detect); Staphylococcus aureus by PCR Not Detected (Not Detect); Staphylococcus by PCR Not Detected (Not Detect); Streptococcus agalactiae(B)PCR Not Detected (Not Detect); Streptococcus by PCR Not Detected (Not Detect); Streptococcus pneumoniae PCR Not Detected (Not Detect); Streptococcus pyogenes (A) PCR Not Detected (Not Detect)
== END 2019-12-17 13:59 | disposition left against medical advice (07) | DRG 951 ==
LOC: 3ANU 12:22 → EMEROOARM 12:22 → SUATTDRO 15:02 → 3ANU 15:57
PROVIDERS: ADMIT Internal Medicine; ATTEND Internal Medicine

== ENCOUNTER 2019-12-24 20:45 | Inpatient (IN) ==
[2019-12-24] MEDS ORDERED: 0.9 % Sodium Chloride 1,000 ML IVC ONE (21:32)
[2019-12-24] MEDS ORDERED: Furosemide 40 MG/4 ML VIAL IVP ONE (23:25)
[2019-12-24 23:36] LABS: Basophils % 0.6 %; Eosinophils # 0.2 K/mcL (0.0-0.6); Hematocrit 31.1 % (37.5-50.1); Hemoglobin 9.2 g/dL (12.9-16.9); Immature Granulocytes % 0.6 % (0-4); Mean Corpuscular HGB Conc 29.6 g/dL (31.6-35.5); Mean Corpuscular Hemoglobin 26.4 pg (28.0-33.3); Mean Corpuscular Volume 89.1 fL (83.0-100.0); Mean Platelet Volume 10.3 fL (9.4-12.4); Monocytes # 0.3 K/mcL (0.0-1.3); Monocytes % 6.6 %; Neutrophils # 3.4 K/mcL (1.6-8.9); Platelet Count 241 K/mcL (140-400); Red Blood Count 3.49 M/mcL (4.19-5.50); Red Cell Distribution Width 17.2 % (11.5-14.5); Segmented Neutrophils % 68.2 %
[2019-12-24 23:39] LABS: INR 1.2; Prothrombin Time 13.6 Seconds (9.4-12.1)
[2019-12-24 23:41] LABS: Bilirubin,Urine Negative (Negative); Blood,Urine Moderate (Negative); Clarity,Urine Clear (Clear); Color,Urine Yellow (Yellow); Glucose,Urine (UA) >=1000 mg/dL (Normal); Ketones,Urine Negative (Negative); Leukocyte Esterase,Urine Negative (Negative); Nitrite,Urine Negative (Negative); Protein,Urine >=300 mg/dL (Neg-Trace); Specific Gravity,Urine 1.026 (1.010-1.025); Urobilinogen,Urine Normal (Normal)
[2019-12-24 23:42] LABS: Activated Partial Thrombo Time 34.4 Seconds (26.0-36.0)
[2019-12-24] MEDS ORDERED: Isovue-370 500 ML BOTTLE IVP ONE (23:43)
[2019-12-24 23:44] LABS: Bacteria,Urine None Seen per hpf (None-Few); Hyaline Casts,Urine None Seen per lpf (None-Few); RBC,Urine 30-50 per hpf (0-3); Squamous Epithelial Cell,Urine Moderate per lpf (None-Few); WBC,Urine 0-3 per hpf (0-3)
[2019-12-25] LABS: Alanine Aminotransferase 7 Units/L (7-52); Albumin/Globulin Ratio 0.9 (1.1-2.2); Alkaline Phosphatase 100 Units/L (34-104); Aspartate Amino Transferase 9 Units/L (13-39); BUN/Creatinine Ratio 20 (6-26); Bilirubin,Direct 0.1 mg/dL (0.0-0.2); Bilirubin,Indirect 0.3 mg/dL (0.0-1.0); Bilirubin,Total 0.4 mg/dL (0.3-1.0); Blood Urea Nitrogen 17 mg/dL (6-20); Calcium 8.6 mg/dL (8.6-10.3); Carbon Dioxide 26 mEq/L (23-29); Chloride 103 mEq/L (98-107); Creatine Kinase 58 Units/L (30-223); Globulin 3.4 g/dL (2.4-3.5); Glucose 309 mg/dL (70-105); Osmolality,Calculated 295 (280-300); Potassium 4.4 mEq/L (3.5-5.1); Sodium 136 mEq/L (136-145); Total Protein 6.4 g/dL (6.4-8.9); Troponin I < 0.03 ng/mL (< 0.04); eGFR For African Americans > 60 (> 60); eGFR For Non-African Americans > 60 (> 60)
[2019-12-25] MEDS ORDERED: *HR* Dextrose 50 % in Water (Syg) 50 ML SYRINGE IVP PRN (04:06)
[2019-12-25] MEDS ORDERED: Naloxone 0.4 MG/ML INJ IVP PRN (04:06)
[2019-12-25] MEDS ORDERED: Ondansetron 4 MG/2 ML VIAL IVP PRN (04:06)
[2019-12-25] MEDS ORDERED: *HR* OxyCODONE Immed Rel 5 MG TABLET PO PRN (04:06)
[2019-12-25] MEDS ORDERED: D5% in Water 1,000 ML IVC PRN (04:06)
[2019-12-25] MEDS ORDERED: Dextrose Gel 15 GM/37.5 ML TUBE PO PRN ×2 (04:06)
[2019-12-25] MEDS ORDERED: Ipratropium/Albuterol Neb 3 ML IH PRN (04:36)
[2019-12-25] MEDS: *HR* Heparin 5,000 UNIT/ML VIAL SQ SCH ×3 (05:28→20:53)
[2019-12-25] MEDS: Insulin DETEMIR 100 UNIT/ML X5UNITS SQ SCH ×2 (05:34→20:53)
[2019-12-25] MEDS: DAPTOmycin 750 MG in 0.9 % Sodium Chloride 100 ML IVPB SCH (05:53)
[2019-12-25] MEDS ORDERED: Insulin LISPRO 300 UNITS/3 ML VIAL SQ SCH (06:00)
[2019-12-25] MEDS: Furosemide 40 MG/4 ML VIAL IVP SCH ×2 (07:30→20:53)
[2019-12-25] MEDS: *HR* HYDROcodone/Acet 5/325 mg TABLET PO PRN ×3 (07:30→20:54)
[2019-12-25] MEDS: hydrALAZINE 25 MG TABLET PO SCH ×3 (07:31→20:52)
[2019-12-25] MEDS: Aspirin Enteric Coated 81 MG Tablet PO SCH (07:31)
[2019-12-25] MEDS: Metoprolol XL (24 HR) Succ 25 MG TAB.ER.24H PO SCH (07:32)
[2019-12-25] MEDS: Gabapentin 300 MG CAPSULE PO SCH ×3 (07:32→20:53)
[2019-12-25] MEDS: lisinopriL 5 MG TABLET PO SCH (07:32)
[2019-12-25 08:10] LABS: Estimated Average Glucose 249 mg/dl
[2019-12-25] MEDS: Budesonide/Formoterol 160/4.5 1 PUFF INH IH SCH ×2 (08:19→20:43)
[2019-12-25] MEDS ORDERED: Doxycycline 100 MG CAPSULE PO SCH (09:00)
[2019-12-25] MEDS ORDERED: Morphine Sulfate Oral CONC 10 MG/0.5 ML ORAL.SYG SL ONE (09:13)
[2019-12-25] MEDS: Sennosides/Docusate Sodium TABLET PO SCH ×2 (09:24→20:52)
[2019-12-25] MEDS: Insulin LISPRO 300 UNITS/3 ML VIAL SQ SCH ×2 (11:39→16:47)
[2019-12-25] MEDS ORDERED: *HR* LORazepam 1 MG TABLET PO PRN (16:23)
[2019-12-25] MEDS ORDERED: Perflutren Lipid Microsphere 1.3 ML in 0.9 % Sodium Chloride 8.7 ML IVP ONE (16:58)
[2019-12-25] MEDS: traZODone 50 MG TABLET PO SCH (20:52)
[2019-12-25] MEDS: QUEtiapine Fumarate 25 MG TABLET PO SCH (20:53)
[2019-12-25] MEDS ORDERED: Insulin DETEMIR 100 UNIT/ML X5UNITS SQ SCH (21:00)
[2019-12-26 04:39] LABS: Hemoglobin 8.4 g/dL (12.9-16.9)
[2019-12-26 04:41] LABS: Basophils % 0.9 %; Eosinophils # 0.3 K/mcL (0.0-0.6); Eosinophils % 5.9 %; Hematocrit 28.4 % (37.5-50.1); Immature Granulocytes % 0.4 % (0-4); Lymphocytes # 1.3 K/mcL (0.6-4.6); Lymphocytes % 27.4 %; Mean Corpuscular HGB Conc 29.6 g/dL (31.6-35.5); Mean Corpuscular Hemoglobin 26.7 pg (28.0-33.3); Mean Corpuscular Volume 90.2 fL (83.0-100.0); Mean Platelet Volume 10.1 fL (9.4-12.4); Monocytes % 7.5 %; Platelet Count 209 K/mcL (140-400); Red Blood Count 3.15 M/mcL (4.19-5.50); Red Cell Distribution Width 17.5 % (11.5-14.5); Segmented Neutrophils % 57.9 %; White Blood Count 4.6 K/mcL (4.3-11.1)
[2019-12-26 04:45] LABS: Monocytes # 0.4 K/mcL (0.0-1.3); Neutrophils # 2.7 K/mcL (1.6-8.9)
[2019-12-26 04:59] LABS: BUN/Creatinine Ratio 26 (6-26); Blood Urea Nitrogen 28 mg/dL (6-20); Calcium 8.6 mg/dL (8.6-10.3); Carbon Dioxide 28 mEq/L (23-29); Chloride 102 mEq/L (98-107); Glucose 195 mg/dL (70-105); Osmolality,Calculated 293 (280-300); Potassium 4.7 mEq/L (3.5-5.1); Sodium 136 mEq/L (136-145); eGFR For African Americans > 60 (> 60); eGFR For Non-African Americans > 60 (> 60)
[2019-12-26] MEDS: *HR* Heparin 5,000 UNIT/ML VIAL SQ SCH ×3 (05:26→20:44)
[2019-12-26] MEDS: *HR* HYDROcodone/Acet 5/325 mg TABLET PO PRN ×3 (05:26→17:48)
[2019-12-26] MEDS: DAPTOmycin 750 MG in 0.9 % Sodium Chloride 100 ML IVPB SCH (05:27)
[2019-12-26] MEDS: Furosemide 40 MG/4 ML VIAL IVP SCH ×2 (07:42→20:43)
[2019-12-26] MEDS: Insulin LISPRO 300 UNITS/3 ML VIAL SQ SCH ×3 (07:44→16:41)
[2019-12-26] MEDS: Aspirin Enteric Coated 81 MG Tablet PO SCH (07:44)
[2019-12-26] MEDS: hydrALAZINE 25 MG TABLET PO SCH ×3 (07:45→20:43)
[2019-12-26] MEDS: Sennosides/Docusate Sodium TABLET PO SCH ×2 (07:45→20:42)
[2019-12-26] MEDS: Gabapentin 300 MG CAPSULE PO SCH ×3 (07:45→20:43)
[2019-12-26] MEDS: lisinopriL 5 MG TABLET PO SCH (07:45)
[2019-12-26] MEDS: Metoprolol XL (24 HR) Succ 25 MG TAB.ER.24H PO SCH (07:52)
[2019-12-26] MEDS: Budesonide/Formoterol 160/4.5 1 PUFF INH IH SCH ×2 (07:53→20:15)
[2019-12-26] MEDS: Insulin DETEMIR 100 UNIT/ML X5UNITS SQ SCH (20:43)
[2019-12-26] MEDS: traZODone 50 MG TABLET PO SCH (20:43)
[2019-12-26] MEDS: QUEtiapine Fumarate 25 MG TABLET PO SCH (20:43)
[2019-12-27 04:44] LABS: Basophils % 0.7 %; Eosinophils # 0.4 K/mcL (0.0-0.6); Eosinophils % 6.3 %; Hematocrit 32.4 % (37.5-50.1); Hemoglobin 9.4 g/dL (12.9-16.9); Immature Granulocytes % 0.4 % (0-4); Lymphocytes # 1.4 K/mcL (0.6-4.6); Lymphocytes % 24.3 %; Mean Corpuscular Volume 89.5 fL (83.0-100.0); Mean Platelet Volume 10.6 fL (9.4-12.4); Monocytes # 0.3 K/mcL (0.0-1.3); Monocytes % 4.8 %; Neutrophils # 3.6 K/mcL (1.6-8.9); Platelet Count 262 K/mcL (140-400); Red Blood Count 3.62 M/mcL (4.19-5.50); Red Cell Distribution Width 17.2 % (11.5-14.5); Segmented Neutrophils % 63.5 %; White Blood Count 5.7 K/mcL (4.3-11.1)
[2019-12-27 05:03] LABS: BUN/Creatinine Ratio 28 (6-26); Blood Urea Nitrogen 36 mg/dL (6-20); Calcium 8.9 mg/dL (8.6-10.3); Carbon Dioxide 28 mEq/L (23-29); Chloride 98 mEq/L (98-107); Glucose 221 mg/dL (70-105); Magnesium 1.7 mg/dL (1.6-2.6); Osmolality,Calculated 291 (280-300); Potassium 4.7 mEq/L (3.5-5.1); Sodium 133 mEq/L (136-145); eGFR For African Americans > 60 (> 60); eGFR For Non-African Americans > 60 (> 60)
[2019-12-27] MEDS: *HR* Heparin 5,000 UNIT/ML VIAL SQ SCH ×3 (06:29→21:14)
[2019-12-27] MEDS: Budesonide/Formoterol 160/4.5 1 PUFF INH IH SCH ×2 (07:23→20:00)
[2019-12-27] MEDS: *HR* HYDROcodone/Acet 5/325 mg TABLET PO PRN (08:52)
[2019-12-27] MEDS: Sennosides/Docusate Sodium TABLET PO SCH ×2 (08:52→21:14)
[2019-12-27] MEDS: Gabapentin 300 MG CAPSULE PO SCH ×3 (08:52→21:13)
[2019-12-27] MEDS: Aspirin Enteric Coated 81 MG Tablet PO SCH (08:52)
[2019-12-27] MEDS: hydrALAZINE 25 MG TABLET PO SCH ×3 (08:53→21:13)
[2019-12-27] MEDS: Furosemide 40 MG/4 ML VIAL IVP SCH ×2 (08:53→21:14)
[2019-12-27] MEDS: Metoprolol XL (24 HR) Succ 25 MG TAB.ER.24H PO SCH (08:53)
[2019-12-27] MEDS: Insulin LISPRO 300 UNITS/3 ML VIAL SQ SCH ×3 (08:53→17:38)
[2019-12-27] MEDS: lisinopriL 5 MG TABLET PO SCH (08:53)
[2019-12-27] MEDS: DAPTOmycin 750 MG in 0.9 % Sodium Chloride 100 ML IVPB SCH (08:54)
[2019-12-27] MEDS: traZODone 50 MG TABLET PO SCH (21:13)
[2019-12-27] MEDS: QUEtiapine Fumarate 25 MG TABLET PO SCH (21:13)
[2019-12-27] MEDS: Insulin DETEMIR 100 UNIT/ML X5UNITS SQ SCH (21:14)
[2019-12-28 03:58] VITALS: BP 118/80
[2019-12-28] MEDS: DAPTOmycin 750 MG in 0.9 % Sodium Chloride 100 ML IVPB SCH (05:38)
[2019-12-28] MEDS: *HR* Heparin 5,000 UNIT/ML VIAL SQ SCH (05:38)
[2019-12-28] MEDS: hydrALAZINE 25 MG TABLET PO SCH (08:26)
[2019-12-28] MEDS: Insulin LISPRO 300 UNITS/3 ML VIAL SQ SCH (08:27)
[2019-12-28] MEDS: Furosemide 40 MG/4 ML VIAL IVP SCH (08:28)
[2019-12-28] MEDS: Sennosides/Docusate Sodium TABLET PO SCH (08:30)
[2019-12-28] MEDS: Metoprolol XL (24 HR) Succ 25 MG TAB.ER.24H PO SCH (08:30)
[2019-12-28] MEDS: Aspirin Enteric Coated 81 MG Tablet PO SCH (08:30)
[2019-12-28] MEDS: Gabapentin 300 MG CAPSULE PO SCH (08:30)
[2019-12-28] MEDS: lisinopriL 5 MG TABLET PO SCH (08:31)
[2019-12-28] MEDS: *HR* HYDROcodone/Acet 5/325 mg TABLET PO PRN (08:41)
[2019-12-28] MEDS ORDERED: Spironolactone 25 MG TABLET PO SCH (09:00)
[2019-12-28] MEDS: Budesonide/Formoterol 160/4.5 1 PUFF INH IH SCH (10:15)
[2019-12-28] MEDS ORDERED: carvediloL 6.25 MG TABLET PO SCH (17:00)
== END 2019-12-28 11:03 | disposition home health service (06) | DRG 194 ==
LOC: 3ANU 20:45 → EMEROOARM 20:45 → SUATTDRO 12-25 03:10 → 3ANU 12-25 03:52 → SUATTDRO 12-25 14:15
PROVIDERS: ADMIT Student in an Organized Health Care Education/Training Program; ATTEND Internal Medicine

== ENCOUNTER 2020-01-01 20:09 | Observation (INO) ==
[2020-01-01 21:02] LABS: Basophils % 0.5 %; Eosinophils # 0.2 K/mcL (0.0-0.6); Eosinophils % 3.6 %; Hematocrit 31.9 % (37.5-50.1); Hemoglobin 9.5 g/dL (12.9-16.9); Immature Granulocytes % 0.4 % (0-4); Lymphocytes % 18.4 %; Mean Corpuscular HGB Conc 29.8 g/dL (31.6-35.5); Mean Corpuscular Hemoglobin 26.1 pg (28.0-33.3); Mean Corpuscular Volume 87.6 fL (83.0-100.0); Mean Platelet Volume 10.3 fL (9.4-12.4); Monocytes # 0.4 K/mcL (0.0-1.3); Monocytes % 7.1 %; Neutrophils # 3.9 K/mcL (1.6-8.9); Platelet Count 225 K/mcL (140-400); Red Blood Count 3.64 M/mcL (4.19-5.50); Red Cell Distribution Width 17.2 % (11.5-14.5); White Blood Count 5.6 K/mcL (4.3-11.1)
[2020-01-01 21:07] LABS: INR 1.2; Prothrombin Time 14.1 Seconds (9.4-12.1)
[2020-01-01 21:10] LABS: Activated Partial Thrombo Time 28.1 Seconds (26.0-36.0)
[2020-01-01 21:24] LABS: Alanine Aminotransferase 8 Units/L (7-52); Albumin 3.4 g/dL (3.5-5.7); Albumin/Globulin Ratio 1.1 (1.1-2.2); Alkaline Phosphatase 81 Units/L (34-104); Aspartate Amino Transferase 16 Units/L (13-39); BUN/Creatinine Ratio 24 (6-26); Bilirubin,Total 0.7 mg/dL (0.3-1.0); Blood Urea Nitrogen 24 mg/dL (6-20); Calcium 8.8 mg/dL (8.6-10.3); Carbon Dioxide 23 mEq/L (23-29); Chloride 102 mEq/L (98-107); Globulin 3.2 g/dL (2.4-3.5); Glucose 278 mg/dL (70-105); Osmolality,Calculated 292 (280-300); Potassium 4.2 mEq/L (3.5-5.1); Sodium 134 mEq/L (136-145); Total Protein 6.6 g/dL (6.4-8.9); Troponin I 0.03 ng/mL (< 0.04); eGFR For African Americans > 60 (> 60); eGFR For Non-African Americans > 60 (> 60)
[2020-01-01 21:56] LABS: Bilirubin,Urine Negative (Negative); Blood,Urine Moderate (Negative); Clarity,Urine Clear (Clear); Color,Urine Yellow (Yellow); Glucose,Urine (UA) Normal (Normal); Ketones,Urine Negative (Negative); Leukocyte Esterase,Urine Negative (Negative); Nitrite,Urine Negative (Negative); Protein,Urine >=300 mg/dL (Neg-Trace); Specific Gravity,Urine >= 1.030 (1.010-1.025)
[2020-01-01] MEDS ORDERED: Furosemide 80 MG in 0.9 % Sodium Chloride 50 ML IVPB ONE (22:06)
[2020-01-01 22:12] LABS: Bacteria,Urine Few per hpf (None-Few); RBC,Urine 0-3 per hpf (0-3); Squamous Epithelial Cell,Urine Few per lpf (None-Few); WBC,Urine 0-3 per hpf (0-3)
[2020-01-01] MEDS ORDERED: Ondansetron 4 MG/2 ML VIAL IVP ONE (22:51)
[2020-01-01] MEDS ORDERED: *HR* HYDROmorphone (PF) 1 MG/ML SYRINGE IVP ONE ×2 (22:51→23:34)
[2020-01-02] MEDS ORDERED: Naloxone 0.4 MG/ML INJ IVP PRN (01:39)
[2020-01-02] MEDS ORDERED: Acetaminophen 325 MG TABLET PO PRN (02:38)
[2020-01-02] MEDS ORDERED: Ondansetron 4 MG/2 ML VIAL IVP PRN (02:38)
[2020-01-02] MEDS ORDERED: Ibuprofen 600 MG TABLET PO PRN (02:54)
[2020-01-02] MEDS: *HR* HYDROcodone/Acet 5/325 mg TABLET PO PRN ×3 (03:33→16:50)
[2020-01-02] MEDS ORDERED: *HR* Dextrose 50 % in Water (Syg) 50 ML SYRINGE IVP PRN (03:35)
[2020-01-02] MEDS ORDERED: Dextrose Gel 15 GM/37.5 ML TUBE PO PRN ×2 (03:35)
[2020-01-02] MEDS ORDERED: D5% in Water 1,000 ML IVC PRN (03:36)
[2020-01-02] MEDS: QUEtiapine Fumarate 25 MG TABLET PO SCH ×2 (04:36→21:12)
[2020-01-02] MEDS: Gabapentin 300 MG CAPSULE PO SCH ×4 (04:37→21:12)
[2020-01-02] MEDS: Insulin LISPRO 300 UNITS/3 ML VIAL SQ SCH ×5 (04:37→21:11)
[2020-01-02] MEDS: traZODone 50 MG TABLET PO SCH ×2 (04:37→21:12)
[2020-01-02] MEDS: Insulin DETEMIR 100 UNIT/ML X5UNITS SQ SCH ×2 (04:37→21:11)
[2020-01-02] MEDS: hydrALAZINE 25 MG TABLET PO SCH ×4 (04:37→21:12)
[2020-01-02] MEDS: *HR* Heparin 5,000 UNIT/ML VIAL SQ SCH ×3 (05:19→21:11)
[2020-01-02] MEDS ORDERED: DAPTOmycin 500 MG VIAL IVPB SCH (09:00)
[2020-01-02] MEDS: DAPTOmycin 750 MG in 0.9 % Sodium Chloride 100 ML IVPB SCH (10:22)
[2020-01-02] MEDS: Furosemide 40 MG/4 ML VIAL IVP SCH ×2 (10:23→16:50)
[2020-01-02] MEDS: Aspirin Enteric Coated 81 MG Tablet PO SCH (10:26)
[2020-01-02] MEDS: Spironolactone 25 MG TABLET PO SCH (10:26)
[2020-01-02] MEDS: lisinopriL 5 MG TABLET PO SCH (10:26)
[2020-01-02] MEDS: Metoprolol XL (24 HR) Succ 25 MG TAB.ER.24H PO SCH (10:26)
[2020-01-02] MEDS: Budesonide/Formoterol 160/4.5 1 PUFF INH IH SCH ×2 (11:19→19:57)
[2020-01-02 15:37] LABS: Basophils # 0.1 K/mcL (0.0-0.2); Basophils % 1.4 %; Eosinophils # 0.2 K/mcL (0.0-0.6); Hematocrit 31.6 % (37.5-50.1); Hemoglobin 9.4 g/dL (12.9-16.9); Immature Granulocytes % 0.2 % (0-4); Lymphocytes # 1.1 K/mcL (0.6-4.6); Lymphocytes % 25.2 %; Mean Corpuscular HGB Conc 29.7 g/dL (31.6-35.5); Mean Corpuscular Hemoglobin 26.2 pg (28.0-33.3); Mean Platelet Volume 10.2 fL (9.4-12.4); Monocytes # 0.4 K/mcL (0.0-1.3); Neutrophils # 2.6 K/mcL (1.6-8.9); Platelet Count 206 K/mcL (140-400); Red Blood Count 3.59 M/mcL (4.19-5.50); Red Cell Distribution Width 17.3 % (11.5-14.5); Segmented Neutrophils % 60.2 %; White Blood Count 4.4 K/mcL (4.3-11.1)
[2020-01-02 16:17] LABS: BUN/Creatinine Ratio 24 (6-26); Blood Urea Nitrogen 30 mg/dL (6-20); Calcium 8.7 mg/dL (8.6-10.3); Carbon Dioxide 24 mEq/L (23-29); Chloride 102 mEq/L (98-107); Glucose 182 mg/dL (70-105); Magnesium 1.7 mg/dL (1.6-2.6); Osmolality,Calculated 295 (280-300); Potassium 4.2 mEq/L (3.5-5.1); Sodium 137 mEq/L (136-145); eGFR For African Americans > 60 (> 60); eGFR For Non-African Americans > 60 (> 60)
[2020-01-02] MEDS: *HR* OxyCODONE Immed Rel 5 MG TABLET PO PRN (19:48)
[2020-01-03] MEDS: *HR* HYDROcodone/Acet 5/325 mg TABLET PO PRN ×2 (00:39→08:40)
[2020-01-03] MEDS: *HR* OxyCODONE Immed Rel 5 MG TABLET PO PRN (06:13)
[2020-01-03] MEDS: *HR* Heparin 5,000 UNIT/ML VIAL SQ SCH (06:14)
[2020-01-03 07:03] VITALS: BP 100/62
[2020-01-03 07:59] LABS: BUN/Creatinine Ratio 29 (6-26); Blood Urea Nitrogen 38 mg/dL (6-20); Calcium 9.1 mg/dL (8.6-10.3); Carbon Dioxide 26 mEq/L (23-29); Chloride 101 mEq/L (98-107); Glucose 237 mg/dL (70-105); Magnesium 1.7 mg/dL (1.6-2.6); Osmolality,Calculated 297 (280-300); Potassium 4.5 mEq/L (3.5-5.1); Sodium 135 mEq/L (136-145); eGFR For African Americans > 60 (> 60); eGFR For Non-African Americans > 60 (> 60)
[2020-01-03] MEDS: Insulin LISPRO 300 UNITS/3 ML VIAL SQ SCH (08:31)
[2020-01-03] MEDS: Furosemide 40 MG/4 ML VIAL IVP SCH (08:31)
[2020-01-03] MEDS: hydrALAZINE 25 MG TABLET PO SCH (08:32)
[2020-01-03] MEDS: Gabapentin 300 MG CAPSULE PO SCH (08:32)
[2020-01-03] MEDS: lisinopriL 5 MG TABLET PO SCH (08:32)
[2020-01-03] MEDS: Spironolactone 25 MG TABLET PO SCH (08:32)
[2020-01-03] MEDS: Aspirin Enteric Coated 81 MG Tablet PO SCH (08:33)
[2020-01-03] MEDS: Metoprolol XL (24 HR) Succ 25 MG TAB.ER.24H PO SCH (08:33)
[2020-01-03] MEDS: DAPTOmycin 750 MG in 0.9 % Sodium Chloride 100 ML IVPB SCH (08:46)
[2020-01-03] MEDS: Budesonide/Formoterol 160/4.5 1 PUFF INH IH SCH (10:04)
== END 2020-01-03 10:54 ==
LOC: EMEROOARM 20:09 → 3ANU 20:09 → SUATTDRO 01-02 00:03 → 3ANU 01-02 00:59
PROVIDERS: ADMIT Internal Medicine; ATTEND Internal Medicine